=== PATIENT | male | born 1945 | race Caucasian/White ===

== ENCOUNTER 2023-09-11 08:58 | Outpatient (OUT) | payer MEDICARE, SELFPAY ==
[2023-09-11 09:37] LABS: Basophils Percent Auto 0.5 % (0.2-2.0); Eosinophils Absolute Auto 0.1 10^3/uL (0.0-0.7); Eosinophils Percent Auto 0.9 % (0.9-7.0); Hematocrit 39.9 % (42.0-54.0); Hemoglobin 12.8 g/dL (14.0-18.0); Immature Granulocytes Abs Auto 0.02 10^3/uL (0.00-0.03); Immature Granulocytes Pct Auto 0.2 % (0.0-0.5); Lymphocytes Absolute Auto 2.1 10^3/uL (1.2-3.8); Lymphocytes Percent Auto 25.8 % (20.5-60.0); Mean Corpuscular HGB Conc 32.1 g/dL (29.9-35.2); Mean Corpuscular Hemoglobin 31.1 pg (25.9-34.0); Mean Corpuscular Volume 96.8 fL (80.0-94.0); Monocytes Absolute Auto 0.7 10^3/uL (0.3-0.8); Monocytes Percent Auto 8.3 % (1.7-12.0); Neutrophils Absolute Auto 5.2 10^3/uL (1.4-6.5); Neutrophils Percent Auto 64.3 % (43.0-75.0); Platelet Count 192 10^3/uL (150-450); Red Blood Count 4.12 10^6/uL (4.70-6.10); Red Cell Distribution Width 13.6 % (11.0-15.0); White Blood Count 8.1 10^3/uL (4.0-11.0)
[2023-09-11 09:47] LABS: Estimated Average Glucose 131 mg/dL; Glycohemoglobin A1C 6.2 % (4.5-6.2)
[2023-09-11 10:13] LABS: Alanine Aminotransferase 19 U/L (16-63); Albumin Globulin Ratio 0.8; Albumin Level 3.7 g/dL (3.4-5.0); Alkaline Phosphatase 97 U/L (46-116); Aspartate Amino Transferase 16 U/L (15-37); BUN Creatinine Ratio 19.5; Bilirubin Total 0.7 mg/dL (0.2-1.0); Calcium 9.3 mg/dL (8.5-10.1); Carbon Dioxide 28.2 mmol/L (21.0-32.0); Chloride 104 mmol/L (98-107); Chol HDL Ratio 3.3; Cholesterol 169 mg/dL (<=200); Estimated GFR (African America 48 (>=60); Estimated GFR (Non-African Ame 39 (>=60); Free T3 2.64 pg/mL (2.18-3.98); Globulin 4.6 g/dL; Glucose 80 mg/dL (74-106); HDL Cholesterol 51 mg/dL (40-60); LDL Cholesterol Calculated 98.6 mg/dL; Potassium 5.2 mmol/L (3.5-5.1); Sodium 140 mmol/L (136-145); Thyroid Stimulating Hormone 1.758 uIU/mL (0.358-3.740); Total Protein 8.3 g/dL (6.4-8.2); Triglycerides 97 mg/dL (<=150); Uric Acid 7.9 mg/dL (3.5-7.2); VLDL CHOLESTEROL 19.4 mg/dL
[2023-09-11 10:14] LABS: Prostate Specific Antigen Scrn 4.03 ng/mL (<=4.00)
[2023-09-12 04:09] LABS: PSA, Free 1.22 ng/mL
== END 2023-09-11 08:59 | disposition home or self-care (01) ==
LOC: LAB 09:03
PROVIDERS: PCP Family Medicine; Visit Provider Family Medicine
DX: M10.9 Gout, unspecified (principal); Z23 Encounter for immunization; I10 Essential (primary) hypertension; E11.9 Type 2 diabetes mellitus without complications; K59.00 Constipation, unspecified; E78.5 Hyperlipidemia, unspecified; Z12.5 Encounter for screening for malignant neoplasm of prostate; Z12.12 Encounter for screening for malignant neoplasm of rectum; R97.20 Elevated prostate specific antigen [PSA]
CPT/HCPCS: 36415; 80053; 80061; 83036; 84153; 84154; 84436; 84443; 84481; 84550; 85025; G0103

== ENCOUNTER 2023-09-14 15:26 | Outpatient (REF) | payer MEDICARE, SELFPAY ==
[2023-09-14 15:39] LABS: Occult Blood Positive
== END 2023-09-14 15:27 | disposition home or self-care (01) ==
LOC: LAB 15:26
PROVIDERS: PCP Family Medicine; Visit Provider Family Medicine
DX: Z12.12 Encounter for screening for malignant neoplasm of rectum (principal)
CPT/HCPCS: G0328

== ENCOUNTER 2023-09-22 07:59 | Outpatient (OUT) | payer MEDICARE, SELFPAY ==
[2023-09-22 09:52] LABS: Anion Gap 13.5; BUN Creatinine Ratio 14.9; Carbon Dioxide 28.3 mmol/L (21.0-32.0); Chloride 103 mmol/L (98-107); Estimated GFR (African America 56 (>=60); Estimated GFR (Non-African Ame 46 (>=60); Glucose 76 mg/dL (74-106); Potassium 4.8 mmol/L (3.5-5.1); Sodium 140 mmol/L (136-145)
== END 2023-09-22 08:00 | disposition home or self-care (01) ==
PROVIDERS: PCP Family Medicine; Visit Provider Family Medicine
DX: E87.5 Hyperkalemia (principal); N17.9 Acute kidney failure, unspecified
CPT/HCPCS: 36415; 80048

== ENCOUNTER 2023-10-18 13:35 | Outpatient (OUT) | payer MEDICARE, SELFPAY | END 2023-10-18 13:36 | disposition home or self-care (01) | LOC: PST 13:35 | PROVIDERS: PCP Family Medicine; Visit Provider Surgery | DX: Z01.818 Encounter for other preprocedural examination (principal); R19.5 Other fecal abnormalities ==

== ENCOUNTER 2023-10-25 08:10 | Day surgery (SDC) | payer MEDICARE, SELFPAY ==
--- NOTE | 2023-10-25 | OP_ITS ---
OPERATION DATE: 10/25/2023 PREOPERATIVE DIAGNOSIS: Positive fecal occult blood. POSTOPERATIVE DIAGNOSIS: Severe diverticulosis. PROCEDURE: Colonoscopy to cecum. SURGEON: Donald Menon M.D. ANESTHESIA: Monitored anesthesia care. ESTIMATED BLOOD LOSS: Zero. INDICATIONS AND CONSENT: Patient is a 77-year-old male with recent positive fecal occult blood. Indications, risks, benefits, alternatives of proceeding with colonoscopy were explained extensively to the patient, including the risks of bleeding, colon perforation or anesthetic complications. All of his questions were answered. Informed consent was obtained. PROCEDURE: Patient brought to the operating room, placed in the left lateral decubitus position. Monitored anesthesia care was provided. Rectal exam was performed which shows no masses or blood. The scope was inserted into the anal canal. Under direct visualization was advanced. With the aid of abdominal compression, it was advanced to the cecum where cecal markings were clearly identified. Upon withdrawal of the scope, mucosal surfaces were carefully examined. There were no mass lesions or polyps. No inflammatory changes or ulcerations. There was noted to be severe diverticulosis throughout the colon, including the right colon, with no inflammatory changes. The scope was retroflexed in the anal canal. There was no significant hemorrhoidal disease. The scope was then withdrawn. Patient tolerated procedure well, was sent to recovery room in good condition.no further screening required CC: Jaime Vargas M.D. [facility]
--- OUTSIDE RECORDS SUMMARY | 2023-10-25 08:13 | XMS_ITS | CCD ---
Author Name Unknown Address [address] [place] [address] Organization [facility] Care Team Providers Care Air Traffic Controller Name Role Phone STEPHY, DR DO Admitting Unavailable STEPHY, DR DO Attending Unavailable STEPHY, DR DO Primary Care Unavailable STEPHY, DR DO Consulting Unavailable STEPHY, DR DO Admitting Unavailable STEPHY, DR DO Attending Unavailable STEPHY, DR DO Primary Care Unavailable STEPHY, DR DO Consulting Unavailable BRIAN, DR LAKIA Deutsch Consulting Unavailable STEPHY, DR DO Admitting Unavailable STEPHY, DR DO Attending Unavailable STEPHY, DR DO Primary Care Unavailable STEPHY, DR DO Consulting Unavailable STEPHY, DR DO Primary Care Unavailable LINDA PEÑALOZA Admitting Unavailable LINDA PEÑALOZA Attending Unavailable JAY, DR SHELL Garcia Consulting Unavailable LINDA PEÑALOZA Consulting Unavailable Hi Vargas Primary Care Physician Donald EVERETT Attending Unavailable Hi Vargas Referring Unavailable Allergies Allergy Classification Reported Allergen(s) Allergy Type Date of Onset Reaction(s) Facility (1 source) No Known Medication Allergies; Translations: [No Known Medication Allergies] Propensity to adverse reactions (disorder) [facility] Medications Current Medications Medication Drug Class(es) Dates Sig (Normalized) Sig (Original) aspirin 81 mg delayed release oral tablet (1 source) Platelet Aggregation Inhibitor, Nonsteroidal Anti-inflammatory Drug Start: 10-04-2023 take 1 tablet by mouth once daily aspirin 81 mg Oral EC Tab 81 mg = 1 tab(s), Oral, Daily, Refills(s) 0 Start Date: 10/04/23 Status: Ordered glipiZIDE 10 mg oral tablet (1 source) Sulfonylurea Start: 10-04-2023 take 1 tablet by mouth twice daily glipiZIDE 10 mg Tab 10 mg = 1 tab(s), Oral, BID, Refills(s) 0 Start Date: 10/04/23 Status: Ordered indomethacin 25 mg oral capsule (1 source) Nonsteroidal Anti-inflammatory Drug Start: 10-04-2023 take 1 capsule by mouth twice daily indomethacin 25 mg Cap 25 mg = 1 cap(s), Oral, BID, Refills(s) 0 Start Date: 10/04/23 Status: Ordered metFORMIN hydrochloride 500 mg oral tablet (1 source) Biguanide Start: 10-04-2023 take 1 tablet by mouth twice daily metformin 500 mg Tab 500 mg = 1 tab(s), Oral, BID, Refills(s) 0 Start Date: 10/04/23 Status: Ordered 24 hr metoprolol succinate 100 mg extended release oral tablet (1 source) beta-Adrenergic Elizabeth Start: 10-04-2023 take 1 tablet by mouth once daily metoprolol 100 mg ER Tab 100 mg = 1 tab(s), Oral, Daily, Refills(s) 0 Start Date: 10/04/23 Status: Ordered Miralax (1 source) Osmotic Laxative Start: 10-04-2023 take 17 g by mouth once daily MiraLax 17 gm, Oral, Daily, Refill(s) 0 Start Date: 10/04/23 Status: Ordered Vitamin D3 2000 intl units oral Tab (1 source) Start: 10-04-2023 take 1 tablet by mouth once daily Vitamin D3 2000 intl units oral Tab = 1 tab(s), Oral, Daily, Refills(s) 0 Start Date: 10/04/23 Status: Ordered Completed/Discontinued Medications Medication Drug Class(es) Dates Sig (Normalized) Sig (Original) pioglitazone 30 mg oral tablet (1 source) Peroxisome Proliferator Receptor alpha Agonist, Peroxisome Proliferator Receptor gamma Agonist, Thiazolidinedione Start: 10-04-2023 take 1 tablet by mouth once daily simvastatin 10 mg oral tablet (1 source) HMG-CoA Reductase Inhibitor Start: 10-04-2023 take 2 tablets by mouth once daily in the evening Problems Active Problems Problem Classification Problem Date Documented Da te Episodic/Chronic Calculus of urinary tract (1 source) History of calculus of kidney 10-04-2023 Episodic Cardiac dysrhythmias (1 source) Bradycardia 10-04-2023 Episodic Deficiency and other anemia (4 sources) Anemia, unspecified; Translations: [ANEMIA UNSPECIFIED] Onset: 09-09-2022 Episodic Diabetes mellitus without complication (2 sources) Type 2 diabetes mellitus without complications; Translations: [Diabetes mellitus] Onset: 09-12-2022 10-04-2023 Chronic Disorders of lipid metabolism (1 source) Hyperlipidemia, unspecified; Translations: [HYPERLIPIDEMIA UNSPECIFIED] Onset: 09-12-2022 Chronic Diverticulosis and diverticulitis (1 source) Diverticular disease 10-04-2023 Chronic Essential hypertension (2 sources) Essential (primary) hypertension; Translations: [Essential hypertension] Onset: 09-12-2022 10-04-2023 Chronic Gout and other crystal arthropathies (2 sources) Gout, unspecified; Translations: [Gout] Onset: 09-12-2022 10-04-2023 Chronic Hyperplasia of prostate (5 sources) Benign prostatic hyperplasia without lower urinary tract symptoms; Translations: [Benign prostatic hyperplasia] Onset: 09-08-2022 Chronic Nutritional deficiencies (1 source) Vitamin D deficiency, unspecified; Translations: [VITAMIN D DEFICIENCY UNSPECIFIED] Onset: 09-12-2022 Chronic Other gastrointestinal disorders (1 source) Abnormal feces; Translations: [Other fecal abnormalities] Onset: 10-17-2023 Episodic Other gastrointestinal disorders (1 source) Occult blood in stools 10-11-2023 Episodic Other nutritional; endocrine; and metabolic disorders (1 source) Overweight 10-17-2023 Episodic Other nutritional; endocrine; and metabolic disorders (1 source) Overweight in adulthood with body mass index of 25 or more but less than 30 10-17-2023 Episodic Other screening for suspected conditions (not mental disorders or infectious disease) (2 sources) Encounter for screening for malignant neoplasm of prostate; Translations: [Abnormal findings on diagnostic imaging of other parts of musculoskeletal system] Onset: 12-06-2021 Episodic Spondylosis; intervertebral disc disorders; other back problems (2 sources) Other intervertebral disc degeneration, lumbosacral region; Translations: [Spondylosis without myelopathy or radiculopathy, lumbar region] Onset: 11-29-2021 Chronic Transient cerebral ischemia (1 source) 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 Unclassified (3 sources) LOW BACK PAIN, UNSPECIFIED; Translations: [LOW BACK PAIN, UNSPECIFIED] Onset: 12-06-2021 Past or Other Problems Problem Classification Problem Date Documented Da te Episodic/Chronic Spondylosis; intervertebral disc disorders; other back problems (1 source) Spinal stenosis, lumbosacral region; Translations: [SPINAL STENOSIS LUMBOSACRAL REGION] Onset: 12-06-2021 Episodic Unclassified (1 source) LOW BACK PAIN, UNSPECIFIED; Translations: [LOW BACK PAIN, UNSPECIFIED] Onset: 12-02-2021 Results Test Name Value Interpretation Reference Range Facil ity Consent for Procedure/Surger yon 10-18-2023 Consent for Procedure/Surgery [id number]#1.00TIFF [facility] Facesheeton 10-18-2023 Facesheet [id number]#1.00T IFF [facility] Ambulatory Visit Summaryon 1 12-18-2022 Ambulatory Visit Summary PARDEEP STEPHENSON :1945 Visit Date:10/17/2023 Ambulatory Visit Instructions Your Diagnosis Positive occult stool blood test Your Care Team Attending Physician - MARGUERITE CASE, Donald Deutsch Primary Care Physician - Hi Vargas MD Referring Physician - Hi Vargas MD This Is Your Medications List Contact prescribing physician if questions or concerns aspirin (aspirin 81 mg Oral EC Tab) cholecalciferol (Vitamin D3 2000 intl units oral Tab) glipiZIDE (glipiZIDE 10 mg Tab) indomethacin (indomethacin 25 mg Cap) metformin (metformin 500 mg Tab) metoprolol (metoprolol 100 mg ER Tab) pioglitazone (pioglitazone 30 mg Tab) polyethylene glycol 3350 (MiraLax) simvastatin (simvastatin 10 mg Tab) Procedures Performed Colonoscopy (12/28/2011), Insertion of stent into ureter. Discharge Vitals Heart Rate (Peripheral) 68 Respiratory Rate 16 Blood Pressure 148/84 Height 177.8 cm Height 70 in Weight 89.6 kg Weight 197.12 lb BMI 28.34 Medications What How Much When Instructions Unchanged aspirin (aspirin 81 mg Oral EC Tab) 1 Tablets By Mouth Every day Contact prescribing physician if questions or concerns Unchanged cholecalciferol (Vitamin D3 2000 intl units oral Tab) 1 Tablets By Mouth Every day Contact prescribing physician if questions or concerns Unchanged glipiZIDE (glipiZIDE 10 mg Tab) 1 Tablets By Mouth 2 times a day Contact prescribing physician if questions or concerns Unchanged indomethacin (indomethacin 25 mg Cap) 1 Capsules By Mouth 2 times a day Contact prescribing physician if questions or concerns Unchanged metformin (metformin 500 mg Tab) 1 Tablets By Mouth 2 times a day Contact prescribing physician if questions or concerns Unchanged metoprolol (metoprolol 100 mg ER Tab) 1 Tablets By Mouth Every day Contact prescribing physician if questions or concerns Unchanged pioglitazone (pioglitazone 30 mg Tab) 1 Tablets By Mouth Every day 1 Unknown, 0 Refill(s) Contact prescribing physician if questions or concerns Unchanged polyethylene glycol 3350 (MiraLax) 17 Gram By Mouth Every day Contact prescribing physician if questions or concerns Unchanged simvastatin (simvastatin 10 mg Tab) 2 Tablets By Mouth Once a day (in the evening) 2 Unknown, 0 Refill(s) Contact prescribing physician if questions or concerns Medications and Immunizations Administered Not Given influenza virus vaccine, inactivated, Patient Refuses Allergies No Known Allergies No Known Medication Allergies Problems Ongoing - Any problem that you are currently receiving treatment for. Benign prostatic hyperplasia BMI 28.0-28.9,adult Bradycardia Diabetes mellitus Diverticular disease Essential hypertension Gout History of nephrolithiasis Overweight Positive occult stool blood test Transient global amnesia Patient Survey You may receive a survey via text or e-mail asking about your office visit. Please share your experience with us by completing your survey. We appreciate your feedback and thank you for choosing us for your care. Normal [facility] Lab Reportson 10-04-2023 Lab Reports [id number]#1.00T IFF Normal [facility] Physician Referralon 023 Physician Referral [id number]#1.00TIFF Normal [facility] INSULINon 09-09-2022 Insulin 12.7 uIU/mL Normal 2.6-24.9 [facility] Comment on above: Performed By: #### I NSULIN #### [facility] [address] [place] [address] Dr. Zak Gutierrez OCC BLD IMMUNO SCREENon OCCULT BLOOD Negative Normal NEGATIVE [facility] Comment on above: Performed By: #### O BSCRN #### [facility] [address] [place] [address] Dr. Zak Gutierrez CBC AUTO DIFFon 09-08-2022 BASO # 0.0 103/ul Normal 0.0-0.1 [facility] Comment on above: Performed By: #### C BC #### [facility] [address] [place] [address] Dr. Zak Gutierrez Basophils/100 WBC (Bld) 0.4 % Normal 0.2-2.0 [facility] Comment on above: Performed By: #### C BC #### [facility] [address] [place] [address] Dr. Zak Gutierrez EO # 0.1 103/ul Normal 0.0-0.7 [facility] Comment on above: Performed By: #### C BC #### [facility] [address] [place] [address] Dr. Zak Gutierrez Eosinophils/100 WBC (Bld) 1.1 % Normal 0.9-7.0 [facility] Comment on above: Performed By: #### C BC #### [facility] [address] [place] [address] Dr. Zak Gutierrez Erythrocyte distribution wid th (RBC) [Ratio] 13.6 % Normal 11.0-15.0 [facility] Comment on above: Performed By: #### C BC #### [facility] [address] [place] [address] Dr. Zak Gutierrez Hematocrit (Bld) [Volume fraction] 40.0 % Critically low 42.0-54.0 [facility] Comment on above: Performed By: #### C BC #### [facility] [address] [place] [address] Dr. Zak Gutierrez Hemoglobin (Bld) [Mass/Vol] 12.7 g/dL Critically low 14.0 -18.0 [facility] Comment on above: Performed By: #### C BC #### [facility] [address] [place] [address] Dr. Zak Gutierrez IG # 0.02 10e3/ul Normal 0.00-0.03 [facility] Comment on above: Performed By: #### C BC #### [facility] [address] [place] [address] Dr. Zak Gutierrez IG % 0.3 % Normal 0.0-0.5 [facility] Comment on above: Performed By: #### C BC #### [facility] [address] [place] [address] Dr. Zak Gutierrez LYMPH # 2.0 103/ul Normal 1.2-3.8 [facility] Comment on above: Performed By: #### C BC #### [facility] [address] [place] [address] Dr. Zak Gutierrez Lymphocytes/100 WBC (Bld) 27.5 % Normal 20.5-60.0 [facility] Comment on above: Performed By: #### C BC #### [facility] [address] [place] [address] Dr. Zak Gutierrez MANUAL DIFF REQ NO Normal [facility] Comment on above: Performed By: #### C BC #### [facility] [address] [place] [address] Dr. Zak Gutierrez MCH (RBC) [Entitic mass] 30.6 pg Normal 25.9-34.0 [facility] Comment on above: Performed By: #### C BC #### [facility] [address] [place] [address] Dr. Zak Gutierrez MCHC (RBC) [Mass/Vol] 31.8 g/dL Normal 29.9-35.2 [facility] Comment on above: Performed By: #### C BC #### [facility] [address] [place] [address] Dr. Zak Gutierrez MCV (RBC) [Entitic vol] 96.4 fL Critically high 80.0-94 .0 [facility] Comment on above: Performed By: #### C BC #### [facility] [address] [place] [address] Dr. Zak Gutierrez MONO # 0.6 103/ul Normal 0.3-0.8 [facility] Comment on above: Performed By: #### C BC #### [facility] [address] [place] [address] Dr. Zak Gutierrez Monocytes/100 WBC (Bld) 8.4 % Normal 1.7-12.0 [facility] Comment on above: Performed By: #### C BC #### [facility] [address] [place] [address] Dr. Zak Gutierrez NEUT # 4.5 103/ul Normal 1.4-6.5 [facility] Comment on above: Performed By: #### C BC #### [facility] [address] [place] [address] Dr. Zak Gutierrez Neutrophils/100 WBC (Bld) 62.3 % Normal 43.0-75.0 [facility] Comment on above: Performed By: #### C BC #### [facility] [address] [place] [address] Dr. Zak Gutierrez Platelet mean volume (Bld) [ Entitic vol] 10.9 fL Normal 9.5-13.5 [facility] Comment on above: Performed By: #### C BC #### [facility] [address] [place] [address] Dr. Zak Gutierrez PLT 184 103/ul Normal 150-450 [facility] Comment on above: Performed By: #### C BC #### [facility] [address] [place] [address] Dr. Zak Gutierrez RBC 4.15 106/ul Critically low 4.70-6.[address] [facility] Comment on above: Performed By: #### C BC #### [facility] [address] [place] [address] Dr. Zak Gutierrez WBC 7.1 103/ul Normal 4.0-11.0 [facility] Comment on above: Performed By: #### C BC #### [facility] [address] [place] [address] Dr. Zak Gutierrez FREE THYROXINE INDEX T7on FTI 2.42 Normal 1.30-4.50 [facility] Comment on above: Performed By: #### C MP, T7, LIPID, URIC, TSH #### [facility] [address] [address] [address] Zak Gutierrez T3U 31.0 % Critically low 33.0-40.0 [facility] Comment on above: Performed By: #### C MP, T7, LIPID, URIC, TSH #### [facility] [address] [address] [address] Zak Gutierrez T4 [Mass/Vol] 7.80 ug/dL Normal 4.50-12.10 [facility] Comment on above: Performed By: #### C MP, T7, LIPID, URIC, TSH #### [facility] [address] [address] [address] Zak Gutierrez GLYCOHEMOGLOBIN A1Con 2021 ADA RECOMMENDATION SEE BELOW Normal [facility] Comment on above: Result Comment: ADA RECOMMENDED LIMIT 4.0 - 6.0 ADA THERAPEUTIC TARGET < 7.0 ACTION SUGGESTED > 7.0 Performed By: #### A 1C ####[facility] [id number] [address]Dr. Zak Gutierrez Glucose [Mass/Vol] 140 mg/dL Normal The [facility] Comment on above: Performed By: #### A 1C ####[facility] [id number] [id number][address] Zak Gutierrez HbA1c (Bld) [Mass fraction] 6.5 % Critically high 4.5 -6.2 [facility] Comment on above: Performed By: #### A 1C ####[facility] [id number] [id number]. Zak Gutierrez LIPID PROFILEon 09-08-2022 CHOL-HDL RATIO NORM SEE BELOW Normal [facility] Comment on above: Result Comment: 3.3 - 4.4 LOW RISK 4.4 - 7.1 AVERAGE RISK 7.1 - 11.0 MODERATE RISK >11.0 HIGH RISK Performed By: #### C MP, T7, LIPID, URIC, TSH #### [facility] [address] [address] [address] Zak Gutierrez Cholesterol [Mass/Vol] 152 mg/dL Normal <=200 [facility] Comment on above: Performed By: #### C MP, T7, LIPID, URIC, TSH #### [facility] [address] [address] [address] Zak Gutierrez Cholesterol in HDL [Mass/Vol] 40 mg/dL Normal 40-60 [facility] Comment on above: Performed By: #### C MP, T7, LIPID, URIC, TSH #### [facility] [address] [address] [address] Zak Gutierrez Cholesterol in LDL [Mass/Vol] 81.8 mg/dL Normal [facility] Comment on above: Performed By: #### C MP, T7, LIPID, URIC, TSH #### [facility] [address] [place] [address] Dr. Zak Gutierrez Cholesterol.total/Cholestero l in HDL [Mass ratio] 3.8 {ratio} Normal [facility] Comment on above: Performed By: #### C MP, T7, LIPID, URIC, TSH #### [facility] [address] [place] [address] Dr. Zak Gutierrez HDL NORMAL > or = 60 mg/dl - LO W CARDIOVASCULAR RISK <40 mg/dl - HIGH CARDIOVASCULAR RISK Normal [facility] Comment on above: Performed By: #### C MP, T7, LIPID, URIC, TSH #### [facility] [address] [place] [address] Dr. Zak Gutierrez LDL CALC NORMAL SEE BELOW Normal [facility] Comment on above: Result Comment: <100 mg/dl OPTIMAL 100 - 129 mg/dl NEAR OR ABOVE OPTIMAL 130 - 159 mg/dl BORDERLINE HIGH 160 - 189 mg/dl HIGH >190 mg/dl VERY HIGH Performed By: #### C MP, T7, LIPID, URIC, TSH #### [facility] [address] [place] [address] Dr. Zak Gutierrez Triglyceride [Mass/Vol] 151 mg/dL Critically high <=150 [facility] Comment on above: Performed By: #### C MP, T7, LIPID, URIC, TSH #### [facility] [address] [place] [address] Dr. Zak Gutierrez VLDL CALC 30.2 mg/dL Normal [facility] Comment on above: Performed By: #### C MP, T7, LIPID, URIC, TSH #### [facility] [address] [place] [address] Dr. Zak Gutierrez PROF 14(COMP METB)on 022 Albumin [Mass/Vol] 3.7 g/dL Normal 3.4-5.0 [facility] Comment on above: Performed By: #### C MP, T7, LIPID, URIC, TSH #### [facility] [address] [place] [address] Dr. Zak Gutierrez Albumin/Globulin [Mass ratio] 0.8 {ratio} Normal [facility] Comment on above: Performed By: #### C MP, T7, LIPID, URIC, TSH #### [facility] [address] [place] [address] Dr. Zak Gutierrez ALP [Catalytic activity/Vol] 109 U/L Normal 46-116 [facility] Comment on above: Performed By: #### C MP, T7, LIPID, URIC, TSH #### [facility] [address] [place] [address] Dr. Zak Gutierrez ALT [Catalytic activity/Vol] 20 U/L Normal 16-63 [facility] Comment on above: Performed By: #### C MP, T7, LIPID, URIC, TSH #### [facility] [address] [place] [address] Dr. Zak Gutierrez Anion gap [Moles/Vol] 10.6 mmol/L Normal [facility] Comment on above: Performed By: #### C MP, T7, LIPID, URIC, TSH #### [facility] [address] [place] [address] Dr. Zak Gutierrez AST [Catalytic activity/Vol] 20 U/L Normal 15-37 [facility] Comment on above: Performed By: #### C MP, T7, LIPID, URIC, TSH #### [facility] [address] [place] [address] Dr. Zak Gutierrez Bilirubin [Mass/Vol] 0.7 mg/dL Normal 0.2-1.0 [facility] Comment on above: Performed By: #### C MP, T7, LIPID, URIC, TSH #### [facility] [address] [place] [address] Dr. Zak Gutierrez Calcium [Mass/Vol] 9.6 mg/dL Normal 8.5-10.1 [facility] Comment on above: Performed By: #### C MP, T7, LIPID, URIC, TSH #### [facility] [address] [place] [address] Dr. Zak Gutierrez Chloride [Moles/Vol] 102 mmol/L Normal 98-107 [facility] Comment on above: Performed By: #### C MP, T7, LIPID, URIC, TSH #### [facility] [address] [place] [address] Dr. Zak Gutierrez CO2 [Moles/Vol] 30.2 mmol/L Normal 21.0-32.0 [facility] Comment on above: Performed By: #### C MP, T7, LIPID, URIC, TSH #### [facility] [address] [place] [address] Dr. Zak Gutierrez Creatinine [Mass/Vol] 1.46 mg/dL Critically high 0.70-1.30 [facility] Comment on above: Performed By: #### C MP, T7, LIPID, URIC, TSH #### [facility] [address] [place] [address] Dr. Zak Gutierrez EGFR-AF CANADIAN 57 mL/min/1.73m2 Critically low >=60 [facility] Comment on above: Performed By: #### C MP, T7, LIPID, URIC, TSH #### [facility] [address] [place] [address] Dr. Zak Gutierrez EGFR-NON AF CANADIAN 47 mL/min/1.73m2 Critically low >=60 [facility] Comment on above: Performed By: #### C MP, T7, LIPID, URIC, TSH #### [facility] [address] [place] [address] Dr. Zak Gutierrez Globulin (S) [Mass/Vol] 4.5 g/dL Normal [facility] Comment on above: Performed By: #### C MP, T7, LIPID, URIC, TSH #### [facility] [address] [place] [address] Dr. Zak Gutierrez Glucose [Mass/Vol] 84 mg/dL Normal 74-106 [facility] Comment on above: Performed By: #### C MP, T7, LIPID, URIC, TSH #### [facility] [address] [place] [address] Dr. Zak Gutierrez Potassium [Moles/Vol] 4.8 mmol/L Normal 3.5-5.1 [facility] Comment on above: Performed By: #### C MP, T7, LIPID, URIC, TSH #### [facility] [address] [place] [address] Dr. Zak Gutierrez Protein [Mass/Vol] 8.2 g/dL Normal 6.4-8.2 [facility] Comment on above: Performed By: #### C MP, T7, LIPID, URIC, TSH #### [facility] [address] [place] [address] Dr. Zak Gutierrez Sodium [Moles/Vol] 138 mmol/L Normal 136-145 [facility] Comment on above: Performed By: #### C MP, T7, LIPID, URIC, TSH #### [facility] [address] [place] [address] Dr. Zak Gutierrez Urea nitrogen [Mass/Vol] 25.0 mg/dL Critically high 7.0-18 .0 [facility] Comment on above: Performed By: #### C MP, T7, LIPID, URIC, TSH #### [facility] [address] [place] [address] Dr. Zak Gutierrez Urea nitrogen/Creatinine [Mass ratio] 17.1 mg/mg Normal [facility] Comment on above: Performed By: #### C MP, T7, LIPID, URIC, TSH #### [facility] [address] [place] [address] Dr. Zak Gutierrez TSHon 09-08-2022 TSH 1.625 uIU/mL Normal 0.358-3.740 [facility] Comment on above: Performed By: #### C MP, T7, LIPID, URIC, TSH #### [facility] [address] [place], [place] [address] Dr. Zak Gutierrez URIC ACID SERUMon 09-08-2022 Urate [Mass/Vol] 7.4 mg/dL Critically high 3.5-7.2 [facility] Comment on above: Performed By: #### C MP, T7, LIPID, URIC, TSH #### [facility] [address] [place], [place] [address] Dr. Zak Gutierrez VITAMIN D 25 OHon 09-08-2022 VIT D 25-OH 24.0 ng/mL Normal [facility] Comment on above: Performed By: #### V ITAD, PSASC ####[facility] [address] [place] [id number] Gutierrez VIT D RANGES SEE BELOW Normal [facility] Comment on above: Result Comment: <20 ng/mL Vit D deficient 20 - <30 ng/mL Vit D insufficient 30 - 100 ng/mL Vit D sufficient >100 ng/mL Potential Toxicity Performed By: #### V ITAD, PSASC ####[facility] [address] [place], [place] [address]Bi. Zak Gutierrez MRI LSPINE WO CONon 12-02-19 MRI LSPINE WO CON EXAMINATION: MRI LSP INE WO CON HISTORY: Imaging result abnormal ; acute lumbar pain, no known injury COMPARISON: XR lumbar spine 11/25/2021 TECHNIQUE: A variety of imaging planes and parameters were utilized for visualization of suspected pathology. FINDINGS: For the purposes of numbering, sagittal T2 image # 8 extends from the T12-L1 vertebral body superiorly to the S4 level inferiorly. PARASPINAL AREA: Bilateral renal cysts. BONES: Partial lumbarization of S1. Prominent anterior projecting osteophytes. No fracture, spondylolisthesis, bone lesion. CORD/CAUDA EQUINA: Normal caliber, contour, and signal intensity. DISC LEVELS: 12-L1: No significant disc/facet abnormality, spinal stenosis, or foraminal stenosis. L1-L2: No significant disc/facet abnormality, spinal stenosis, or foraminal stenosis. L2-L3: No significant disc/facet abnormality, spinal stenosis, or foraminal stenosis. L3-L4: Mild foraminal narrowing bilaterally without significant central canal narrowing. Mild diffuse disc bulging without disc height reduction. L4-L5: Mild foraminal narrowing bilaterally without significant central canal narrowing. Mild diffuse disc bulging without disc height reduction. Mild degenerative facet arthropathy. L5-S1: Marked right, moderate left foramen narrowing. Mild central canal narrowing. Mild diffuse disc bulging with minimal disc height reduction. Moderate degenerative facet arthropathy, right greater than left. IMPRESSION: 1. L5-S1 marked right foramen narrowing secondary to degenerative disc disease and facet arthropathy, which may be contributing to patient's symptoms. Electronically authenticated by: LAKIA TORRES Date: 2021-12-02 16:16 Normal [facility] ER URINE PROFILEon 2 Bilirubin Ql (U) Negative Normal NEGATIVE [facility] Comment on above: Performed By: #### U MICRO, ERUR ####[facility] [address] [place] [address]Dr. Zak Gutierrez Clarity (U) CLEAR Normal CLEAR [facility] Comment on above: Performed By: #### U MICRO, ERUR ####[facility] [address] [place] [address]Dr. Zak Gutierrez Color (U) YELLOW Normal YELLOW [facility] Comment on above: Performed By: #### U MICRO, ERUR ####[facility] [address] [place] [address]Dr. Zak CHRISTIANSONAHD A micrscopic examina tion will be performed if indicated. Normal [facility] Comment on above: Performed By: #### U MICRO, ERUR ####[facility] [address] [place] [address]Dr. Zak Gutierrez Glucose Ql (U) Negative Normal NEGATIVE [facility] Comment on above: Performed By: #### U MICRO, ERUR ####[facility] [address] [place] [address]Dr. Zak Gutierrez Hemoglobin Ql (U) SMALL Abnormal NEGATIVE [facility] Comment on above: Performed By: #### U MICRO, ERUR ####[facility] [address] [place] [address]Dr. Zak Gutierrez Ketones Ql (U) Negative Normal NEGATIVE [facility] Comment on above: Performed By: #### U MICRO, ERUR ####[facility] [address] [place] [address]Dr. Zak Gutierrez LEUKOCYTES TRACE Abnormal NEGATIVE [facility] Comment on above: Performed By: #### U MICRO, ERUR ####[facility] [address] [place] [address]Dr. Haleysaniya Matt Nitrite Ql (U) Negative Normal NEGATIVE [facility] Comment on above: Performed By: #### U MICRO, ERUR ####[facility] [address] [place] [address]Dr. Zak Gutierrez pH (U) 6.0 [pH] Normal 5-9 [facility] Comment on above: Performed By: #### U MICRO, ERUR ####[facility] [address] [place], [place] [address]Dr. Zak Gutierrez Protein (U) [Mass/Vol] 30 mg/dL Abnormal NEGATIVE/ TRA CE [facility] Comment on above: Performed By: #### U MICRO, ERUR ####[facility] [address] [place] [address]Dr. Zak Gutierrez SPEC GRAVITY 1.025 Normal 1.005-<=1.[address] [facility] Comment on above: Performed By: #### U MICRO, ERUR ####[facility] [address] [place] [address]Dr. Zak Gutierrez UR MICRO IND INDICATED Normal [facility] Comment on above: Performed By: #### U MICRO, ERUR ####[facility] [address] [place] [address]Dr. Zak Gutierrez Urobilinogen Qn (U) 0.2 {Kirt'U}/dL Normal 0.2 - 1. 0 [facility] Comment on above: Performed By: #### U MICRO, ERUR ####[facility] [address] [place] [address]Dr. Zak Gutierrez URINE MICROSCOPIC ONLYon BACTERIA NONE SEEN Normal NONE SEEN [facility] Comment on above: Performed By: #### U MICRO, ERUR ####[facility] [address] [place] [address]Dr. Zak Gutierrez Bacteria identified Cx Nom (U) NOT INDICATED Normal [facility] Comment on above: Performed By: #### U MICRO, ERUR ####[facility] [address] [place] [address]Dr. Zak Gutierrez CAST SEEN Abnormal NONE SEEN [facility] Comment on above: Performed By: #### U MICRO, ERUR ####[facility] [address] [place] [address]Dr. Zak Gutierrez Crystals LM Nom (Urine sed) NONE SEEN Normal NONE SEE N [facility] Comment on above: Performed By: #### U MICRO, ERUR ####[facility] [address] [place], [place] [address]Dr. Zak Gutierrez Epithelial cells LM Ql (Urine sed) FEW Abnormal N ONE SEEN /RARE [facility] Comment on above: Performed By: #### U MICRO, ERUR ####[facility] [address] [place], [place] [address]Dr. Zak Gutierrez HYALINE CAST RARE Normal [facility] Comment on above: Performed By: #### U MICRO, ERUR ####[facility] [address] [place], [place] [address]Dr. Zak Gutierrez MUCOUS TRACE Abnormal NONE SEEN [facility] Comment on above: Performed By: #### U MICRO, ERUR ####[facility] [address] [place] [address]Dr. Zak Gutierrez RBC 2-5 Abnormal 0-2 [facility] Comment on above: Performed By: #### U MICRO, ERUR ####[facility] [address] [place], [place] [address]Dr. Zak Gutierrez WBC 0-2 Abnormal NONE SEEN [facility] Comment on above: Performed By: #### U MICRO, ERUR ####[facility] [address] [place], [place] [address]DrReyes Gutierrez XR LSPINE 2_3 VIEWSon 2021 XR LSPINE 2_3 VIEWS EXAMINATION: XR LSPI NE 2_3 VIEWS HISTORY: Pain COMPARISON: No relevant comparison available. FINDINGS: BONES: Normal alignment with no acute fracture or spondylolisthesis. Extensive degenerative spondylosis with large bulky bridging osteophytes. Moderate facet osteoarthropathy DISC SPACES: Mild multilevel disc space narrowing PARASPINOUS: Negative. No paraspinous abnormality is seen. OTHER: Atherosclerosis IMPRESSION: Severe degenerative spondylosis with moderate facet osteoarthropathy Electronically authenticated by: SHELL THOMPSON Date: 2021-11-25 11:24 Normal [facility] Vital Signs Date Time Vital Sign Value Performing Clinician Eva morales 10-17-2023 14:20-0500 Blood Pressure Location Donald [facility]ERETT [facility] [place] 10-17-2023 14:20-0500 Diastolic blood pressure 84 mm[Hg] Donald [facility]ERETT [facility] [place] 10-17-2023 14:20-0500 Heart rate 68 /min Donald BAUERL [facility] [place] 10-17-2023 14:20-0500 Respiratory rate 16 /min Donald [facility]ERETT [facility] [place] 10-17-2023 14:20-0500 Systolic blood pressure 148 mm[Hg] Donald [facility]ERETT [facility] [place] Encounters Encounter Date Encounter Type Care Provider Facility Start: 10-17-2023 End: 10-18-2023 ambulatory Donald EVERETT Facility:[facility] Start: 10-17-2023 End: 10-17-2023 Patient encounter procedure Donald [facility]ERETT [facility] Start: 09-15-2023 ambulatory Donald EVERETT Facility:[facility] Start: 09-09-2022 End: 09-09-[address] HI VARGAS Facility:[facility] Start: 09-08-2022 End: 09-09-[address] HI VARGAS Facility:[facility] Start: 12-02-2021 End: 12-03-[address] HI VARGAS Facility:[facility] Start: 11-25-2021 End: 11-25-[address] HI VARGAS Facility:[facility] Procedures Date Procedure Procedure Detail Performing Clinician Start: 09-08-[address] DEMETRIA VARGAS Comment on above: Performed By: #### V ITAD, PSASC ####[place] [address]Dr. Zak Gutierrez Start: 12-28-2011 Colonoscopy [facility] Insertion of stent into ureter Donald NILL Immunizations Immunization Date Immunization Notes Care Provider Fa cility 08-26-2021 SARS-CoV-2 (COVID-19 ) mRNA BNT-162b2 vax Donald NILL [facility] [place] 01-26-2021 SARS-CoV-2 (COVID-19 ) mRNA BNT-162b2 vax Donald NILL [facility] [place] 01-04-2021 SARS-CoV-2 (COVID-19 ) mRNA BNT-162b2 vax Donald NILL [facility] [place] NEGATED: Highlighted row has not occurred!10-17-2023 influenza virus vaccine, unspecified formulation Donald MARGUERITE [facility] [place] Payers Date Payer Category Payer Medicare [id number] 1960 Private Health Insurance I [id number] 1960 Private Health Insurance [facility] [id number] 1945 Unknown [id number] [id number] [id number] 1945 Unknown [id number] 2.16.84 [id number] 1945 Unknown [id number] 2.16.84 [id number] 1945 Unknown [id number] 2.16.84 [id number] 1945 Unknown [id number] 2.16.8 [id number] Social History Date Type Detail Facility Start: 10-17-2023 Tobacco smoking status Light t obacco smoker (finding) [facility] Tobacco smoking status Never [facility] Sex Assigned At Male [facility] Functional Status Date Assessment Result Facility 10-17-2023 Functional Status N/A [facility] [place] Clinical Note 10-17-2023 Note Date & Type Note Facility 10-17-2023 Note Chief Complaint consultation for positive occult stool HPI Staff 77 year old male presents on consultation from Dr. Vargas for positive occult stool. Denies abdominal or rectal pain. No rectal bleeding or change in bowel habits. Denies nausea or vomiting. No unexplained weight loss. Last colonoscopy completed 12/2011 with diverticulosis. No known family history of colon cancer. History of Present Illness 77 yo male with h/o DMII, hyperlipidemia, htn, gout, referred for positive fecal occult blood; denies change in bms or gross blood in stools; no abd complaints; no previous abd operations, last colonoscopy 2011 with diverticulosis; on baby asa daily and Indomethacin, no SBE prophylaxis; no fmhx of GI malignancy or IBD; smokes daily. Review of Systems PHQ Score Initial Depression Screen Score: 0 SCORE ROS - Provider Constitutional: no fever, no sweats, no weight loss. Eyes: no glasses, no blurred vision, no visual loss. ENMT: no dentures, no hoarseness, no swallowing difficulties, no hearing loss, no ear infection(s), no nose bleeds. Cardiovascular: normal blood pressure, no chest pain, regular heartbeat, no heart murmur. Respiratory: no shortness of breath, no cough, no asthma, no wheezing. Gastrointestinal: no nausea, no vomiting, no diarrhea, no constipation, no blood in stool, no change in bowel habits, no abdominal pain, no hepatitis. Genitourinary: no kidney stones, no urine infection, no dysuria. Musculoskeletal: no pain, no weakness. Skin: no changing moles, no rash, no skin lumps. Neurologic: no seizures, no epilepsy, no headache. Psychiatric: no emotional or psychiatric problem. Heme/Lymph: no bleeding problems, no anemia, no blood clots, no transfusions. Allergy/Immunologic: no swollen lymph nodes/glands, no IV drug abuse. Other: Additional ROS info: Except as noted in the above Review of Systems and in the History of Present Illness, all other systems have been reviewed and are negative or noncontributory. Physical Exam Vitals & Measurements HR: 68(Peripheral) RR: 16 BP: 148/84 HT: 70 in HT: 177.8 cm WT: 89.6 kg WT: 197.12 lb BMI: 28.34 HEENT: normal conjunctiva, sclera clear, no scleral icterus, EOM intact, PERRLA, oral mucosa moist without lesions. Neck: trachea midline, no mass, symmetric, no thyromegaly or nodules, no adenopathy Respiratory: lungs CTA, respirations non labored. Cardiovascular: regular rate and rhythm, no murmur, no pedal edema or varicosities. Gastrointestinal: soft, non distended, no tenderness, no masses, no palpable hernias, diastasis recti no, no hepatosplenomegaly; normal bs Lymphatic: no cervical adenopathy, no supraclavicular adenopathy. Musculoskeletal: normal gait, digits and nails without infection, nodes, cyanosis, clubbing. Skin: no rashes, no lesions, no ulcers, no subcutaneous nodules, induration. Psychiatric/Neuro: oriented to time, place, person, judgement normal, affect appropriate for age, insight intact, no focal deficits. Tests: labs reviewed,of old records completed , Discussed surgical options, risks, and possible complications with patient. Assessment/Plan 1. Positive occult stool blood test (R19.5: Other fecal abnormalities) plan colonoscopy under anesthesia, informed consent obtained. Follow-up No qualifying data available Problem List/Past Medical History Ongoing Benign prostatic hyperplasia BMI 28.0-28.9,adult Bradycardia Diabetes mellitus Diverticular disease Essential hypertension Gout History of nephrolithiasis Overweight Positive occult stool blood test Transient global amnesia Historical No qualifying data Procedure/Surgical History Colonoscopy (12/28/2011), Insertion of stent into ureter. Medications aspirin 81 mg Oral EC Tab, 81 mg= 1 tab(s), Oral, Daily glipiZIDE 10 mg Tab, 10 mg= 1 tab(s), Oral, BID indomethacin 25 mg Cap, 25 mg= 1 cap(s), Oral, BID metformin 500 mg Tab, 500 mg= 1 tab(s), Oral, BID metoprolol 100 mg ER Tab, 100 mg= 1 tab(s), Oral, Daily MiraLax, 17 gm, Oral, Daily pioglitazone 30 mg Tab, 30 mg= 1 tab(s), Oral, Daily simvastatin 10 mg Tab, 20 mg= 2 tab(s), Oral, qPM Vitamin D3 2000 intl units oral Tab, 1 tab(s), Oral, Daily Allergies No Known Allergies No Known Medication Allergies Social History Alcohol - Denies Alcohol Use, 10/17/2023 Substance Abuse - Denies Substance Abuse, 10/17/2023 Tobacco 5-9 cigarettes (between 1/4 to 1/2 pack)/day in last 30 days Tobacco Use:. Never Smokeless Tobacco Use:. Cigarettes, Started age 18.0 Years. Yes, 10/17/2023 Family History CAD - Coronary artery disease: Father. Dementia: Father. Diabetes mellitus type 2: Mother. Leukemia: Mother. Immunizations Vaccine Date Status Comments influenza virus vaccine, inactivated - Not Given Patient Refuses SARS-CoV-2 (COVID-19) mRNA BNT-162b2 vax 08/26/2021 Recorded SARS-CoV-2 (COVID-19) mRNA BNT-162b2 vax 01/26/2021 Recorded SARS-CoV-2 (COVID-19) mRNA BNT-162b2 vax 01/04/2021 R (more content not included)... [facility] Comment on above: Result Comment: Elec tronically Signed By: MARGUERITE CSAE, Donald Quinn.joi\Date and Time Signed: 10/17/23 14:59 EST Evaluation + Plan note Note Date & Type Note Facility Evaluation + Plan note No data available for this section [facility] [place] [facility] Discharge instructions Note Date & Type Note Facility Hospital Discharge instructions No data available for this section [facility] [place] Progress note Note Date & Type Note Facility Progress note No data available for this section [facility] [place] Summary Purpose Family History No Family History Records Found No data available for this section No Family History Records Found Advance Directives No Advanced Directives Records FoundNo Advanced Directives Records Found Additional Source Comments (unrecognized sect ion and content) No Status Records FoundNo Status Records Found INFORMATION SOURCE (unrecogn ized section and content) DATE CREATED AUTHOR 09/12/2022 [facility] pitri DATE CREATED AUTHOR AUTHOR'S MICHAEL ATJESÚS 10/19/2023 [facility] Patient Care team informatio n (unrecognized section and content) Personnel Name: Hi Vargas MD Address: Address: [address] [place] [address] FOR RECORDS PERTAINING TO PATIENTS WHO ARE OR HAVE BEEN ENROLLED IN A CHEMICAL DEPENDENCY/SUBSTANCEABUSE PROGRAM, SOME INFORMATION MAY BE OMITTED. This clinical summary was aggregated from multiple sources. Caution should be exercised in using it in the provision of clinical care. This summary normalizes information from multiple sources, and as a consequence, information in this document may materially change the coding, format and clinical context of patient data. In addition, data may be omitted in some cases. CLINICAL DECISIONS SHOULD BE BASED ON THE PRIMARY CLINICAL RECORDS. [facility] [employer] provides no warranty or guarantee of the accuracy or completeness of information in this document.
[2023-10-25 08:37] LABS: Glucometer 100 mg/dL (74-106)
[2023-10-25 08:39] VITALS: BP 179/83; PULSE 62; RESP 16; TEMP 36.3; O2SAT 99; BMI 27.7
[2023-10-25] MEDS: LACTATED RINGER'S SOLUTION 1,000 ML 50 ML IV (08:51)
[2023-10-25 10:51] VITALS: BP 111/59; PULSE 59; RESP 16; O2SAT 100
[2023-10-25 11:05] VITALS: BP 143/76; PULSE 60; RESP 16; O2SAT 100
== END 2023-10-25 11:29 | disposition home or self-care (01) ==
PROVIDERS: PCP Family Medicine; Visit Provider Surgery
PROC: (CPT 45378; principal; 2023-10-25 09:10)
DX: R19.5 Other fecal abnormalities (principal); K57.30 Diverticulosis of large intestine without perforation or abscess without bleeding; E11.9 Type 2 diabetes mellitus without complications; E78.5 Hyperlipidemia, unspecified; I10 Essential (primary) hypertension; M10.9 Gout, unspecified; Z87.442 Personal history of urinary calculi; E66.3 Overweight; Z68.28 Body mass index [BMI] 28.0-28.9, adult; Z79.82 Long term (current) use of aspirin; Z79.84 Long term (current) use of oral hypoglycemic drugs; F17.210 Nicotine dependence, cigarettes, uncomplicated
CPT/HCPCS: 45378; 36415; 82948; J2704

== ENCOUNTER 2024-09-24 09:44 | Outpatient (OUT) | payer MEDICARE, SELFPAY ==
[2024-09-24 10:15] LABS: Basophils Percent Auto 0.3 % (0.2-2.0); Eosinophils Absolute Auto 0.1 10^3/uL (0.0-0.7); Eosinophils Percent Auto 1.3 % (0.9-7.0); Hematocrit 39.2 % (42.0-54.0); Hemoglobin 12.8 g/dL (14.0-18.0); Immature Granulocytes Abs Auto 0.01 10^3/uL (0.00-0.03); Immature Granulocytes Pct Auto 0.1 % (0.0-0.5); Lymphocytes Absolute Auto 1.7 10^3/uL (1.2-3.8); Lymphocytes Percent Auto 25.1 % (20.5-60.0); Mean Corpuscular HGB Conc 32.7 g/dL (29.9-35.2); Mean Corpuscular Hemoglobin 31.7 pg (25.9-34.0); Mean Platelet Volume 11.3 fL (9.5-13.5); Monocytes Absolute Auto 0.6 10^3/uL (0.3-0.8); Monocytes Percent Auto 8.2 % (1.7-12.0); Neutrophils Absolute Auto 4.5 10^3/uL (1.4-6.5); Platelet Count 186 10^3/uL (150-450); Red Blood Count 4.04 10^6/uL (4.70-6.10); Red Cell Distribution Width 13.9 % (11.0-15.0); White Blood Count 6.9 10^3/uL (4.0-11.0)
[2024-09-24 10:39] LABS: Estimated Average Glucose 120 mg/dL; Glycohemoglobin A1C 5.8 % (4.5-6.2)
[2024-09-24 11:07] LABS: Alanine Aminotransferase 17 U/L (16-63); Albumin Globulin Ratio 0.7; Albumin Level 3.7 g/dL (3.4-5.0); Alkaline Phosphatase 104 U/L (46-116); Anion Gap 14.3; Aspartate Amino Transferase 17 U/L (15-37); BUN Creatinine Ratio 15.5; Bilirubin Total 0.7 mg/dL (0.2-1.0); Calcium 9.9 mg/dL (8.5-10.1); Carbon Dioxide 29.4 mmol/L (21.0-32.0); Chloride 101 mmol/L (98-107); Chol HDL Ratio 2.8; Cholesterol 147 mg/dL (<=200); Estimated GFR (African America 46 (>=60 mL/min/1.73m^2); Estimated GFR (Non-African Ame 38 (>=60 mL/min/1.73m^2); Free T3 2.74 pg/mL (2.18-3.98); Glucose 74 mg/dL (74-106); HDL Cholesterol 52 mg/dL (40-60); LDL Cholesterol Calculated 76.2 mg/dL; Potassium 4.7 mmol/L (3.5-5.1); Sodium 140 mmol/L (136-145); Thyroid Stimulating Hormone 1.701 uIU/mL (0.358-3.740); Total Protein 8.7 g/dL (6.4-8.2); Triglycerides 94 mg/dL (<=150); Uric Acid 7.2 mg/dL (3.5-7.2); VLDL CHOLESTEROL 18.8 mg/dL
[2024-09-24 11:53] LABS: Prostate Specific Antigen Scrn 4.42 ng/mL (<=4.00)
[2024-09-24 15:41] LABS: Internal Control Within Normal Limits; Occult Blood Positive
[2024-09-26 04:07] LABS: PSA, Free 1.21 ng/mL; Prostate Specific Ag 4.2 ng/mL (0.0-4.0)
== END 2024-09-24 09:45 | disposition home or self-care (01) ==
LOC: LAB 09:47
PROVIDERS: PCP Family Medicine; Visit Provider Family Medicine
DX: M54.16 Radiculopathy, lumbar region (principal); E11.9 Type 2 diabetes mellitus without complications; Z23 Encounter for immunization; I10 Essential (primary) hypertension; E78.00 Pure hypercholesterolemia, unspecified; Z12.12 Encounter for screening for malignant neoplasm of rectum; E03.9 Hypothyroidism, unspecified; Z12.5 Encounter for screening for malignant neoplasm of prostate; R97.20 Elevated prostate specific antigen [PSA]
CPT/HCPCS: 36415; 80053; 80061; 83036; 84153; 84154; 84436; 84443; 84481; 84550; 85025; G0103; G0328

== ENCOUNTER 2025-04-16 08:37 | Outpatient (OUT) | payer MEDICARE, SELFPAY ==
--- OUTSIDE RECORDS SUMMARY | 2025-03-06 06:15 | XMS_ITS ---
Author Organization The [facility] in [place] Address [address] [place] [address] Care Team Providers Care Trimmer Helper Name Role Phone Sam Loco Primary Care Provider REASON FOR VISIT Repeat labs due- LMTCB Encounters Encounter Location Date Provider Diagnosis [facility] [address] [place] [address] 03/06/2025 Loco Sam Plan Of Treatment No Information Progress Notes * Dave STEPHENSON EDOB:[birth year] (79 yo M)Acc No.[id number]:03/06/2025 Patient: Dave WOOD :1945 A ge:79 Y S ex:Male Address:[address] [place] [address] [address], [place] [address] Subjective: * Chief Complaints: * R epeat labs due- LMTCB * Medical History: * Surgical History: * Hospitalization/Major Diagno stic Procedure: * Medications: Objective: * Vitals: * Physical Examination: Assessment: Plan: * Treatment: * Procedure Codes: * true * Date: Generated for Printi ng/Fadanyg/eTransmitting on: 0 04/16/2025 08:41 AM EDT
--- OUTSIDE RECORDS SUMMARY | 2025-04-15 07:00 | XMS_ITS ---
Author Organization [facility] [place] Address [address] [place] [address] Care Team Providers Care Automotive Quality Engineer Name Role Phone Loco Vargas Primary Care Provider [phone] Allergies No Known Allergies REASON FOR VISIT BP running high in the AM- 200's, Confusion in the AM- one day thought had to go to work but been retired for a long time, No miralax x 2 weeks- but still having diarrhea Medications Medication SIG (Take, Route, Frequency, Duration) Notes Start Date End Date Status Meloxicam 15 MG 1 tablet Orally Once a day for 30 days 03/20/2025 Active Pioglitazone HCl 30 MG 1 tablet Orally O nce a day for 90 days Active Metoprolol Succinate ER 50 MG 1 tablet O rally Once a day for 90 days Active metFORMIN HCl 500 MG 2 tablet with a jarod l Orally Once a day for 90 days Active Simvastatin 10 MG 1 tablet in the even ing Orally Once a day for 90 days Active Glucose Test Strips test blood sugar chanelle ly DX E11.9 for 90 days 01/16/2025 Active Glucose Meter test blood sugar chanelle ly Dx:E11.9 for 365 days 01/16/2025 Active Glucose Lancets used to test blood sugar daily Dx E11.9 for 90 days 01/16/2025 Active glipiZIDE 10 MG 2 tablet 30 minutes before breakfast Orally Once a day for 90 days Active Cholecalciferol 50 MCG (1999 UT) 1 tablet Orally Once a day Active Lisinopril 10 MG 1 tablet Orally Once a day for 30 days 04/15/2025 Active Aspir-Low 81 MG 1 tablet Orally Once a day Active Social History Tobacco Use: Social History Observation Description Date Details (start date - stop date) Current Smoker 11/06/1960 - NA Tobacco Use/Smoking Question Answer Notes Patient is a current smoker When did you start smoking? 11/06/1960 How often do you smoke cigarettes? every day How many cigarettes a day do you smoke? 6-10 How soon after you wake up d o you smoke your first cigarette? 6-30 minutes Are you interested in quitting? 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 and Easy bruisability R23.3 Assessments Encounter Date Diagnosis (ICD Code) Assessment Notes Treatment Notes Treatment Clinical Notes Section Notes 04/15/2025 Hypertension (ICD-10 - I10) 04/15/2025 Transient global amnesia (ICD-10 - G45.4) 04/15/2025 Easy bruisability (ICD-10 - R23.3) Plan Of Treatment Medication Medication Name Sig Start Date Stop Date Notes Lisinopril 10 MG 1 tablet Orally Once a day for 30 days Pending Test Test Name Order Date PT - INR 04/15/2025 FERRITIN 04/15/2025 IRON 04/15/2025 PTT 04/15/2025 MRI BRAIN WO CON 04/15/2025 THYROID PANEL (T4/TSH/FREE T3) CMP (COMP MET MAE) w/eGFR CKD-EPI 2024 CBC WITH DIFF 04/15/2025 Progress Notes * Dave STEPHENSON EDOB:[birth year] (79 yo M)Acc No.[id number]:04/15/2025 UNLOCKED PROGRESS NOTE Progress Note Patient: Dave WOOD Provider: Keara Vargas ([facility])MD :1945 A ge:79 Y S ex:Male Date:04/15/2025 Address:[address] [place], [place] [id number] Check In:10:46 AM ESTCheck O ut:11:22 AM EST Subjective: * Chief Complaints: * 1 . BP running high in the AM- 200's. 2. Confusion in the AM- one day thought had to go to work but been retired for a long time. 3. No miralax x 2 weeks- but still having diarrhea. * HPI: G eneral: Last 6 days - bp is 200 easy bruising some confusion at times some loose stol. * ROS: E ENT: hearing changes d enies, denies. v isual changes d enies, denies. n on-healing mouth sores d enies, denies. s wollen glands or neck lumps?denies, denies. h oarseness d enies, denies. s ore throat d enies, denies. d ifficulty swallowing d enies, denies. n ose bleeds d enies, denies. n demetria congestion d enies, denies. e ar ache d enies, denies. e ar discharge d enies, denies.?ringing in ears d enies, denies. l ight sensitivity d enies, denies. e ye pain denies, denies. b lurring d enies, denies. e ye irritation d enies, denies. d ouble vision d enies, denies. v ision loss d enies, denies. G eneral/Constitutional: Sweats: D enies, Denies. F atigue d enies, denies.?Sleep problems d enies, denies. A norexia d enies, denies. M alaise d enies, denies. W eight loss d enies, denies. F atigue or Weakness d enies, denies. F ever or Chills d enies, denies. C ardiovascular: Shortness of Breath w/lying flat d enies, denies. L ightheadedness/dizziness d enies, denies. C hest tightness/ heavy pressure d enies, denies.?Swelling of legs, ankles, or feet d enies, denies. W aking up with shortness of breath denies, denies. C hest pain d enies, denies. P alpitations d enies, denies.?Weight gain d enies, denies. R espiratory: Chronic or frequent cough d enies, denies. C oughing up blood d enies, denies. D ifficulty breathing d enies, denies. P roductive cough?denies, denies. S noring d enies, denies. S hortness of breath that awakens from sleep (PND) d enies, denies. C hest pain d enies, denies. S putum production d enies, denies. W heezing d enies, denies. M usculoskeletal: Joint pain d enies, denies. J oint Fluid d enies, denies. B ack pain d enies, denies. K nee pain d enies, denies. N robb pain d enies, denies. J oint Stiffness d enies, denies. M uscle cramps d enies, denies. Weakness of muscles d enies, denies. A rthritis d enies, denies. M uscle aches?denies, denies. P ain in shoulder(s) d enies, denies. S wollen joints d enies, denies. 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 * Surgical History: U reteral stents , Colonoscopy 10/25/2023. * Hospitalization/Major Diagno stic Procedure: D enies Past Hospitalization. * Family History: F ather: , dementia, coronary artery disease. M other: , diagnosed with Diabetes mellitus without mention of complication, type II or unspecified type, not stated as uncontrolled. B rother(s): alive 66 yrs. S ister(s): alive 64 yrs. S on(s): alive. D louis(s): alive. 1 brother(s) , 1 sister(s) - healthy. 1 son(s) , 3 daughter(s) - healthy. . * Social History: T obacco Use: T obacco Use/Smoking P atient is a c urrent smoker W hen did you start smoking? 0 11/06/1960 H ow often do you smoke cigarettes? e very day H ow many cigarettes a day do you smoke? 6 -10 H ow soon after you wake up do you smoke your first cigarette? 6 -30 minutes A re you interested in quitting? N ot ready to quit A dditional Findings: Tobacco User L ight cigarette smoker ((1-9 cigs/day) * Medications: T aking Aspir-Low 81 MG Tablet Delayed Release 1 tablet Orally Once a day , Taking Cholecalciferol 50 MCG (2000 UT) Tablet 1 tablet Orally Once a day , Taking glipiZIDE 10 MG Tablet 2 tablet 30 minutes before breakfast Orally Once a day , Taking Glucose Lancets used to test blood sugar daily Dx E11.9 , Taking Glucose Meter test blood sugar daily Dx:E11.9 , Taking Glucose Test Strips test blood sugar daily DX E11.9 , Taking Meloxicam 15 MG Tablet 1 tablet Orally Once a day , Taking metFORMIN HCl 500 MG Tablet 2 tablet with a meal Orally Once a day , Taking Metoprolol Succinate ER 50 MG Tablet Extended Release 24 Hour 1 tablet Orally Once a day , Taking Pioglitazone HCl 30 MG Tablet 1 tablet Orally Once a day , Taking Simvastatin 10 MG Tablet 1 tablet in the evening Orally Once a day , Medication List reviewed and reconciled with the patient * Allergies: N .K.D.A. Objective: * Vitals: W t:182.4lbs, Ht: 70 in, BP:202/84mm Hg, BMI:26.17Index, Ht-cm: 177.8 cm, Wt-k.74 kg. * Examination: P hysical Exam: GENERAL: w ell developed, well nourished, in no acute distress , well developed, well nourished, in no acute distress. HEAD: n ormocephalic/atraumatic , normocephalic/atraumatic.? EYES: p upils equal, round and reactive to light, conjunctivae and sclerae normal , pupils equal, round and reactive to light, conjunctivae and sclerae normal.? EARS: n o deformity or lesion of external ear, canals and TM appear normal bilaterally, TM's intact, not inflamed with normal light reflex, hearing grossly normal to conversational speech , no deformity or lesion of external ear, canals and TM appear normal bilaterally, TM's intact, not inflamed with normal light reflex, hearing grossly normal to conversational speech. NOSE: n o deformity, discharge, inflammation, or lesions , no deformity, discharge, inflammation, or lesions. MOUTH: m ucous membranes moist, normal oropharynx and posterior pharynx without lesions or exudates, tongue normal, dentition normal , mucous membranes moist, normal oropharynx and posterior pharynx without lesions or exudates, tongue normal, dentition normal. NECK: n robb supple, no masses or palpable cervical nodes, trachea midline, thyroid without nodules, masses, tenderness, or enlargement , neck supple, no masses or palpable cervical nodes, trachea midline, thyroid without nodules, masses, tenderness, or enlargement. CHEST: n o chest wall deformity, no chest wall tenderness , no chest wall deformity, no chest wall tenderness. LUNGS: n ormal respiratory effort and clear to auscultation, no wheezes, rales, or rhonchi, good air exchange , normal respiratory effort and clear to auscultation, no wheezes, rales, or rhonchi, good air exchange. CARDIO: r egular rate and rhythm, normal S1 and S2, nor murmur, rub, or gallop , regular rate and rhythm, normal S1 and S2, nor murmur, rub, or gallop. PULSES: n ormal capillary refill , normal capillary refill.? ABDOMEN: s oft, non-distended, non-tender, no masses , soft, non-distended, non-tender, no masses. MUSCULOSKELETAL: n o deformity or scoliosis noted, normal range of motion, joints normal, no erythema, edema, effusion, or ecchymosis , no deformity or scoliosis noted, normal range of motion, joints normal, no erythema, edema, effusion, or ecchymosis. EXTREMITY: n o clubbing, cyanosis, edema, or deformity with normal ROM in both upper and lower bilateral extremities , no clubbing, cyanosis, edema, or deformity with normal ROM in both upper and lower bilateral extremities. NEUROLOGIC: g rossly normal , grossly normal. SKIN: n o rashes, ulcerations, or suspicious lesions , no rashes, ulcerations, or suspicious lesions. LYMPH NODES: n o cervical adenopathy, nodes normal , no cervical adenopathy, nodes normal. MENTAL STATUS: a lert and oriented x3, normal mood and affect , alert and oriented x3, normal mood and affect. Assessment: * Assessment: 1. H ypertension - I10 (Primary) 2 . T ransient global amnesia - G45.4 3 . E asy bruisability - R23.3 Plan: * Treatment: 2. T ransient global amnesia L AB: THYROID PANEL (T4/TSH/FREE T3) L AB: CMP (COMP MET MAE) w/eGFR CKD-EPI L AB: CBC WITH DIFF I maging: MRI BRAIN WO CON 3. E asy bruisability L AB: PT - INR L AB: FERRITIN L AB: IRON L AB: PTT L AB: THYROID PANEL (T4/TSH/FREE T3) L AB: CMP (COMP MET MAE) w/eGFR CKD-EPI L AB: CBC WITH DIFF * Preventive Medicine: Screenings/Counseling: B GA ACTION PLAN Above Normal BMI Follow-up D ietary management education, guidance, and counseling * * Electronic signature of Loco Vargas MD, [phone] on 04/16/2025 at 08:40 AM EDT Sign off status: Pending Visit Status: C HK (Check Out) * Provider: Keara Vargas ([facility])MD Date: 0 04/15/2025 Generated for Printi ng/Fadanyg/eTransmitting on: 04/16/2025 08:40 AM EDT History and Physical Notes * HPI (History of Present Illness) Category Sub-Category Detail Notes Category Not es General Last 6 days - bp is 200 easy bruising some confusion at times some loose stol Examination Category Sub-Category Detail Notes Category Not es Physical Exam GENERAL: well developed, well nourished, in no acute distress , well developed, well nourished, in no acute distress HEAD: normocephalic/atraum atic , normocephalic/atraumatic EYES: pupils equal, round and reactive to light, conjunctivae and sclerae normal , pupils equal, round and reactive to light, conjunctivae and sclerae normal EARS: no deformity or lesi on of external ear, canals and TM appear normal bilaterally, TM's intact, not inflamed with normal light reflex, hearing grossly normal to conversational speech , no deformity or lesion of external ear, canals and TM appear normal bilaterally, TM's intact, not inflamed with normal light reflex, hearing grossly normal to conversational speech NOSE: no deformity, discha rge, inflammation, or lesions , no deformity, discharge, inflammation, or lesions MOUTH: mucous membranes gabriel st, normal oropharynx and posterior pharynx without lesions or exudates, tongue normal, dentition normal , mucous membranes moist, normal oropharynx and posterior pharynx without lesions or exudates, tongue normal, dentition normal NECK: neck supple, no mass es or palpable cervical nodes, trachea midline, thyroid without nodules, masses, tenderness, or enlargement , neck supple, no masses or palpable cervical nodes, trachea midline, thyroid without nodules, masses, tenderness, or enlargement CHEST: no chest wall deform ity, no chest wall tenderness , no chest wall deformity, no chest wall tenderness LUNGS: normal respiratory e ffort and clear to auscultation, no wheezes, rales, or rhonchi, good air exchange , normal respiratory effort and clear to auscultation, no wheezes, rales, or rhonchi, good air exchange CARDIO: regular rate and rhy thm, normal S1 and S2, nor murmur, rub, or gallop , regular rate and rhythm, normal S1 and S2, nor murmur, rub, or gallop PULSES: normal capillary ref ill , normal capillary refill ABDOMEN: soft, non-distended, non-tender, no masses , soft, non-distended, non- tender, no masses RECTAL: MUSCULOSKELETAL: no deformity or scol iosis noted, normal range of motion, joints normal, no erythema, edema, effusion, or ecchymosis , no deformity or scoliosis noted, normal range of motion, joints normal, no erythema, edema, effusion, or ecchymosis EXTREMITY: no clubbing, cyanosi s, edema, or deformity with normal ROM in both upper and lower bilateral extremities , no clubbing, cyanosis, edema, or deformity with normal ROM in both upper and lower bilateral extremities NEUROLOGIC: grossly normal , suzanne ssly normal SKIN: no rashes, ulceratio ns, or suspicious lesions , no rashes, ulcerations, or suspicious lesions LYMPH NODES: no cervical adenopat hy, nodes normal , no cervical adenopathy, nodes normal MENTAL STATUS: alert and oriented x 3, normal mood and affect , alert and oriented x3, normal mood and affect
--- OUTSIDE RECORDS SUMMARY | 2025-04-16 08:41 | XMS_ITS | Patient Health Record ---
Author Organization The [facility] in [place] Address [address] [place] [address] Care Team Providers Care Peg Driver Name Role Phone Loco Vargas Primary Care Provider Allergies No Known Allergies Results Component Value Reference Range Notes FREE T3 Reviewed date:09/24/2024 08:35:11 PM Interpretation: Performing Lab: Notes/Report: [facility] , Free T3 2.74 2.18-3.98 pg/mL Performing Lab: see note ML - [facility] LB LIPID PROFILE Reviewed date:09/24/2024 08:35:11 PM Interpretation: Performing Lab: Notes/Report: [facility] , Triglycerides 94 <=150 mg/dL Cholesterol 147 <=200 mg/dL HDL Cholesterol 52 40-60 mg/dL > or =60 mg/dl - LOW CARDIOVASCULAR RISK <40 mg/dl - HIGH CARDIOVASCULAR RISK LDL Cholesterol Calculated 76.2 130-159 mg/dl BORDERLINE HIGH <100 mg/dl OPTIMAL 160-189 mg/dl HIGH 100-129 mg/dl NEAR OR ABOVE OPTIMAL >190 mg/dl VERY HIGH VLDL CHOLESTEROL 18.8 Chol HDL Ratio 2.8 7.1 - 11.0 MODERATE RISK 4.4 - 7.1 AVERAGE RISK 3.3 - 4.4 LOW RISK >11.0 HIGH RISK Performing Lab: see note ML - [facility] LB PROF 14(COMP METB) Reviewed date:09/24/2024 08:35:11 PM Interpretation: Performing Lab: Notes/Report: [facility] , Sodium 140 136-145 mmol/L Potassium 4.7 3.5-5.1 mmol/L Chloride 101 98-107 mmol/L Carbon Dioxide 29.4 21.0-32.0 mmol/L Anion Gap 14.3 Glucose 74 74-106 mg/dL Blood Urea Nitrogen 27.0 7.0-18.0 mg/dL Creatinine 1.74 0.70-1.30 mg/dL Estimated GFR ( Cami 46 >=60 mL/min/1.73m 2 Estimated GFR (Non- Chelita 38 >=60 mL/min/1.73m 2 BUN Creatinine Ratio 15.5 Calcium 9.9 8.5-10.1 mg/dL Bilirubin Total 0.7 0.2-1.0 mg/dL Aspartate Amino Transferase 17 15-37 U/L Alanine Aminotransferase 17 16-63 U/L Alkaline Phosphatase 104 46-116 U/L Total Protein 8.7 6.4-8.2 g/dL Albumin Level 3.7 3.4-5.0 g/dL Globulin 5.0 Albumin Globulin Ratio 0.7 Performing Lab: see note ML - [facility] LB T4 Reviewed date:09/24/2024 08:35:11 PM Interpretation: Performing Lab: Notes/Report: [facility] , T4 Thyroxine 8.80 4.50-12.10 ug/dL Performing Lab: see note ML - [facility] LB TSH Reviewed date:09/24/2024 08:35:11 PM Interpretation: Performing Lab: Notes/Report: [facility] , Thyroid Stimulating Hormone 1.701 0.358-3.740 u IU/mL Performing Lab: see note ML - [facility] LB URIC ACID SERUM Reviewed date:09/24/2024 08:35:11 PM Interpretation: Performing Lab: Notes/Report: [facility] , Uric Acid 7.2 3.5-7.2 mg/dL Performing Lab: see note ML - [facility] LB GLYCOHEMOGLOBIN A1C Reviewed date:09/24/2024 11:15:21 AM Interpretation: Performing Lab: Notes/Report: [facility] , Glycohemoglobin A1C 5.8 4.5-6.2 % > 7.0 ACTION SUGGESTED ADA RECOMMENDED LIMIT 4.0 - 6.0 ADA THERAPEUTIC TARGET < 7.0 Estimated Average Glucose 120 Performing Lab: see note ML - [facility] LB CBC AUTO DIFF Reviewed date:09/24/2024 11:15:21 AM Interpretation: Performing Lab: Notes/Report: [facility] , White Blood Count 6.9 4.0-11.0 10 3/uL Red Blood Count 4.04 4.70-6.10 10 6/uL Hemoglobin 12.8 14.0-18.0 g/dL Hematocrit 39.2 42.0-54.0 % Mean Corpuscular Volume 97.0 80.0-94.0 fL Mean Corpuscular Hemoglobin 31.7 25.9-34.0 pg Mean Corpuscular HGB Conc 32.7 29.9-35.2 g/dL Red Cell Distribution Width 13.9 11.0-15.0 % Platelet Count 186 150-450 10 3/uL Mean Platelet Volume 11.3 9.5-13.5 fL Neutrophils Percent Auto 65.0 43.0-75.0 % Lymphocytes Percent Auto 25.1 20.5-60.0 % Monocytes Percent Auto 8.2 1.7-12.0 % Eosinophils Percent Auto 1.3 0.9-7.0 % Basophils Percent Auto 0.3 0.2-2.0 % Immature Granulocytes Pct Auto 0.1 0.0-0.5 % Neutrophils Absolute Auto 4.5 1.4-6.5 10 3/uL Lymphocytes Absolute Auto 1.7 1.2-3.8 10 3/uL Monocytes Absolute Auto 0.6 0.3-0.8 10 3/uL Eosinophils Absolute Auto 0.1 0.0-0.7 10 3/uL Basophils Absolute Auto 0.0 0.0-0.1 10 3/uL Immature Granulocytes Abs Auto 0.01 0.00-0.03 10 3/uL Performing Lab: see note - [facility] LB PSA Total+% Free Reviewed date:09/26/2024 02:55:44 PM Interpretation: Performing Lab: Notes/Report: [facility] , Prostate Specific Ag 4.2 0.0-4.0 ng/mL kits cannot be used interchangeably. Results cannot be According to the [place] [employer], Serum PSA or greater. Values obtained with different assay methods or followed by a subsequent confirmatory PSA value 0.2 ng/mL recurrence as an initial PSA value 0.2 ng/mL or greater should decrease and remain at undetectable levels after radical prostatectomy. The AUA defines biochemical Mercedes ECLIA methodology. of malignant disease. interpreted as absolute evidence of the presence or absence PSA, Free 1.21 N/A ng/mL Mercedes ECLIA met hodology. % Free PSA 28.8 . % 15.01-20.00% 17% 23% men with non-suspicious NAIF results and total PSA between 4 and 10 ng/mL, by patient age (Gray et al, SOFIA 1998, [address], [place] [id number] Performed at: [facility] The table below lists the probability of prostate cancer for 20.01-25.00% 10% 20% of men. High School Football Coach: Edouard Meng PhD, Phone: [phone] percent free PSA for any other population recommendations regarding the use of 10.01-15.00% 24% 35% 0.00-10.00% 56% 55% % Free PSA 50-64 yr 65-75 yr >25.00% 5% 9% Please note: Archana did not make specific [phone]). Performing Lab: [facility] - [facility] Occult Blood* Reviewed date:09/24/2024 08:35:11 PM Interpretation: Performing Lab: Notes/Report: [facility] , Occult Blood Positive Performing Lab: see note ML - [facility] LB PSA SCREENING Reviewed date:09/24/2024 08:35:11 PM Interpretation: Performing Lab: Notes/Report: [facility] , Prostate Specific Antigen Scrn 4.42 <=4.00 ng/mL Performing Lab: see note ML - [facility] LB Reason For Referral No Information Medications Medication SIG (Take, Route, Frequency, Duration) Notes Start Date End Date Status Lisinopril 10 MG 1 tablet Orally Once a day for 30 days 04/15/2025 Active Meloxicam 15 MG 1 tablet Orally Once a day for 30 days 03/20/2025 Active Glucose Test Strips test blood sugar chanelle ly DX E11.9 for 90 days 01/16/2025 Active Glucose Meter test blood sugar chanelle ly Dx:E11.9 for 365 days 01/16/2025 Active Glucose Lancets used to test blood sugar daily Dx E11.9 for 90 days 01/16/2025 Active Pioglitazone HCl 30 MG 1 tablet Orally O nce a day for 90 days Active Metoprolol Succinate ER 50 MG 1 tablet O rally Once a day for 90 days Active metFORMIN HCl 500 MG 2 tablet with a jarod l Orally Once a day for 90 days Active glipiZIDE 10 MG 2 tablet 30 minutes before breakfast Orally Once a day for 90 days Active Cholecalciferol 50 MCG (1999 UT) 1 tablet Orally Once a day Active Aspir-Low 81 MG 1 tablet Orally Once a day Active Simvastatin 10 MG 1 tablet in the even ing Orally Once a day for 90 days Active Immunizations Vaccine Route Administration Date Status Comme nts Flu, Fluad (10904) 65 yrs and older, single-dose syringe IM Intramuscular 09/24/2024 Administered Flu, Fluad (96917) 65 yrs+, single-dose syringe (1351-0075) IM Intramuscular 09/11/2023 Administered Social History Tobacco Use: Social History Observation [...] Problem Status W/U Status Risk Notes Problem Vaccination given (594232754) Encounter for immunization (Z23) Active confirmed Problem 642642748 Type 2 diabetes mellitus without complications (E11.9) Active confirmed Problem Tinea corporis (27499469) Tinea corporis (B35.4) Active confirmed Problem 25956813 Hyperkalemia (E87.5) Active confirmed Problem Transient global amnesia (547264598) 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 confirmed Problem [id number] Acute kidney f ailure, unspecified (N17.9) Active confirmed Problem 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) Active confirmed Problem Hypertension (34993210) Hypertension (I10) Active confirmed Problem Electrocardiogram abnormal (061682349) Abnormal EKG (R94.31) Active confirmed Problem Bradycardia (51091102) Bradycardia (R00.1) Active confirmed Problem Gout (71308004) Gout (M10.9) Active confirmed Problem Kidney stone (91140941) Kidney stones (N20.0) Active confirmed Problem 27926694 Constipation, unspecified constipation type (K59.00) Active confirmed Problem 18815324 Acute bronchitis , unspecified organism (J20.9) Active confirmed Problem Lumbar radicular shira n (7274876143) Lumbar radicular pain (M54.16) Active confirmed Problem Displacement of lumbar intervertebral disc without myelopathy (62782678) Herniated lumbar disc without myelopathy (M51.26) Active confirmed Problem Herpes zoster (6980598) Herpes zoster (B02.9) Active confirmed Problem Diverticular disease (151496800) Diverticular disease (K57.90) Active confirmed Problem Benign prostatic hyperplasia (092479096) Benign prostate hyperplasia (N40.0) Active confirmed Problem Adult health examination (896819901) Encounter for routine adult health examination (Z00.00) Active confirmed Problem Hypercholesterolemia (55505182) Hypercholesterolemia (E78.00) Active confirmed Problem 655567282 Elevated prostat e specific antigen [PSA] (R97.20) Active confirmed Problem 71130461 Primary hyperten emiliano (I10) Active confirmed Problem Diabetes mellitus (13888445) Diabetes mellitus (E11.9) Active confirmed Problem Easy bruising (923034693) Easy bruisability (R23.3) Active confirmed Vital Signs Heart Rate 48 /min 01/16/2025 Oximetry 96 % 01/16/2025 Blood pressure diastolic 84 mm Hg 04/15/2025 Height 70 in 04/15/2025 Blood pressure systolic 202 mm Hg 04/15/2025 Weight 182.4 lbs 04/15/2025 BMI 26.17 kg/m2 04/15/2025 Encounters Encounter Location Date Provider Diagnosis [facility] [address] [place] [address] 04/15/2025 Loco Hoy Hypertension I10 ; T ransient global amnesia G45.4 and Easy bruisability R23.3 [facility] [address] [place] [address] 01/16/[address] [facility] [address] [place] [address] 09/24/2024 Loco Vargas Encounter for immuni zation Z23 ; Type 2 diabetes mellitus without complications E11.9 ; Hypertension I10 ; Lumbar radicular pain M54.[address] [facility] [address] [place] [address] 09/24/[address] [facility] [address] [place] [address] 09/24/2024 Loco Vargas Elevated prostate sp ecific antigen [PSA] R97.20 [facility] [address] [place] [address] 09/26/[address] [facility] [address] [place] [address] 01/10/2025 Loco Vargas Hypertension I10 [facility] [address] [place] [address] 01/16/[address] [facility] [address] [place] [address] 03/06/2025 Loco Vargas [facility] [address] [place] [address] 03/20/2025 Loco Vargas Assessments Encounter Date Diagnosis (ICD Code) Assessment Notes Treatment Notes Treatment Clinical Notes Section Notes 09/24/2024 Encounter for immunization (ICD-10 - Z23) 09/24/2024 Type 2 diabetes mellitus without complications (ICD-10 - E11.9) checking labs 01/16/2025 Influenza (ICD-10 - J11.1) 04/15/2025 Hypertension (ICD-10 - I10) 04/15/2025 Transient global amnesia (ICD-10 - G45.4) 09/24/2024 Elevated prostate specific antigen [PSA] (ICD-10 - R97.20) 01/10/2025 Hypertension (ICD-10 - I10) 04/15/2025 Easy bruisability (ICD-10 - R23.3) 09/24/2024 Hypertension (ICD-10 - I10) good at home 09/24/2024 Lumbar radicular shira n (ICD-10 - M54.16) 09/24/2024 Hypercholesterolemia (ICD-10 - E78.00) cheding labs 01/16/2025 Other Rest and drink more liquids, especially water. You may use a humidifier or vaporizer to help keep the drainage moist. Gxyi-njl-zojea er Nasal Saline may help the stuffy and runny nose. Use Ibuprofen and or Tylenol as needed for fever, chills, body aches or pain. Children 5 years old should not be given yilw-kbu-rcowt er cough and cold medications such as guaifenesin and dextromethorph an. If you're over age 5, you may try xvdg-fon-nzdwb er cold medications such as guaifenesin and dextromethorph an, or multi-symptom cold reliever such as Dayquil to help reduce the symptoms. Follow up with your Primary Care Provider or return to clinic if symptoms do not improve within 3-5 days. If you develop severe symptoms such as shortness of breath, repeated vomiting, coughing up blood, or chest pain you should go to the emergency room or call 911. Plan Of Treatment Pending Test Test Name Order Date CMP (COMPLETE METABOLIC PANEL) 4 CMP (COMPLETE METABOLIC PANEL) 3 HEMOGLOBIN A1C (GLYCO) 09/11/2023 HEMOGLOBIN A1C (GLYCO) 09/24/2024 LIPID PANEL (CHOL/TRIG/HDL/LDL) 09/24/20 24 LIPID PANEL (CHOL/TRIG/HDL/LDL) 09/11/20 23 CBC WITH DIFF 09/11/2023 CBC WITH DIFF 09/24/2024 PSA, PROSTATE-SPECIFIC ANTIGEN 3 URIC ACID 09/11/2023 URIC ACID 09/24/2024 BMP w/GFR 09/11/2023 PT - INR 04/15/2025 PSA, TOTAL 09/24/2024 STOOL OCCULT BLOOD 09/11/2023 STOOL OCCULT BLOOD 09/24/2024 FERRITIN 04/15/2025 IRON 04/15/2025 PTT 04/15/2025 MRI BRAIN WO CON 04/15/2025 THYROID PANEL (T4/TSH/FREE T3) 5 THYROID PANEL (T4/TSH/FREE T3) 4 THYROID PANEL (T4/TSH/FREE T3) 3 Free PSA 09/24/2024 CMP (COMP MET MAE) w/eGFR CKD-EPI 2024 CBC WITH DIFF 04/15/2025 Insurance Providers Payer Name Payer Address Payer Phone Subscriber Number Group Number Insured Name Patient Relationship to Insured Coverage Start Date Coverage End Date [place] [address] [place] [address] [phone] [id number] Dave Syed Self - patient is the insured Medical (General) History Medical History History ICD Code Herniated lumbar disc without myelopathy M51.26 Tinea corporis B35.4 Bradycardia R00.1 Benign prostate hyperplasia N40.0 Herpes zoster B02.9 Transient global amnesia G45.4 Encounter for routine adult health exami [facility] Z00.00 Kidney stones N20.0 Hypertension I10 Gout M10.9 Diabetes mellitus E11.9 Abnormal EKG R94.31 Diverticular disease K57.90 Surgical History Surgery Date(Month/Year) Ureteral stents Colonoscopy 10/25/2023
[2025-04-16 09:15] LABS: Basophils Percent Auto 0.4 % (0.2-2.0); Eosinophils Absolute Auto 0.1 10^3/uL (0.0-0.7); Eosinophils Percent Auto 1.3 % (0.9-7.0); Hematocrit 35.7 % (42.0-54.0); Hemoglobin 11.7 g/dL (14.0-18.0); Immature Granulocytes Abs Auto 0.01 10^3/uL (0.00-0.03); Immature Granulocytes Pct Auto 0.1 % (0.0-0.5); Lymphocytes Absolute Auto 1.7 10^3/uL (1.2-3.8); Lymphocytes Percent Auto 24.9 % (20.5-60.0); Mean Corpuscular HGB Conc 32.8 g/dL (29.9-35.2); Mean Corpuscular Hemoglobin 31.6 pg (25.9-34.0); Mean Corpuscular Volume 96.5 fL (80.0-94.0); Mean Platelet Volume 11.1 fL (9.5-13.5); Monocytes Absolute Auto 0.6 10^3/uL (0.3-0.8); Monocytes Percent Auto 8.3 % (1.7-12.0); Neutrophils Absolute Auto 4.5 10^3/uL (1.4-6.5); Platelet Count 168 10^3/uL (150-450); Red Cell Distribution Width 14.6 % (11.0-15.0)
[2025-04-16 09:22] LABS: INR 1.07; Partial Thromboplastin Time 28.1 sec (22.3-36.2); Prothrombin Time 11.3 sec (9.0-11.6)
[2025-04-16 09:37] LABS: Alanine Aminotransferase 19 U/L (16-63); Albumin Globulin Ratio 0.8; Albumin Level 3.6 g/dL (3.4-5.0); Alkaline Phosphatase 89 U/L (46-116); Anion Gap 15.4; Aspartate Amino Transferase 19 U/L (15-37); BUN Creatinine Ratio 19.2; Bilirubin Total 0.6 mg/dL (0.2-1.0); Calcium 9.5 mg/dL (8.5-10.1); Carbon Dioxide 27.6 mmol/L (21.0-32.0); Chloride 103 mmol/L (98-107); Estimated GFR (African America 44 (>=60 mL/min/1.73m^2); Estimated GFR (Non-African Ame 36 (>=60 mL/min/1.73m^2); Free T3 2.48 pg/mL (2.18-3.98); Globulin 4.4 g/dL; Glucose 73 mg/dL (74-106); Sodium 141 mmol/L (136-145); Thyroid Stimulating Hormone 2.054 uIU/mL (0.358-3.740)
== END 2025-04-16 08:38 | disposition home or self-care (01) ==
LOC: LAB 08:39
PROVIDERS: PCP Family Medicine; Visit Provider Family Medicine
DX: D64.9 Anemia, unspecified (principal); I10 Essential (primary) hypertension; G45.4 Transient global amnesia; R23.3 Spontaneous ecchymoses
CPT/HCPCS: 36415; 80053; 82728; 83540; 84436; 84443; 84481; 85025; 85610; 85730

== ENCOUNTER 2025-04-22 09:07 | Outpatient (OUT) | payer MEDICARE, SELFPAY ==
--- OUTSIDE RECORDS SUMMARY | 2025-04-22 09:09 | XMS_ITS | Clinical Summary ---
Author Organization [facility] Address [address] [place] [address] Care Team Providers Care Infectious Diseases Physician Name Role Phone Unavailable Primary Care Provider Unavailabl e Allergies No known active allergies Medications GLIPIZIDE ORAL None Entered Ac tive METOPROLOL TARTRATE ORAL None Entered Act kina LISINOPRIL ORAL None Entered A ctive aspirin 81 mg ORAL chewable tablet None Entered Active METFORMIN HCL (METFORMIN ORAL) None Entered Active Social History Tobacco Use Types Packs/Day Years Used Date Smoking Tobacco: Never Assessed Sex and Gender Information Value Date Recorded Sex Assigned at Not on file Legal Sex Male 8:34 AM EST Gender Identity Not on file Sexual Orientation Not on file Last Filed Vital Signs Vital Sign Reading Time Taken Comments Blood Pressure 154/75 11/24/2010 11:00 AM EST Pulse 51 11/24/2010 11:00 AM EST Temperature 35.6 C (96.1 F) 11/24/2010 11:00 AM EST Respiratory Rate 18 11/24/2010 11:00 AM EST Oxygen Saturation 96% 11/24/2010 11:00 AM EST Inhaled Oxygen Concentration - - Weight 83.9 kg (185 lb) 11/24/2010 10:00 AM EST Height 177.8 cm (5' 10 ) 11/24/2010 10:00 AM EST Body Mass Index 26.54 11/24/2010 10:00 AM EST Plan of Treatment Not on file
--- OUTSIDE RECORDS SUMMARY | 2025-04-22 09:09 | XMS_ITS | Clinical Summary ---
Author Organization [facility] Address [address] [place] [address] Care Team Providers Care Senior Investment Manager Name Role Phone Unavailable Primary Care Provider Unavailabl e Social History Tobacco Use Types Packs/Day Years Used Date Smoking Tobacco: Never Assessed [place] Safety & Environment Answer Date Rec orded Fear of Current or Ex-Partner Not on file Emotionally Abused Not on file 12/28/2023 Physically Abused Not on file 12/28/2023 Sexually Abused Not on file 12/28/2023 Physically or Sexually Abused Not on file Sex and Gender Information Value Date Recorded Sex Assigned at Not on file Legal Sex Male 12:43 AM EDT Gender Identity Not on file Sexual Orientation Not on file Last Filed Vital Signs Vital Sign Reading Time Taken Comments Blood Pressure 159/77 12/16/2021 2:50 PM EST Pulse 50 12/16/2021 2:50 PM EST Temperature 36.5 C (97.7 F) 12/16/2021 2:49 PM EST Respiratory Rate - - Oxygen Saturation - - Inhaled Oxygen Concentration - - Weight 87.2 kg (192 lb 3.2 oz) 12/16/2021 2:42 P M EST Height 177.8 cm (5' 10 ) 12/16/2021 2:42 PM EST Body Mass Index 27.58 12/16/2021 2:42 PM EST Plan of Treatment Health Maintenance Due Date Last Done Comments Diabetes: Hemoglobin A1C 1945 Medicare Annual Wellness (AWV) 1945 Diabetes: Retinopathy Screening 1954 Depression Screening 1956 Diabetes: Urine Protein Screening 1963 Pneumococcal Vaccine: 50+ Ye ars (1 of 2 - PCV) 1963 Adult Tetanus 1966 Zoster Vaccines (1 of 2) 1994 Fall Risk Screening 2009 COVID-19 Vaccine (2023-2 5 season) 2024 Influenza Vaccine (Season Ended) 2025 HIB Vaccines Aged Out No longer eligi ble based on patient's age to complete this topic HPV Vaccines Aged Out No longer eligi ble based on patient's age to complete this topic IPV Vaccines Aged Out No longer eligi ble based on patient's age to complete this topic Meningococcal B Vaccine Aged Out No l onger eligible based on patient's age to complete this topic Meningococcal Vaccine Aged Out No melissa geena eligible based on patient's age to complete this topic Rotavirus Vaccines Aged Out No longer eligible based on patient's age to complete this topic Insurance MEDICARE
--- OUTSIDE RECORDS SUMMARY | 2025-04-22 09:09 | XMS_ITS | Referral Summary ---
Author Organization [facility] Address [address] [place] [address] Care Team Providers Care Cable Hooker Name Role Phone Unavailable Primary Care Provider [...] 12/16/2021 2:42 PM EST Plan of Treatment Not on file Insurance MEDICARE Member Subscriber Plan / Payer (Ef fective 2009-Present) Name:Dave Syed Member ID:[id number] Relation to Subscriber:Self Name:Dave Syed Subscriber ID:[id number] Payer ID:[id number] Group ID:Not on file Type:Medicare Address: [facility] [id number]
--- NOTE | 2025-04-22 09:10 | MR_ITS ---
The [address] [address] Patient Name: PARDEEP STEPHENSON MRN: [id number] date: 1945 Sex: M Assigned Patient Location: MRI Current Patient Location: MRI Accession/Order Number: [id number] Exam Date: 04/22/2025 11:12 Report Date: 04/22/2025 11:21 At the request of: HI KEYES MD Procedure: MR head/brain wo con EXAMINATION: MRI OF THE BRAIN WITHOUT CONTRAST CLINICAL HISTORY: Transient global amnesia, G45.4 COMPARISON: None TECHNIQUE: Multiecho, multiplanar imaging of the brain was performed without enhancement. There is generalized atrophy. The ventricles are within normal limits for size and position. Mild to moderate increased T2 and FLAIR signal is visualized within the periventricular and subcortical white matter compatible with chronic microvascular disease. 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 There are no areas of abnormal signal intensity within the supra- or infratentorial brain. No restricted diffusion is identified to suggest a recent ischemic event. There are no extra-axial collections or mass effect. There is bilateral maxillary mucosal thickening, greater on the right as well as thickening at some of the ethmoid air cells MR/MR head/brain wo con IMPRESSION: ATROPHY AND CHRONIC ISCHEMIC CHANGES. MILD CHRONIC SINUSITIS. NO ACUTE INTRACRANIAL ABNORMALITY. Impression dictated by: Nazia Lucas M.D. 04/22/2025 11:21 AM Dictation Location: [place] [address] Electronically authenticated by: [id number] Y Date: 04/22/2025 11:21
--- OUTSIDE RECORDS SUMMARY | 2025-04-22 09:30 | XMS_ITS | CCD ---
Author Organization [facility] Care Team Providers Care Assistant Plant Manager Name Role Phone STEPHY, DR DO Admitting Unavailable STEPHY, DR DO Attending Unavailable STEPHY, DR DO Primary Care Unavailable STEPHY, DR DO Consulting Unavailable STEPHY, DR DO Admitting Unavailable STEPHY, DR DO Attending Unavailable STEPHY, DR DO Primary Care Unavailable STEPHY, DR DO Consulting Unavailable LARISAEBOMARI, DR LAKIA Deutsch Consulting Unavailable STEPHY, DR DO Admitting Unavailable STEPHY, DR DO Attending Unavailable STEPHY, DR DO Primary Care Unavailable STEPHY, DR DO Consulting Unavailable STEPHY, DR DO Primary Care Unavailable LINDA PEÑALOZA Admitting Unavailable LINDA PEÑALOZA Attending Unavailable JAY, DR SHELL Garcia Consulting Unavailable LINDA PEÑALOZA Consulting Unavailable Hi Vargas Primary Care Physician [phone] Hi Vargas Referring Unavailable Donald EVERETT Attending Unavailable Donald EVERETT Attending Unavailable Donald EVERETT Referring Unavailable Hi Vargas MD Primary Care Provider Lam Menon DO Emergency Provider [phone] Hi Vargas Primary Care Unavailable Lam Menon Admitting Unavailable Lam Menon Attending Unavailable Allergies Allergy Classification Reported Allergen(s) Allergy Type Date of Onset Reaction(s) Facility (1 source) No Known Medication Allergies; Translations: [No Known Medication Allergies] Propensity to adverse reactions (disorder) [facility] Repository Medications Current Medications Medication Drug Class(es) Dates Sig (Normalized) Sig (Original) aspirin 81 mg delayed release oral tablet (1 source) Platelet Aggregation Inhibitor, Nonsteroidal Anti-inflammatory Drug Start: 10-04-2023 take 1 tablet by mouth once daily aspirin 81 mg Oral EC Tab 81 mg = 1 tab(s), Oral, Daily, Refills(s) 0 Start Date: 10/04/23 Status: Ordered glipiZIDE 10 mg oral tablet (2 sources) Sulfonylurea Start: 01-13-2025 take 1 tablet by mouth twice daily Glipizide 10 mg tablet Active 10 MG PO Twice daily January 13, 2025 12:00am Start: 10-04-2023 take 1 tablet by [place] twice daily glipiZIDE 10 mg Tab 10 mg = 1 tab(s), Oral, BID, Refills(s) 0 Start Date: 10/04/23 Status: Ordered indomethacin 25 mg oral capsule (1 source) Nonsteroidal Anti-inflammatory Drug Start: 10-04-2023 take 1 capsule by mouth twice daily indomethacin 25 mg Cap 25 mg = 1 cap(s), Oral, BID, Refills(s) 0 Start Date: 10/04/23 Status: Ordered metFORMIN hydrochloride 500 mg oral tablet (2 sources) Biguanide Start: 01-13-2025 take 1 tablet by mouth twice daily Metformin 500 mg tablet Active 500 MG PO Twice daily January 13, 2025 12:00am Start: 10-04-2023 take 1 tablet by [place] twice daily metformin 500 mg Tab 500 mg = 1 tab(s), Oral, BID, Refills(s) 0 Start Date: 10/04/23 Status: Ordered 24 hr metoprolol succinate 100 mg extended release oral capsule (2 sources) beta-Adrenergic Elizabeth Start: 01-13-2025 take 1 capsule by mouth once daily Metoprolol Succinate 100 mg capsule,sprinkle,ER 24hr Active 100 MG PO Daily January 13, 2025 12:00am Start: 10-04-2023 take 1 tablet by [place] once daily metoprolol 100 mg ER Tab 100 mg = 1 tab(s), Oral, Daily, Refills(s) 0 Start Date: 10/04/23 Status: Ordered oseltamivir 75 mg oral capsule (1 source) Neuraminidase Inhibitor Start: 01-13-2025 take 1 capsule by mouth twice daily Oseltamivir (Tamiflu) 75 mg capsule Active 75 MG PO Twice daily 08 10January 13, 2025 12:00am pioglitazone 30 mg oral tablet (2 sources) Peroxisome Proliferator Receptor alpha Agonist, Peroxisome Proliferator Receptor gamma Agonist, Thiazolidinedione Start: 01-13-2025 take 1 tablet by mouth once daily Pioglitazone (Actos) 30 mg tablet Active 30 MG PO Daily January 13, 2025 12:00am Start: 10-04-2023 take 1 tablet by mouth once da tati Miralax (1 source) Osmotic Laxative Start: 10-04-2023 take 17 g by mouth once daily MiraLax 17 gm, Oral, Daily, Refill(s) 0 Start Date: 10/04/23 Status: Ordered simvastatin 10 mg oral tablet (2 sources) HMG-CoA Reductase Inhibitor Start: 01-13-2025 take 1 tablet by mouth once daily Simvastatin 10 mg tablet Active 10 MG PO Daily January 13, 2025 12:00am Start: 10-04-2023 take 2 tablets by mouth once d aily in the evening Vitamin D3 1999 intl units oral Tab (1 source) Start: 10-04-2023 take 1 tablet by mouth once daily Vitamin D3 1999 intl units oral Tab = 1 tab(s), Oral, Daily, Refills(s) 0 Start Date: 10/04/23 Status: Ordered Problems Active Problems Problem Classification Problem Date [...] Translations: [Benign prostatic hyperplasia] Onset: 09-08-2022 Chronic Influenza (1 source) Influenza; Translations: [Influenza due to unidentified influenza virus with other respiratory manifestations] 01-13-2025 Episodic Malaise and fatigue (3 sources) Asthenia; Translations: [Weakness] Onset: 01-13-2025 01-13-2025 Episodic Nutritional deficiencies (1 source) Vitamin D deficiency, [...] Results Test Name Value Interpretation Reference Range Facility Alanine aminotransferase [En zymatic activity/volume] in Serum or PlasmaOrdered By: Lam Menon on 01-13-2025 ALT [Catalytic activity/Vol] Alanine aminotransferase [Enzymatic activity/volume] in Serum or Plasma [facility] Albumin [Mass/volume] in Ser um or Plasma by Bromocresol green (BCG) dye binding methoOrdered By: Lam Menon on 01-13-2025 Albumin BCG dye [Mass/Vol] Albumin [Mass/volume] in Serum or Plasma by Bromocresol green (BCG) dye binding metho 3.5-5.7 [facility] Alkaline phosphatase [Enzyma tic activity/volume] in Serum or PlasmaOrdered By: Lam Menon on 01-13-2025 ALP [Catalytic activity/Vol] Alkaline phosphatase [Enzymatic activity/volume] in Serum or Plasma 34-104 [facility] Appearance of UrineOrdered B y: Lam Menon on 01-13-2025 Appearance (U) Urine appearance Clear [facility] Aspartate aminotransferase [ Enzymatic activity/volume] in Serum or PlasmaOrdered By: Lam Menon on 01-13-2025 AST [Catalytic activity/Vol] Aspartate aminotransferase [Enzymatic activity/volume] in Serum or Plasma 13-39 [facility] B-Type Natriuretic Peptideon 01-13-2025 Natriuretic peptide B (Bld) [Mass/Vol] 138.0 pg/mL High 5-100 [facility] Comment on above: Result Comment: PERF ORMED BY: [place] [address] PATHOLOGIST FIRE PREVENTION ENGINEER RAJIV ELLISON M.D. Performed By: #### C BC, HEPATIC, BMP, PT, BNP, CK, HS TROP #### [facility] [address] Bacteria [Presence] in Urine by AutomatedOrdered By: Lam Menon on 01-13-2025 Bacteria Auto Ql (U) Bacteria [Presence] in Urine by Automated None Seen [facility] Basic Metabolic Panelon 01-04 Anion gap [Moles/Vol] 9.9 mmol/L Normal 6.0-15.0 [facility] Comment on above: Performed By: #### C BC, HEPATIC, BMP, PT, BNP, CK, HS TROP #### [facility] [address] Calcium [Mass/Vol] 9.6 mg/dL Normal 8.6-10.3 [facility] Comment on above: Performed By: #### C BC, HEPATIC, BMP, PT, BNP, CK, HS TROP #### [address] Chloride [Moles/Vol] 102 mmol/L Normal 98-107 [facility] Comment on above: Performed By: #### C BC, HEPATIC, BMP, PT, BNP, CK, HS TROP #### [address] CO2 [Moles/Vol] 26.8 mmol/L Normal 21.0-31.0 [facility] Comment on above: Performed By: #### C BC, HEPATIC, BMP, PT, BNP, CK, HS TROP #### [address] Creatinine [Mass/Vol] 1.65 mg/dL High 0.70-1.30 [facility] Comment on above: Performed By: #### C BC, HEPATIC, BMP, PT, BNP, CK, HS TROP #### [address] Creatinine Clr Calc Pharmacy 36.87 Normal [facility] Comment on above: Result Comment: PERF ORMED BY: [place] [address] PATHOLOGIST FIRE PREVENTION ENGINEER RAJIV ELLISON M.D. Performed By: #### C BC, HEPATIC, BMP, PT, BNP, CK, HS TROP #### [address] Estimated GFR 41.717 mL/Min Normal [facility] Comment on above: Performed By: #### C BC, HEPATIC, BMP, PT, BNP, CK, HS TROP #### [address] Glucose [Mass/Vol] 54 mg/dL Low 70-100 [facility] Comment on above: Result Comment: [place] Glucose Reference Range is dependent on time and content of last meal. Glucose of more than 200 mg/dL in a nonstressed, ambulatory subject supports the diagnosis of Diabetes Mellitus. ADA recommended reference range Performed By: #### C BC, HEPATIC, BMP, PT, BNP, CK, HS TROP #### [facility] [address] Potassium [Moles/Vol] 4.7 mmol/L Normal 3.5-5.1 [facility] Comment on above: Performed By: #### C BC, HEPATIC, BMP, PT, BNP, CK, HS TROP #### [facility] [address] Sodium [Moles/Vol] 134 mmol/L Low 136-145 [facility] Comment on above: Performed By: #### C BC, HEPATIC, BMP, PT, BNP, CK, HS TROP #### [facility] [address] Urea nitrogen [Mass/Vol] 25 mg/dL Normal 7-25 [facility] Comment on above: Performed By: #### C BC, HEPATIC, BMP, PT, BNP, CK, HS TROP #### [facility] [address] Basophils Auto (Bld) [#/Vol] Ordered By: Lam Menon on 01-13-2025 Basophils (Bld) [#/Vol] Automated basophil count 0.0-0.2 [facility] Basophils/100 WBC Auto (Bld) Ordered By: Lam Menon on 01-13-2025 Basophils/100 WBC (Bld) Automated basophil % . [facility] Bilirubin Test strip Ql (U)O rdered By: Lam Menon on 01-13-2025 Bilirubin Ql (U) Bilirubin.total [Pre sence] in Urine by Test strip Negative [facility] Bilirubin.direct [Mass/volum e] in Serum or PlasmaOrdered By: Lam Menon on 01-13-2025 Bilirubin.direct [Mass/Vol] Bilirubin.direct [Mass/volume] in Serum or Plasma 0.03-0.18 [facility] Bilirubin.total [Mass/volume ] in Serum or PlasmaOrdered By: Lam Menon on 01-13-2025 Bilirubin [Mass/Vol] Bilirubin.total [Mass/volume] in Serum or Plasma 0.3-1.0 [facility] BioFire Not Detectedon 01-13 BioFire Not Detected Not detected Normal Not Detecte T [facility] Comment on above: Result Comment: This is a duplicate RP2.1 COVID (PCR) result to be used for statistical tracking purpose only. PERFORMED BY: [place] [address] PATHOLOGIST FIRE PREVENTION ENGINEER RAJIV ELLISON M.D. Performed By: #### C BC, HEPATIC, BMP, PT, BNP, CK, HS TROP #### [address] COVID-19 Detected/Not Detect edOrdered By: Lam Menon on 01-13-2025 SARS-CoV-2 (COVID-19) RNA RABIA+non-probe Ql (Nph) Not detected Not Detecte [facility] Comment on above: This is a duplicate RP2.1 COVID (PCR) result to be used for statistical tracking purpose only. Calcium [Mass/volume] in Ser um or PlasmaOrdered By: Lam Menon on 01-13-2025 Calcium [Mass/Vol] Calcium [Mass/volume ] in Serum or Plasma 8.6-10.3 [facility] Carbon dioxide, total [Moles /volume] in Serum or PlasmaOrdered By: Lam Menon on 01-13-2025 CO2 [Moles/Vol] Carbon dioxide, tota l [Moles/volume] in Serum or Plasma 21.0-31.0 [facility] Chloride [Moles/volume] in S libia or PlasmaOrdered By: Lam Menon on 01-13-2025 Chloride [Moles/Vol] Chloride [Moles/vol ume] in Serum or Plasma 98-107 [facility] Color Auto (U)Ordered By: Rosalio Menon on 01-13-2025 Color (U) Color of Urine by Auto Yellow Fi [facility] Complete Blood Count Auto Di ffon 01-13-2025 Basophils (Bld) [#/Vol] 0.0 10*3/uL Normal 0.0-0.2 [facility] Comment on above: Result Comment: PERF ORMED BY: [place] [address] PATHOLOGIST FIRE PREVENTION ENGINEER RAJIV ELLISON M.D. Performed By: #### C BC, HEPATIC, BMP, PT, BNP, CK, HS TROP #### [address] Basophils/100 WBC (Bld) 0.5 % Normal . [facility] Comment on above: Performed By: #### C BC, HEPATIC, BMP, PT, BNP, CK, HS TROP #### [address] Eosinophils (Bld) [#/Vol] 0.0 10*3/uL Normal 0.0-0.45 [facility] Comment on above: Performed By: #### C BC, HEPATIC, BMP, PT, BNP, CK, HS TROP #### [address] Eosinophils/100 WBC (Bld) 0.1 % Normal . [facility] Comment on above: Performed By: #### C BC, HEPATIC, BMP, PT, BNP, CK, HS TROP #### [address] Erythrocyte distribution width (RBC) [Ratio] 15.0 % High 12.0-14.8 [facility] Comment on above: Performed By: #### C BC, HEPATIC, BMP, PT, BNP, CK, HS TROP #### [address] Hematocrit (Bld) [Volume fraction] 38.8 % Normal 38.8-50.0 [facility] Comment on above: Performed By: #### C BC, HEPATIC, BMP, PT, BNP, CK, HS TROP #### [address] Hemoglobin (Bld) [Mass/Vol] 13.2 g/dL Normal 13.0-17.0 [facility] Comment on above: Performed By: #### C BC, HEPATIC, BMP, PT, BNP, CK, HS TROP #### [address] Lymphocytes (Bld) [#/Vol] 1.1 10*3/uL Normal 1.00-4.8 [facility] Comment on above: Performed By: #### C BC, HEPATIC, BMP, PT, BNP, CK, HS TROP #### [address] Lymphocytes/100 WBC (Bld) 22.8 % Normal . [facility] Comment on above: Performed By: #### C BC, HEPATIC, BMP, PT, BNP, CK, HS TROP #### [address] MCH (RBC) [Entitic mass] 31.4 pg Normal 27.5-35.2 [facility] Comment on above: Performed By: #### C BC, HEPATIC, BMP, PT, BNP, CK, HS TROP #### [address] MCV (RBC) [Entitic vol] 92.3 fL Normal 83.5-101 [facility] Comment on above: Performed By: #### C BC, HEPATIC, BMP, PT, BNP, CK, HS TROP #### [address] Mean Corpuscular HGB Conc 34.0 g/dL Normal 32.5-35.6 [facility] Comment on above: Performed By: #### C BC, HEPATIC, BMP, PT, BNP, CK, HS TROP #### [address] Monocytes (Bld) [#/Vol] 0.6 10*3/uL Normal 0.0-0.8 [facility] Comment on above: Performed By: #### C BC, HEPATIC, BMP, PT, BNP, CK, HS TROP #### [address] Monocytes/100 WBC (Bld) 22.81 % High 0.00-20.00 [facility] Comment on above: Result Comment: For adults in ED, MDW > 20.0 may be associated with a higher risk of sepsis during the first 12 hrs of hospital admission Performed By: #### C BC, HEPATIC, BMP, PT, BNP, CK, HS TROP #### [address] Monocytes/100 WBC (Bld) 12.5 % Normal . [facility] Comment on above: Performed By: #### C BC, HEPATIC, BMP, PT, BNP, CK, HS TROP #### [address] Neutrophils (Bld) [#/Vol] 3.1 10*3/uL Normal 1.8-7.7 [facility] Comment on above: Performed By: #### C BC, HEPATIC, BMP, PT, BNP, CK, HS TROP #### [address] Neutrophils/100 WBC (Bld) 64.1 % Normal . [facility] Comment on above: Performed By: #### C BC, HEPATIC, BMP, PT, BNP, CK, HS TROP #### [address] NRBC% 0.1 /100{WBC} Normal 0-0.5 [facility] Comment on above: Performed By: #### C BC, HEPATIC, BMP, PT, BNP, CK, HS TROP #### [address] Platelet mean volume (Bld) [Entitic vol] 8.9 fL Normal 6.6-10.1 [facility] Comment on above: Performed By: #### C BC, HEPATIC, BMP, PT, BNP, CK, HS TROP #### [address] Platelets (Bld) [#/Vol] 162 10*3/uL Normal 150-450 [facility] Comment on above: Performed By: #### C BC, HEPATIC, BMP, PT, BNP, CK, HS TROP #### [address] RBC (Bld) [#/Vol] 4.20 10*6/uL Normal 3.90-5.60 [facility] Comment on above: Performed By: #### C BC, HEPATIC, BMP, PT, BNP, CK, HS TROP #### [address] WBC (Bld) [#/Vol] 4.8 10*3/uL Normal 4.1-10.5 [facility] Comment on above: Performed By: #### C BC, HEPATIC, BMP, PT, BNP, CK, HS TROP #### [facility] [address] Creatine Kinaseon 01-13-2025 CK [Catalytic activity/Vol] 199 U/L Normal 30-223 [facility] Comment on above: Performed By: #### C BC, HEPATIC, BMP, PT, BNP, CK, HS TROP #### [address] Creatine kinase [Enzymatic a ctivity/volume] in Serum or PlasmaOrdered By: Lam Menon on 01-13-2025 CK [Catalytic activity/Vol] Creatine kinase [Enzymatic activity/volume] in Serum or Plasma - [facility] Creatinine [Mass/volume] in Serum or PlasmaOrdered By: Lam Menon on 01-13-2025 Creatinine [Mass/Vol] Creatinine [Mass/v olume] in Serum or Plasma High 0.70-1.30 [facility] Dipstick and Microscopicon 0 01-13-2025 Appearance (U) Clear Normal Clear [facility] Comment on above: Order Comment: Name Collection Type:: Clean-Voided Midstream Performed By: #### C BC, HEPATIC, BMP, PT, BNP, CK, HS TROP #### [address] Bacteria,Urine Rare Normal None Seen [facility] Comment on above: Order Comment: Name Collection Type:: Clean-Voided Midstream Performed By: #### C BC, HEPATIC, BMP, PT, BNP, CK, HS TROP #### [address] Bilirubin,Urine Negative Normal Negative [facility] Comment on above: Order Comment: Name Collection Type:: Clean-Voided Midstream Performed By: #### C BC, HEPATIC, BMP, PT, BNP, CK, HS TROP #### [address] Color (U) Yellow Normal Yellow [facility] Comment on above: Order Comment: Name Collection Type:: Clean-Voided Midstream Performed By: #### C BC, HEPATIC, BMP, PT, BNP, CK, HS TROP #### [address] Glucose Ql (U) Normal Normal Normal [facility] Comment on above: Order Comment: Name Collection Type:: Clean-Voided Midstream Performed By: #### C BC, HEPATIC, BMP, PT, BNP, CK, HS TROP #### [address] Hyaline Casts,Urine None Normal 0-8 [facility] Comment on above: Order Comment: Name Collection Type:: Clean-Voided Midstream Performed By: #### C BC, HEPATIC, BMP, PT, BNP, CK, HS TROP #### [address] Ketones Ql (U) Negative Normal Negative [facility] Comment on above: Order Comment: Name Collection Type:: Clean-Voided Midstream Performed By: #### C BC, HEPATIC, BMP, PT, BNP, CK, HS TROP #### [address] Leukocyte esterase Test strip Ql (U) Negative Normal Negative [facility] Comment on above: Order Comment: Name Collection Type:: Clean-Voided Midstream Performed By: #### C BC, HEPATIC, BMP, PT, BNP, CK, HS TROP #### [address] Mucus,Urine 1+ Critically abnormal [facility] Comment on above: Order Comment: Name Collection Type:: Clean-Voided Midstream Result Comment: PERF ORMED BY: [place] [address] PATHOLOGIST FIRE PREVENTION ENGINEER RAJIV ELLISON M.D. Performed By: #### C BC, HEPATIC, BMP, PT, BNP, CK, HS TROP #### [place] [address] [place] Nitrite,Urine Negative Normal Negative [facility] Comment on above: Order Comment: Name Collection Type:: Clean-Voided Midstream Performed By: #### C BC, HEPATIC, BMP, PT, BNP, CK, HS TROP #### [address] Occult Blood,Urine 2+ High Negative [facility] Comment on above: Order Comment: Name Collection Type:: Clean-Voided Midstream Result Comment: PERF ORMED BY: [place] [address] PATHOLOGIST FIRE PREVENTION ENGINEER RAJIV ELLISON M.D. Performed By: #### C BC, HEPATIC, BMP, PT, BNP, CK, HS TROP #### [address] pH (U) 5.5 [pH] Normal 5.0-9.0 [facility] Comment on above: Order Comment: Name Collection Type:: Clean-Voided Midstream Performed By: #### C BC, HEPATIC, BMP, PT, BNP, CK, HS TROP #### [address] Protein (U) [Mass/Vol] 50 mg/dL High Negative Th e [facility] Comment on above: Order Comment: Name Collection Type:: Clean-Voided Midstream Performed By: #### C BC, HEPATIC, BMP, PT, BNP, CK, HS TROP #### [address] RBC,Urine 50-100 High 0-4 [facility] Comment on above: Order Comment: Name Collection Type:: Clean-Voided Midstream Performed By: #### C BC, HEPATIC, BMP, PT, BNP, CK, HS TROP #### [address] Specificy Hunter,Urine 1.022 Normal 1.001-1.030 [facility] Comment on above: Order Comment: Name Collection Type:: Clean-Voided Midstream Performed By: #### C BC, HEPATIC, BMP, PT, BNP, CK, HS TROP #### [address] Squamous Epithelial Cell,Urine 1-2 Normal 0-2 [facility] Comment on above: Order Comment: Name Collection Type:: Clean-Voided Midstream Performed By: #### C BC, HEPATIC, BMP, PT, BNP, CK, HS TROP #### [address] Urobilinogen,Urine Normal Normal Normal [facility] Comment on above: Order Comment: Name Collection Type:: Clean-Voided Midstream Performed By: #### C BC, HEPATIC, BMP, PT, BNP, CK, HS TROP #### [address] WBC,Urine 10-19 High 0-4 [facility] Comment on above: Order Comment: Name Collection Type:: Clean-Voided Midstream Performed By: #### C BC, HEPATIC, BMP, PT, BNP, CK, HS TROP #### [address] ECG 12 lead ECGon 01-13-2025 ECG 12 lead ECG [facility] [place] [address] Electrocardiograph Report Signed Patient: Dave Stephenson MR#: [id number] : [id number] Acct:[id number] Age/Sex: 79 / M ADM Date: 01/13/25 Loc: ER Room: Type: PRE ER Attending Dr: Ordering Provider: Lam Menon DO Date of Service: 01/13/2508/30/1148 ECG/ECG 12 lead ECG: Weakness Copies to: Test Reason : Blood Pressure : 187/86 mmHG Vent. Rate : 51 BPM Atrial Rate : 51 BPM P-R Int : 274 ms QRS Dur : 78 ms QT Int : 464 ms P-R-T Axes : 82 64 106 degrees QTcB Int : 427 ms Sinus bradycardia with 1st degree AV block with premature atrial complexes T wave abnormality, consider anterolateral ischemia Abnormal ECG No previous ECGs available Confirmed by Lam Menon DO ([id number]) on 01/13/2025 12:20:51 PM Referred By: Electronically Signed By: Lam Menon DO Transcribed By: MUS Signed By Lam Menon DO 5 1220 Normal [facility] Eosinophils Auto (Bld) [#/Vo l]Ordered By: Lam Menon on 01-13-2025 Eosinophils (Bld) [#/Vol] Automated eosinophil count 0.0-0.45 [facility] Eosinophils/100 WBC Auto (Bl d)Ordered By: Lam Menon on 01-13-2025 Eosinophils/100 WBC (Bld) Automated eosinophil % . [facility] Epithelial cells.squamous [# /area] in Urine sediment by Automated countOrdered By: Lam Menon on 01-13-2025 Epithelial cells.squamous Auto (Urine sed) [#/Area] Epithelial cells.squamous [#/area] in Urine sediment by Automated count 0-2 [facility] Erythrocyte distribution wid th Auto (RBC) [Ratio]Ordered By: Lam Menon on 01-13-2025 Erythrocyte distribution width (RBC) [Ratio] Erythrocyte distribution width [Ratio] by Automated count High 12.0-14.8 [facility] Erythrocytes [#/area] in Uri ne sediment by Automated countOrdered By: Lam Menon on 01-13-2025 RBC Auto (Urine sed) [#/Area] Erythrocytes [#/area] in Urine sediment by Automated count High 0-4 [facility] Globulin Calc (S) [Mass/Vol] Ordered By: Lam Menon on 01-13-2025 Globulin (S) [Mass/Vol] Serum globulin measurement by calculation (mass/volume) [facility] Glucose Glucometer (BldC) [M ass/Vol]Ordered By: Lam Menon on 01-13-2025 Glucose [Mass/Vol] Capillary blood gluc ose measurement by glucometer (mass/volume) [facility] Comment on above: Random Glucose Refer ence Range is dependent on time and content of last meal. Glucose of more than 200 mg/dL in a nonstressed, ambulatory subject supports the diagnosis of Diabetes Mellitus. Glucose Poct Glucometerson 0 01-13-2025 Glucose [Mass/Vol] 155 mg/dL Normal [facility] Comment on above: Result Comment: [place] Glucose Reference Range is dependent on time and content of last meal. Glucose of more than 200 mg/dL in a nonstressed, ambulatory subject supports the diagnosis of Diabetes Mellitus. PERFORMED BY: [place] [address] PATHOLOGIST FIRE PREVENTION ENGINEER RAJIV ELLISON M.D. Performed By: #### G LULS #### Point of Care testing , Commemt1 Normal [facility] Comment on above: Result Comment: Glu2 : WILL NOTIFY DR/RN PERFORMED BY: [place] [address] PATHOLOGIST FIRE PREVENTION ENGINEER RAJIV ELLISON M.D. Performed By: #### C BC, HEPATIC, BMP, PT, BNP, CK, HS TROP #### [address] Glucose [Mass/Vol] 51 mg/dL Off scale low [facility] Comment on above: Result Comment: [facility] Glucose Reference Range is dependent on time and content of last meal. Glucose of more than 200 mg/dL in a nonstressed, ambulatory subject supports the diagnosis of Diabetes Mellitus. Performed By: #### C BC, HEPATIC, BMP, PT, BNP, CK, HS TROP #### [address] Glucose [Mass/volume] in Ser um or PlasmaOrdered By: Lam Menon on 01-13-2025 Glucose [Mass/Vol] Glucose [Mass/volume ] in Serum or Plasma Low 70-100 [facility] Comment on above: ADA recommended refe rence rangeRandom Glucose Reference Range is dependent on time and content of last meal. Glucose of more than 200 mg/dL in a nonstressed, ambulatory subject supports the diagnosis of Diabetes Mellitus. Glucose [Mass/volume] in Uri ne by Test stripOrdered By: Lam Menon on 01-13-2025 Glucose Test strip (U) [Mass/Vol] Glucose [Mass/volume] in Urine by Test strip Normal [facility] Hematocrit Auto (Bld) [Volum e fraction]Ordered By: Lam Menon on 01-13-2025 Hematocrit (Bld) [Volume fraction] Hematocrit [Volume Fraction] of Blood by Automated count 38.8-50.0 [facility] Hemoglobin Test strip Ql (U) Ordered By: Lam Menon on 01-13-2025 Hemoglobin Ql (U) Hemoglobin [Presence ] in Urine by Test strip High Negative [facility] Hemoglobin [Mass/volume] in BloodOrdered By: Lam Menon on 01-13-2025 Hemoglobin (Bld) [Mass/Vol] Hemoglobin [Mass/volume] in Blood 13.0-17.0 [facility] Hepatic Panelon 01-13-2025 Albumin [Mass/Vol] 4.3 g/dL Normal 3.5-5.7 [facility] Comment on above: Performed By: #### C BC, HEPATIC, BMP, PT, BNP, CK, HS TROP #### [facility] [address] Albumin/Globulin [Mass ratio] 1.0 {ratio} Normal [facility] Comment on above: Performed By: #### C BC, HEPATIC, BMP, PT, BNP, CK, HS TROP #### [facility] [address] ALP [Catalytic activity/Vol] 103 U/L Normal 34-104 [facility] Comment on above: Performed By: #### C BC, HEPATIC, BMP, PT, BNP, CK, HS TROP #### [facility] [address] [place] [address] [place] ALT [Catalytic activity/Vol] 14 U/L Normal 7-52 [facility] Comment on above: Performed By: #### C BC, HEPATIC, BMP, PT, BNP, CK, HS TROP #### [facility] [address] AST [Catalytic activity/Vol] 33 U/L Normal 13-39 [facility] Comment on above: Performed By: #### C BC, HEPATIC, BMP, PT, BNP, CK, HS TROP #### [address] Bilirubin [Mass/Vol] 0.5 mg/dL Normal 0.3-1.0 [facility] Comment on above: Performed By: #### C BC, HEPATIC, BMP, PT, BNP, CK, HS TROP #### [facility] [address] Bilirubin,Indirect 0.4 mg/dL Normal [facility] Comment on above: Performed By: #### C BC, HEPATIC, BMP, PT, BNP, CK, HS TROP #### [address] Bilirubin.indirect [Mass/Vol] 0.10 mg/dL Normal 0.03-0.18 [facility] Comment on above: Performed By: #### C BC, HEPATIC, BMP, PT, BNP, CK, HS TROP #### [address] Globulin (S) [Mass/Vol] 4.2 g/dL Normal [facility] Comment on above: Performed By: #### C BC, HEPATIC, BMP, PT, BNP, CK, HS TROP #### [address] Protein [Mass/Vol] 8.5 g/dL Normal 6.4-8.9 [facility] Comment on above: Performed By: #### C BC, HEPATIC, BMP, PT, BNP, CK, HS TROP #### [address] Hyaline casts [#/area] in Ur ine sediment by Automated countOrdered By: Lam Menon on 01-13-2025 Hyaline casts Auto (Urine sed) [#/Area] Hyaline casts [#/area] in Urine sediment by Automated count 0-8 [facility] INR in Platelet poor plasma by Coagulation assayOrdered By: Lam Menon on 01-13-2025 INR Coag (PPP) [Relative time] INR in Platelet poor plasma by Coagulation assay [facility] Comment on above: INR Therapeutic Rang e A) Pre- and Peroperative OAT started two weeks before surgery. NOT HIP SURGERY: 1.5 - 2.5 HIP SURGERY: 2 - 3B) Primary and secondary prevention of venous THROMBOSIS: 2 - 3C) Active venous thrombosis, pulmonary embolismand prevention of recurrent venous thrombosis: 2 - 3D) Prevention of arterial thromboembolismincluding patients with mechanical heart valves: 3 - 4.5 Ketones Test strip Ql (U)Ord ered By: Lam Menon on 01-13-2025 Ketones Ql (U) Ketones [Presence] i n Urine by Test strip Negative [facility] Leukocyte esterase [Presence ] in Urine by Test stripOrdered By: Lam Menon on 01-13-2025 Leukocyte esterase Test strip Ql (U) Leukocyte esterase [Presence] in Urine by Test strip Negative [facility] Leukocytes [#/area] in Urine sediment by Automated countOrdered By: Lam Menon on 01-13-2025 WBC Auto (Urine sed) [#/Area] Leukocytes [#/area] in Urine sediment by Automated count High 0-4 [facility] Leukocytes [#/volume] correc coral for nucleated erythrocytes in Blood by Automated counOrdered By: Lam Menon on 01-13-2025 WBC corrected for nucl RBC Auto (Bld) [#/Vol] Leukocytes [#/volume] corrected for nucleated erythrocytes in Blood by Automated coun 4.1-10.5 [facility] Lymphocytes Auto (Bld) [#/Vo l]Ordered By: Lam Menon on 01-13-2025 Lymphocytes (Bld) [#/Vol] Lymphocytes [#/volume] in Blood by Automated count 1.00-4.8 [facility] Lymphocytes/100 WBC Auto (Bl d)Ordered By: Lam Menon on 01-13-2025 Lymphocytes/100 WBC (Bld) Lymphocytes/100 leukocytes in Blood by Automated count . [facility] MCH Auto (RBC) [Entitic mass ]Ordered By: Lam Menon on 01-13-2025 MCH (RBC) [Entitic mass] MCH [Entitic mass] by Automated count 27.5-35.2 [facility] MCHC Auto (RBC) [Mass/Vol]Or dered By: Lam Menon on 01-13-2025 MCHC (RBC) [Mass/Vol] MCHC [Mass/volume] by Automated count 32.5-35.6 [facility] MCV Auto (RBC) [Entitic vol] Ordered By: Lam Menon on 01-13-2025 MCV (RBC) [Entitic vol] MCV [Entitic volume] by Automated count 83.5-101 [facility] Monocyte distribution width [Entitic volume] in Blood by AutomatedOrdered By: Lam Menon on 01-13-2025 Monocyte distribution width Auto (Bld) [Entitic vol] Monocyte distribution width [Entitic volume] in Blood by Automated High 0.00-20.00 [facility] Comment on above: For adults in ED, MD W > 20.0 may be associated with a higher risk of sepsis during the first 12 hrs of hospital admission Monocytes Auto (Bld) [#/Vol] Ordered By: Lam Menon on 01-13-2025 Monocytes (Bld) [#/Vol] Automated blood monocyte count 0.0-0.8 [facility] Monocytes/100 WBC Auto (Bld) Ordered By: Lam Menon on 01-13-2025 Monocytes/100 WBC (Bld) Automated monocyte % . [facility] Mucus [Presence] in Urine by AutomatedOrdered By: Lam Menon on 01-13-2025 Mucus Auto Ql (U) Mucus [Presence] in Urine by Automated Abnormal [facility] Natriuretic peptide B [Mass/ Vol]Ordered By: Lam Menon on 01-13-2025 Natriuretic peptide B (Bld) [Mass/Vol] BNP ser/plas High 5-100 [facility] Neutrophils Auto (Bld) [#/Vo l]Ordered By: Lam Menon on 01-13-2025 Neutrophils (Bld) [#/Vol] Neutrophils [#/volume] in Blood by Automated count 1.8-7.7 [facility] Neutrophils/100 WBC Auto (Bl d)Ordered By: Lam Menon on 01-13-2025 Neutrophils/100 WBC (Bld) Automated neutrophil % . [facility] Nitrite Test strip Ql (U)Ord ered By: Lam Menon on 01-13-2025 Nitrite Ql (U) Nitrite [Presence] i n Urine by Test strip Negative [facility] No Panel InformationOrdered By: Lam Menon on 03-10-2025 Bedside Glucose Comment See comment [facility] Comment on above: Glu2: WILL NOTIFY DR /RN Estimated GFR (CKD-EPI) 41.717 mL/Min [facility] Creatinine Clearance (Chem 36.87 [facility] Nucleated erythrocytes [Pres ence] in Blood by Automated countOrdered By: Lam Menon on 01-13-2025 Nucleated RBC Auto Ql (Bld) Nucleated erythrocytes [Presence] in Blood by Automated count 0-0.5 [facility] Platelet mean volume Auto (B ld) [Entitic vol]Ordered By: Lam Menon on 01-13-2025 Platelet mean volume (Bld) [Entitic vol] Platelet mean volume [Entitic volume] in Blood by Automated count 6.6-10.1 [facility] Platelets Auto (Bld) [#/Vol] Ordered By: Lam Menon on 01-13-2025 Platelets (Bld) [#/Vol] Platelets [#/volume] in Blood by Automated count 150-450 [facility] Potassium [Moles/volume] in Serum or PlasmaOrdered By: Lam Menon on 01-13-2025 Potassium [Moles/Vol] Potassium [Moles/v olume] in Serum or Plasma 3.5-5.1 [facility] Protein Test strip (U) [Mass /Vol]Ordered By: Lam Menon on 01-13-2025 Protein (U) [Mass/Vol] Protein [Mass/vol ume] in Urine by Test strip High Negative [facility] Protein [Mass/volume] in Ser um or PlasmaOrdered By: Lam Menon on 01-13-2025 Protein [Mass/Vol] Protein [Mass/volume ] in Serum or Plasma 6.4-8.9 [facility] Prothrombin Time INRon 01-13 INR Coag (PPP) [Relative time] 1.1 {INR} Normal [facility] Comment on above: Result Comment: INR Therapeutic Range A) Pre- and Peroperative OAT started two weeks before surgery. NOT HIP SURGERY: 1.5 - 2.5 HIP SURGERY: 2 - 3 B) Primary and secondary prevention of venous THROMBOSIS: 2 - 3 C) Active venous thrombosis, pulmonary embolism and prevention of recurrent venous thrombosis: 2 - 3 D) Prevention of arterial thromboembolism including patients with mechanical heart valves: 3 - 4.5 PERFORMED BY: [facility] [address] [place] [address] PATHOLOGIST FIRE PREVENTION ENGINEER RAJIV ELLISON M.D. Performed By: #### C BC, HEPATIC, BMP, PT, BNP, CK, HS TROP #### [facility] [address] [place] [id number] [facility] PT Coag (PPP) [Time] 12.4 s Normal 9.0-12.9 [facility] Comment on above: Result Comment: A he matocrit value greater than 55% may lead to inaccurate results in coagulation testing. Patients having hematocrit values >55% require a special collection tube for coagulation studies. Please contact the laboratory at [phone] for redraw instructions. Performed By: #### C BC, HEPATIC, BMP, PT, BNP, CK, HS TROP #### [facility] [address] [place] [id number] [facility] Prothrombin time (PT)Ordered By: Lam Menon on 01-13-2025 PT Coag (PPP) [Time] Prothrombin time (PT) 9.0- 12.9 [facility] Comment on above: A hematocrit value g reater than 55% may lead to inaccurate results in coagulation testing. Patients having hematocrit values >55% require a special collection tube for coagulation studies. Please contact the laboratory at [phone] for redraw instructions. RBC Auto (Bld) [#/Vol]Ordere d By: Lam Menon on 01-13-2025 RBC (Bld) [#/Vol] Erythrocytes [#/volu me] in Blood by Automated count 3.90-5.60 [facility] Respiratory (Upper) Panel, P CRon 01-13-2025 Respiratory (Upper) Panel, PCR Adenovirus Not detected Bordetella parapertussis Not detected Chlamydia pneumoniae Not detected Coronavirus 229E Not detected Coronavirus HKU1 Not detected Coronavirus NL63 Not detected Coronavirus OC43 Not detected Influenza A Influenza A H1-2009 Detected Influenza B Not detected Human Metapneumovirus Not detected Mycoplasma pneumoniae Not detected Parainfluenza Virus 1 Not detected Parainfluenza Virus 2 Not detected Parainfluenza Virus 3 Not detected Parainfluenza Virus 4 Not detected Bordetella pertussis-ptxP Not detected Human Rhino/Enterovirus Not detected Resp. Syncytial Virus Not detected COVID-19 Detected/Not Detected Not detected Blank Space -- FLUA TEST INCLUDES Influenza A tests for the following clinically FLUA TEST INCLUDES significant subtypes: FLUA TEST INCLUDES - Influenza A FLUA TEST INCLUDES - Influenza A H1 FLUA TEST INCLUDES - Influenza A H1 2009 FLUA TEST INCLUDES - Influenza A H3 Blank Space -- RP2 FLU DISCLAIMER Recent administration of nasal influenza vaccines RP2 FLU DISCLAIMER may cause positive FLU results but would not RP2 FLU DISCLAIMER represent infection by those agents. PERFORMED BY: [place] [address] PATHOLOGIST FIRE PREVENTION ENGINEER RAJIV ELLISON M.D. Normal [facility] Comment on above: Performed By: #### C BC, HEPATIC, BMP, PT, BNP, CK, HS TROP #### [address] Respiratory pathogens DNA an d RNA panel - Nasopharynx by RABIA with non-probe detectionOrdered By: Lam Menon on 01-13-2025 Respiratory pathogens DNA and RNA panel RABIA+non-probe (Nph) Respiratory pathogens DNA and RNA panel - Nasopharynx by RABIA with non-probe detection [facility] Serum or plasma albumin/glob ulin mass ratioOrdered By: Lam Menon on 01-13-2025 Albumin/Globulin [Mass ratio] Serum or plasma albumin/globulin mass ratio [facility] Serum or plasma anion gap de terminationOrdered By: Lam Menon on 01-13-2025 Anion gap [Moles/Vol] Serum or plasma an ion gap determination 6.0-15.0 [facility] Serum or plasma non-glucuron idated bilirubin measurement (mass/volume)Ordered By: Lam Menon on 01-13-2025 Bilirubin.indirect [Mass/Vol] Serum or plasma non-glucuronidated bilirubin measurement (mass/volume) [facility] Sodium [Moles/volume] in Ser um or PlasmaOrdered By: Lam Mneon on 01-13-2025 Sodium [Moles/Vol] Sodium [Moles/volume ] in Serum or Plasma Low 136-145 [facility] Specific gravity Test strip (U) [Rel density]Ordered By: Lam Menon on 01-13-2025 Specific gravity (U) [Rel density] Specific gravity of Urine by Test strip 1.001-1.030 [facility] Troponin I High Sensitivityo n 01-13-2025 Troponin I High Sensitivity 20 Normal 0-20 [facility] Comment on above: Result Comment: The Troponin units of report have been changed to meet the Chest Pain Accreditation requirement, element EC5.M1l2. Troponin units are changed from pg/ml to ng/L. Also, the decimal is removed and results are in whole numbers. PERFORMED BY: [place] [address] PATHOLOGIST FIRE PREVENTION ENGINEER RAJIV ELLISON M.D. Performed By: #### C BC, HEPATIC, BMP, PT, BNP, CK, HS TROP #### [address] Troponin I.cardiac [Mass/vol ume] in Serum or Plasma by Detection limit <= 0.01 ng/Ordered By: Lam Menon on 01-13-2025 Troponin I.cardiac DL <= 0.01 ng/mL [Mass/Vol] Troponin I.cardiac [Mass/volume] in Serum or Plasma by Detection limit <= 0.01 ng/ 0-20 [facility] Comment on above: The Troponin units o f report have been changed to meet the Chest Pain Accreditation requirement, element EC5.M1l2. Troponin units are changed from pg/ml to ng/L. Also, the decimal is removed and results are in whole numbers. Urea nitrogen [Mass/volume] in Serum or PlasmaOrdered By: Lam Menon on 01-13-2025 Urea nitrogen [Mass/Vol] Urea nitrogen [Mass/volume] in Serum or Plasma 05-30 [facility] Urobilinogen Test strip (U) [Mass/Vol]Ordered By: Lam Menon on 01-13-2025 Urobilinogen (U) [Mass/Vol] Urobilinogen [Mass/volume] in Urine by Test strip Normal [facility] WBC Auto (Bld) [#/Vol]Ordere d By: Lam Menon on 01-13-2025 WBC (Bld) [#/Vol] Leukocytes [#/volume ] in Blood by Automated count 4.1-10.5 [facility] X-ray reportOrdered By: Gilberto Bar on 01-13-2025 Study report [facility] [place] [address] XRay Report Signed Patient: Dave Stephenson MR#: [id number] : 1945 Acct:[id number] Age/Sex: 79 / M ADM Date: 5 Loc: ER Room: Type: PRE ER Attending Dr: Copies to: Lam Menon DO~ Ordering Provider: Lam Menon DO Date of Service: 01/13/25 XR/XR chest 1V portable: Weakness SINGLE VIEW CHEST CLINICAL HISTORY: Extreme weakness fatigue for 2 days. COMPARISON: None FINDINGS: Heart normal in size. Lungs are clear. No free air. XR/XR chest 1V portable IMPRESSION: NO ACUTE FINDINGS Impression dictated by: Valdo Bar Jr., D.OReyes01/13/2025 12:32 PM Dictation Location: [place] [address] Transcribed By: [facility] 01/13/25 1232 Dictated By: Valdo Bar Jr, DO 01/13/25 1231 Signed By: 01/13/25 1232 [facility] XR chest 1V portableon 01-13 XR chest 1V portable [facility] [place] [address] XRay Report Signed Patient: Dave Stephenson MR#: [id number] : 1945 Acct:[id number] Age/Sex: 79 / M ADM Date: 01/13/25 Loc: ER Room: Type: PRE ER Attending Dr: Copies to: Lam Menon DO Ordering Provider: Lam Menon DO Date of Service: 01/13/25 XR/XR chest 1V portable: Weakness SINGLE VIEW CHEST CLINICAL HISTORY: Extreme weakness fatigue for 2 days. COMPARISON: None FINDINGS: Heart normal in size. Lungs are clear. No free air. XR/XR chest 1V portable IMPRESSION: NO ACUTE FINDINGS Impression dictated by: Valdo Bar Jr., D.OReyes01/13/2025 12:32 PM Dictation Location: [facility]- Transcribed By: BEN 01/13/25 1232 Dictated By: Valdo Bar Jr, DO 01/13/25 1231 Signed By: 01/13/25 1232 Normal [facility] pH Test strip (U)Ordered By: Lam Menon on 01-13-2025 pH (U) pH of Urine by Test strip 5.0-9.0 [facility] Outside Colonoscopyon 2022 Outside Colonoscopy [id number]#1.00TIFF Normal [facility] Lab Reportson 10-25-2023 Lab Reports [id number]#1.00TIFF Normal [facility] Consent for Procedure/Surger yon 10-18-2023 Consent for Procedure/Surgery [id number]#1.00TIFF Normal [facility] Facesheeton 10-18-2023 Facesheet [id number]#1.00TIFF Normal [facility] Ambulatory Visit Summaryon 1 12-18-2022 Ambulatory Visit Summary DAVE STEPHENSON :1945 Visit Date:10/17/2023 Ambulatory Visit Instructions [...] for choosing us for your care. Normal [facility] Lab Reportson 10-04-2023 Lab Reports [id number]#1.00TIFF Normal [facility] Physician Referralon 023 Physician Referral [id number]#1.00TIFF Normal [facility] INSULINon 09-09-2022 Insulin 12.7 uIU/mL Normal 2.6-24.9 [facility] Comment on above: Performed By: #### I NSULIN #### [facility] [address] [place] [address] Dr. Zak Gutierrez OCC BLD IMMUNO SCREENon OCCULT BLOOD Negative Normal NEGATIVE [facility] Comment on above: Performed By: #### O BSCRN #### [facility] [address] [place] [address] Dr. Zak Gutierrez CBC AUTO DIFFon 09-08-2022 BASO # 0.0 103/ul Normal 0.0-0.1 [facility] Comment on above: Performed By: #### C BC #### [facility] [address] [place] [address] Dr. Zak Gutierrez Basophils/100 WBC (Bld) 0.4 % Normal 0.2-2.0 [facility] Comment on above: Performed By: #### C BC #### [facility] [address] [place] [address] Dr. Zak Gutierrez EO # 0.1 103/ul Normal 0.0-0.7 [facility] Comment on above: Performed By: #### C BC #### [facility] [address] [place] [address] Dr. Zak Gutierrez Eosinophils/100 WBC (Bld) 1.1 % Normal 0.9-7.0 [facility] Comment on above: Performed By: #### C BC #### [facility] [address] [place] [address] Dr. Zak Gutierrez Erythrocyte distribution width (RBC) [Ratio] 13.6 % Normal 11.0-15.0 [facility] Comment on above: Performed By: #### C BC #### [facility] [address] [place] [address] Dr. Zak Gutierrez Hematocrit (Bld) [Volume fraction] 40.0 % Critically low 42.0-54.0 [facility] Comment on above: Performed By: #### C BC #### [facility] [address] [place] [address] Dr. Zak Gutierrez Hemoglobin (Bld) [Mass/Vol] 12.7 g/dL Critically low 14.0-18.0 [facility] Comment on above: Performed By: #### C BC #### [facility] [address] [place] [address] Dr. Zak Gutierrez IG # 0.02 10e3/ul Normal 0.00-0.03 [facility] Comment on above: Performed By: #### C BC #### [facility] [address] [place] [address] Dr. Zak Gutierrez IG % 0.3 % Normal 0.0-0.5 [facility] Comment on above: Performed By: #### C BC #### [facility] [address] [place] [address] Dr. Zak Gutierrez LYMPH # 2.0 103/ul Normal 1.2-3.8 [facility] Comment on above: Performed By: #### C BC #### [facility] [address] [place] [address] Dr. Zak Gutierrez Lymphocytes/100 WBC (Bld) 27.5 % Normal 20.5-60.0 [facility] Comment on above: Performed By: #### C BC #### [facility] [address] [place] [address] Dr. Zak Gutierrez MANUAL DIFF REQ NO Normal [facility] Comment on above: Performed By: #### C BC #### [facility] [address] [place] [address] Dr. Zak Gutierrez MCH (RBC) [Entitic mass] 30.6 pg Normal 25.9-34.0 [facility] Comment on above: Performed By: #### C BC #### [facility] [address] [place] [address] [address] Zak Gutierrez MCHC (RBC) [Mass/Vol] 31.8 g/dL Normal 29.9-35.2 [facility] Comment on above: Performed By: #### C BC #### [facility] [address] [place] [address] [address] Zak Gutierrez MCV (RBC) [Entitic vol] 96.4 fL Critically high 80.0-94.0 [facility] Comment on above: Performed By: #### C BC #### [facility] [address] [place] [address] [address] Zak Gutierrez MONO # 0.6 103/ul Normal 0.3-0.8 [facility] Comment on above: Performed By: #### C BC #### [facility] [address] [place] [address] Dr. Zak Gutierrez Monocytes/100 WBC (Bld) 8.4 % Normal 1.7-12.0 [facility] Comment on above: Performed By: #### C BC #### [facility] [address] [place] [address] [address] Zak Gutierrez NEUT # 4.5 103/ul Normal 1.4-6.5 [facility] Comment on above: Performed By: #### C BC #### [facility] [address] [place] [address] [address] Zak Gutierrez Neutrophils/100 WBC (Bld) 62.3 % Normal 43.0-75.0 [facility] Center Comment on above: Performed By: #### C BC #### [facility] [address] [address] [address] Zak Gutierrez Platelet mean volume (Bld) [Entitic vol] 10.9 fL Normal 9.5-13.5 [facility] Comment on above: Performed By: #### C BC #### [facility] [address] [address] [address] Zak Gutierrez PLT 184 103/ul Normal 150-450 [facility] Comment on above: Performed By: #### C BC #### [facility] [address] [address] [address] Zak Gutierrez RBC 4.15 106/ul Critically low 4.70-6.10 [facility] Comment on above: Performed By: #### C BC #### [facility] [address] [address] [address] Zak Gutierrez WBC 7.1 103/ul Normal 4.0-11.0 [facility] Comment on above: Performed By: #### C BC #### [facility] [address] [address] [address] Zak Gutierrez FREE THYROXINE INDEX T7on FTI 2.42 Normal 1.30-4.50 [facility] Comment on above: Performed By: #### C MP, T7, LIPID, URIC, TSH #### [facility] [address] [address] [address] Zak Gutierrez T3U 31.0 % Critically low 33.0-40.0 [facility] Comment on above: Performed By: #### C MP, T7, LIPID, URIC, TSH #### [facility] [address] [address] [address] Zak Gutierrez T4 [Mass/Vol] 7.80 ug/dL Normal 4.50-12.10 [facility] Comment on above: Performed By: #### C MP, T7, LIPID, URIC, TSH #### [facility] [address] [address] [address] Zak Gutierrez GLYCOHEMOGLOBIN A1Con 2021 ADA RECOMMENDATION SEE BELOW Normal [facility] Comment on above: Result Comment: ADA RECOMMENDED LIMIT 4.0 - 6.0 ADA THERAPEUTIC TARGET < 7.0 ACTION SUGGESTED > 7.0 Performed By: #### A 1C ####[facility] [address] [address]Dr. Zak Gutierrez Glucose [Mass/Vol] 140 mg/dL Normal [facility] Comment on above: Performed By: #### A 1C ####[facility] [address] [place], [place] [address]Dr. Zak Gutierrez HbA1c (Bld) [Mass fraction] 6.5 % Critically high 4.5-6.2 [facility] Comment on above: Performed By: #### A 1C ####[facility] [address] [address]Dr. Zak Gutierrez LIPID PROFILEon 09-08-2022 CHOL-HDL RATIO NORM SEE BELOW Normal [facility] Comment on above: Result Comment: 3.3 - 4.4 LOW RISK 4.4 - 7.1 AVERAGE RISK 7.1 - 11.0 MODERATE RISK >11.0 HIGH RISK Performed By: #### C MP, T7, LIPID, URIC, TSH #### [facility] [address] [address] [address] Zak Gutierrez Cholesterol [Mass/Vol] 152 mg/dL Normal <=200 [facility] Comment on above: Performed By: #### C MP, T7, LIPID, URIC, TSH #### [facility] [address] [address] [address] Zak Gutierrez Cholesterol in HDL [Mass/Vol] 40 mg/dL Normal 40-60 [facility] Comment on above: Performed By: #### C MP, T7, LIPID, URIC, TSH #### [facility] [address] [address] [address] Zak Gutierrez Cholesterol in LDL [Mass/Vol] 81.8 mg/dL Normal [facility] Comment on above: Performed By: #### C MP, T7, LIPID, URIC, TSH #### [facility] [address] [address] [address] Zak Gutierrez Cholesterol.total/Chol esterol in HDL [Mass ratio] 3.8 {ratio} Normal [facility] Comment on above: Performed By: #### C MP, T7, LIPID, URIC, TSH #### [facility] [address] [address] [address] Zak Gutierrez HDL NORMAL > or = 60 mg/dl - LO W CARDIOVASCULAR RISK <40 mg/dl - HIGH CARDIOVASCULAR RISK Normal [facility] Comment on above: Performed By: #### C MP, T7, LIPID, URIC, TSH #### [facility] [address] [place] [address] Dr. Zak Gutierrez LDL CALC NORMAL SEE BELOW Normal [facility] Comment on above: Result Comment: <100 mg/dl OPTIMAL 100 - 129 mg/dl NEAR OR ABOVE OPTIMAL 130 - 159 mg/dl BORDERLINE HIGH 160 - 189 mg/dl HIGH >190 mg/dl VERY HIGH Performed By: #### C MP, T7, LIPID, URIC, TSH #### [facility] [address] [address] [address] Zak Gutierrez Triglyceride [Mass/Vol] 151 mg/dL Critically high <=150 [facility] Comment on above: Performed By: #### C MP, T7, LIPID, URIC, TSH #### [facility] [address] [place] [address] Dr. Zak Gutierrez VLDL CALC 30.2 mg/dL Normal [facility] Comment on above: Performed By: #### C MP, T7, LIPID, URIC, TSH #### [facility] [address] [place] [address] Dr. Zak Gutierrez PROF 14(COMP METB)on 022 Albumin [Mass/Vol] 3.7 g/dL Normal 3.4-5.0 [facility] Comment on above: Performed By: #### C MP, T7, LIPID, URIC, TSH #### [facility] [address] [place] [address] Dr. Zak Gutierrez Albumin/Globulin [Mass ratio] 0.8 {ratio} Normal [facility] Comment on above: Performed By: #### C MP, T7, LIPID, URIC, TSH #### [facility] [address] [place] [address] Dr. Zak Gutierrez ALP [Catalytic activity/Vol] 109 U/L Normal 46-116 [facility] Comment on above: Performed By: #### C MP, T7, LIPID, URIC, TSH #### [facility] [address] [place] [address] Dr. Zak Gutierrez ALT [Catalytic activity/Vol] 20 U/L Normal 16-63 [facility] Comment on above: Performed By: #### C MP, T7, LIPID, URIC, TSH #### [facility] [address] [place] [address] Dr. Zak Gutierrez Anion gap [Moles/Vol] 10.6 mmol/L Normal Th e [facility] Comment on above: Performed By: #### C MP, T7, LIPID, URIC, TSH #### [facility] [address] [place] [address] Dr. Zak Gutierrez AST [Catalytic activity/Vol] 20 U/L Normal 15-37 [facility] Comment on above: Performed By: #### C MP, T7, LIPID, URIC, TSH #### [facility] [address] [place] [address] Dr. Zak Gutierrez Bilirubin [Mass/Vol] 0.7 mg/dL Normal 0.2-1.0 [facility] Comment on above: Performed By: #### C MP, T7, LIPID, URIC, TSH #### [facility] [address] [place] [address] Dr. Zak Gutierrez Calcium [Mass/Vol] 9.6 mg/dL Normal 8.5-10.1 [facility] Comment on above: Performed By: #### C MP, T7, LIPID, URIC, TSH #### [facility] [address] [place] [address] Dr. Zak Gutierrez Chloride [Moles/Vol] 102 mmol/L Normal 98-107 [facility] Comment on above: Performed By: #### C MP, T7, LIPID, URIC, TSH #### [facility] [address] [place] [address] Dr. Zak Gutierrez CO2 [Moles/Vol] 30.2 mmol/L Normal 21.0-32.0 [facility] Comment on above: Performed By: #### C MP, T7, LIPID, URIC, TSH #### [facility] [address] [place] [address] Dr. Zak Gutierrez Creatinine [Mass/Vol] 1.46 mg/dL Critically high 0.70-1.30 [facility] Comment on above: Performed By: #### C MP, T7, LIPID, URIC, TSH #### [facility] [address] [place] [address] Dr. Zak Gutierrez EGFR-AF MALDIVIAN 57 mL/min/1.73m2 Critically low >=60 [facility] Comment on above: Performed By: #### C MP, T7, LIPID, URIC, TSH #### [facility] [address] [place] [address] Dr. Zak Gutierrez EGFR-NON AF MALDIVIAN 47 mL/min/1.73m2 Critically low >=60 [facility] Comment on above: Performed By: #### C MP, T7, LIPID, URIC, TSH #### [facility] [address] [place] [address] Dr. Zak Gutierrez Globulin (S) [Mass/Vol] 4.5 g/dL Normal [facility] Comment on above: Performed By: #### C MP, T7, LIPID, URIC, TSH #### [facility] [address] [place] [address] Dr. Zak Gutierrez Glucose [Mass/Vol] 84 mg/dL Normal 74-106 [facility] Comment on above: Performed By: #### C MP, T7, LIPID, URIC, TSH #### [facility] [address] [place] [address] Dr. Zak Gutierrez Potassium [Moles/Vol] 4.8 mmol/L Normal 3.5-5.1 [facility] Comment on above: Performed By: #### C MP, T7, LIPID, URIC, TSH #### [facility] [address] [place] [address] Dr. Zak Gutierrez Protein [Mass/Vol] 8.2 g/dL Normal 6.4-8.2 [facility] Comment on above: Performed By: #### C MP, T7, LIPID, URIC, TSH #### [facility] [address] [place] [address] Dr. Zak Gutierrez Sodium [Moles/Vol] 138 mmol/L Normal 136-145 [facility] Comment on above: Performed By: #### C MP, T7, LIPID, URIC, TSH #### [facility] [address] [address] [address] Zak Gtuierrez Urea nitrogen [Mass/Vol] 25.0 mg/dL Critically high 7.0-18.0 [facility] Comment on above: Performed By: #### C MP, T7, LIPID, URIC, TSH #### [facility] [address] [address] [address] Zak Gutierrez Urea nitrogen/Creatinine [Mass ratio] 17.1 mg/mg Normal [facility] Comment on above: Performed By: #### C MP, T7, LIPID, URIC, TSH #### [facility] [address] [address] [address] Zak Gutierrez TSHon 09-08-2022 TSH 1.625 uIU/mL Normal 0.358-3.740 [facility] Comment on above: Performed By: #### C MP, T7, LIPID, URIC, TSH #### [facility] [address] [address] [address] Zak Gutierrez URIC ACID SERUMon 09-08-2022 Urate [Mass/Vol] 7.4 mg/dL Critically high 3.5-7.2 [facility] Comment on above: Performed By: #### C MP, T7, LIPID, URIC, TSH #### [facility] [address] [address] [address] Zak Gutierrez VITAMIN D 25 OHon 09-08-2022 VIT D 25-OH 24.0 ng/mL Normal [facility] Comment on above: Performed By: #### V PRASAD PSASC ####[facility] [address] [id number]. Zak Gutierrez VIT D RANGES SEE BELOW Normal [facility] Comment on above: Result Comment: <20 ng/mL Vit D deficient 20 - <30 ng/mL Vit D insufficient 30 - 100 ng/mL Vit D sufficient >100 ng/mL Potential Toxicity Performed By: #### Radha PARHAM PSASC ####[facility] [address] [id number]. Zak Gutierrez MRI LSPINE WO CONon 12-02-19 22 MRI LSPINE WO CON EXAMINATION: MRI LSP [...] LAKIA TORRES Date: 2021-12-02 16:16 Normal [facility] ER URINE PROFILEon 2 Bilirubin Ql (U) Negative Normal NEGATIVE [facility] Comment on above: Performed By: #### U MICRO, ERUR ####[facility] [address] [address]Dr. Zak Gutierrez Clarity (U) CLEAR Normal CLEAR [facility] Comment on above: Performed By: #### U MICRO, ERUR ####[facility] [address] [id number]. Zak Gutierrez Color (U) YELLOW Normal YELLOW [facility] Comment on above: Performed By: #### U MICRO, ERUR ####[facility] [address] [address]Dr. Zak CHRISTIANSONAHD A micrscopic examina tion will be performed if indicated. Normal [facility] Comment on above: Performed By: #### U MICRO, ERUR ####[facility] [address] [address]Dr. Zka Gutierrez Glucose Ql (U) Negative Normal NEGATIVE [facility] Comment on above: Performed By: #### U MICRO, ERUR ####[facility] [address] [place], [place] [address]Dr. Zak Gutierrez Hemoglobin Ql (U) SMALL Abnormal NEGATIVE [facility] Comment on above: Performed By: #### U MICRO, ERUR ####[facility] [address] [place], [place] [address]Dr. Zak Gutierrez Ketones Ql (U) Negative Normal NEGATIVE [facility] Comment on above: Performed By: #### U MICRO, ERUR ####[facility] [address] [place], [place] [address]Dr. Zak Gutierrez LEUKOCYTES TRACE Abnormal NEGATIVE [facility] Comment on above: Performed By: #### U MICRO, ERUR ####[facility] [address] [place], [place] [address]Dr. Zak Gutierrez Nitrite Ql (U) Negative Normal NEGATIVE [facility] Comment on above: Performed By: #### U MICRO, ERUR ####[facility] [address] [place], [place] [address]Dr. Zak Gutierrez pH (U) 6.0 [pH] Normal 5-9 [facility] Comment on above: Performed By: #### U MICRO, ERUR ####[facility] [address] [place], [place] [address]Dr. Zak Gutierrez Protein (U) [Mass/Vol] 30 mg/dL Abnormal NEGAT PRISCILA/ TRACE [facility] Comment on above: Performed By: #### U MICRO, ERUR ####[facility] [address] [place], [place] [address]Dr. Zak Gutierrez SPEC GRAVITY 1.025 Normal 1.005-<=1.0 25 [facility] Comment on above: Performed By: #### U MICRO, ERUR ####[facility] [address] [address]Dr. Zak Gutierrez UR MICRO IND INDICATED Normal [facility] Comment on above: Performed By: #### U MICRO, ERUR ####[facility] [address] [address]Dr. Zak Gutierrez Urobilinogen Qn (U) 0.2 {Kirt'U}/dL Normal 0.2 - 1. 0 [facility] Comment on above: Performed By: #### U MICRO, ERUR ####[facility] [address] [place], [place] [address]Dr. Zak Gutierrez URINE MICROSCOPIC ONLYon BACTERIA NONE SEEN Normal NONE SEEN [facility] Comment on above: Performed By: #### U MICRO, ERUR ####[facility] [address] [place], [place] [address]Dr. Zak Gutierrez Bacteria identified Cx Nom (U) NOT INDICATED Normal [facility] Comment on above: Performed By: #### U MICRO, ERUR ####[facility] [address] [place], [place] [address]Dr. Zak Gutierrez CAST SEEN Abnormal NONE SEEN [facility] Comment on above: Performed By: #### U MICRO, ERUR ####[facility] [address] [place], [place] [address]Dr. Zak Gutierrez Crystals LM Nom (Urine sed) NONE SEEN Normal NONE SEEN [facility] Comment on above: Performed By: #### U MICRO, ERUR ####[facility] [address] [place], [place] [address]Dr. Zak Gutierrez Epithelial cells LM Ql (Urine sed) FEW Abnormal NONE SEEN /RARE [facility] Comment on above: Performed By: #### U MICRO, ERUR ####[facility] [address] [place], [place] [address]Dr. Zak Gutierrez HYALINE CAST RARE Normal [facility] Comment on above: Performed By: #### U MICRO, ERUR ####[facility] [address] [place], [place] [address]Yi. Zak Gutierrez MUCOUS TRACE Abnormal NONE SEEN [facility] Comment on above: Performed By: #### U MICRO, ERUR ####[facility] [address] [place], [place] [address]Nf. Zak Gutierrez RBC 2-5 Abnormal 0-2 [facility] Comment on above: Performed By: #### U MICRO, ERUR ####[facility] [address] [place], [place] [address]Jy. Zak Gutierrez WBC 0-2 Abnormal NONE SEEN [facility] Comment on above: Performed By: #### U MICRO, ERUR ####[facility] [address] [id number]. Zak Gutierrez XR LSPINE 2_3 VIEWSon 2021 XR [...] by: SHELL THOMPSON Date: 2021-11-25 11:24 Normal [facility] Vital Signs Date Time Vital Sign Value Performing Clinician Faci camilley 01-13-2025 15:01-0400 Body temperature 99 [degF] Hi Vargas MD Work Phone: [facility] 01-13-2025 15:01-0400 Diastolic blood pressure 88 mm[Hg] Hi Vargas MD Work Phone: [facility] 01-13-2025 15:01-0400 Heart rate 65 /min Hi Vargas MD Work Phone: [facility] 01-13-2025 15:01-0400 Respiratory rate 16 /min Hi Vargas MD Work Phone: [facility] 01-13-2025 15:01-0400 SaO2% (BldA) [Mass fraction] 98 % Hi Vargas MD Work Phone: [facility] 01-13-2025 15:01-0400 Systolic blood pressure 182 mm[Hg] Hi Vargas MD Work Phone: [facility] 01-13-2025 11:50-0400 Body height 177.8 cm Hi Vargas MD Work Phone: [facility] 01-13-2025 11:50-0400 Body weight 86.18 kg Hi Vargas MD Work Phone: [facility] 10-17-2023 14:20-0500 Blood Pressure Location Donald BAUERL [facility] 10-17-2023 14:20-0500 Diastolic blood pressure 84 mm[Hg] Donald BAUERL [facility] 10-17-2023 14:20-0500 Heart rate 68 /min Donald NILL [facility] 10-17-2023 14:20-0500 Respiratory rate 16 /min Donald BAUERL [facility] 10-17-2023 14:20-0500 Systolic blood pressure 148 mm[Hg] Donald BAUERL [facility] Encounters Encounter Date Encounter Type Care Provider Facility Start: 01-13-2025 End: 01-13-2025 Emergency department patient visit Hi Vargas MD Work Phone: [facility] Work Phone: Start: 10-25-2023 End: 10-26-2023 ambulatory Donald EVERETT Facility:[id number] Start: 10-17-2023 End: 10-18-2023 ambulatory Hi Vargas Facility:[facility] Start: 10-17-2023 End: 10-17-2023 Patient encounter procedure Donald EVERETT [facility] [place] Start: 09-15-2023 ambulatory Hi Vargas Facility:[facility] Start: 09-09-2022 End: 09-09-[address] HI VARGAS Facility:[facility] Start: 09-08-2022 End: 09-09-[address] HI VARGAS Facility:[facility] Start: 12-02-2021 End: 12-03-[address] HI VARGAS Facility:[facility] Start: 11-25-2021 End: 11-25-[address] HI VARGAS Facility:[facility] Procedures Date Procedure Procedure Detail Performing Clinician Start: 01-13-2025 Respiratory Panel (PCR) Hi Vargas MD Work Phone: Start: 01-13-2025 Plain chest X-ray Antoine Vargas MD Work Phone: Start: 09-08-[address] DEMETRIA VARGAS Comment on above: Performed By: #### V ITAD, PSASC ####[address] [address]Dr. Zak Matt Start: 12-28-2011 Colonoscopy Donald SALES LL Insertion of stent i nto ureter Donald NILL Plan of Treatment Date Care Activity Detail Author Patient Education [facility] Work Phone: Patient referral [facility] Work Phone: Immunizations Immunization Date Immunization Notes Care Provider Fa cility 08-26-2021 SARS-CoV-2 (COVID-19 ) mRNA BNT-162b2 vax Donald NILL [facility] 01-26-2021 SARS-CoV-2 (COVID-19 ) mRNA BNT-162b2 vax Donald NILL [facility] 01-04-2021 SARS-CoV-2 (COVID-19 ) mRNA BNT-162b2 vax Donald NILL [facility] NEGATED: Highlighted row has not occurred!10-17-2023 influenza virus vaccine, unspecified formulation Donald EVERETT [facility] [place] Payers Date Payer Category Payer Self-pay 1960 Medicare [id number] 1960 Private Health Insurance CLI [id number] 1960 Private Health Insurance [facility] [id number] 1945 Unknown [id number] 2.16.84 [id number] 1945 Unknown [id number] 2.16.84 [id number] 1945 Unknown [id number] 2.16.84 [id number] 1944 Unknown [id number] 2.16.84 [id number] 1945 Unknown [id number] 2.16.8 [id number] 1945 Unknown [id number] 2.16.8 [id number] Unknown [id number] 2.16.8 [id number] Social History Date Type Detail Facility Start: 10-17-2023 Tobacco smoking status Light t obacco smoker (finding) [facility] Tobacco smoking status Never [facility] Sex Assigned At Male [facility] Start: 01-13-[address] [facility] Start: 01-13-2025 Sex Male (finding) [facility] Start: 1945 Sex Assigned At Male [facility] Functional Status Date Assessment Result Facility 10-17-2023 Functional Status N/A [facility] Clinical Note 10-17-2023 Note Date & Type [...] vax 01/04/2021 R (more content not included)... [facility] Comment on above: Result Comment: Elec tronically Signed By: MARGUERITE CASE, Donald Deutsch\.br\Date and Time Signed: 10/17/23 14:59 EST Evaluation + Plan note Note Date & Type Note Facility Evaluation + Plan note No data available for this section [facility] Evaluation note Note Date & Type Note Facility Evaluation note No assessment information availa ble [facility] Work Phone: Hospital Discharge instructions Note Date & Type Note Facility Hospital Discharge instructions No data available for this section [facility] Hospital Discharge instructions Note Date & Type Note Facility Hospital Discharge instructions Additional Instructions Follow-up with your primary care doctor Return to ED follow-up worsening symptoms or concerns [facility] Work Phone: Progress note Note Date & Type Note Facility Progress note No data available for this section [facility] Summary Purpose Family History No Family History Records Found No data available for this section No Family History Records FoundNo Family History Records Found Advance Directives No Advanced Directives Records Found Advance Directive Response Recorded Date/ Time Advance Directives No January 13 1:29pm Chief Complaint and Reason for Visit Chief Complaint Admit Date Weakness January 13, 2025 11: 08am Additional Source Comments (unrecognized sect ion and content) No Status Records FoundNo Status Records FoundNo Status Records Found INFORMATION SOURCE (unrecogn ized section and content) DATE CREATED AUTHOR 09/12/2022 [facility] DATE CREATED AUTHOR AUTHOR'S ORGANIZ ATION 11/02/2023 Theodore Ames [facility] DATE CREATED AUTHOR AUTHOR'S ORGANIZ ATION 01/26/2025 [facility] Patient Care team informatio n (unrecognized section and content) Team Status: Active Member Role Status Dates Hi Vargas MD Primary Care Provider Active Team Status: Inactive Member Role Status Dates Hi Vargas MD Primary Care Provider Active Start: January 13, 2025 End: January 13, 2025 Lam Menon DO Emergency Provider Active Sta rt: January 13, 2025 End: January 13, 2025 Goals (unrecognized section and content) Goals may be documented in a n alternate section FOR RECORDS PERTAINING TO PATIENTS WHO ARE [...] BE BASED ON THE PRIMARY CLINICAL RECORDS. [facility] [employer] [facility]. provides no warranty or guarantee of the accuracy or completeness of information in this document.
== END 2025-04-22 09:08 | disposition home or self-care (01) ==
LOC: MRI 09:08
PROVIDERS: PCP Family Medicine; Visit Provider Family Medicine
DX: G45.4 Transient global amnesia (principal); I67.82 Cerebral ischemia; J32.9 Chronic sinusitis, unspecified
CPT/HCPCS: 70551

== ENCOUNTER 2025-05-16 09:45 | Emergency (ER) | payer MEDICARE, SELFPAY ==
--- OUTSIDE RECORDS SUMMARY | 2025-04-18 10:30 | XMS_ITS ---
Author Organization [facility] [place] Address [address] [place] [address] Care Team Providers Care Manager Recovery Name Role Phone Loco Vargas Primary Care Provider Allergies No Known Allergies REASON FOR VISIT another episode - check BP, couldnt get out of bed, had to help, didnt know where he was happened many times, CT scheduled for that, wanted him to come in today so you know, throwing up meds and not eating a lot, iron does not think he needs to take upsetting stomach, catoracts scheduled wants to know if you think he can go or needs to change date, episodes are happening more Medications Medication SIG (Take, Route, Frequency, Duration) Notes Start Date End Date Status Pioglitazone HCl 30 MG 1 tablet Orally O nce a day for 90 days Active Metoprolol Succinate ER 50 MG 1 tablet O rally Once a day for 90 days Active Simvastatin 10 MG 1 tablet in the even ing Orally Once a day for 90 days Active Lisinopril 20 MG 1 tablet Orally Once a day for 30 days 04/15/2025 Active Aspir-Low 81 MG 1 tablet Orally Once a day Active Glucose Test Strips test blood sugar chanelle ly DX E11.9 for 90 days 01/16/2025 Active Glucose Meter test blood sugar chanelle ly Dx:E11.9 for 365 days 01/16/2025 Active metFORMIN HCl 500 MG 2 tablet with a jarod l Orally Once a day for 90 days Active glipiZIDE 10 MG 2 tablet 30 minutes before breakfast Orally Once a day for 90 days Active Glucose Lancets used to test blood sugar daily Dx E11.9 for 90 days 01/16/2025 Active Cholecalciferol 50 MCG (2000 UT) 1 tablet Orally Once a day Active Ferrous Sulfate 325 (65 Fe) MG 1 tablet Orally twice daily for 30 days 04/16/2025 Active Meloxicam 10 MG 1 capsule Orally Onc e a day Active Social History Tobacco Use: [...] Problem Status W/U Status Risk Notes Problem Altered mental status (257112796) Altered mental status (R41.82) Active confirmed Problem Paralysis (20587822) 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 Vital Signs Blood pressure systolic 146 mm Hg 04/18/20 25 Blood pressure diastolic 78 mm Hg 025 Height 70 in 04/18/2025 Weight 178.8 lbs 04/18/2025 BMI 25.65 kg/m2 04/18/2025 Encounters Encounter Location Date Provider Diagnosis [facility] [address] [place] [address] 04/18/2025 Loco Vargas Altered mental statu s R41.82 and Paralysis G83.9 Assessments Encounter Date Diagnosis (ICD Code) Assessment Notes Treatment Notes Treatment Clinical Notes Section Notes 04/18/2025 Altered mental status (ICD-10 - R41.82) 04/18/2025 Paralysis (ICD-10 - G83.9) Plan Of Treatment Medication Medication Name Sig Start Date Stop Date Notes Lisinopril 20 MG 1 tablet Orally Once a day for 30 days Progress Notes * Dave STEPHENSON EDOB:[birth year] (79 yo M)Acc No.[id number]:04/18/2025 Progress Note Patient: Dave WOOD Provider: Keara Vargas ([facility])MD :1945 A ge:79 Y S ex:Male Date:04/18/2025 Address:[address] [place] [address], [id number] Check In:02:22 PM ESTCheck O ut:03:08 PM EST Subjective: * Chief Complaints: * a nother episode - check BPCouldnt get out of bedWife had to helpDidnt know where he was happened many timesCT scheduled for thatWife wanted him to come in today so you knowThrowing up meds and not eating a lotIron does not think he needs to take upsetting stomachCatoracts scheduled wants to know if you think he can go or needs to change dateEpisodes are happening more * HPI: G eneral: episode - unagble to move - getting worse - getting MRI sugar at the time - 87 bp up slk at 160/72. * ROS: E ENT: hearing changes d enies. v isual changes d enies.?non-healing mouth sores d enies. s wollen glands or neck lumps d enies. h oarseness d enies. s ore throat d enies. d ifficulty swallowing d enies. n ose bleeds d enies. n demetria congestion d enies. e ar ache d enies. e ar discharge?denies. r inging in ears d enies. l ight sensitivity d enies. e ye pain d enies. b lurring d enies. e ye irritation d enies. d ouble vision d enies.?vision loss d enies. G eneral/Constitutional: Sweats: D enies. F atigue d enies. S leep problems d enies. A norexia d enies. M alaise d enies. W eight loss d enies.?Fatigue or Weakness d enies. F ever or Chills d enies. C ardiovascular: Shortness of Breath w/lying flat d enies. L ightheadedness/dizziness d enies. C hest tightness/ heavy pressure d enies. S welling of legs, ankles, or feet d enies. W aking up with shortness of breath d enies. C hest pain denies. P alpitations d enies. W eight gain d enies. R espiratory: Chronic or frequent cough d enies. C oughing up blood?denies. D ifficulty breathing d enies. P roductive cough d enies. S noring?denies. S hortness of breath that awakens from sleep (PND) d enies. C hest pain d enies. S putum production d enies. W heezing d enies. M usculoskeletal: Joint pain d enies. J oint Fluid d enies. B ack pain d enies. K nee pain d enies. N robb pain d enies. J oint Stiffness d enies. M uscle cramps d enies. W eakness of muscles d enies. A rthritis d enies. M uscle aches d enies. P ain in shoulder(s) d enies. S wollen joints d enies. 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 Modified On:02/14/2023 Status:confirmed M51.26 Herniated lumbar dis c without myelopathy Modified On:02/14/2023 Status:confirmed B02.9 Herpes zoster Modified On:02/14/2023 Status:confirmed K57.90 Diverticular disease Modified On:02/14/2023 Status:confirmed N40.0 Benign prostate hype rplasia Modified On:02/14/2023 Status:confirmed Z00.00 Encounter for routin e adult health examination Modified On:02/14/2023 Status:confirmed E11.9 Diabetes mellitus Modified On:02/16/2024 Status:confirmed I10 Primary hypertension Modified On:02/15/2023 Status:confirmed E11.9 Type 2 diabetes daryl itus without complications Modified On:02/15/2023 Status:confirmed Z79.4 FPC (current) use of insulin Modified On:02/15/2023 Status:confirmed J20.9 Acute bronchitis, un specified organism Modified On:02/15/2023 Status:confirmed K59.00 Constipation, unspec ified constipation type Modified On:09/11/2023 Status:confirmed R97.20 Elevated prostate sp ecific antigen [PSA] Modified On:09/11/2023 Status:confirmed N17.9 Acute kidney failure , unspecified Modified On:09/11/2023 Status:confirmed E87.5 Hyperkalemia Modified On:09/11/2023 Status:confirmed M54.16 Lumbar radicular shira n Modified On:02/16/2024 Status:confirmed Z23 Encounter for immuni zation Modified On:09/24/2024 Status:confirmed E78.00 Hypercholesterolemia Modified On:09/24/2024 Status:confirmed R23.3 Easy bruisability Modified On:04/15/2025 Status:confirmed R41.82 Altered mental statu s Modified On:04/18/2025 Status:confirmed G83.9 Paralysis Modified On:04/18/2025 Status:confirmed * Medical History: * Surgical History: U reteral stents Colonoscopy 10/25/2023 * Hospitalization/Major Diagno stic Procedure: D enies Past Hospitalization * Family History: F ather: , dementia, coronary artery disease. M other: , diagnosed with Diabetes mellitus without mention of complication, type II or unspecified type, not stated as uncontrolled. B guilhermeer(s): alive 66 yrs. S ister(s): alive 64 yrs. S on(s): alive. D louis(s): alive. 1 brother(s) , 1 sister(s) - healthy. 1 son(s) , 3 daughter(s) - healthy. . * Social History: T obacco Use: T obacco Use/Smoking P atlalit is a c urrent smoker W hen [...] cigarette smoker ((1-9 cigs/day) * Medications: T akingAspir-Low 81 MG Tablet Delayed Release 1 tablet Orally Once a day Cholecalciferol 50 MCG (1999 UT) Tablet 1 tablet Orally Once a day Ferrous Sulfate 325 (65 Fe) MG Tablet 1 tablet Orally twice daily glipiZIDE 10 MG Tablet 2 tablet 30 minutes before breakfast Orally Once a day Glucose Lancets used to test blood sugar daily Dx E11.9 Glucose Meter test blood sugar daily Dx:E11.9 Glucose Test Strips test blood sugar daily DX E11.9 Lisinopril 10 MG Tablet 1 tablet Orally Once a day Meloxicam 10 MG Capsule 1 capsule Orally Once a day metFORMIN HCl 500 MG Tablet 2 tablet with a meal Orally Once a day Metoprolol Succinate ER 50 MG Tablet Extended Release 24 Hour 1 tablet Orally Once a day Pioglitazone HCl 30 MG Tablet 1 tablet Orally Once a day Simvastatin 10 MG Tablet 1 tablet in the evening Orally Once a day Medication List reviewed and reconciled with the patientTaking Aspir-Low 81 MG Tablet Delayed Release 1 tablet Orally Once a day Taking Cholecalciferol 50 MCG (1999 UT) Tablet 1 tablet Orally Once a day Taking Ferrous Sulfate 325 (65 Fe) MG Tablet 1 tablet Orally twice daily Taking glipiZIDE 10 MG Tablet 2 tablet 30 minutes before breakfast Orally Once a day Taking Glucose Lancets used to test blood sugar daily Dx E11.9 Taking Glucose Meter test blood sugar daily Dx:E11.9 Taking Glucose Test Strips test blood sugar daily DX E11.9 Taking Lisinopril 10 MG Tablet 1 tablet Orally Once a day Taking Meloxicam 10 MG Capsule 1 capsule Orally Once a day Taking metFORMIN HCl 500 MG Tablet 2 tablet with a meal Orally Once a day Taking Metoprolol Succinate ER 50 MG Tablet Extended Release 24 Hour 1 tablet Orally Once a day Taking Pioglitazone HCl 30 MG Tablet 1 tablet Orally Once a day Taking Simvastatin 10 MG Tablet 1 tablet in the evening Orally Once a day Medication List reviewed and reconciled with the patient * Allergies: N .K.D.A.no[Allergies Verified] Objective: * Vitals: W t:178.8lbs, Ht: 70 in, BP:146/78mm Hg, BMI:25.65Index, Ht-cm: 177.8 cm, Wt-k.1 kg. * Examination: P hysical Exam: GENERAL: w ell developed, well nourished, in no acute distress. HEAD: n ormocephalic/atraumatic. EYES: p upils equal, round and reactive to light, conjunctivae and sclerae normal. EARS: n o deformity or lesion of external ear, canals and TM appear normal bilaterally, TM's intact, not inflamed with normal light reflex, hearing grossly normal to conversational speech. NOSE: n o deformity, discharge, inflammation, or lesions.? MOUTH: m ucous membranes moist, normal oropharynx and posterior pharynx without lesions or exudates, tongue normal, dentition normal. NECK: n robb supple, no masses or palpable cervical nodes, trachea midline, thyroid without nodules, masses, tenderness, or enlargement. CHEST: n o chest wall deformity, no chest wall tenderness.? LUNGS: n ormal respiratory effort and clear to auscultation, no wheezes, rales, or rhonchi, good air exchange. CARDIO: r egular rate and rhythm, normal S1 and S2, nor murmur, rub, or gallop. PULSES: n ormal capillary refill. ABDOMEN: s oft, non-distended, non-tender, no masses. MUSCULOSKELETAL: n o deformity or scoliosis noted, normal range of motion, joints normal, no erythema, edema, effusion, or ecchymosis. EXTREMITY: n o clubbing, cyanosis, edema, or deformity with normal ROM in both upper and lower bilateral extremities. NEUROLOGIC: g rossly normal. SKIN: n o rashes, ulcerations, or suspicious lesions. LYMPH NODES: n o cervical adenopathy, nodes normal. MENTAL STATUS: a lert and oriented x3, normal mood and affect. Assessment: * Assessment: 1. A ltered mental status - R41.82 (Primary) 2 . P aralysis - G83.9 ? Plan: * Treatment: * Procedure Codes: * Preventive Medicine: Screenings/Counseling: B ID ACTION PLAN Above Normal BMI Follow-up D ietary management education, guidance, and counseling T OBACCO ACTION PLAN Patient counselled on the dangers of tobacco use and urged to quit. 0 04/18/2025 . F ALL RISK SCREENING Fall Risk Assessment: N o falls in the past year * * Sign off status: Completed Visit Status: C HK (Check Out) true * Provider: Keara Vargas ([facility])MD Date: 0 04/18/2025 Generated for Printi ng/Fadanyg/eTransmitting on: 0 05/16/2025 10:13 AM EDT History and Physical Notes * HPI (History of Present Illness) Category Sub-Category Detail Notes Category Not es General episode - unagble to move - getting worse - getting MRI sugar at the time - 87 bp up slk at 160/72 Examination Category Sub-Category Detail Notes Category Not es Physical Exam GENERAL: well developed, well nourished, in no acute distress HEAD: normocephalic/atraum atic EYES: pupils equal, round and reactive to light, conjunctivae and sclerae normal EARS: no deformity or lesi on of external ear, canals and TM appear normal bilaterally, TM's intact, not inflamed with normal light reflex, hearing grossly normal to conversational speech NOSE: no deformity, discha rge, inflammation, or lesions MOUTH: mucous membranes gabriel st, normal oropharynx and posterior pharynx without lesions or exudates, tongue normal, dentition normal NECK: neck supple, no mass es or palpable cervical nodes, trachea midline, thyroid without nodules, masses, tenderness, or enlargement CHEST: no chest wall deform ity, no chest wall tenderness LUNGS: normal respiratory e ffort and clear to auscultation, no wheezes, rales, or rhonchi, good air exchange CARDIO: regular rate and rhy thm, normal S1 and S2, nor murmur, rub, or gallop PULSES: normal capillary ref ill ABDOMEN: soft, non-distended, non-tender, no masses RECTAL: MUSCULOSKELETAL: no deformity or scol iosis noted, normal range of motion, joints normal, no erythema, edema, effusion, or ecchymosis EXTREMITY: no clubbing, cyanosi s, edema, or deformity with normal ROM in both upper and lower bilateral extremities NEUROLOGIC: grossly normal SKIN: no rashes, ulceratio ns, or suspicious lesions LYMPH NODES: no cervical adenopat hy, nodes normal MENTAL STATUS: alert and oriented x 3, normal mood and affect
--- OUTSIDE RECORDS SUMMARY | 2025-04-21 12:04 | XMS_ITS ---
Author Organization [facility] in [place] Address [address] [place] [address] Care Team Providers Care Nurse Special Name Role Phone Loco Vargas Primary Care Provider REASON FOR VISIT rf simvastatin Medications Medication SIG (Take, Route, Fr equency, Duration) Notes Start Date End Date Status Simvastatin 20 MG 1 tablet in the even ing Orally Once a day for 90 days Active Encounters Encounter Location Date Provider Diagnosis [facility] [address] [place] [address] 04/21/2025 Loco Vargas Hypertension I10 Assessments Encounter Date Diagnosis (ICD Code) Assessment Notes Treatment Notes Treatment Clinical Notes Section Notes 04/21/2025 Hypertension (ICD-10 - I10) Plan Of Treatment Medication Medication Name Sig Start Date Stop Date Notes Simvastatin 20 MG 1 tablet in the even ing Orally Once a day for 90 days Progress Notes * Dave STEPHENSON EDOB:[birth year] (79 yo M)Acc No.[id number]:04/21/2025 Patient: Jeannie BLAND Dave Juarez :1945 A ge:79 Y S ex:Male Address:[address] [place] [address] [address], [place] [address] * Refills Refill Simvastatin Tablet, 20 MG, Orally, 90 Tablet, 1 tablet in the evening, Once a day, 90 days, Refills=3 * true * Date: Generated for Printi ng/Faxing/eTransmitting on: 0 05/16/2025 10:13 AM EDT
[2025-05-16 09:55] VITALS: BP 209/86; PULSE 54; TEMP 36.6; O2SAT 98; BMI 23.0
[2025-05-16 09:58] VITALS: BP 190/80
--- NOTE | 2025-05-16 10:05 | ECG_ITS ---
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
--- NOTE | 2025-05-16 10:05 | ED.FALL1 ---
HPI HPI - Fall General Chief Complaint: Fall Stated Complaint: BACK PAIN - FALL ON MONDAY Time Seen by Provider: 05/16/25 10:04 Source: patient and family Mode of arrival: Wheelchair Limitations: no limitations History of Present Illness HPI Narrative: The patient have a history of hypertension as well as diabetes coming to the ER after 3 days of falling [place] had an incident where he fell backward because he was feeling dizzy, that time his blood sugar was found to be 43 and he was provided with the sugar tablets and he was feeling much better after that, this incident happened 3 days ago, patient also had 1 incident over the last few days when he had blood sugar around 30 The patient mentioned that since he had the fall he did not go to the ER and he was or not evaluated, he had no loss of consciousness as he remembers and he does not remember an other injury other than his back The patient according to the at the bedside has been complaining of lower back pain no radiation down his legs , patient have no alarming symptoms of incontinence of urine or stool Related Data Home Medications ?Medication ?Instructions ?Recorded ?Confirmed aspirin 81 mg capsule 81 mg PO DAILY 10/18/23 10/25/23 cholecalciferol (vitamin D3) 50 2,000 unit PO DAILY 10/18/23 10/25/23 mcg (2,000 unit) tablet (Vitamin D3) indomethacin 25 mg capsule 25 mg PO BID 10/18/23 10/25/23 metformin 500 mg tablet 500 mg PO BID 10/18/23 10/18/23 metoprolol tartrate 100 mg tablet 100 mg PO DAILY 10/18/23 10/25/23 pioglitazone 30 mg tablet 30 mg PO DAILY 10/18/23 10/18/23 polyethylene glycol 3350 17 17 g PO DAILY 10/18/23 10/25/23 gram/dose oral powder (Miralax) simvastatin 20 mg tablet 20 mg PO DAILY 10/18/23 10/25/23 Previous Rx's ?Medication ?Instructions ?Recorded tramadol 50 mg tablet 50 mg PO BID PRN pain 3 days #6 05/16/25 tabs Allergies Allergy/AdvReac Type Severity Reaction Status Date / Time No Known Drug Allergies Allergy Verified 05/16/25 09:55 Review of Systems ROS Status of ROS 10 or more systems reviewed and unremarkable except as noted in history and below [facility] Medical History (Updated 05/16/25 @ 12:32 by Elizabeth Zimmerman MD) Arthritis ?M19.90 - Unspecified osteoarthritis, unspecified site (ICD-10) Transient global amnesia ?G45.4 - Transient global amnesia (ICD-10) Positive occult stool blood test ?R19.5 - Other fecal abnormalities (ICD-10) Overweight ?E66.3 - Overweight (ICD-10) Nephrolithiasis ?N20.0 - Calculus of kidney (ICD-10) Gout ?M10.9 - Gout, unspecified (ICD-10) Hypertension ?I10 - Essential (primary) hypertension (ICD-10) Diabetes mellitus ?E11.9 - Type 2 diabetes mellitus without complications (ICD-10) Bradycardia ?R00.1 - Bradycardia, unspecified (ICD-10) BPH (benign prostatic hyperplasia) ?N40.0 - Benign prostatic hyperplasia without lower urinary tract symptoms (ICD-10) Surgical History (Updated 10/18/23 @ 12:37 by Maria Elena Coughlin RN) H/O colonoscopy ?Z98.890 - Other specified postprocedural states (ICD-10) Family History (Updated 10/18/23 @ 12:22 by Maria Elena Coughlin, MESFIN) Other Family history of cancer Family history of diabetes mellitus Family history of hypertension Social History (Updated 10/18/23 @ 12:24 by Maria Elena Coughlin, RN) Within the past year, how often did you have a drink containing alcohol: never Score interpretation: A score less than 4 is consistent with normal alcohol consumption. Smoking status: Current some day smoker Second hand tobacco smoke exposure: No Non-prescribed substance use: denies use Previous occupational history: Retired- [employer] Known occupational exposures/hazards: No Highest level of school completed/degree received: some college, no degree Little interest or pleasure in doing things: not at all Feeling down, depressed, or hopeless: not at all Exam Narrative Exam Narrative: Nurses notes and vital signs reviewed and patient is not hypoxic. General: Well-appearing and in no apparent distress. Skin: Warm, dry, no pallor noted. No rash. Head: Normocephalic, atraumatic. Neck: Supple, non-tender. Eye: Pupils are equal, round and EOMI. No scleral icterus. Ears, Nose, Mouth, and Throat: TM are clear, no nasal mucosal hypertrophy. Oral mucosa is moist, no posterior oropharynx erythema, uvula is mid-line Cardiovascular: Regular Rate and Rhythm without murmur, gallop or rub. Respiratory: No accessory muscle use or respiratory distress. Lungs are clear to auscultation, no wheezing, rales or rhonchi Chest Wall: no tenderness Back: No midline thoracic, there is midline tenderness and paraspinal muscle tenderness at the lumbar spine there is no ecchymosis or any signs of trauma Musculoskeletal: normal ROM, no calf or popliteal tenderness, no lower extremity edema/swelling GI: Abdomen is soft, non-distended. Normal bowel sounds. No masses appreciated. No tenderness to palpation. No rebound, guarding, or rigidity noted. Neurological: A&O x4. No cranial nerve dysfunction observed. Constitutional Vital Signs, click to edit/add: Last Vital Signs Temp 97.8 F 05/16/25 09:55 Pulse 54 L 05/16/25 09:55 Resp 18 05/16/25 09:55 BP 177/78 H 05/16/25 12:15 Pulse Ox 98 05/16/25 09:55 O2 Del Method Room Air 05/16/25 09:55 Course Vital Signs Vital signs: Vital Signs Temperature 97.8 F 05/16/25 09:55 Pulse Rate 54 L 05/16/25 09:55 Respiratory Rate 18 05/16/25 09:55 Blood Pressure 209/86 H 05/16/25 09:55 Pulse Oximetry 98 05/16/25 09:55 Oxygen Delivery Method Room Air 05/16/25 09:55 Temperature 97.8 F 05/16/25 09:55 Pulse Rate 54 L 05/16/25 09:55 Respiratory Rate 18 05/16/25 09:55 Blood Pressure 177/78 H 05/16/25 12:15 Pulse Oximetry 98 05/16/25 09:55 Oxygen Delivery Method Room Air 05/16/25 09:55 MDM - Fall MDM Narrative Medical decision making narrative: The patient EKG showing sinus rhythm with a heart rate of [address] elevation or depression there is a first-degree AV block The patient CBC and chemistry showed no acute significant pathology CT of the head as well as CT lumbar spine showed no acute pathology as well But noted that the patient blood pressure was elevated but he does not take any antihypertensive medication The patient also was noted to have A1c of 5.3 and he had his glipizide stopped because it is mostly the reason for his hypoglycemia His blood sugar here was above 200 The patient case was discussed with his primary care doctor Dr. Vargas and he agreed to follow-up with him next week for further evaluation his blood pressure but we will stop his glipizide for now The patient is to follow up with primary care physician in next 2-3 days or to return to the emergency department should any of the signs or symptoms worsen or new symptoms develop. The patient agrees with the following Diagnosis and Treatment plan and the patient will be discharged home. Lab Data Labs: Lab Results 05/16/25 05/16/25 Range/Units 10:16 10:22 WBC 7.3 (4.0-11.0) 10^3/uL RBC 3.48 L (4.70-6.10) 10^6/uL Hgb 11.2 L (14.0-18.0) g/dL Hct 33.0 L (42.0-54.0) % MCV 94.8 H (80.0-94.0) fL MCH 32.2 (25.9-34.0) pg MCHC 33.9 (29.9-35.2) g/dL RDW 13.9 (11.0-15.0) % Plt Count 163 (150-450) 10^3/uL MPV 11.2 (9.5-13.5) fL Neut % (Auto) 78.1 H (43.0-75.0) % Lymph % (Auto) 13.6 L (20.5-60.0) % Sierra % (Auto) 7.7 (1.7-12.0) % Eos % (Auto) 0.4 L (0.9-7.0) % Baso % (Auto) 0.1 L (0.2-2.0) % Neut # (Auto) 5.7 (1.4-6.5) 10^3/uL Lymph # (Auto) 1.0 L (1.2-3.8) 10^3/uL Sierra # (Auto) 0.6 (0.3-0.8) 10^3/uL Eos # (Auto) 0.0 (0.0-0.7) 10^3/uL Baso # (Auto) 0.0 (0.0-0.1) 10^3/uL Abs Immat Gran (auto) 0.01 (0.00-0.03) 10^3/uL Imm/Tot Granulo (auto) 0.1 (0.0-0.5) % Sodium 140 (136-145) mmol/L Potassium 4.5 (3.5-5.1) mmol/L Chloride 104 (98-107) mmol/L Carbon Dioxide 25.9 (21.0-32.0) mmol/L Anion Gap 14.6 BUN 39.0 H (7.0-18.0) mg/dL Creatinine 1.76 H (0.70-1.30) mg/dL Est GFR ( Amer) 45 L (>=60 mL/min/1.73m^2) Est GFR (Non-Af Amer) 37 L (>=60 mL/min/1.73m^2) BUN/Creatinine Ratio 22.2 Glucose 144 H (74-106) mg/dL Estimat Average Glucose 114 mg/dL Hemoglobin A1c 5.6 (4.5-6.2) % Calcium 9.3 (8.5-10.1) mg/dL Total Bilirubin 0.7 (0.2-1.0) mg/dL AST 19 (15-37) U/L ALT 14 L (16-63) U/L Alkaline Phosphatase 88 (46-116) U/L Total Protein 7.8 (6.4-8.2) g/dL Albumin 3.2 L (3.4-5.0) g/dL Globulin 4.6 g/dL Albumin/Globulin Ratio 0.7 POC Glucose 169 H (74-106) mg/dL Discharge Plan Discharge Chief Complaint: Fall Clinical Impression: Hypoglycemia, Fall, Back pain, Elevated blood pressure reading Patient Disposition: Home, Self-Care Time of Disposition Decision: 12:32 Condition: Good Mode of Transportation: Private Vehicle Prescriptions / Home Meds: New tramadol 50 mg tablet 50 mg PO BID PRN (Reason: pain) 3 Days Qty: 6 0RF Discontinued glipizide 10 mg tablet 10 mg PO BID No Action aspirin 81 mg capsule 81 mg PO DAILY indomethacin 25 mg capsule 25 mg PO BID Rx Instructions: administer with food or milk metformin 500 mg tablet 500 mg PO BID metoprolol tartrate 100 mg tablet 100 mg PO DAILY polyethylene glycol 3350 [Miralax] 17 gram/dose powder 17 g PO DAILY pioglitazone 30 mg tablet 30 mg PO DAILY simvastatin 20 mg tablet 20 mg PO DAILY cholecalciferol (vitamin D3) [Vitamin D3] 50 mcg (2,000 unit) tablet 2,000 unit PO DAILY Print Language: Lao Instructions: Acute Low Back Pain (ED), Back Pain (ED) Referrals: Jaime Vargas MD [Primary Care Provider, Family Practice] - 1 week Discharge Date/Time: 05/16/25 12:55
--- NOTE | 2025-05-16 10:13 | CT_ITS ---
The [address] [address] Patient Name: PARDEEP STEPHENSON MRN: [id number] date: 1945 Sex: M Assigned Patient Location: ER Current Patient Location: ER Accession/Order Number: [id number] Exam Date: 05/16/2025 11:11 Report Date: 05/16/2025 11:14 At the request of: ERIC JASSO MD Procedure: CT head/brain wo con CT BRAIN WITHOUT CONTRAST: CLINICAL HISTORY: Patient was hypoglycemic and fell. COMPARISON: MRI 04/22/2025 TECHNIQUE: Contiguous axial unenhanced images were obtained through the brain. This CT exam was performed using one or more following dose reduction techniques: Automated exposure control, adjustment of the mA and/or kV according to patient size, or use of iterative reconstruction technique. FINDINGS: There is generalized atrophy. The ventricles are within normal limits for size and position. Mild to moderate microvascular changes are again noted. 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 There are no additional areas of abnormal attenuation. There is no hemorrhage, mass effect or extra-axial collections. The calvarium is intact. There is mild ethmoid and left maxillary mucosal thickening. Mastoid air cells are clear. Carotid siphon plaque the vertebral artery plaque is seen. CT/CT head/brain wo con IMPRESSION: ATROPHY AND CHRONIC ISCHEMIC CHANGES. NO ACUTE INTRACRANIAL TRAUMA. Impression dictated by: Nazia Lucas M.D. 05/16/2025 11:14 AM Dictation Location: [place] [address] Electronically authenticated by: [id number] Y Date: 05/16/2025 11:14
--- NOTE | 2025-05-16 10:13 | CT_ITS ---
The [address] [address] Patient Name: PARDEEP STEPHENSON MRN: [id number] date: 1945 Sex: M Assigned Patient Location: ER Current Patient Location: ER Accession/Order Number: [id number] Exam Date: 05/16/2025 11:14 Report Date: 05/16/2025 11:26 At the request of: ERIC JASSO MD Procedure: CT lumbar spine wo con CT LUMBAR SPINE WITHOUT CONTRAST WITH RECONSTRUCTIONS COMPARISON: MRI 12/02/2021 CLINICAL DATA: Patient fell and has back pain. Spiral images were obtained through the lumbar spine without contrast. Sagittal and coronal reconstructions were reviewed. This CT exam was performed using one or more following dose reduction techniques: Automated exposure control, adjustment of the mA and/or kV according to patient size, or use of iterative reconstruction technique. There is osteopenia. Subtle dextroscoliotic curvature is seen. There is partial lumbarization of S1. There is no acute compression fracture. There is minimal retrolisthesis of L3 on L4. The disc spaces are maintained. Moderate endplate spurring is seen. There is lower lumbar facet hypertrophy. There is lumbosacral neural foraminal narrowing, right side worse than left. 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 No sacral or pelvic fractures are identified in the field of view. No paraspinal soft tissue abnormalities are seen. There is bilateral adrenal limb thickening. Perinephric fibrofatty stranding is noted. There are bilateral renal hypodensities suggesting cysts. There are also bilateral renal stones, right greater than left. No hydronephrosis is identified. There is atherosclerotic plaque at the aorta and iliac arteries. CT/CT lumbar spine wo con IMPRESSION: OSTEOPENIA, SUBTLE SCOLIOSIS AND MULTILEVEL DEGENERATIVE CHANGES. NO ACUTE BONY INJURY. Impression dictated by: Nazia Lucas M.D. 05/16/2025 11:26 AM Dictation Location: [place] [address] Electronically authenticated by: [id number] Y Date: 05/16/2025 11:26
--- OUTSIDE RECORDS SUMMARY | 2025-05-16 10:13 | XMS_ITS | Clinical Summary ---
Author Organization [facility] Address [id number] [address] [place] [address] Care Team Providers Care Train Station Server Name Role Phone Unavailable Primary Care Provider Unavailabl e Social History Tobacco Use Types Packs/Day Years Used Date Smoking Tobacco: Never Assessed Childcare Answer Date Recorded Childcare Unknown 04/17/2019 Employment Answer Date Recorded Employment Unknown 04/17/2019 Sex and Gender Information Value Date Recorded Sex Assigned at Not on file Legal Sex Male 11:42 AM EDT Gender Identity Not on file Sexual Orientation Not on file Plan of Treatment Upcoming Encounters Date Type Department Care Team (Latest Contact Info) Description 06/30/2025 9:45 AM EDT Procedure visit [facility] - [facility] Admit [address] [place] [phone] 07/22/2025 9:45 AM EDT Hospital Encounter [facility] - Surgery [address] [place] [phone] Radha Gates MD [address] [place] [address] [phone] 07/22/2025 9:45 AM EDT - 07/22/2025 10:30 AM EDT Surgery [facility] - Surgery [address] [place] [address] Radha Gates MD [address] [place] [address] [phone] EXTRACTION CATARACT INTRAOCULAR LENS [83819 (CPT )] 08/06/2025 3:50 PM EDT Support Visit [facility] - Pre Admit [address] [place] [phone] 08/07/2025 9:45 AM EDT Hospital Encounter [facility] Surgery [address] [place] [phone] Radha Gates MD [address] [place], [place] [phone] 08/07/2025 9:45 AM EDT - 08/07/2025 10:30 AM EDT Surgery [facility] Surgery [address] [place] [address] Radha Gates MD [address] [place] [address] [phone] EXTRACTION CATARACT INTRAOCULAR LENS [57259 (CPT )] Scheduled Procedures Name Priority Associated Diagnoses Date/Ti me EXTRACTION CATARACT INTRAOCU LAR LENS cataract right eye 07/22/2025 9:45 AM EDT EXTRACTION CATARACT INTRAOCU LAR LENS cataract left eye 08/07/2025 9:45 AM EDT Health Maintenance Due Date Last Done Comments Depression Screening 1957 Tobacco Screening 1957 DTaP,Tdap and Td Vaccines (1 - Tdap) 1963 Zoster (Shingles) Vaccine (1 of 2) 1994 Fall Risk Screening 2009 Influenza Vaccine 07/07/2025 Goals Goal Patient Goal Type Associated Problems Recent Progress Patient-Stated? Author Autogenera coral Goal Care Plan Autogenerated Problem No Saenz, Vivien Autogenera coral Goal Care Plan Autogenerated Problem No Saenz, Vivien Medical Devices Not on file Additional Health Concerns Active Problems Noted Date Diagnosed Date Autogenerated Problem 05/02/2025 Autogenerated Problem 05/02/2025 Insurance MEDICARE [employer]
--- OUTSIDE RECORDS SUMMARY | 2025-05-16 10:13 | XMS_ITS | Clinical Summary ---
Author Organization [facility] Address [address] [place] [address] Care Team Providers Care Education And Training Manager Name Role Phone Unavailable Primary Care [...]
--- OUTSIDE RECORDS SUMMARY | 2025-05-16 10:13 | XMS_ITS | Patient Health Record ---
Author Organization [facility] in [place] Address [address] [place] [address] Care Team Providers Care Rolloff Driver Name Role Phone Loco Keyes Primary Care Provider Allergies No Known Allergies Results Component Value Reference Range Notes FREE T3 Reviewed date:09/24/2024 08:35:11 PM Interpretation: Performing Lab: Notes/Report: [facility] , Free T3 2.74 2.18-3.98 pg/mL Performing Lab: see note ML - [facility] [place] [facility] GLYCOHEMOGLOBIN A1C Reviewed date:09/24/2024 11:15:21 AM Interpretation: Performing Lab: Notes/Report: [facility] , Glycohemoglobin A1C 5.8 4.5-6.2 % > 7.0 ACTION SUGGESTED ADA RECOMMENDED LIMIT 4.0 - 6.0 ADA THERAPEUTIC TARGET < 7.0 Estimated Average Glucose 120 Performing Lab: see note ML - [facility] LIPID PROFILE Reviewed date:09/24/2024 08:35:11 PM Interpretation: Performing Lab: Notes/Report: [facility] , Triglycerides 94 <=150 mg/dL Cholesterol 147 [...] RISK Performing Lab: see note ML - [facility] T4 Reviewed date:09/24/2024 08:35:11 PM Interpretation: Performing Lab: Notes/Report: [facility] , T4 Thyroxine 8.80 4.50-12.10 ug/dL Performing Lab: see note ML - [facility] TSH Reviewed date:09/24/2024 08:35:11 PM Interpretation: Performing Lab: Notes/Report: [facility] , Thyroid Stimulating Hormone 1.701 0.358-3.740 uIU/mL Performing Lab: see note ML - [facility] LB URIC ACID SERUM Reviewed date:09/24/2024 08:35:11 PM Interpretation: Performing Lab: Notes/Report: [facility] , Uric Acid 7.2 3.5-7.2 mg/dL Performing Lab: see note ML - [facility] Prothrombin Time INR Reviewed date:04/16/2025 01:00:05 PM Interpretation: Performing Lab: Notes/Report: [facility] , Prothrombin Time 11.3 9.0-11.6 sec INR 1.07 2.0-3.0 CONDITIONS NOT LISTED BELOW 2.5-3.5 RECURRENT THROMBOSIS DESIRED INR: 2.5-3.5 FOR PROSTHETIC HEART VALVE REPLACEMENT Performing Lab: see note ML - [facility] LB CBC AUTO DIFF Reviewed date:04/16/2025 01:00:05 PM Interpretation: Performing Lab: Notes/Report: [facility] , White Blood Count 7.0 4.0-11.0 10 3/uL Red Blood Count 3.70 4.70-6.10 10 6/uL Hemoglobin 11.7 14.0-18.0 g/dL Hematocrit 35.7 42.0-54.0 % Mean Corpuscular Volume 96.5 80.0-94.0 fL Mean Corpuscular Hemoglobin 31.6 25.9-34.0 pg Mean Corpuscular HGB Conc 32.8 29.9-35.2 g/dL Red Cell Distribution Width 14.6 11.0-15.0 % Platelet Count 168 150-450 10 3/uL Mean Platelet Volume 11.1 9.5-13.5 fL Neutrophils Percent Auto 65.0 43.0-75.0 % Lymphocytes Percent Auto 24.9 20.5-60.0 % Monocytes Percent Auto 8.3 1.7-12.0 % Eosinophils Percent Auto 1.3 0.9-7.0 % Basophils Percent Auto 0.4 0.2-2.0 % Immature Granulocytes Pct Auto 0.1 0.0-0.5 % Neutrophils Absolute Auto 4.5 1.4-6.5 10 3/uL Lymphocytes Absolute Auto 1.7 1.2-3.8 10 3/uL Monocytes Absolute Auto 0.6 0.3-0.8 10 3/uL Eosinophils Absolute Auto 0.1 0.0-0.7 10 3/uL Basophils Absolute Auto 0.0 0.0-0.1 10 3/uL Immature Granulocytes Abs Auto 0.01 0.00-0.03 10 3/uL Performing Lab: see note - [facility] LB Occult Blood* Reviewed date:09/24/2024 08:35:11 PM Interpretation: Performing Lab: Notes/Report: [facility] , Occult Blood Positive Performing Lab: see note - [facility] LB PSA Total+% Free Reviewed date:09/26/2024 02:55:44 PM Interpretation: Performing Lab: Notes/Report: [facility] , Prostate Specific Ag 4.2 0.0-4.0 ng/mL kits cannot be used interchangeably. Results cannot be According to the [place] [employer], Serum PSA or greater. Values [...] PSA, Free 1.21 N/A ng/mL Mercedes ECLIA methodology. % Free PSA 28.8 . % 15.01-20.00% 17% 23% men with non-suspicious NAIF results and total PSA between 4 and 10 ng/mL, by patient age (Gray et al, SOFIA 1997, [address] [facility], [place], [place] [id number] Performed at: [facility] The table below lists the probability of prostate cancer for 20.01-25.00% 10% 20% of men. Silo Tender: Edouard Meng PhD, Phone: [phone] percent free PSA for any other population recommendations regarding the use of 10.01-15.00% 24% 35% 0.00-10.00% 56% 55% % Free PSA 50-64 yr 65-75 yr >25.00% 5% 9% Please note: Gray et al did not make specific [phone]). Performing Lab: see note LC - [facility] LB PSA SCREENING Reviewed date:09/24/2024 08:35:11 PM Interpretation: Performing Lab: Notes/Report: [facility] , Prostate Specific Antigen Scrn 4.42 <=4.00 ng/mL Performing Lab: see note ML - [facility] LB PROF 14(COMP METB) Reviewed date:09/24/2024 08:35:11 PM Interpretation: Performing Lab: Notes/Report: [facility] , Sodium 140 136-145 mmol/L Potassium 4.7 [...] Performing Lab: see note ML - [facility] CBC AUTO DIFF Reviewed date:09/24/2024 11:15:21 AM Interpretation: Performing Lab: Notes/Report: [facility] , White Blood Count 6.9 4.0-11.0 10 [...] 0.00-0.03 10 3/uL Performing Lab: see note ML - [facility] PTT Reviewed date:04/16/2025 01:00:05 PM Interpretation: Performing Lab: Notes/Report: [facility] , Partial Thromboplastin Time 28.1 22.3-36.2 sec Performing Lab: see note ML - [facility] IRON Reviewed date:04/16/2025 01:00:05 PM Interpretation: Performing Lab: Notes/Report: [facility] , Iron 79.0 65.0-175.0 ug/dL Performing Lab: see note ML - [facility] LB FERRITIN Reviewed date:04/16/2025 01:00:05 PM Interpretation: Performing Lab: Notes/Report: [facility] , Ferritin 37.0 26.0-388.0 ng/mL Performing Lab: see note ML - [facility] MR head/brain wo con Reviewed date:04/22/2025 12:50:56 PM Interpretation: Performing Lab: Notes/Report: Source Facility: [facility]-[address] [place] [address] [place] [address] Magnetic Resonance Report Signed Patient: DAVE STEPHENSON MR#: [id number] : 1945 Acct:[id number] Age/Sex: 79 / M ADM Date: 04/22/25 Loc: MRI Attending Dr: Hi Keyes M.D. Ordering Physician: Hi Keyes M.D. Date of Service: 04/22/25 Procedure(s): MR head/brain wo con Accession Number(s): [id number] cc: Hi Keyes M.D. 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 There is generalized atrophy. The ventricles are within normal limits for size and position. Mild to moderate increased T2 and FLAIR signal is visualized within the periventricular and subcortical white matter compatible with chronic microvascular disease. 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 There are no areas of abnormal signal intensity within the supra- or infratentorial brain. No restricted diffusion is identified to suggest a recent ischemic event. There are no extra-axial collections or mass effect. There is bilateral maxillary mucosal thickening, greater on the right as well as thickening at some of the ethmoid air cells MR/MR head/brain wo con IMPRESSION: ATROPHY AND CHRONIC ISCHEMIC CHANGES. MILD CHRONIC SINUSITIS. NO ACUTE INTRACRANIAL ABNORMALITY. Impression dictated by: Nazia Lucas M.D. 04/22/2025 11:21 AM Dictation Location: [place] [address] Electronically authenticated by: [id number] Y Date: 04/22/2025 11:21 Dictated By: Nazia Lucas M.D. Signed By: 04/22/25 1124 DD/ 1121 TD/TT: Tile Picker: [place] [id number] Magnetic Resonance Report Signed Patient: KRISTOPHER STEPHENSON MR#: [id number] : 1945 Acct:[id number] Age/Sex: 79 / M ADM Date: 04/22/25 Loc: MRI Attending Dr: Shanika Keeys M.D. Ordering Physician: Hi Keyes M.D. Date of Service: 04/22/25 Procedure(s): MR head/brain wo con Accession Number(s): [id number] cc: Hi Keyes M.D. 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 There is generalized atrophy. The ventricles are within normal limits for size and position. M ild to moderate increased T2 and FLAIR signal is visualized within th e periventricular and subcortical white matter compatible with chronic microvascular disease. There is mild encephalomalacia suggesting a small old posterio r left cerebellar infarct. There are no areas of abnormal signal intensity wit hin the supra- or infratentorial brain. No restricted diffusion is identif ied to suggest a recent ischemic event. There are no extra-axial collecti ons or mass effect. There is bilateral maxillary mucosal thickening, greater on the right as well as thickening at some of the ethmoid air cells M R/MR head/brain wo con IMPRESSION: ATROPHY AND CHRONIC ISCHEMIC CHANGES. MILD CHRONIC SINUSITIS. NO ACUTE INTRACRANIA L ABNORMALITY. Impression dictated by: Nazia Lucas M.D. 04/22/2025 11:21 AM Dictation Location: [place] [address] Electronically authenticated by: [id number] Y Date: 04/22/2025 11:21 Dictated By: Nazia Lucas M.D. Signed By: 04/22/25 1124 DD/ 1121 TD/TT: Tile Picker: TSH Reviewed date:04/16/2025 01:00:05 PM Interpretation: Performing Lab: Notes/Report: [facility] , Thyroid Stimulating Hormone 2.054 0.358-3.740 uIU/mL Performing Lab: see note ML - [facility] T4 Reviewed date:04/16/2025 01:00:05 PM Interpretation: Performing Lab: Notes/Report: [facility] , T4 Thyroxine 7.00 4.50-12.10 ug/dL Performing Lab: see note ML - [facility] LB PROF 14(COMP METB) Reviewed date:04/16/2025 01:00:05 PM Interpretation: Performing Lab: Notes/Report: [facility] , Sodium 141 136-145 mmol/L Potassium 5.0 3.5-5.1 mmol/L Chloride 103 98-107 mmol/L Carbon Dioxide 27.6 21.0-32.0 mmol/L Anion Gap 15.4 Glucose 73 74-106 mg/dL Blood Urea Nitrogen 35.0 7.0-18.0 mg/dL Creatinine 1.82 0.70-1.30 mg/dL Estimated GFR ( Cami 44 >=60 mL/min/1.73m 2 Estimated GFR (Non- Chelita 36 >=60 mL/min/1.73m 2 BUN Creatinine Ratio 19.2 Calcium 9.5 8.5-10.1 mg/dL Bilirubin Total 0.6 0.2-1.0 mg/dL Aspartate Amino Transferase 19 15-37 U/L Alanine Aminotransferase 19 16-63 U/L Alkaline Phosphatase 89 46-116 U/L Total Protein 8.0 6.4-8.2 g/dL Albumin Level 3.6 3.4-5.0 g/dL Globulin 4.4 Albumin Globulin Ratio 0.8 Performing Lab: see note ML - [facility] LB FREE T3 Reviewed date:04/16/2025 01:00:05 PM Interpretation: Performing Lab: Notes/Report: [facility] , Free T3 2.48 2.18-3.98 pg/mL Performing Lab: see note ML - [facility] Reason For Referral No Information Medications Medication SIG (Take, Route, Frequency, Duration) Notes Start Date End Date Status Pioglitazone HCl 30 MG 1 tablet Orally O nce a day for 90 days Active Cholecalciferol 50 MCG (1999) 1 tablet Orally Once a day Active Metoprolol Succinate ER 50 MG 1 tablet O rally Once a day for 90 days Active Lisinopril 20 MG 1 tablet Orally Once a day for 30 days 04/15/2025 Active Glucose Test Strips test blood sugar [...] a day for 90 days Active Simvastatin 20 MG 1 tablet in the even ing Orally Once a day for 90 days Active Ferrous Sulfate 325 (65 Fe) MG 1 tablet Orally twice daily for 30 days 04/16/2025 Active Glucose Lancets used to test blood sugar daily Dx E11.9 for 90 days 01/16/2025 Active Meloxicam 10 MG 1 capsule Orally Onc e a day Active Aspir-Low 81 MG 1 tablet Orally Once a day Active Immunizations Vaccine Route Administration Date Status Comme nts Flu, Fluad (56339) 65 yrs and older, single-dose syringe IM Intramuscular 09/24/2024 Administered Flu, Fluad (77327) 65 yrs+, single-dose syringe () IM Intramuscular 09/11/2023 Administered Social History Tobacco [...] User Light cigarett e smoker ((1-9 cigs/day) Alcohol Screen (Audit-C) Question Answer Notes Did you have a drink containing alcohol in the p ast year? No Points 0 Interpretation Negative AUDIT-C (Standard) Question Answer Notes Did you have a drink containing alcohol in the p ast year? No Points 0 Interpretation Negative Problems Problem Type SNOMED Code ICD Code Onset Dates Problem Status W/U Status Risk Notes Problem Vaccination given (434350149) Encounter for immunization (Z23) Active confirmed Problem 112046432 Type 2 diabetes mellitus without complications (E11.9) Active confirmed Problem Tinea corporis (60952859) Tinea corporis (B35.4) Active confirmed Problem 84312968 Hyperkalemia (E87.5) Active confirmed Problem Transient global amnesia (674698469) 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 confirmed Problem 53041689579719807 Acute kidney f ailure, unspecified (N17.9) Active confirmed Problem 188434448 buttermaker (curre nt) use of insulin (Z79.4) Active confirmed Problem Hypertension (98868425) Hypertension (I10) Active confirmed Problem Electrocardiogram abnormal (365007098) Abnormal EKG (R94.31) Active confirmed Problem Bradycardia (04959736) Bradycardia (R00.1) Active confirmed Problem Gout (24302538) Gout (M10.9) Active confirmed Problem Kidney stone (33747388) Kidney stones (N20.0) Active confirmed Problem 58837273 Constipation, unspecified constipation type (K59.00) Active confirmed Problem 97646464 Acute bronchitis , unspecified organism (J20.9) Active confirmed Problem Lumbar radicular shira n (3986216548) Lumbar radicular pain (M54.16) Active confirmed Problem Displacement of lumbar intervertebral disc without myelopathy (97554591) Herniated lumbar disc without myelopathy (M51.26) Active confirmed Problem Herpes zoster (2312423) Herpes zoster (B02.9) Active confirmed Problem Diverticular disease (025758998) Diverticular disease (K57.90) Active confirmed Problem Altered mental statu s (106369676) Altered mental status (R41.82) Active confirmed Problem Benign prostatic hyperplasia (817932083) Benign prostate hyperplasia (N40.0) Active confirmed Problem 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 Problem Adult health examination (898589003) Encounter for routine adult health examination (Z00.00) Active confirmed Problem Hypercholesterolemia (34950881) Hypercholesterolemia (E78.00) Active confirmed Problem 588429814 Elevated prostat e specific antigen [PSA] (R97.20) Active confirmed Problem 36361491 Primary hyperten emiliano (I10) Active confirmed Problem Diabetes mellitus (74171410) Diabetes mellitus (E11.9) Active confirmed Problem Easy bruising (096130986) Easy bruisability (R23.3) Active confirmed Vital Signs Heart Rate 48 /min 01/16/2025 Oximetry 96 % 01/16/2025 Blood pressure diastolic 78 mm Hg 04/18/2025 Height 70 in 04/18/2025 Blood pressure systolic 146 mm Hg 04/18/2025 Weight 178.8 lbs 04/18/2025 BMI 25.65 kg/m2 04/18/2025 Encounters Encounter Location Date Provider Diagnosis [address] [address] 04/15/2025 Loco Mariny Hypertension I10 ; T ransient global amnesia G45.4 and Easy bruisability R23.[address] [address] 04/18/2025 Loco Mariny Altered mental statu s R41.82 and Paralysis G83.[address] [address] 01/16/2025 Loco Mariny Influenza J11.[address] [address] 09/24/2024 Loco Mariny Encounter for immuni zation Z23 ; Type 2 diabetes mellitus without complications E11.9 ; Hypertension I10 ; Lumbar radicular pain M54.16 and Hypercholesterolemia E78.00 [facility] [address] [facility] [address] 09/24/2024 Loco Keyes [facility] [address] [facility] [address] 09/24/2024 Loco Keyes Elevated prostate sp ecific antigen [PSA] R97.20 [facility] [address] [facility] [address] 09/26/2024 Loco Keyes [facility] [address] [facility] [address] 01/10/2025 Loco Keyes Hypertension I10 [facility] [address] [facility] [address] 01/16/2025 Loco Keyes [facility] [address] [facility] [address] 03/06/2025 Loco Keyes [facility] [address] [place] [facility] [place] [address] 03/20/2025 Loco Keyes [facility] [address] [facility] [address] 04/16/2025 Loco Keyes [facility] [address] [facility] [address] 04/21/2025 Loco Keyes Hypertension I10 [facility] [address] [facility] [address] 04/22/2025 Loco Keyes Assessments Encounter Date Diagnosis (ICD Code) Assessment Notes Treatment Notes Treatment Clinical Notes Section Notes 09/24/2024 Encounter for immunization (ICD-10 - Z23) 09/24/2024 Type 2 diabetes mellitus without complications (ICD-10 - E11.9) checking labs 01/16/2025 Influenza (ICD-10 - J11.1) 04/15/2025 Hypertension (ICD-10 - I10) 04/15/2025 Transient global amnesia (ICD-10 - G45.4) 04/18/2025 Altered mental statu s (ICD-10 - R41.82) 04/18/2025 Paralysis (ICD-10 - G83.9) 09/24/2024 Elevated prostate specific antigen [PSA] (ICD-10 - R97.20) 01/10/2025 Hypertension (ICD-10 - I10) 04/21/2025 Hypertension (ICD-10 - I10) 04/15/2025 Easy bruisability (ICD-10 - R23.3) 09/24/2024 Hypertension (ICD-10 - I10) good at home 09/24/2024 Lumbar radicular shira n (ICD-10 - M54.16) 09/24/2024 Hypercholesterolemia (ICD-10 - E78.00) cheding labs 01/16/2025 Other Rest and drink more liquids, especially water. You may use a humidifier or vaporizer to help keep the drainage moist. Hise-vch-zztkc er Nasal Saline may help the stuffy and runny nose. Use Ibuprofen and or Tylenol as needed for fever, chills, body aches or pain. Children 5 years old should not be given juho-bjg-glfkl er cough and cold medications such as guaifenesin and dextromethorph an. If you're over age 5, you may try lhep-xiy-izugi er cold medications such as guaifenesin and [...] Name Order Date CMP (COMPLETE METABOLIC PANEL) 3 CMP (COMPLETE METABOLIC PANEL) 4 HEMOGLOBIN A1C (GLYCO) 09/11/2023 HEMOGLOBIN A1C (GLYCO) 09/24/2024 LIPID PANEL (CHOL/TRIG/HDL/LDL) 09/11/20 23 LIPID PANEL (CHOL/TRIG/HDL/LDL) 09/24/20 24 CBC WITH DIFF 09/24/2024 CBC WITH DIFF 09/11/2023 PSA, PROSTATE-SPECIFIC ANTIGEN 3 URIC ACID 09/11/2023 URIC ACID 09/24/2024 BMP w/GFR 09/11/2023 PT - INR 04/15/2025 PSA, TOTAL 09/24/2024 STOOL OCCULT BLOOD 09/24/2024 STOOL OCCULT BLOOD 09/11/2023 MRI BRAIN WO CON 04/15/2025 THYROID PANEL (T4/TSH/FREE T3) 3 THYROID PANEL (T4/TSH/FREE T3) 4 THYROID PANEL (T4/TSH/FREE T3) 5 Free PSA 09/24/2024 CMP (COMP MET MAE) w/eGFR CKD-EPI 2024 CBC WITH DIFF 04/15/2025 Insurance Providers Payer Name Payer Address Payer Phone Subscriber Number Group Number Insured Name Patient Relationship to Insured Coverage Start Date Coverage End Date [place]IC[place] [address] [place] [address] [phone] [id number] Dave Stephenson Self - patient is the insured Medical (General) History Medical History History ICD Code Herniated lumbar disc without myelopathy M51.26 Tinea corporis B35.4 Bradycardia R00.1 Benign prostate hyperplasia N40.0 Herpes zoster B02.9 Transient global amnesia G45.4 Encounter for routine adult health exam[facility] Z00.00 Kidney stones N20.0 Hypertension I10 Gout M10.9 Diabetes mellitus E11.9 Abnormal EKG R94.31 Diverticular disease K57.90 Surgical History Surgery Date(Month/Year) Colonoscopy 10/25/2023 Ureteral stents
--- OUTSIDE RECORDS SUMMARY | 2025-05-16 10:13 | XMS_ITS | Clinical Summary ---
Author Organization [facility] Address [address] [place] [address] Care Team Providers Care [employer]ment [employer] Cutter Machine Name Role Phone Unavailable Primary Care Provider [...] Vaccine (2023-2 5 season) 2024 Influenza Vaccine (#1) 2025 HIB Vaccines Aged Out No longer [...]
--- OUTSIDE RECORDS SUMMARY | 2025-05-16 10:26 | XMS_ITS | CCD ---
Author Organization [facility] Care Team Providers Care Drain Tiler Name Role Phone STEPHY, DR DO Admitting Unavailable STEPHY, DR DO Attending Unavailable STEPHY, DR DO Primary Care Unavailable STEPYH, DR DO Consulting Unavailable STEPHY, DR DO [...] Consulting Unavailable Hi Vargas Primary Care Physician Hi Vargas Referring Unavailable Donald EVERETT Attending Unavailable Donald EVERETT Attending Unavailable Donald EVERETT Referring Unavailable Hi Vargas MD Primary Care Provider [phone] Lam Menon DO Emergency Provider [phone] Hi Vargas Primary Care Unavailable Lam Menon Admitting Unavailable Lam Menon Attending Unavailable Allergies Allergy Classification Reported Allergen(s) Allergy Type Date of Onset Reaction(s) Facility (1 source) No Known Medication Allergies; Translations: [No Known Medication Allergies] Propensity to adverse reactions (disorder) [facility] Repository Medications Current Medications Medication Drug [...] aminotransferase [Enzymatic activity/volume] in Serum or Plasma [facility] Albumin [Mass/volume] in Ser um or Plasma by Bromocresol green (BCG) dye binding methoOrdered By: Lam Menon on 01-13-2025 Albumin BCG dye [Mass/Vol] Albumin [Mass/volume] in Serum or Plasma by Bromocresol green (BCG) dye binding metho 3.5-5.7 [facility] Alkaline phosphatase [Enzyma tic activity/volume] in Serum or PlasmaOrdered By: Lam Menon on 01-13-2025 ALP [Catalytic activity/Vol] Alkaline phosphatase [Enzymatic activity/volume] in Serum or Plasma 34-104 [facility] Appearance of UrineOrdered B y: Lam Menon on 01-13-2025 Appearance (U) Urine appearance Clear [facility] Aspartate aminotransferase [ Enzymatic activity/volume] in Serum or PlasmaOrdered By: Lam Menon on 01-13-2025 AST [Catalytic activity/Vol] Aspartate aminotransferase [Enzymatic activity/volume] in Serum or Plasma 13-39 [facility] B-Type Natriuretic Peptideon 01-13-2025 Natriuretic peptide B (Bld) [Mass/Vol] 138.0 pg/mL High 5-100 [facility] Comment on above: Result Comment: PERF ORMED BY: [place] [address] PATHOLOGIST STRAWHAT BLOCKING OPERATOR RAJIV ELLISON M.D. Performed By: #### C BC, HEPATIC, BMP, PT, BNP, CK, HS TROP #### [facility] [address] Bacteria [Presence] in Urine by AutomatedOrdered By: Lma Menon on 01-13-2025 Bacteria Auto Ql (U) Bacteria [Presence] in Urine by Automated None Seen [facility] Basic Metabolic Panelon 01-04 Anion gap [Moles/Vol] 9.9 mmol/L Normal 6.0-15.0 [facility] Comment on above: Performed By: #### C BC, HEPATIC, BMP, PT, BNP, CK, HS TROP #### [facility] [address] Calcium [Mass/Vol] 9.6 mg/dL Normal 8.6-10.3 [facility] Comment on above: Performed By: #### C BC, HEPATIC, BMP, PT, BNP, CK, HS TROP #### [address] Chloride [Moles/Vol] 102 mmol/L Normal 98-107 [facility] Comment on above: Performed By: #### C BC, HEPATIC, BMP, PT, BNP, CK, HS TROP #### [address] CO2 [Moles/Vol] 26.8 mmol/L Normal 21.0-31.0 [facility] Comment on above: Performed By: #### C BC, HEPATIC, BMP, PT, BNP, CK, HS TROP #### [address] Creatinine [Mass/Vol] 1.65 mg/dL High 0.70-1.30 [facility] Comment on above: Performed By: #### C BC, HEPATIC, BMP, PT, BNP, CK, HS TROP #### [address] Creatinine Clr Calc Pharmacy 36.87 Normal [facility] Comment on above: Result Comment: PERF ORMED BY: [place] [address] PATHOLOGIST STRAWHAT BLOCKING OPERATOR RAJIV ELLISON M.D. Performed By: #### C BC, HEPATIC, BMP, PT, BNP, CK, HS TROP #### [address] Estimated GFR 41.717 mL/Min Normal [facility] Comment on above: Performed By: #### C BC, HEPATIC, BMP, PT, BNP, CK, HS TROP #### [address] Glucose [Mass/Vol] 54 mg/dL Low 70-100 [facility] Comment on above: Result Comment: [place] Glucose Reference Range is dependent on time and content of last meal. Glucose of more than 200 mg/dL in a nonstressed, ambulatory subject supports the diagnosis of Diabetes Mellitus. ADA recommended reference range Performed By: #### C BC, HEPATIC, BMP, PT, BNP, CK, HS TROP #### [facility] [address] Potassium [Moles/Vol] 4.7 mmol/L Normal 3.5-5.1 [facility] Comment on above: Performed By: #### C BC, HEPATIC, BMP, PT, BNP, CK, HS TROP #### [facility] [address] Sodium [Moles/Vol] 134 mmol/L Low 136-145 [facility] Comment on above: Performed By: #### C BC, HEPATIC, BMP, PT, BNP, CK, HS TROP #### [facility] [address] Urea nitrogen [Mass/Vol] 25 mg/dL Normal 7-25 [facility] Comment on above: Performed By: #### C BC, HEPATIC, BMP, PT, BNP, CK, HS TROP #### [facility] [address] Basophils Auto (Bld) [#/Vol] Ordered By: Lam Menon on 01-13-2025 Basophils (Bld) [#/Vol] Automated basophil count 0.0-0.2 [place] Basophils/100 WBC Auto (Bld) Ordered By: Lam Menon on 01-13-2025 Basophils/100 WBC (Bld) Automated basophil % . [facility] Bilirubin Test strip Ql (U)O rdered By: Lam Menon on 01-13-2025 Bilirubin Ql (U) Bilirubin.total [Pre sence] in Urine by Test strip Negative [facility] Bilirubin.direct [Mass/volum e] in Serum or PlasmaOrdered By: Lam Menon on 01-13-2025 Bilirubin.direct [Mass/Vol] Bilirubin.direct [Mass/volume] in Serum or Plasma 0.03-0.18 [facility] Bilirubin.total [Mass/volume ] in Serum or PlasmaOrdered By: Lam Menon on 01-13-2025 Bilirubin [Mass/Vol] Bilirubin.total [Mass/volume] in Serum or Plasma 0.3-1.0 [facility] BioFire Not Detectedon 01-13 BioFire Not Detected Not detected Normal Not Detecte [facility] Comment on above: Result Comment: This is a duplicate RP2.1 COVID (PCR) result to be used for statistical tracking purpose only. PERFORMED BY: [place] [address] PATHOLOGIST STRAWHAT BLOCKING OPERATOR RAJIV ELLISON M.D. Performed By: #### C BC, HEPATIC, BMP, PT, BNP, CK, HS TROP #### [address] COVID-19 Detected/Not Detect edOrdered By: Lam Menon on 01-13-2025 SARS-CoV-2 (COVID-19) RNA RABIA+non-probe Ql (Nph) Not detected Not Detecte [facility] Comment on above: This is a duplicate RP2.1 COVID (PCR) result to be used for statistical tracking purpose only. Calcium [Mass/volume] in Ser um or PlasmaOrdered By: Lam Menon on 01-13-2025 Calcium [Mass/Vol] Calcium [Mass/volume ] in Serum or Plasma 8.6-10.3 [facility] Carbon dioxide, total [Moles /volume] in Serum or PlasmaOrdered By: Lam Menon on 01-13-2025 CO2 [Moles/Vol] Carbon dioxide, tota l [Moles/volume] in Serum or Plasma 21.0-31.0 [facility] Chloride [Moles/volume] in S libia or PlasmaOrdered By: Lam Menon on 01-13-2025 Chloride [Moles/Vol] Chloride [Moles/vol ume] in Serum or Plasma 98-107 [facility] Color Auto (U)Ordered By: Rosalio Menon on 01-13-2025 Color (U) Color of Urine by Auto Yellow Fi [facility] Complete Blood Count Auto Di ffon 01-13-2025 Basophils (Bld) [#/Vol] 0.0 10*3/uL Normal 0.0-0.2 [facility] Comment on above: Result Comment: PERF ORMED BY: [place] [address] PATHOLOGIST STRAWHAT BLOCKING OPERATOR RAJIV ELLISON M.D. Performed By: #### C BC, HEPATIC, BMP, PT, BNP, CK, HS TROP #### [address] Basophils/100 WBC (Bld) 0.5 % Normal . [facility] Comment on above: Performed By: #### C BC, HEPATIC, BMP, PT, BNP, CK, HS TROP #### [address] Eosinophils (Bld) [#/Vol] 0.0 10*3/uL Normal 0.0-0.45 [facility] Comment on above: Performed By: #### C BC, HEPATIC, BMP, PT, BNP, CK, HS TROP #### [address] Eosinophils/100 WBC (Bld) 0.1 % Normal . [facility] Comment on above: Performed By: #### C BC, HEPATIC, BMP, PT, BNP, CK, HS TROP #### [address] Erythrocyte distribution width (RBC) [Ratio] 15.0 % High 12.0-14.8 [facility] Comment on above: Performed By: #### C BC, HEPATIC, BMP, PT, BNP, CK, HS TROP #### [address] Hematocrit (Bld) [Volume fraction] 38.8 % Normal 38.8-50.0 [facility] Comment on above: Performed By: #### C BC, HEPATIC, BMP, PT, BNP, CK, HS TROP #### [address] Hemoglobin (Bld) [Mass/Vol] 13.2 g/dL Normal 13.0-17.0 [facility] Comment on above: Performed By: #### C BC, HEPATIC, BMP, PT, BNP, CK, HS TROP #### [address] Lymphocytes (Bld) [#/Vol] 1.1 10*3/uL Normal 1.00-4.8 [facility] Comment on above: Performed By: #### C BC, HEPATIC, BMP, PT, BNP, CK, HS TROP #### [address] Lymphocytes/100 WBC (Bld) 22.8 % Normal . [facility] Comment on above: Performed By: #### C BC, HEPATIC, BMP, PT, BNP, CK, HS TROP #### [address] MCH (RBC) [Entitic mass] 31.4 pg Normal 27.5-35.2 [facility] Comment on above: Performed By: #### C BC, HEPATIC, BMP, PT, BNP, CK, HS TROP #### [address] MCV (RBC) [Entitic vol] 92.3 fL Normal 83.5-101 [facility] Comment on above: Performed By: #### C BC, HEPATIC, BMP, PT, BNP, CK, HS TROP #### [address] Mean Corpuscular HGB Conc 34.0 g/dL Normal 32.5-35.6 [facility] Comment on above: Performed By: #### C BC, HEPATIC, BMP, PT, BNP, CK, HS TROP #### [address] Monocytes (Bld) [#/Vol] 0.6 10*3/uL Normal 0.0-0.8 [facility] Comment on above: Performed By: #### C BC, HEPATIC, BMP, PT, BNP, CK, HS TROP #### [address] Monocytes/100 WBC (Bld) 22.81 % High 0.00-20.00 [facility] Comment on above: Result Comment: For adults in ED, MDW > 20.0 may be associated with a higher risk of sepsis during the first 12 hrs of hospital admission Performed By: #### C BC, HEPATIC, BMP, PT, BNP, CK, HS TROP #### [address] Monocytes/100 WBC (Bld) 12.5 % Normal . [facility] Comment on above: Performed By: #### C BC, HEPATIC, BMP, PT, BNP, CK, HS TROP #### [address] Neutrophils (Bld) [#/Vol] 3.1 10*3/uL Normal 1.8-7.7 [facility] Comment on above: Performed By: #### C BC, HEPATIC, BMP, PT, BNP, CK, HS TROP #### [address] Neutrophils/100 WBC (Bld) 64.1 % Normal . [facility] Comment on above: Performed By: #### C BC, HEPATIC, BMP, PT, BNP, CK, HS TROP #### [address] NRBC% 0.1 /100{WBC} Normal 0-0.5 [facility] Comment on above: Performed By: #### C BC, HEPATIC, BMP, PT, BNP, CK, HS TROP #### [address] Platelet mean volume (Bld) [Entitic vol] 8.9 fL Normal 6.6-10.1 [facility] Comment on above: Performed By: #### C BC, HEPATIC, BMP, PT, BNP, CK, HS TROP #### [address] Platelets (Bld) [#/Vol] 162 10*3/uL Normal 150-450 [facility] Comment on above: Performed By: #### C BC, HEPATIC, BMP, PT, BNP, CK, HS TROP #### [address] RBC (Bld) [#/Vol] 4.20 10*6/uL Normal 3.90-5.60 [facility] Comment on above: Performed By: #### C BC, HEPATIC, BMP, PT, BNP, CK, HS TROP #### [address] WBC (Bld) [#/Vol] 4.8 10*3/uL Normal 4.1-10.5 [facility] Comment on above: Performed By: #### C BC, HEPATIC, BMP, PT, BNP, CK, HS TROP #### [facility] [address] Creatine Kinaseon 01-13-2025 CK [Catalytic activity/Vol] 199 U/L Normal 30-223 [facility] Comment on above: Performed By: #### C BC, HEPATIC, BMP, PT, BNP, CK, HS TROP #### [address] Creatine kinase [Enzymatic a ctivity/volume] in Serum or PlasmaOrdered By: Lam Menon on 01-13-2025 CK [Catalytic activity/Vol] Creatine kinase [Enzymatic activity/volume] in Serum or Plasma - [facility] Creatinine [Mass/volume] in Serum or PlasmaOrdered By: Lam Menon on 01-13-2025 Creatinine [Mass/Vol] Creatinine [Mass/v olume] in Serum or Plasma High 0.70-1.30 [facility] Dipstick and Microscopicon 0 01-13-2025 Appearance (U) Clear Normal Clear [facility] Comment on above: Order Comment: Name Collection Type:: Clean-Voided Midstream Performed By: #### C BC, HEPATIC, BMP, PT, BNP, CK, HS TROP #### [address] Bacteria,Urine Rare Normal None Seen [facility] Comment on above: Order Comment: Name Collection Type:: Clean-Voided Midstream Performed By: #### C BC, HEPATIC, BMP, PT, BNP, CK, HS TROP #### [address] Bilirubin,Urine Negative Normal Negative [facility] Comment on above: Order Comment: Name Collection Type:: Clean-Voided Midstream Performed By: #### C BC, HEPATIC, BMP, PT, BNP, CK, HS TROP #### [address] Color (U) Yellow Normal Yellow [facility] Comment on above: Order Comment: Name Collection Type:: Clean-Voided Midstream Performed By: #### C BC, HEPATIC, BMP, PT, BNP, CK, HS TROP #### [address] Glucose Ql (U) Normal Normal Normal [facility] Comment on above: Order Comment: Name Collection Type:: Clean-Voided Midstream Performed By: #### C BC, HEPATIC, BMP, PT, BNP, CK, HS TROP #### [address] Hyaline Casts,Urine None Normal 0-8 [facility] Comment on above: Order Comment: Name Collection Type:: Clean-Voided Midstream Performed By: #### C BC, HEPATIC, BMP, PT, BNP, CK, HS TROP #### [address] Ketones Ql (U) Negative Normal Negative [facility] Comment on above: Order Comment: Name Collection Type:: Clean-Voided Midstream Performed By: #### C BC, HEPATIC, BMP, PT, BNP, CK, HS TROP #### [address] Leukocyte esterase Test strip Ql (U) Negative Normal Negative [facility] Comment on above: Order Comment: Name Collection Type:: Clean-Voided Midstream Performed By: #### C BC, HEPATIC, BMP, PT, BNP, CK, HS TROP #### [address] Mucus,Urine 1+ Critically abnormal [facility] Comment on above: Order Comment: Name Collection Type:: Clean-Voided Midstream Result Comment: PERF ORMED BY: [place] [address] PATHOLOGIST STRAWHAT BLOCKING OPERATOR RAJIV ELLISON M.D. Performed By: #### C BC, HEPATIC, BMP, PT, BNP, CK, HS TROP #### [place] [address] [place] Nitrite,Urine Negative Normal Negative [facility] Comment on above: Order Comment: Name Collection Type:: Clean-Voided Midstream Performed By: #### C BC, HEPATIC, BMP, PT, BNP, CK, HS TROP #### [address] Occult Blood,Urine 2+ High Negative [facility] Comment on above: Order Comment: Name Collection Type:: Clean-Voided Midstream Result Comment: PERF ORMED BY: [place] [address] PATHOLOGIST STRAWHAT BLOCKING OPERATOR RAJIV ELLISON M.D. Performed By: #### C BC, HEPATIC, BMP, PT, BNP, CK, HS TROP #### [address] pH (U) 5.5 [pH] Normal 5.0-9.0 [facility] Comment on above: Order Comment: Name Collection Type:: Clean-Voided Midstream Performed By: #### C BC, HEPATIC, BMP, PT, BNP, CK, HS TROP #### [address] Protein (U) [Mass/Vol] 50 mg/dL High Negative [facility] Comment on above: Order Comment: Name Collection Type:: Clean-Voided Midstream Performed By: #### C BC, HEPATIC, BMP, PT, BNP, CK, HS TROP #### [address] RBC,Urine 50-100 High 0-4 [facility] Comment on above: Order Comment: Name Collection Type:: Clean-Voided Midstream Performed By: #### C BC, HEPATIC, BMP, PT, BNP, CK, HS TROP #### [address] Specificy [place],Urine 1.022 Normal 1.001-1.030 [facility] Comment on above: Order Comment: Name Collection Type:: Clean-Voided Midstream Performed By: #### C BC, HEPATIC, BMP, PT, BNP, CK, HS TROP #### [address] Squamous Epithelial Cell,Urine 1-2 Normal 0-2 [facility] Comment on above: Order Comment: Name Collection Type:: Clean-Voided Midstream Performed By: #### C BC, HEPATIC, BMP, PT, BNP, CK, HS TROP #### [address] Urobilinogen,Urine Normal Normal Normal [facility] Comment on above: Order Comment: Name Collection Type:: Clean-Voided Midstream Performed By: #### C BC, HEPATIC, BMP, PT, BNP, CK, HS TROP #### [address] WBC,Urine 10-19 High 0-4 [facility] Comment on above: Order Comment: Name Collection Type:: Clean-Voided Midstream Performed By: #### C BC, HEPATIC, BMP, PT, BNP, CK, HS TROP #### [address] ECG 12 lead ECGon 01-13-2025 ECG 12 lead ECG [facility] [place] [address] Electrocardiograph Report Signed Patient: Dave Stephenson MR#: [id number] 657 : 1945 Acct:[id number] Age/Sex: 79 / M ADM Date: 01/13/25 [...] ECGs available Confirmed by Lam Menon DO ([id number]) on 01/13/2025 12:20:51 PM Referred By: Electronically Signed By: Lam Menon DO Transcribed By: MUS Signed By Lam Menon DO 5 1220 Normal [facility] Eosinophils Auto (Bld) [#/Vo l]Ordered By: Lam Menon on 01-13-2025 Eosinophils (Bld) [#/Vol] Automated eosinophil count 0.0-0.45 [facility] Eosinophils/100 WBC Auto (Bl d)Ordered By: Lam Menon on 01-13-2025 Eosinophils/100 WBC (Bld) Automated eosinophil % . [facility] Epithelial cells.squamous [# /area] in Urine sediment by Automated countOrdered By: Lam Menon on 01-13-2025 Epithelial cells.squamous Auto (Urine sed) [#/Area] Epithelial cells.squamous [#/area] in Urine sediment by Automated count 0-2 [facility] Erythrocyte distribution wid th Auto (RBC) [Ratio]Ordered By: Lam Menon on 01-13-2025 Erythrocyte distribution width (RBC) [Ratio] Erythrocyte distribution width [Ratio] by Automated count High 12.0-14.8 [facility] Erythrocytes [#/area] in Uri ne sediment by Automated countOrdered By: Lam Menon on 01-13-2025 RBC Auto (Urine sed) [#/Area] Erythrocytes [#/area] in Urine sediment by Automated count High 0-4 [facility] Globulin Calc (S) [Mass/Vol] Ordered By: Lam Menon on 01-13-2025 Globulin (S) [Mass/Vol] Serum globulin measurement by calculation (mass/volume) [facility] Glucose Glucometer (BldC) [M ass/Vol]Ordered By: Lam Menon on 01-13-2025 Glucose [Mass/Vol] Capillary blood gluc ose measurement by glucometer (mass/volume) [facility] Comment on above: Random Glucose Refer ence Range is dependent on time and content of last meal. Glucose of more than 200 mg/dL in a nonstressed, ambulatory subject supports the diagnosis of Diabetes Mellitus. Glucose Poct Glucometerson 0 01-13-2025 Glucose [Mass/Vol] 155 mg/dL Normal [facility] Comment on above: Result Comment: [place] Glucose Reference Range is dependent on time and content of last meal. Glucose of more than 200 mg/dL in a nonstressed, ambulatory subject supports the diagnosis of Diabetes Mellitus. PERFORMED BY: [place] [address] PATHOLOGIST STRAWHAT BLOCKING OPERATOR RAJIV ELLISON M.D. Performed By: #### G LULS #### Point of Care testing , Commemt1 Normal [facility] Comment on above: Result Comment: Glu2 : WILL NOTIFY DR/RN PERFORMED BY: [place] [address] PATHOLOGIST STRAWHAT BLOCKING OPERATOR RAJIV ELLISON M.D. Performed By: #### C BC, HEPATIC, BMP, PT, BNP, CK, HS TROP #### [address] Glucose [Mass/Vol] 51 mg/dL Off scale low [facility] Comment on above: Result Comment: [facility] Glucose Reference Range is dependent on time and content of last meal. Glucose of more than 200 mg/dL in a nonstressed, ambulatory subject supports the diagnosis of Diabetes Mellitus. Performed By: #### C BC, HEPATIC, BMP, PT, BNP, CK, HS TROP #### [address] Glucose [Mass/volume] in Ser um or PlasmaOrdered By: Lam Menon on 01-13-2025 Glucose [Mass/Vol] Glucose [Mass/volume ] in Serum or Plasma Low 70-100 [facility] Comment on above: ADA recommended refe rence rangeRandom Glucose Reference Range is dependent on time and content of last meal. Glucose of more than 200 mg/dL in a nonstressed, ambulatory subject supports the diagnosis of Diabetes Mellitus. Glucose [Mass/volume] in Uri ne by Test stripOrdered By: Lam Menon on 01-13-2025 Glucose Test strip (U) [Mass/Vol] Glucose [Mass/volume] in Urine by Test strip Normal [facility] Hematocrit Auto (Bld) [Volum e fraction]Ordered By: Lam Menon on 01-13-2025 Hematocrit (Bld) [Volume fraction] Hematocrit [Volume Fraction] of Blood by Automated count 38.8-50.0 [facility] Hemoglobin Test strip Ql (U) Ordered By: Lam Menon on 01-13-2025 Hemoglobin Ql (U) Hemoglobin [Presence ] in Urine by Test strip High Negative [facility] Hemoglobin [Mass/volume] in BloodOrdered By: Lam Menon on 01-13-2025 Hemoglobin (Bld) [Mass/Vol] Hemoglobin [Mass/volume] in Blood 13.0-17.0 [facility] Hepatic Panelon 01-13-2025 Albumin [Mass/Vol] 4.3 g/dL Normal 3.5-5.7 [facility] Comment on above: Performed By: #### C BC, HEPATIC, BMP, PT, BNP, CK, HS TROP #### [facility] [address] Albumin/Globulin [Mass ratio] 1.0 {ratio} Normal [facility] Comment on above: Performed By: #### C BC, HEPATIC, BMP, PT, BNP, CK, HS TROP #### [facility] [address] ALP [Catalytic activity/Vol] 103 U/L Normal 34-104 [facility] Comment on above: Performed By: #### C BC, HEPATIC, BMP, PT, BNP, CK, HS TROP #### [facility] [address] [place] [address] [place] ALT [Catalytic activity/Vol] 14 U/L Normal 7-52 [facility] Comment on above: Performed By: #### C BC, HEPATIC, BMP, PT, BNP, CK, HS TROP #### [facility] [address] AST [Catalytic activity/Vol] 33 U/L Normal 13-39 [facility] Comment on above: Performed By: #### C BC, HEPATIC, BMP, PT, BNP, CK, HS TROP #### [address] Bilirubin [Mass/Vol] 0.5 mg/dL Normal 0.3-1.0 [facility] Comment on above: Performed By: #### C BC, HEPATIC, BMP, PT, BNP, CK, HS TROP #### [facility] [address] Bilirubin,Indirect 0.4 mg/dL Normal [facility] Comment on above: Performed By: #### C BC, HEPATIC, BMP, PT, BNP, CK, HS TROP #### [address] Bilirubin.indirect [Mass/Vol] 0.10 mg/dL Normal 0.03-0.18 [facility] Comment on above: Performed By: #### C BC, HEPATIC, BMP, PT, BNP, CK, HS TROP #### [address] Globulin (S) [Mass/Vol] 4.2 g/dL Normal [facility] Comment on above: Performed By: #### C BC, HEPATIC, BMP, PT, BNP, CK, HS TROP #### [address] Protein [Mass/Vol] 8.5 g/dL Normal 6.4-8.9 [facility] Comment on above: Performed By: #### C BC, HEPATIC, BMP, PT, BNP, CK, HS TROP #### [address] Hyaline casts [#/area] in Ur ine sediment by Automated countOrdered By: Lam Menon on 01-13-2025 Hyaline casts Auto (Urine sed) [#/Area] Hyaline casts [#/area] in Urine sediment by Automated count 0-8 [facility] INR in Platelet poor plasma by Coagulation assayOrdered By: Lam Menon on 01-13-2025 INR Coag (PPP) [Relative time] INR in Platelet poor plasma by Coagulation assay [facility] Comment on above: INR Therapeutic Rang e [...] i n Urine by Test strip Negative [facility] Leukocyte esterase [Presence ] in Urine by Test stripOrdered By: Lam Menon on 01-13-2025 Leukocyte esterase Test strip Ql (U) Leukocyte esterase [Presence] in Urine by Test strip Negative [facility] Leukocytes [#/area] in Urine sediment by Automated countOrdered By: Lam Menon on 01-13-2025 WBC Auto (Urine sed) [#/Area] Leukocytes [#/area] in Urine sediment by Automated count High 0-4 [facility] Leukocytes [#/volume] correc coral for nucleated erythrocytes in Blood by Automated counOrdered By: Lam Menon on 01-13-2025 WBC corrected for nucl RBC Auto (Bld) [#/Vol] Leukocytes [#/volume] corrected for nucleated erythrocytes in Blood by Automated coun 4.1-10.5 [facility] Lymphocytes Auto (Bld) [#/Vo l]Ordered By: Lam Menon on 01-13-2025 Lymphocytes (Bld) [#/Vol] Lymphocytes [#/volume] in Blood by Automated count 1.00-4.8 [facility] Lymphocytes/100 WBC Auto (Bl d)Ordered By: Lam Menon on 01-13-2025 Lymphocytes/100 WBC (Bld) Lymphocytes/100 leukocytes in Blood by Automated count . [facility] MCH Auto (RBC) [Entitic mass ]Ordered By: Lam Menon on 01-13-2025 MCH (RBC) [Entitic mass] MCH [Entitic mass] by Automated count 27.5-35.2 [facility] MCHC Auto (RBC) [Mass/Vol]Or dered By: Lam Menon on 01-13-2025 MCHC (RBC) [Mass/Vol] MCHC [Mass/volume] by Automated count 32.5-35.6 [facility] MCV Auto (RBC) [Entitic vol] Ordered By: Lam Menon on 01-13-2025 MCV (RBC) [Entitic vol] MCV [Entitic volume] by Automated count 83.5-101 [facility] Monocyte distribution width [Entitic volume] in Blood by AutomatedOrdered By: Lam Menon on 01-13-2025 Monocyte distribution width Auto (Bld) [Entitic vol] Monocyte distribution width [Entitic volume] in Blood by Automated High 0.00-20.00 [facility] Comment on above: For adults in ED, MD W > 20.0 may be associated with a higher risk of sepsis during the first 12 hrs of hospital admission Monocytes Auto (Bld) [#/Vol] Ordered By: Lam Menon on 01-13-2025 Monocytes (Bld) [#/Vol] Automated blood monocyte count 0.0-0.8 [facility] Monocytes/100 WBC Auto (Bld) Ordered By: Lam Menon on 01-13-2025 Monocytes/100 WBC (Bld) Automated monocyte % . [facility] Mucus [Presence] in Urine by AutomatedOrdered By: Lam Menon on 01-13-2025 Mucus Auto Ql (U) Mucus [Presence] in Urine by Automated Abnormal [facility] Natriuretic peptide B [Mass/ Vol]Ordered By: Lam Menon on 01-13-2025 Natriuretic peptide B (Bld) [Mass/Vol] BNP ser/plas High 5-100 [facility] Neutrophils Auto (Bld) [#/Vo l]Ordered By: Lam Menon on 01-13-2025 Neutrophils (Bld) [#/Vol] Neutrophils [#/volume] in Blood by Automated count 1.8-7.7 [facility] Neutrophils/100 WBC Auto (Bl d)Ordered By: Lam Menon on 01-13-2025 Neutrophils/100 WBC (Bld) Automated neutrophil % . [facility] Nitrite Test strip Ql (U)Ord ered By: Lam Menon on 01-13-2025 Nitrite Ql (U) Nitrite [Presence] i n Urine by Test strip Negative [facility] No Panel InformationOrdered By: Lam Menon on 03-10-2025 Bedside Glucose Comment See comment [facility] Comment on above: Glu2: WILL NOTIFY DR /RN Estimated GFR (CKD-EPI) 41.717 mL/Min [facility] Creatinine Clearance (Chem 36.87 [facility] Nucleated erythrocytes [Pres ence] in Blood by Automated countOrdered By: Lam Menon on 01-13-2025 Nucleated RBC Auto Ql (Bld) Nucleated erythrocytes [Presence] in Blood by Automated count 0-0.5 [facility] Platelet mean volume Auto (B ld) [Entitic vol]Ordered By: Lam Menon on 01-13-2025 Platelet mean volume (Bld) [Entitic vol] Platelet mean volume [Entitic volume] in Blood by Automated count 6.6-10.1 [facility] Platelets Auto (Bld) [#/Vol] Ordered By: Lam Menon on 01-13-2025 Platelets (Bld) [#/Vol] Platelets [#/volume] in Blood by Automated count 150-450 [facility] Potassium [Moles/volume] in Serum or PlasmaOrdered By: Lam Menon on 01-13-2025 Potassium [Moles/Vol] Potassium [Moles/v olume] in Serum or Plasma 3.5-5.1 [facility] Protein Test strip (U) [Mass /Vol]Ordered By: Lam Menon on 01-13-2025 Protein (U) [Mass/Vol] Protein [Mass/vol ume] in Urine by Test strip High Negative [facility] Protein [Mass/volume] in Ser um or PlasmaOrdered By: Lam Menon on 01-13-2025 Protein [Mass/Vol] Protein [Mass/volume ] in Serum or Plasma 6.4-8.9 [facility] Prothrombin Time INRon 01-13 INR Coag (PPP) [Relative time] 1.1 {INR} Normal [facility] Comment on above: Result [...] heart valves: 3 - 4.5 PERFORMED BY: [facility] [address] [facility] [place] [address] PATHOLOGIST [employer] BLOCKING OPERATOR RAJIV ELLISON M.D. Performed By: #### C BC, HEPATIC, BMP, PT, BNP, CK, HS TROP #### [facility] [address] [id number] [facility] PT Coag (PPP) [Time] 12.4 s Normal 9.0-12.9 [facility] Comment on above: Result Comment: A he matocrit value greater than 55% may lead to inaccurate results in coagulation testing. Patients having hematocrit values >55% require a special collection tube for coagulation studies. Please contact the laboratory at [phone] for redraw instructions. Performed By: #### C BC, HEPATIC, BMP, PT, BNP, CK, HS TROP #### [facility] [address] [id number] [facility] Prothrombin time (PT)Ordered By: Lam Menon on 01-13-2025 PT Coag (PPP) [Time] Prothrombin time (PT) 9.0- 12.9 [facility] Comment on above: A hematocrit value g reater than 55% may lead to inaccurate results in coagulation testing. Patients having hematocrit values >55% require a special collection tube for coagulation studies. Please contact the laboratory at [phone] for redraw instructions. RBC Auto (Bld) [#/Vol]Ordere d By: Lam Menon on 01-13-2025 RBC (Bld) [#/Vol] Erythrocytes [#/volu me] in Blood by Automated count 3.90-5.60 [facility] Respiratory (Upper) Panel, P CRon 01-13-2025 Respiratory [...] represent infection by those agents. PERFORMED BY: [place] [address] PATHOLOGIST STRAWHAT BLOCKING OPERATOR RAJIV ELLISON M.D. Normal [facility] Comment on above: Performed By: #### C BC, HEPATIC, BMP, PT, BNP, CK, HS TROP #### [address] Respiratory pathogens DNA an d RNA panel - Nasopharynx by RABIA with non-probe detectionOrdered By: Lam Menon on 01-13-2025 Respiratory pathogens DNA and RNA panel RABIA+non-probe (Nph) Respiratory pathogens DNA and RNA panel - Nasopharynx by RABIA with non-probe detection [facility] Serum or plasma albumin/glob ulin mass ratioOrdered By: Lam Menon on 01-13-2025 Albumin/Globulin [Mass ratio] Serum or plasma albumin/globulin mass ratio [facility] Serum or plasma anion gap de terminationOrdered By: Lam Menon on 01-13-2025 Anion gap [Moles/Vol] Serum or plasma an ion gap determination 6.0-15.0 [facility] Serum or plasma non-glucuron idated bilirubin measurement (mass/volume)Ordered By: Lam Menon on 01-13-2025 Bilirubin.indirect [Mass/Vol] Serum or plasma non-glucuronidated bilirubin measurement (mass/volume) [facility] Sodium [Moles/volume] in Ser um or PlasmaOrdered By: Lam Menon on 01-13-2025 Sodium [Moles/Vol] Sodium [Moles/volume ] in Serum or Plasma Low 136-145 [facility] Specific gravity Test strip (U) [Rel density]Ordered By: Lam Menon on 01-13-2025 Specific gravity (U) [Rel density] Specific gravity of Urine by Test strip 1.001-1.030 [facility] Troponin I High Sensitivityo n 01-13-2025 Troponin I High Sensitivity 20 Normal 0-20 [facility] Comment on above: Result Comment: The Troponin units of report have been changed to meet the Chest Pain Accreditation requirement, element EC5.M1l2. Troponin units are changed from pg/ml to ng/L. Also, the decimal is removed and results are in whole numbers. PERFORMED BY: [place] [address] PATHOLOGIST STRAWHAT BLOCKING OPERATOR RAJIV ELLISON M.D. Performed By: #### C BC, HEPATIC, BMP, PT, BNP, CK, HS TROP #### [address] Troponin I.cardiac [Mass/vol ume] in Serum or Plasma by Detection limit <= 0.01 ng/Ordered By: Lam Menon on 01-13-2025 Troponin I.cardiac DL <= 0.01 ng/mL [Mass/Vol] Troponin I.cardiac [Mass/volume] in Serum or Plasma by Detection limit <= 0.01 ng/ 0-20 [facility] Comment on above: The Troponin units o f report have been changed to meet the Chest Pain Accreditation requirement, element EC5.M1l2. Troponin units are changed from pg/ml to ng/L. Also, the decimal is removed and results are in whole numbers. Urea nitrogen [Mass/volume] in Serum or PlasmaOrdered By: Lam Menon on 01-13-2025 Urea nitrogen [Mass/Vol] Urea nitrogen [Mass/volume] in Serum or Plasma 05-30 [facility] Urobilinogen Test strip (U) [Mass/Vol]Ordered By: Lam Menon on 01-13-2025 Urobilinogen (U) [Mass/Vol] Urobilinogen [Mass/volume] in Urine by Test strip Normal [facility] WBC Auto (Bld) [#/Vol]Ordere d By: Lam Menon on 01-13-2025 WBC (Bld) [#/Vol] Leukocytes [#/volume ] in Blood by Automated count 4.1-10.5 [facility] X-ray reportOrdered By: Gilberto Bar on 01-13-2025 Study report [facility] [place] [address] XRay Report Signed Patient: Dave Stephenson MR#: [id number] : 1945 Acct:[id number] Age/Sex: 79 / M ADM Date: 5 [...] Bar Jr., D.OReyes01/13/2025 12:32 PM Dictation Location: [place] [address] Transcribed By: [facility] 01/13/25 1232 Dictated By: Valdo Bar Jr, DO 01/13/25 1231 Signed By: 01/13/25 1232 [facility] XR chest 1V portableon 01-13 XR chest 1V portable [facility] [address] XRay Report Signed Patient: Dave Stephenson MR#: [id number] : 1945 Acct:[id number] Age/Sex: 79 / M ADM Date: 01/13/25 [...] Bar Jr., D.OReyes01/13/2025 12:32 PM Dictation Location: [facility]- Transcribed By: BEN 01/13/25 1232 Dictated By: Valdo Bar Jr, DO 01/13/25 1231 Signed By: 01/13/25 1232 Normal [facility] pH Test strip (U)Ordered By: Lam Menon on 01-13-2025 pH (U) pH of Urine by Test strip 5.0-9.0 [facility] Outside Colonoscopyon 2022 Outside Colonoscopy [id number]#1.00TIFF Normal [facility] Lab Reportson 10-25-2023 Lab Reports [id number]#1.00TIFF Normal [facility] Consent for Procedure/Surger yon 10-18-2023 Consent for Procedure/Surgery [id number]#1.00TIFF Normal [facility] Facesheeton 10-18-2023 Facesheet [id number]#1.00TIFF Normal [facility] Ambulatory Visit Summaryon 1 12-18-2022 Ambulatory [...] for choosing us for your care. Normal [facility] Lab Reportson 10-04-2023 Lab Reports [id number]#1.00TIFF Normal [facility] Physician Referralon 023 Physician Referral [id number]#1.00TIFF Normal [facility] INSULINon 09-09-2022 Insulin 12.7 uIU/mL Normal 2.6-24.9 [facility] Comment on above: Performed By: #### I NSULIN #### [facility] [address] [place] [address] Dr. Zak Gutierrez OCC BLD IMMUNO SCREENon OCCULT BLOOD Negative Normal NEGATIVE [facility] Comment on above: Performed By: #### O BSCRN #### [facility] [address] [place] [address] Dr. Zak Gutierrez CBC AUTO DIFFon 09-08-2022 BASO # 0.0 103/ul Normal 0.0-0.1 [facility] Comment on above: Performed By: #### C BC #### [facility] [address] [place] [address] Dr. Zak Gutierrez Basophils/100 WBC (Bld) 0.4 % Normal 0.2-2.0 [facility] Comment on above: Performed By: #### C BC #### [facility] [address] [place] [address] Dr. Zak Gutierrez EO # 0.1 103/ul Normal 0.0-0.7 [facility] Comment on above: Performed By: #### C BC #### [facility] [address] [place] [address] Dr. Zak Gutierrez Eosinophils/100 WBC (Bld) 1.1 % Normal 0.9-7.0 [facility] Comment on above: Performed By: #### C BC #### [facility] [address] [place] [address] Dr. Zak Gutierrez Erythrocyte distribution width (RBC) [Ratio] 13.6 % Normal 11.0-15.0 [facility] Comment on above: Performed By: #### C BC #### [facility] [address] [place] [address] Dr. Zak Gutierrez Hematocrit (Bld) [Volume fraction] 40.0 % Critically low 42.0-54.0 [facility] Comment on above: Performed By: #### C BC #### [facility] [address] [place] [address] Dr. Zak Gutierrez Hemoglobin (Bld) [Mass/Vol] 12.7 g/dL Critically low 14.0-18.0 [facility] Comment on above: Performed By: #### C BC #### [facility] [address] [place] [address] Dr. Zak Gutierrez IG # 0.02 10e3/ul Normal 0.00-0.03 [facility] Comment on above: Performed By: #### C BC #### [facility] [address] [place] [address] Dr. Zak Gutierrez IG % 0.3 % Normal 0.0-0.5 [facility] Comment on above: Performed By: #### C BC #### [facility] [address] [place] [address] Dr. Zak Gutierrez LYMPH # 2.0 103/ul Normal 1.2-3.8 [facility] Comment on above: Performed By: #### C BC #### [facility] [address] [place] [address] Dr. Zak Gutierrez Lymphocytes/100 WBC (Bld) 27.5 % Normal 20.5-60.0 [facility] Comment on above: Performed By: #### C BC #### [facility] [address] [place] [address] Dr. Zak Gutierrez MANUAL DIFF REQ NO Normal [facility] Comment on above: Performed By: #### C BC #### [facility] [address] [place] [address] Dr. Zak Gutierrez MCH (RBC) [Entitic mass] 30.6 pg Normal 25.9-34.0 [facility] Comment on above: Performed By: #### C BC #### [facility] [address] [address] [address] Zak Gutierrez MCHC (RBC) [Mass/Vol] 31.8 g/dL Normal 29.9-35.2 [facility] Comment on above: Performed By: #### C BC #### [facility] [address] [address] [address] Zak Gutierrez MCV (RBC) [Entitic vol] 96.4 fL Critically high 80.0-94.0 [facility] Comment on above: Performed By: #### C BC #### [facility] [address] [address] [address] Zak Gutierrez MONO # 0.6 103/ul Normal 0.3-0.8 [facility] Comment on above: Performed By: #### C BC #### [facility] [address] [place] [address] Dr. Zak Gutierrez Monocytes/100 WBC (Bld) 8.4 % Normal 1.7-12.0 [facility] Comment on above: Performed By: #### C BC #### [facility] [address] [address] [address] Zak Gutierrez NEUT # 4.5 103/ul Normal 1.4-6.5 [facility] Comment on above: Performed By: #### C BC #### [facility] [address] [address] [address] Zak Gutierrez Neutrophils/100 WBC (Bld) 62.3 % Normal 43.0-75.0 [facility] Comment on above: Performed By: #### C BC #### [facility] [address] [address] [address] Zak Gutierrez Platelet mean volume (Bld) [Entitic vol] 10.9 fL Normal 9.5-13.5 [facility] Comment on above: Performed By: #### C BC #### [facility] [address] [address] [address] Zak Gutierrez PLT 184 103/ul Normal 150-450 [facility] Comment on above: Performed By: #### C BC #### [facility] [address] [address] [address] Zak Gutierrez RBC 4.15 106/ul Critically low 4.70-6.10 [facility] Comment on above: Performed By: #### C BC #### [facility] [address] [address] [address] Zak Gutierrez WBC 7.1 103/ul Normal 4.0-11.0 [facility] Comment on above: Performed By: #### C BC #### [facility] [address] [address] [address] Zak Gutierrez FREE THYROXINE INDEX T7on FTI 2.42 Normal 1.30-4.50 [facility] Comment on above: Performed By: #### C MP, T7, LIPID, URIC, TSH #### [facility] [address] [address] [address] Zak Gutierrez T3U 31.0 % Critically low 33.0-40.0 [facility] Comment on above: Performed By: #### C MP, T7, LIPID, URIC, TSH #### [facility] [address] [address] [address] Zak Gutierrez T4 [Mass/Vol] 7.80 ug/dL Normal 4.50-12.10 [facility] Comment on above: Performed By: #### C MP, T7, LIPID, URIC, TSH #### [facility] [address] [address] [address] Zak Gutierrez GLYCOHEMOGLOBIN A1Con 2021 ADA RECOMMENDATION SEE BELOW Normal [facility] Comment on above: Result Comment: ADA RECOMMENDED LIMIT 4.0 - 6.0 ADA THERAPEUTIC TARGET < 7.0 ACTION SUGGESTED > 7.0 Performed By: #### A 1C ####[facility] [address] [address]Dr. Zak Gutierrez Glucose [Mass/Vol] 140 mg/dL Normal [facility] Comment on above: Performed By: #### A 1C ####[facility] [address] [place], [place] [address]IiDr. Zak Gutierrez HbA1c (Bld) [Mass fraction] 6.5 % Critically high 4.5-6.2 [facility] Comment on above: Performed By: #### A 1C ####[facility] [address] [address]Dr. Zak Gutierrez LIPID PROFILEon 09-08-2022 CHOL-HDL RATIO NORM SEE BELOW Normal [facility] Comment on above: Result Comment: 3.3 - 4.4 LOW RISK 4.4 - 7.1 AVERAGE RISK 7.1 - 11.0 MODERATE RISK >11.0 HIGH RISK Performed By: #### C MP, T7, LIPID, URIC, TSH #### [facility] [address] [address] [address] Zak Gutierrez Cholesterol [Mass/Vol] 152 mg/dL Normal <=200 Th [facility] Comment on above: Performed By: #### C MP, T7, LIPID, URIC, TSH #### [facility] [address] [address] [address] Zak Gutierrez Cholesterol in HDL [Mass/Vol] 40 mg/dL Normal 40-60 [facility] Comment on above: Performed By: #### C MP, T7, LIPID, URIC, TSH #### [facility] [address] [address] [address] Zak Gutierrez Cholesterol in LDL [Mass/Vol] 81.8 mg/dL Normal [facility] Comment on above: Performed By: #### C MP, T7, LIPID, URIC, TSH #### [facility] [address] [address] [address] Zak Gutierrez Cholesterol.total/Chol esterol in HDL [Mass ratio] 3.8 {ratio} Normal [facility] Comment on above: Performed By: #### C MP, T7, LIPID, URIC, TSH #### [facility] [address] [address] [address] Zak Gutierrez HDL NORMAL > or = 60 mg/dl - LO W CARDIOVASCULAR RISK <40 mg/dl - HIGH CARDIOVASCULAR RISK Normal [facility] Comment on above: Performed By: #### C MP, T7, LIPID, URIC, TSH #### [facility] [address] [place] [address] Dr. Zak Gutierrez LDL CALC NORMAL SEE BELOW Normal [facility] Comment on above: Result Comment: <100 mg/dl OPTIMAL 100 - 129 mg/dl NEAR OR ABOVE OPTIMAL 130 - 159 mg/dl BORDERLINE HIGH 160 - 189 mg/dl HIGH >190 mg/dl VERY HIGH Performed By: #### C MP, T7, LIPID, URIC, TSH #### [facility] [address] [address] [address] Zak Gutierrez Triglyceride [Mass/Vol] 151 mg/dL Critically high <=150 [facility] Comment on above: Performed By: #### C MP, T7, LIPID, URIC, TSH #### [facility] [address] [place] [address] Dr. Zak Gutierrez VLDL CALC 30.2 mg/dL Normal [facility] Comment on above: Performed By: #### C MP, T7, LIPID, URIC, TSH #### [facility] [address] [place] [address] Dr. Zak Gutierrez PROF 14(COMP METB)on 022 Albumin [Mass/Vol] 3.7 g/dL Normal 3.4-5.0 [facility] Comment on above: Performed By: #### C MP, T7, LIPID, URIC, TSH #### [facility] [address] [place] [address] Dr. Zak Gutierrez Albumin/Globulin [Mass ratio] 0.8 {ratio} Normal [facility] Comment on above: Performed By: #### C MP, T7, LIPID, URIC, TSH #### [facility] [address] [place] [address] Dr. Zak Gutierrez ALP [Catalytic activity/Vol] 109 U/L Normal 46-116 [facility] Comment on above: Performed By: #### C MP, T7, LIPID, URIC, TSH #### [facility] [address] [place] [address] Dr. Zak Gutierrez ALT [Catalytic activity/Vol] 20 U/L Normal 16-63 [facility] Comment on above: Performed By: #### C MP, T7, LIPID, URIC, TSH #### [facility] [address] [place] [address] Dr. Zak Gutierrez Anion gap [Moles/Vol] 10.6 mmol/L Normal Th e [facility] Comment on above: Performed By: #### C MP, T7, LIPID, URIC, TSH #### [facility] [address] [place] [address] Dr. Zak Gutierrez AST [Catalytic activity/Vol] 20 U/L Normal 15-37 [facility] Comment on above: Performed By: #### C MP, T7, LIPID, URIC, TSH #### [facility] [address] [place] [address] Dr. Zak Gutierrez Bilirubin [Mass/Vol] 0.7 mg/dL Normal 0.2-1.0 [facility] Comment on above: Performed By: #### C MP, T7, LIPID, URIC, TSH #### [facility] [address] [place] [address] Dr. Zak Gutierrez Calcium [Mass/Vol] 9.6 mg/dL Normal 8.5-10.1 [facility] Comment on above: Performed By: #### C MP, T7, LIPID, URIC, TSH #### [facility] [address] [place] [address] Dr. Zak Gutierrez Chloride [Moles/Vol] 102 mmol/L Normal 98-107 [facility] Comment on above: Performed By: #### C MP, T7, LIPID, URIC, TSH #### [facility] [address] [place] [address] Dr. Zak Gutierrez CO2 [Moles/Vol] 30.2 mmol/L Normal 21.0-32.0 [facility] Comment on above: Performed By: #### C MP, T7, LIPID, URIC, TSH #### [facility] [address] [place] [address] Dr. Zak Gutierrez Creatinine [Mass/Vol] 1.46 mg/dL Critically high 0.70-1.30 [facility] Comment on above: Performed By: #### C MP, T7, LIPID, URIC, TSH #### [facility] [address] [place] [address] Dr. Zak Gutierrez EGFR-AF IRAQI 57 mL/min/1.73m2 Critically low >=60 [facility] Comment on above: Performed By: #### C MP, T7, LIPID, URIC, TSH #### [facility] [address] [place] [address] Dr. Zak Gutierrez EGFR-NON AF IRAQI 47 mL/min/1.73m2 Critically low >=60 [facility] Comment on above: Performed By: #### C MP, T7, LIPID, URIC, TSH #### [facility] [address] [place] [address] Dr. Zak Gutierrez Globulin (S) [Mass/Vol] 4.5 g/dL Normal [facility] Comment on above: Performed By: #### C MP, T7, LIPID, URIC, TSH #### [facility] [address] [place] [address] Dr. Zak Gutierrez Glucose [Mass/Vol] 84 mg/dL Normal 74-106 [facility] Comment on above: Performed By: #### C MP, T7, LIPID, URIC, TSH #### [facility] [address] [place] [address] Dr. Zak Gutierrez Potassium [Moles/Vol] 4.8 mmol/L Normal 3.5-5.1 [facility] Comment on above: Performed By: #### C MP, T7, LIPID, URIC, TSH #### [facility] [address] [place] [address] Dr. Zak Gutierrez Protein [Mass/Vol] 8.2 g/dL Normal 6.4-8.2 [facility] Comment on above: Performed By: #### C MP, T7, LIPID, URIC, TSH #### [facility] [address] [place] [address] Dr. Zak Gutierrez Sodium [Moles/Vol] 138 mmol/L Normal 136-145 [facility] Comment on above: Performed By: #### C MP, T7, LIPID, URIC, TSH #### [facility] [address] [address] [address] Zak Gutierrez Urea nitrogen [Mass/Vol] 25.0 mg/dL Critically high 7.0-18.0 [facility] Comment on above: Performed By: #### C MP, T7, LIPID, URIC, TSH #### [facility] [address] [address] [address] Zak Gutierrez Urea nitrogen/Creatinine [Mass ratio] 17.1 mg/mg Normal [facility] Comment on above: Performed By: #### C MP, T7, LIPID, URIC, TSH #### [facility] [address] [address] [address] Zak Gutierrez TSHon 09-08-2022 TSH 1.625 uIU/mL Normal 0.358-3.740 [facility] Comment on above: Performed By: #### C MP, T7, LIPID, URIC, TSH #### [facility] [address] [address] [address] Zak Gutierrez URIC ACID SERUMon 09-08-2022 Urate [Mass/Vol] 7.4 mg/dL Critically high 3.5-7.2 [facility] Comment on above: Performed By: #### C MP, T7, LIPID, URIC, TSH #### [facility] [address] [address] [address] Zak Gutierrez VITAMIN D 25 OHon 09-08-2022 VIT D 25-OH 24.0 ng/mL Normal [facility] Comment on above: Performed By: #### V PRASAD PSASC ####[facility] [address] [place] [phone]. Zak Gutierrez VIT D RANGES SEE BELOW Normal [facility] Comment on above: Result Comment: <20 ng/mL Vit D deficient 20 - <30 ng/mL Vit D insufficient 30 - 100 ng/mL Vit D sufficient >100 ng/mL Potential Toxicity Performed By: #### Radha PARHAM PSASC ####[facility] [address] [place] [phone]. Zak Gutierrez MRI LSPINE WO CONon 12-02-19 [...] LAKIA TORRES Date: 2021-12-02 16:16 Normal [facility] ER URINE PROFILEon 2 Bilirubin Ql (U) Negative Normal NEGATIVE [facility] Comment on above: Performed By: #### U MICRO, ERUR ####[facility] [address] [place] [address]Dr. Zak Gutierrez Clarity (U) CLEAR Normal CLEAR [facility] Comment on above: Performed By: #### U MICRO, ERUR ####[facility] [address] [place] [phone]. Zak Gutierrez Color (U) YELLOW Normal YELLOW [facility] Comment on above: Performed By: #### U MICRO, ERUR ####[facility] [address] [address]Dr. Zak CHRISTIANSONAHD A micrscopic examina tion will be performed if indicated. Normal [facility] Comment on above: Performed By: #### U MICRO, ERUR ####[facility] [address] [place] [address]Dr. Zak Gutierrez Glucose Ql (U) Negative Normal NEGATIVE [facility] Comment on above: Performed By: #### U MICRO, ERUR ####[facility] [address] [place], [place] [address]Dr. Zak Gutierrez Hemoglobin Ql (U) SMALL Abnormal NEGATIVE [facility] Comment on above: Performed By: #### U MICRO, ERUR ####[facility] [address] [place], [place] [address]Dr. Zak Gutierrez Ketones Ql (U) Negative Normal NEGATIVE [facility] Comment on above: Performed By: #### U MICRO, ERUR ####[facility] [address] [place], [place] [address]Dr. Zak Gutierrez LEUKOCYTES TRACE Abnormal NEGATIVE [facility] Comment on above: Performed By: #### U MICRO, ERUR ####[facility] [address] [place], [place] [address]Dr. Zak Gutierrez Nitrite Ql (U) Negative Normal NEGATIVE [facility] Comment on above: Performed By: #### U MICRO, ERUR ####[facility] [address] [place], [place] [address]Dr. Zak Gutierrez pH (U) 6.0 [pH] Normal 5-9 [facility] Comment on above: Performed By: #### U MICRO, ERUR ####[facility] [address] [place], [place] [address]Dr. Zak Gutierrez Protein (U) [Mass/Vol] 30 mg/dL Abnormal NEGAT PRISCILA/ TRACE [facility] Comment on above: Performed By: #### U MICRO, ERUR ####[facility] [address] [place], [place] [address]Dr. Zak Gutierrez SPEC GRAVITY 1.025 Normal 1.005-<=1.0 25 [facility] Comment on above: Performed By: #### U MICRO, ERUR ####[facility] [address] [address]Dr. Zak Gutierrez UR MICRO IND INDICATED Normal [facility] Comment on above: Performed By: #### U MICRO, ERUR ####[facility] [address] [address]Dr. Zak Gutierrez Urobilinogen Qn (U) 0.2 {Kirt'U}/dL Normal 0.2 - 1. 0 [facility] Comment on above: Performed By: #### U MICRO, ERUR ####[facility] [address] [place], [place] [address]Dr. Zak Gutierrez URINE MICROSCOPIC ONLYon BACTERIA NONE SEEN Normal NONE SEEN [facility] Comment on above: Performed By: #### U MICRO, ERUR ####[facility] [address] [place], [place] [address]Dr. Zak Gutierrez Bacteria identified Cx Nom (U) NOT INDICATED Normal [facility] Comment on above: Performed By: #### U MICRO, ERUR ####[facility] [address] [place], [place] [address]Dr. Zak Gutierrez CAST SEEN Abnormal NONE SEEN [facility] Comment on above: Performed By: #### U MICRO, ERUR ####[facility] [address] [place], [place] [address]Dr. Zak Gutierrez Crystals LM Nom (Urine sed) NONE SEEN Normal NONE SEEN [facility] Comment on above: Performed By: #### U MICRO, ERUR ####[facility] [address] [place], [place] [address]Dr. Zak Gutierrez Epithelial cells LM Ql (Urine sed) FEW Abnormal NONE SEEN /RARE [facility] Comment on above: Performed By: #### U MICRO, ERUR ####[facility] [address] [place], [place] [address]Dr. Zak Gutierrez HYALINE CAST RARE Normal [facility] Comment on above: Performed By: #### U MICRO, ERUR ####[facility] [address] [place], [place] [address]Gu. Zak Gutierrez MUCOUS TRACE Abnormal NONE SEEN [facility] Comment on above: Performed By: #### U MICRO, ERUR ####[facility] [address] [place], [place] [address]Yh. Zak Gutierrez RBC 2-5 Abnormal 0-2 [facility] Comment on above: Performed By: #### U MICRO, ERUR ####[facility] [address] [place], [place] [address]Bm. Zak Gutierrez WBC 0-2 Abnormal NONE SEEN [facility] Comment on above: Performed By: #### U MICRO, ERUR ####[facility] [address] [id number]. Zak Gutierrez XR LSPINE 2_3 VIEWSon 2021 [...] SHELL THOMPSON Date: 2021-11-25 11:24 Normal [facility] Vital Signs Date Time Vital Sign Value Performing Clinician Faci camilley 01-13-2025 15:01-0400 Body temperature 99 [degF] Hi Vargas MD Work Phone: [facility] 01-13-2025 15:01-0400 Diastolic blood pressure 88 mm[Hg] Hi Vargas MD Work Phone: [facility] 01-13-2025 15:01-0400 Heart rate 65 /min Hi Vargas MD Work Phone: [facility] 01-13-2025 15:01-0400 Respiratory rate 16 /min Hi Vargas MD Work Phone: [facility] 01-13-2025 15:01-0400 SaO2% (BldA) [Mass fraction] 98 % Hi Vargas MD Work Phone: [facility] 01-13-2025 15:01-0400 Systolic blood pressure 182 mm[Hg] Hi Vargas MD Work Phone: [facility] 01-13-2025 11:50-0400 Body height 177.8 cm Hi Vargas MD Work Phone: [facility] 01-13-2025 11:50-0400 Body weight 86.18 kg Hi Vargas MD Work Phone: [facility] 10-17-2023 14:20-0500 Blood Pressure Location Donald [facility]AUERL [facility] 10-17-2023 14:20-0500 Diastolic blood pressure 84 mm[Hg] Donald BAUERL [facility] 10-17-2023 14:20-0500 Heart rate 68 /min Donald NILL [facility] 10-17-2023 14:20-0500 Respiratory rate 16 /min Donald BAUERL [facility] 10-17-2023 14:20-0500 Systolic blood pressure 148 mm[Hg] Donald BAUERL [facility] Encounters Encounter Date Encounter Type Care Provider Facility Start: 01-13-2025 End: 01-13-2025 Emergency department patient visit Hi Vargas MD Work Phone: [facility] Work Phone: Start: 10-25-2023 End: 10-26-2023 ambulatory Donald EVERETT Facility:CD:[id number] Start: 10-17-2023 End: 10-18-2023 ambulatory Hi Vargas Facility:[facility] Start: 10-17-2023 End: 10-17-2023 Patient encounter procedure Donald EVERETT [facility] N[facility]aid [facility] Start: 09-15-2023 ambulatory Hi Vargas Facility:[facility] [...] above: Performed By: #### V ITAD, PSASC ####[address] [address]Dr. Zak Matt Start: 12-28-2011 Colonoscopy Donald SALES LL Insertion of stent i nto ureter Donald NILL Plan of Treatment Date Care Activity Detail Author Patient Education [facility] Work Phone: Patient referral [facility] Work Phone: Immunizations Immunization Date Immunization Notes Care Provider Fa cility 08-26-2021 SARS-CoV-2 (COVID-19 ) mRNA BNT-162b2 vax Donald NILL [facility] 01-26-2021 SARS-CoV-2 (COVID-19 ) mRNA BNT-162b2 vax Donald NILL [facility] 01-04-2021 SARS-CoV-2 (COVID-19 ) mRNA BNT-162b2 vax Donald NILL [facility] NEGATED: Highlighted row has not occurred!10-17-2023 influenza virus vaccine, unspecified formulation Donald EVERETT [facility] Payers Date Payer Category Payer Self-pay 1960 Medicare [id number] 1960 Private Health Insurance CLI [id number] 1959 Private Health Insurance [facility] [id number] 1945 Unknown [id number] 2.16.84 [id number] 1945 Unknown [id number] 2.16.84 [id number] 1945 Unknown [id number] 2.16.84 [id number] 1944 Unknown [id number] 2.16.84 [id number] 1945 Unknown [id number] 2.16.8 [id number] 1945 Unknown [id number] 2.16.8 [id number] Unknown [id number] 2.16.8 [id number] Social History Date Type Detail Facility Start: 10-17-2023 Tobacco smoking status Light t obacco smoker (finding) [facility] Tobacco smoking status Never [facility] Sex Assigned At Male [facility] Start: 01-13-2025 [facility] Start: 01-13-2025 Sex Male (finding) [facility] Start: 1945 Sex Assigned At Male [facility] Functional Status Date Assessment Result Facility 10-17-2023 Functional Status N/A [facility] Clinical Note 10-17-2023 Note Date & Type [...] vax 01/04/2021 R (more content not included)... [facility] Comment on above: Result Comment: Elec tronically Signed By: MARGUERITE CASE, Donald Deutsch\.br\Date and Time Signed: 10/17/23 14:59 EST Evaluation + Plan note Note Date & Type Note Facility Evaluation + Plan note No data available for this section [facility] Evaluation note Note Date & Type Note Facility Evaluation note No assessment information availa ble [facility] Work Phone: Hospital Discharge instructions Note Date & Type Note Facility Hospital Discharge instructions No data available for this section [facility] Hospital Discharge instructions Note Date & Type Note Facility Hospital Discharge instructions Additional Instructions Follow-up with your primary care doctor Return to ED follow-up worsening symptoms or concerns [facility] Work Phone: Progress note Note Date & Type Note Facility Progress note No data available for this section [facility] Summary Purpose Family History No Family History [...] AUTHOR AUTHOR'S ORGANIZ ATION 11/02/2023 Theodore Ames [facility] DATE CREATED AUTHOR AUTHOR'S ORGANIZ ATION 01/26/2025 [facility] Patient Care team informatio [...] BE BASED ON THE PRIMARY CLINICAL RECORDS. [facility] [employer] [facility]. provides no warranty or guarantee of the accuracy or completeness of information in this document.
[2025-05-16 10:48] LABS: Hematocrit 33.0 % (42.0-54.0); Hemoglobin 11.2 g/dL (14.0-18.0); Immature Granulocytes Abs Auto 0.01 10^3/uL (0.00-0.03); Immature Granulocytes Pct Auto 0.1 % (0.0-0.5); Lymphocytes Absolute Auto 1.0 10^3/uL (1.2-3.8); Mean Corpuscular HGB Conc 33.9 g/dL (29.9-35.2); Mean Corpuscular Hemoglobin 32.2 pg (25.9-34.0); Mean Corpuscular Volume 94.8 fL (80.0-94.0); Platelet Count 163 10^3/uL (150-450); Red Blood Count 3.48 10^6/uL (4.70-6.10); White Blood Count 7.3 10^3/uL (4.0-11.0)
[2025-05-16] MEDS: OXYCODONE HCL/ACETAMINOPHEN 5MG/325MG 1 TAB PO (11:02)
[2025-05-16 11:05] LABS: Alanine Aminotransferase 14 U/L (16-63); Albumin Globulin Ratio 0.7; Albumin Level 3.2 g/dL (3.4-5.0); Alkaline Phosphatase 88 U/L (46-116); Anion Gap 14.6; Aspartate Amino Transferase 19 U/L (15-37); Blood Urea Nitrogen 39.0 mg/dL (7.0-18.0); Calcium 9.3 mg/dL (8.5-10.1); Carbon Dioxide 25.9 mmol/L (21.0-32.0); Chloride 104 mmol/L (98-107); Estimated GFR (African America 45 (>=60 mL/min/1.73m^2); Estimated GFR (Non-African Ame 37 (>=60 mL/min/1.73m^2); Globulin 4.6 g/dL; Glucose 144 mg/dL (74-106); Potassium 4.5 mmol/L (3.5-5.1); Sodium 140 mmol/L (136-145); Total Protein 7.8 g/dL (6.4-8.2)
[2025-05-16 12:15] VITALS: BP 177/78
== END 2025-05-16 12:55 | disposition home or self-care (01) ==
PROVIDERS: Emergency Provider Emergency Medicine; PCP Family Medicine
DX: E16.2 Hypoglycemia, unspecified (principal); W18.30XA Fall on same level, unspecified, initial encounter; M54.50 Low back pain, unspecified; I10 Essential (primary) hypertension
CPT/HCPCS: 36415; 70450; 72131; 80053; 83036; 85025; 93005; 99285

== ENCOUNTER 2025-05-20 10:06 | Outpatient (OUT) | payer MEDICARE, SELFPAY ==
--- OUTSIDE RECORDS SUMMARY | 2025-05-19 15:06 | XMS_ITS | Clinical Summary ---
Author Organization [facility] [employer] [facility] Address [id number] [address] [place] [address] Care Team Providers Care Nurse Practitioner Per Diem Name Role Phone Unavailable Primary Care Provider [...] Description 06/30/2025 9:45 AM EDT Procedure visit [facility] Admit [address], [place] [phone] 07/22/2025 9:45 AM EDT Hospital Encounter [facility] - Surgery [address] [place] [address] Radha Gates MD [address] [place] [address] [id number] 07/22/2025 9:45 AM EDT - 07/22/2025 10:30 AM EDT Surgery [facility] - Surgery [address] [place], [place] [address] Radha Gates MD [address] [place] [address] [id number] EXTRACTION CATARACT INTRAOCULAR LENS [88086 (CPT )] 08/06/2025 3:50 PM EDT Support Visit [facility] - Pre Admit [address] [place] [address] 08/07/2025 9:45 AM EDT Hospital Encounter [facility] Surgery [address] [place] [address] Radha Gates MD [address] [place], [place] [id number] 08/07/2025 9:45 AM EDT - 08/07/2025 10:30 AM EDT Surgery [facility] Surgery [address] [place] [address] Radha Gates MD [address] [place] [address] [phone] EXTRACTION CATARACT INTRAOCULAR LENS [49216 (CPT )] Scheduled Procedures Name Priority Associated [...]
--- OUTSIDE RECORDS SUMMARY | 2025-05-19 15:06 | XMS_ITS | Clinical Summary ---
Author Organization [facility] Address [address] [place] [address] Care Team Providers Care Stem Roller Operator Name Role Phone Unavailable Primary Care Provider [...]
--- OUTSIDE RECORDS SUMMARY | 2025-05-20 10:07 | XMS_ITS | Clinical Summary ---
Author Organization [facility] [employer] [facility] Address [id number] [address] [place] [address] Care Team Providers Care Rectifier Operator Name Role Phone Unavailable Primary Care [...] Description 06/30/2025 9:45 AM EDT Procedure visit [facility] Admit [address] [place] [phone] 07/22/2025 9:45 AM EDT Hospital Encounter [facility] - Surgery [address] [place] [address] Radha Gates MD [address] [place] [address] [phone] 07/22/2025 9:45 AM EDT - 07/22/2025 10:30 AM EDT Surgery [facility] - Surgery [address] [place], [place] [address] Radha Gates MD [address] [place] [address] [id number] EXTRACTION CATARACT INTRAOCULAR LENS [98561 (CPT )] 08/06/2025 3:50 PM EDT Support Visit [facility] - Pre Admit [address] [place] [address] 08/07/2025 9:45 AM EDT Hospital Encounter [facility] Surgery [address] [place] [address] Radha Gates MD [address] [place], [place] [phone] 08/07/2025 9:45 AM EDT - 08/07/2025 10:30 AM EDT Surgery [facility] Surgery [address] [place] [address] Radha Gates MD [address] [place] [address] [phone] EXTRACTION CATARACT INTRAOCULAR LENS [85020 (CPT )] Scheduled Procedures Name Priority Associated [...]
--- OUTSIDE RECORDS SUMMARY | 2025-05-20 10:07 | XMS_ITS | Clinical Summary ---
Author Organization [facility] Address [address] [place] [address] Care Team Providers Care Needlemaker Name Role Phone Unavailable Primary Care Provider [...]
--- OUTSIDE RECORDS SUMMARY | 2025-05-20 10:07 | XMS_ITS | Clinical Summary ---
Author Organization [facility] Address [address] [place] [address] Care Team Providers Care Department Manager Name Role Phone Unavailable Primary Care [...]
--- NOTE | 2025-05-20 10:24 | XR_ITS ---
The [place] [id number] Patient Name: PARDEEP STEPHENSON MRN: [id number] date: 1945 Sex: M Assigned Patient Location: [facility] Current Patient Location: [facility] Accession/Order Number: [id number] Exam Date: 05/20/2025 12:17 Report Date: 05/20/2025 12:19 At the request of: HI KEYES MD Procedure: XR hip LT 2V w/ pelvis Single frontal view pelvis and 2 views left hip INDICATION: Back pain COMPARISON: None FINDINGS: Moderate to severe degenerative changes left hip with marginal osteophytosis and spurring. Cmwo-fz-jskismrc degenerative changes right hip. Degenerative changes both sacroiliac joints. No diastases of the sacroiliac joints or pubic symphysis. XR/XR hip LT 2V w/ pelvis Impression: Moderate severe degenerative changes left hip. No fracture or dislocation. Impression dictated by: Ga Bañuelos M.D. 05/20/2025 12:19 PM Dictation Location: [place] [address] Electronically authenticated by: [id number] Y Date: 05/20/2025 12:19
--- NOTE | 2025-05-20 10:24 | XR_ITS ---
The [address] [address] Patient Name: PARDEEP STEPHENSON MRN: [id number] date: 1945 Sex: M Assigned Patient Location: [facility] Current Patient Location: [facility] Accession/Order Number: [id number] Exam Date: 05/20/2025 12:19 Report Date: 05/20/2025 12:22 At the request of: HI KEYES MD Procedure: XR lumbar spine min 4V LUMBAR SPINE - 5 views CLINICAL HISTORY: Back Pain COMPARISON: CT lumbar spine 05/16/2025 FINDINGS: Multilevel flowing anterior ossification identified throughout the thoracic spine can be seen with underlying DISH. This fusion of both sacroiliac joints better seen comparison. Multilevel hloz-mf-awkrccat intervertebral space narrowing with endplate osteophytosis. Lumbarization of S1. Moderate severe facet arthropathy L4-S1. XR/XR lumbar spine min 4V IMPRESSION: NO ACUTE BONY INJURY. 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 05/20/2025 12:22 PM Dictation Location: [place] [address] Electronically authenticated by: [id number] Y Date: 05/20/2025 12:22
--- OUTSIDE RECORDS SUMMARY | 2025-05-20 10:30 | XMS_ITS | CCD ---
Author Organization [facility] Care Team Providers Care Mechanical Striper Name Role Phone STEPHY, DR DO Admitting [...] Care Provider Lam Menon DO Emergency Provider [phone] [address] [facility] Primary [facility] Unavailable Lam Menon Admitting Unavailable Lam Menon Attending Unavailable Allergies Allergy Classification Reported Allergen(s) Allergy Type Date of Onset Reaction(s) Facility (1 source) No Known Medication Allergies; Translations: [No Known Medication Allergies] Propensity to adverse reactions (disorder) [facility] Repository Medications Current Medications Medication Drug [...] aminotransferase [Enzymatic activity/volume] in Serum or Plasma [facility] Albumin [Mass/volume] in Ser um or Plasma by Bromocresol green (BCG) dye binding methoOrdered By: Lam Menon on 01-13-2025 Albumin BCG dye [Mass/Vol] Albumin [Mass/volume] in Serum or Plasma by Bromocresol green (BCG) dye binding metho 3.5-5.[address] [facility] Alkaline phosphatase [Enzyma tic activity/volume] in Serum or PlasmaOrdered By: Lam Menon on 01-13-2025 ALP [Catalytic activity/Vol] Alkaline phosphatase [Enzymatic activity/volume] in Serum or Plasma 34-[address] [facility] Appearance of UrineOrdered B y: Lam Menon on 01-13-2025 Appearance (U) Urine appearance Clear [facility] Aspartate aminotransferase [ Enzymatic activity/volume] in Serum or PlasmaOrdered By: Lam Menon on 01-13-2025 AST [Catalytic activity/Vol] Aspartate aminotransferase [Enzymatic activity/volume] in Serum or Plasma 13-[address] [facility] B-Type Natriuretic Peptideon 01-13-2025 Natriuretic peptide B (Bld) [Mass/Vol] 138.0 pg/mL High 5-100 [facility] Comment on above: Result Comment: PERF ORMED BY: [place] [id number] PATHOLOGIST EXECUTIVE VICE PRESIDENT BUSINESS DEVELOPMENT RAJIV ELLISON M.D. Performed By: #### C BC, HEPATIC, BMP, PT, BNP, CK, HS TROP #### [facility] [address] Bacteria [Presence] in Urine by AutomatedOrdered By: Lam Menon on 01-13-2025 Bacteria Auto Ql (U) Bacteria [Presence] in Urine by Automated None Seen [facility] Basic Metabolic Panelon 01-04 Anion gap [Moles/Vol] 9.9 mmol/L Normal 6.0-15.0 [facility] Comment on above: Performed By: #### C BC, HEPATIC, BMP, PT, BNP, CK, HS TROP #### [facility] [address] Calcium [Mass/Vol] 9.6 mg/dL Normal 8.6-10.3 [facility] Comment on above: Performed By: #### C BC, HEPATIC, BMP, PT, BNP, CK, HS TROP #### [address] Chloride [Moles/Vol] 102 mmol/L Normal 98-107 [facility] Comment on above: Performed By: #### C BC, HEPATIC, BMP, PT, BNP, CK, HS TROP #### [address] CO2 [Moles/Vol] 26.8 mmol/L Normal 21.0-31.0 [facility] Comment on above: Performed By: #### C BC, HEPATIC, BMP, PT, BNP, CK, HS TROP #### [address] Creatinine [Mass/Vol] 1.65 mg/dL High 0.70-1.30 [facility] Comment on above: Performed By: #### C BC, HEPATIC, BMP, PT, BNP, CK, HS TROP #### [address] Creatinine Clr Calc Pharmacy 36.87 Normal [facility] Comment on above: Result Comment: PERF ORMED BY: [place] [id number] PATHOLOGIST EXECUTIVE VICE PRESIDENT BUSINESS DEVELOPMENT RAJIV ELLISON M.D. Performed By: #### C BC, HEPATIC, BMP, PT, BNP, CK, HS TROP #### [address] Estimated GFR 41.717 mL/Min Normal [facility] Comment on above: Performed By: #### C BC, HEPATIC, BMP, PT, BNP, CK, HS TROP #### [address] Glucose [Mass/Vol] 54 mg/dL Low 70-100 [facility] Comment on above: Result Comment: [place] Glucose Reference Range is dependent on time and content of last meal. Glucose of more than 200 mg/dL in a nonstressed, ambulatory subject supports the diagnosis of Diabetes Mellitus. ADA recommended reference range Performed By: #### C BC, HEPATIC, BMP, PT, BNP, CK, HS TROP #### [facility] [address] Potassium [Moles/Vol] 4.7 mmol/L Normal 3.5-5.1 [facility] Comment on above: Performed By: #### C BC, HEPATIC, BMP, PT, BNP, CK, HS TROP #### [facility] [address] Sodium [Moles/Vol] 134 mmol/L Low 136-145 [facility] Comment on above: Performed By: #### C BC, HEPATIC, BMP, PT, BNP, CK, HS TROP #### [facility] [address] Urea nitrogen [Mass/Vol] 25 mg/dL Normal 7-25 [facility] Comment on above: Performed By: #### C BC, HEPATIC, BMP, PT, BNP, CK, HS TROP #### [facility] [address] Basophils Auto (Bld) [#/Vol] Ordered By: Lam Menon on 01-13-2025 Basophils (Bld) [#/Vol] Automated basophil count 0.0-0.2 [facility] Basophils/100 WBC Auto (Bld) Ordered By: Lam Menon on 01-13-2025 Basophils/100 WBC (Bld) Automated basophil % . [facility] Bilirubin Test strip Ql (U)O rdered By: Lam Menon on 01-13-2025 Bilirubin Ql (U) Bilirubin.total [Pre sence] in Urine by Test strip Negative [facility] Bilirubin.direct [Mass/volum e] in Serum or PlasmaOrdered By: Lam Menon on 01-13-2025 Bilirubin.direct [Mass/Vol] Bilirubin.direct [Mass/volume] in Serum or Plasma 0.03-0.[address] [facility] Bilirubin.total [Mass/volume ] in Serum or PlasmaOrdered By: Lam Menon on 01-13-2025 Bilirubin [Mass/Vol] Bilirubin.total [Mass/volume] in Serum or Plasma 0.3-1.[address] [facility] BioFire Not Detectedon 01-13 BioFire Not Detected Not detected Normal Not Detecte [facility] Comment on above: Result Comment: This is a duplicate RP2.1 COVID (PCR) result to be used for statistical tracking purpose only. PERFORMED BY: [place] [id number] PATHOLOGIST EXECUTIVE VICE PRESIDENT BUSINESS DEVELOPMENT RAJIV ELLISON M.D. Performed By: #### C BC, HEPATIC, BMP, PT, BNP, CK, HS TROP #### [address] COVID-19 Detected/Not Detect edOrdered By: Lam Menon on 01-13-2025 SARS-CoV-2 (COVID-19) RNA RABIA+non-probe Ql (Nph) Not detected Not Detecte [facility] Comment on above: This is a duplicate RP2.1 COVID (PCR) result to be used for statistical tracking purpose only. Calcium [Mass/volume] in Ser um or PlasmaOrdered By: Lam Menon on 01-13-2025 Calcium [Mass/Vol] Calcium [Mass/volume ] in Serum or Plasma 8.6-10.[address] [facility] Carbon dioxide, total [Moles /volume] in Serum or PlasmaOrdered By: Lam Menon on 01-13-2025 CO2 [Moles/Vol] Carbon dioxide, tota l [Moles/volume] in Serum or Plasma 21.0-31.[address] [facility] Chloride [Moles/volume] in S libia or PlasmaOrdered By: Lam Menon on 01-13-2025 Chloride [Moles/Vol] Chloride [Moles/vol ume] in Serum or Plasma 98-[address] [facility] Color Auto (U)Ordered By: Rosalio Menon on 01-13-2025 Color (U) Color of Urine by Auto Yellow [facility] Complete Blood Count Auto Di ffon 01-13-2025 Basophils (Bld) [#/Vol] 0.0 10*3/uL Normal 0.0-0.2 [facility] Comment on above: Result Comment: PERF ORMED BY: [place] [id number] PATHOLOGIST EXECUTIVE VICE PRESIDENT BUSINESS DEVELOPMENT RAJIV ELLISON M.D. Performed By: #### C BC, HEPATIC, BMP, PT, BNP, CK, HS TROP #### [address] Basophils/100 WBC (Bld) 0.5 % Normal . [facility] Comment on above: Performed By: #### C BC, HEPATIC, BMP, PT, BNP, CK, HS TROP #### [address] Eosinophils (Bld) [#/Vol] 0.0 10*3/uL Normal 0.0-0.45 [facility] Comment on above: Performed By: #### C BC, HEPATIC, BMP, PT, BNP, CK, HS TROP #### [address] Eosinophils/100 WBC (Bld) 0.1 % Normal . [facility] Comment on above: Performed By: #### C BC, HEPATIC, BMP, PT, BNP, CK, HS TROP #### [address] Erythrocyte distribution width (RBC) [Ratio] 15.0 % High 12.0-14.8 [facility] Comment on above: Performed By: #### C BC, HEPATIC, BMP, PT, BNP, CK, HS TROP #### [address] Hematocrit (Bld) [Volume fraction] 38.8 % Normal 38.8-50.0 [facility] Comment on above: Performed By: #### C BC, HEPATIC, BMP, PT, BNP, CK, HS TROP #### [address] Hemoglobin (Bld) [Mass/Vol] 13.2 g/dL Normal 13.0-17.0 [facility] Comment on above: Performed By: #### C BC, HEPATIC, BMP, PT, BNP, CK, HS TROP #### [address] Lymphocytes (Bld) [#/Vol] 1.1 10*3/uL Normal 1.00-4.8 [facility] Comment on above: Performed By: #### C BC, HEPATIC, BMP, PT, BNP, CK, HS TROP #### [address] Lymphocytes/100 WBC (Bld) 22.8 % Normal . [facility] Comment on above: Performed By: #### C BC, HEPATIC, BMP, PT, BNP, CK, HS TROP #### [address] MCH (RBC) [Entitic mass] 31.4 pg Normal 27.5-35.2 [facility] Comment on above: Performed By: #### C BC, HEPATIC, BMP, PT, BNP, CK, HS TROP #### [address] MCV (RBC) [Entitic vol] 92.3 fL Normal 83.5-101 [facility] Comment on above: Performed By: #### C BC, HEPATIC, BMP, PT, BNP, CK, HS TROP #### [address] Mean Corpuscular HGB Conc 34.0 g/dL Normal 32.5-35.6 [facility] Comment on above: Performed By: #### C BC, HEPATIC, BMP, PT, BNP, CK, HS TROP #### [address] Monocytes (Bld) [#/Vol] 0.6 10*3/uL Normal 0.0-0.8 [facility] Comment on above: Performed By: #### C BC, HEPATIC, BMP, PT, BNP, CK, HS TROP #### [address] Monocytes/100 WBC (Bld) 22.81 % High 0.00-20.00 [facility] Comment on above: Result Comment: For adults in ED, MDW > 20.0 may be associated with a higher risk of sepsis during the first 12 hrs of hospital admission Performed By: #### C BC, HEPATIC, BMP, PT, BNP, CK, HS TROP #### [address] Monocytes/100 WBC (Bld) 12.5 % Normal . [facility] Comment on above: Performed By: #### C BC, HEPATIC, BMP, PT, BNP, CK, HS TROP #### [address] Neutrophils (Bld) [#/Vol] 3.1 10*3/uL Normal 1.8-7.7 [facility] Comment on above: Performed By: #### C BC, HEPATIC, BMP, PT, BNP, CK, HS TROP #### [address] Neutrophils/100 WBC (Bld) 64.1 % Normal . [facility] Comment on above: Performed By: #### C BC, HEPATIC, BMP, PT, BNP, CK, HS TROP #### [address] NRBC% 0.1 /100{WBC} Normal 0-0.5 [facility] Comment on above: Performed By: #### C BC, HEPATIC, BMP, PT, BNP, CK, HS TROP #### [address] Platelet mean volume (Bld) [Entitic vol] 8.9 fL Normal 6.6-10.1 [facility] Comment on above: Performed By: #### C BC, HEPATIC, BMP, PT, BNP, CK, HS TROP #### [address] Platelets (Bld) [#/Vol] 162 10*3/uL Normal 150-450 [facility] Comment on above: Performed By: #### C BC, HEPATIC, BMP, PT, BNP, CK, HS TROP #### [address] RBC (Bld) [#/Vol] 4.20 10*6/uL Normal 3.90-5.60 [facility] Comment on above: Performed By: #### C BC, HEPATIC, BMP, PT, BNP, CK, HS TROP #### [address] WBC (Bld) [#/Vol] 4.8 10*3/uL Normal 4.1-10.5 [facility] Comment on above: Performed By: #### C BC, HEPATIC, BMP, PT, BNP, CK, HS TROP #### [facility] [address] Creatine Kinaseon 01-13-2025 CK [Catalytic activity/Vol] 199 U/L Normal 30-223 [facility] Comment on above: Performed By: #### C BC, HEPATIC, BMP, PT, BNP, CK, HS TROP #### [address] Creatine kinase [Enzymatic a ctivity/volume] in Serum or PlasmaOrdered By: Lam Menon on 01-13-2025 CK [Catalytic activity/Vol] Creatine kinase [Enzymatic activity/volume] in Serum or Plasma - [facility] Creatinine [Mass/volume] in Serum or PlasmaOrdered By: Lam Menon on 01-13-2025 Creatinine [Mass/Vol] Creatinine [Mass/v olume] in Serum or Plasma High 0.70-1.[address] [facility] Dipstick and Microscopicon 0 01-13-2025 Appearance (U) Clear Normal Clear [facility] Comment on above: Order Comment: Name Collection Type:: Clean-Voided Midstream Performed By: #### C BC, HEPATIC, BMP, PT, BNP, CK, HS TROP #### [address] Bacteria,Urine Rare Normal None Seen [facility] Comment on above: Order Comment: Name Collection Type:: Clean-Voided Midstream Performed By: #### C BC, HEPATIC, BMP, PT, BNP, CK, HS TROP #### [address] Bilirubin,Urine Negative Normal Negative [facility] Comment on above: Order Comment: Name Collection Type:: Clean-Voided Midstream Performed By: #### C BC, HEPATIC, BMP, PT, BNP, CK, HS TROP #### [address] Color (U) Yellow Normal Yellow [facility] Comment on above: Order Comment: Name Collection Type:: Clean-Voided Midstream Performed By: #### C BC, HEPATIC, BMP, PT, BNP, CK, HS TROP #### [address] Glucose Ql (U) Normal Normal Normal [facility] Comment on above: Order Comment: Name Collection Type:: Clean-Voided Midstream Performed By: #### C BC, HEPATIC, BMP, PT, BNP, CK, HS TROP #### [address] Hyaline Casts,Urine None Normal 0-8 [facility] Comment on above: Order Comment: Name Collection Type:: Clean-Voided Midstream Performed By: #### C BC, HEPATIC, BMP, PT, BNP, CK, HS TROP #### [address] Ketones Ql (U) Negative Normal Negative [facility] Comment on above: Order Comment: Name Collection Type:: Clean-Voided Midstream Performed By: #### C BC, HEPATIC, BMP, PT, BNP, CK, HS TROP #### [address] Leukocyte esterase Test strip Ql (U) Negative Normal Negative [facility] Comment on above: Order Comment: Name Collection Type:: Clean-Voided Midstream Performed By: #### C BC, HEPATIC, BMP, PT, BNP, CK, HS TROP #### [address] Mucus,Urine 1+ Critically abnormal [facility] Comment on above: Order Comment: Name Collection Type:: Clean-Voided Midstream Result Comment: PERF ORMED BY: [place] [id number] PATHOLOGIST EXECUTIVE VICE PRESIDENT BUSINESS DEVELOPMENT RAJIV ELLISON M.D. Performed By: #### C BC, HEPATIC, BMP, PT, BNP, CK, HS TROP #### [place] [address] [place] Nitrite,Urine Negative Normal Negative [facility] Comment on above: Order Comment: Name Collection Type:: Clean-Voided Midstream Performed By: #### C BC, HEPATIC, BMP, PT, BNP, CK, HS TROP #### [address] Occult Blood,Urine 2+ High Negative [facility] Comment on above: Order Comment: Name Collection Type:: Clean-Voided Midstream Result Comment: PERF ORMED BY: [place] [id number] PATHOLOGIST EXECUTIVE VICE PRESIDENT BUSINESS DEVELOPMENT RAJIV ELLISON M.D. Performed By: #### C BC, HEPATIC, BMP, PT, BNP, CK, HS TROP #### [address] pH (U) 5.5 [pH] Normal 5.0-9.0 [facility] Comment on above: Order Comment: Name Collection Type:: Clean-Voided Midstream Performed By: #### C BC, HEPATIC, BMP, PT, BNP, CK, HS TROP #### [address] Protein (U) [Mass/Vol] 50 mg/dL High Negative [facility] Comment on above: Order Comment: Name Collection Type:: Clean-Voided Midstream Performed By: #### C BC, HEPATIC, BMP, PT, BNP, CK, HS TROP #### [address] RBC,Urine 50-100 High 0-4 [facility] Comment on above: Order Comment: Name Collection Type:: Clean-Voided Midstream Performed By: #### C BC, HEPATIC, BMP, PT, BNP, CK, HS TROP #### [address] Specificy [place],Urine 1.022 Normal 1.001-1.030 [facility] Comment on above: Order Comment: Name Collection Type:: Clean-Voided Midstream Performed By: #### C BC, HEPATIC, BMP, PT, BNP, CK, HS TROP #### [address] Squamous Epithelial Cell,Urine 1-2 Normal 0-2 [facility] Comment on above: Order Comment: Name Collection Type:: Clean-Voided Midstream Performed By: #### C BC, HEPATIC, BMP, PT, BNP, CK, HS TROP #### [address] Urobilinogen,Urine Normal Normal Normal [facility] Comment on above: Order Comment: Name Collection Type:: Clean-Voided Midstream Performed By: #### C BC, HEPATIC, BMP, PT, BNP, CK, HS TROP #### [address] WBC,Urine 10-19 High 0-4 [facility] Comment on above: Order Comment: Name Collection Type:: Clean-Voided Midstream Performed By: #### C BC, HEPATIC, BMP, PT, BNP, CK, HS TROP #### [address] ECG 12 lead ECGon 01-13-2025 ECG 12 lead [place] [address] Electrocardiograph Report Signed Patient: Dvae Stephenson MR#: [id number] : 1945 Acct:[id number] Age/Sex: 79 / M ADM Date: 01/13/25 [...] ECGs available Confirmed by Lam Menon DO ([id number]) on 01/13/2025 12:20:51 PM Referred By: Electronically Signed By: Lam Menon DO Transcribed By: MUS Signed By Lam Menon DO 5 1220 Normal [facility] Eosinophils Auto (Bld) [#/Vo l]Ordered By: Lam Menon on 01-13-2025 Eosinophils (Bld) [#/Vol] Automated eosinophil count 0.0-0.45 [facility] Eosinophils/100 WBC Auto (Bl d)Ordered By: Lam Menon on 01-13-2025 Eosinophils/100 WBC (Bld) Automated eosinophil % . [facility] Epithelial cells.squamous [# /area] in Urine sediment by Automated countOrdered By: Lam Menon on 01-13-2025 Epithelial cells.squamous Auto (Urine sed) [#/Area] Epithelial cells.squamous [#/area] in Urine sediment by Automated count 0-[address] [facility] Erythrocyte distribution wid th Auto (RBC) [Ratio]Ordered By: Lam Menon on 01-13-2025 Erythrocyte distribution width (RBC) [Ratio] Erythrocyte distribution width [Ratio] by Automated count High 12.0-14.[address] [facility] Erythrocytes [#/area] in Uri ne sediment by Automated countOrdered By: Lam Menon on 01-13-2025 RBC Auto (Urine sed) [#/Area] Erythrocytes [#/area] in Urine sediment by Automated count High 0-[address] [facility] Globulin Calc (S) [Mass/Vol] Ordered By: Lam Menon on 01-13-2025 Globulin (S) [Mass/Vol] Serum globulin measurement by calculation (mass/volume) [facility] Glucose Glucometer (BldC) [M ass/Vol]Ordered By: Lam Menon on 01-13-2025 Glucose [Mass/Vol] Capillary blood gluc ose measurement by glucometer (mass/volume) [facility] Comment on above: Random Glucose Refer ence Range is dependent on time and content of last meal. Glucose of more than 200 mg/dL in a nonstressed, ambulatory subject supports the diagnosis of Diabetes Mellitus. Glucose Poct Glucometerson 0 01-13-2025 Glucose [Mass/Vol] 155 mg/dL Normal [facility] Comment on above: Result Comment: [place] Glucose Reference Range is dependent on time and content of last meal. Glucose of more than 200 mg/dL in a nonstressed, ambulatory subject supports the diagnosis of Diabetes Mellitus. PERFORMED BY: [place] [id number] PATHOLOGIST EXECUTIVE VICE PRESIDENT BUSINESS DEVELOPMENT RAJIV ELLISON M.D. Performed By: #### G LULS #### Point of Care testing , Commemt1 Normal [facility] Comment on above: Result Comment: Glu2 : WILL NOTIFY DR/RN PERFORMED BY: [place] [id number] PATHOLOGIST EXECUTIVE VICE PRESIDENT BUSINESS DEVELOPMENT RAJIV ELLISON M.D. Performed By: #### C BC, HEPATIC, BMP, PT, BNP, CK, HS TROP #### [address] Glucose [Mass/Vol] 51 mg/dL Off scale low [facility] Comment on above: Result Comment: [facility] Glucose Reference Range is dependent on time and content of last meal. Glucose of more than 200 mg/dL in a nonstressed, ambulatory subject supports the diagnosis of Diabetes Mellitus. Performed By: #### C BC, HEPATIC, BMP, PT, BNP, CK, HS TROP #### [address] Glucose [Mass/volume] in Ser um or PlasmaOrdered By: Lam Menon on 01-13-2025 Glucose [Mass/Vol] Glucose [Mass/volume ] in Serum or Plasma Low 70-[address] [facility] Comment on above: ADA recommended refe [...] [Mass/volume] in Urine by Test strip Normal [facility] Hematocrit Auto (Bld) [Volum e fraction]Ordered By: Lam Menon on 01-13-2025 Hematocrit (Bld) [Volume fraction] Hematocrit [Volume Fraction] of Blood by Automated count 38.8-50.[address] [facility] Hemoglobin Test strip Ql (U) Ordered By: Lam Menon on 01-13-2025 Hemoglobin Ql (U) Hemoglobin [Presence ] in Urine by Test strip High Negative [facility] Hemoglobin [Mass/volume] in BloodOrdered By: Lam Menon on 01-13-2025 Hemoglobin (Bld) [Mass/Vol] Hemoglobin [Mass/volume] in Blood 13.0-17.[address] [facility] Hepatic Panelon 01-13-2025 Albumin [Mass/Vol] 4.3 g/dL Normal 3.5-5.7 [facility] Comment on above: Performed By: #### C BC, HEPATIC, BMP, PT, BNP, CK, HS TROP #### [facility] [address] Albumin/Globulin [Mass ratio] 1.0 {ratio} Normal [facility] Comment on above: Performed By: #### C BC, HEPATIC, BMP, PT, BNP, CK, HS TROP #### [facility] [address] ALP [Catalytic activity/Vol] 103 U/L Normal 34-104 [facility] Comment on above: Performed By: #### C BC, HEPATIC, BMP, PT, BNP, CK, HS TROP #### [facility] [address] [place] [address] [place] ALT [Catalytic activity/Vol] 14 U/L Normal 7-52 [facility] Comment on above: Performed By: #### C BC, HEPATIC, BMP, PT, BNP, CK, HS TROP #### [facility] [address] AST [Catalytic activity/Vol] 33 U/L Normal 13-39 [facility] Comment on above: Performed By: #### C BC, HEPATIC, BMP, PT, BNP, CK, HS TROP #### [address] Bilirubin [Mass/Vol] 0.5 mg/dL Normal 0.3-1.0 [facility] Comment on above: Performed By: #### C BC, HEPATIC, BMP, PT, BNP, CK, HS TROP #### [facility] [address] Bilirubin,Indirect 0.4 mg/dL Normal [facility] Comment on above: Performed By: #### C BC, HEPATIC, BMP, PT, BNP, CK, HS TROP #### [address] Bilirubin.indirect [Mass/Vol] 0.10 mg/dL Normal 0.03-0.18 [facility] Comment on above: Performed By: #### C BC, HEPATIC, BMP, PT, BNP, CK, HS TROP #### [address] Globulin (S) [Mass/Vol] 4.2 g/dL Normal [facility] Comment on above: Performed By: #### C BC, HEPATIC, BMP, PT, BNP, CK, HS TROP #### [address] Protein [Mass/Vol] 8.5 g/dL Normal 6.4-8.9 [facility] Comment on above: Performed By: #### C BC, HEPATIC, BMP, PT, BNP, CK, HS TROP #### [address] Hyaline casts [#/area] in Ur ine sediment by Automated countOrdered By: Lam Menon on 01-13-2025 Hyaline casts Auto (Urine sed) [#/Area] Hyaline casts [#/area] in Urine sediment by Automated count 0-[address] [facility] INR in Platelet poor plasma by Coagulation assayOrdered By: Lam Menon on 01-13-2025 INR Coag (PPP) [Relative time] INR in Platelet poor plasma by Coagulation assay [facility] Comment on above: INR Therapeutic Rang [...] i n Urine by Test strip Negative [facility] Leukocyte esterase [Presence ] in Urine by Test stripOrdered By: Lam Menon on 01-13-2025 Leukocyte esterase Test strip Ql (U) Leukocyte esterase [Presence] in Urine by Test strip Negative [facility] Leukocytes [#/area] in Urine sediment by Automated countOrdered By: Lam Menon on 01-13-2025 WBC Auto (Urine sed) [#/Area] Leukocytes [#/area] in Urine sediment by Automated count High 0-[address] [facility] Leukocytes [#/volume] correc coral for nucleated erythrocytes in Blood by Automated counOrdered By: Lam Menon on 01-13-2025 WBC corrected for nucl RBC Auto (Bld) [#/Vol] Leukocytes [#/volume] corrected for nucleated erythrocytes in Blood by Automated coun 4.1-10.[address] [facility] Lymphocytes Auto (Bld) [#/Vo l]Ordered By: Lam Menon on 01-13-2025 Lymphocytes (Bld) [#/Vol] Lymphocytes [#/volume] in Blood by Automated count 1.00-4.[address] [facility] Lymphocytes/100 WBC Auto (Bl d)Ordered By: Lam Menon on 01-13-2025 Lymphocytes/100 WBC (Bld) Lymphocytes/100 leukocytes in Blood by Automated count . [facility] MCH Auto (RBC) [Entitic mass ]Ordered By: Lam Menon on 01-13-2025 MCH (RBC) [Entitic mass] MCH [Entitic mass] by Automated count 27.5-35.[address] [facility] MCHC Auto (RBC) [Mass/Vol]Or dered By: Lam Menon on 01-13-2025 MCHC (RBC) [Mass/Vol] MCHC [Mass/volume] by Automated count 32.5-35.[address] [facility] MCV Auto (RBC) [Entitic vol] Ordered By: Lam Menon on 01-13-2025 MCV (RBC) [Entitic vol] MCV [Entitic volume] by Automated count 83.5-[address] [facility] Monocyte distribution width [Entitic volume] in Blood by AutomatedOrdered By: Lam Menon on 01-13-2025 Monocyte distribution width Auto (Bld) [Entitic vol] Monocyte distribution width [Entitic volume] in Blood by Automated High 0.00-20.[address] [facility] Comment on above: For adults in ED, MD W > 20.0 may be associated with a higher risk of sepsis during the first 12 hrs of hospital admission Monocytes Auto (Bld) [#/Vol] Ordered By: Lam Menon on 01-13-2025 Monocytes (Bld) [#/Vol] Automated blood monocyte count 0.0-0.[address] [facility] Monocytes/100 WBC Auto (Bld) Ordered By: Lam Menon on 01-13-2025 Monocytes/100 WBC (Bld) Automated monocyte % . [facility] Mucus [Presence] in Urine by AutomatedOrdered By: Lam Menon on 01-13-2025 Mucus Auto Ql (U) Mucus [Presence] in Urine by Automated Abnormal [facility] Natriuretic peptide B [Mass/ Vol]Ordered By: Lam Menon on 01-13-2025 Natriuretic peptide B (Bld) [Mass/Vol] BNP ser/plas High 5-[address] [facility] Neutrophils Auto (Bld) [#/Vo l]Ordered By: Lam Menon on 01-13-2025 Neutrophils (Bld) [#/Vol] Neutrophils [#/volume] in Blood by Automated count 1.8-7.[address] [facility] Neutrophils/100 WBC Auto (Bl d)Ordered By: Lam Menon on 01-13-2025 Neutrophils/100 WBC (Bld) Automated neutrophil % . [facility] Nitrite Test strip Ql (U)Ord ered By: Lam Menon on 01-13-2025 Nitrite Ql (U) Nitrite [Presence] i n Urine by Test strip Negative [facility] No Panel InformationOrdered By: Lam Menon on 03-10-2025 Bedside Glucose Comment See comment [facility] Comment on above: Glu2: WILL NOTIFY DR /RN Estimated GFR (CKD-EPI) 41.717 mL/Min [facility] Creatinine Clearance (Chem 36.[address] [facility] Nucleated erythrocytes [Pres ence] in Blood by Automated countOrdered By: Lam Menon on 01-13-2025 Nucleated RBC Auto Ql (Bld) Nucleated erythrocytes [Presence] in Blood by Automated count 0-0.[address] [facility] Platelet mean volume Auto (B ld) [Entitic vol]Ordered By: Lam Menon on 01-13-2025 Platelet mean volume (Bld) [Entitic vol] Platelet mean volume [Entitic volume] in Blood by Automated count 6.6-10.[address] [facility] Platelets Auto (Bld) [#/Vol] Ordered By: Lam Menon on 01-13-2025 Platelets (Bld) [#/Vol] Platelets [#/volume] in Blood by Automated count 150-[address] [facility] Potassium [Moles/volume] in Serum or PlasmaOrdered By: Lam Menno on 01-13-2025 Potassium [Moles/Vol] Potassium [Moles/v olume] in Serum or Plasma 3.5-5.[address] [facility] Protein Test strip (U) [Mass /Vol]Ordered By: Lam Menon on 01-13-2025 Protein (U) [Mass/Vol] Protein [Mass/vol ume] in Urine by Test strip High Negative [facility] Protein [Mass/volume] in Ser um or PlasmaOrdered By: Lam Menon on 01-13-2025 Protein [Mass/Vol] Protein [Mass/volume ] in Serum or Plasma 6.4-8.[address] [facility] Prothrombin Time INRon 01-13 INR Coag (PPP) [Relative time] 1.1 {INR} Normal [facility] Comment on above: Result Comment: [...] heart valves: 3 - 4.5 PERFORMED BY: [facility] [address] [facility] [place] [address] PATHOLOGIST EXECUTIVE VICE PRESIDENT BUSINESS DEVELOPMENT RAJIV ELLISON M.D. Performed By: #### C BC, HEPATIC, BMP, PT, BNP, CK, HS TROP #### [facility] [address] [id number] [facility] PT Coag (PPP) [Time] 12.4 s Normal 9.0-12.9 [facility] Comment on above: Result Comment: A he matocrit value greater than 55% may lead to inaccurate results in coagulation testing. Patients having hematocrit values >55% require a special collection tube for coagulation studies. Please contact the laboratory at [phone] for redraw instructions. Performed By: #### C BC, HEPATIC, BMP, PT, BNP, CK, HS TROP #### [facility] [address] [id number] [facility] Prothrombin time (PT)Ordered By: Lam Menon on 01-13-2025 PT Coag (PPP) [Time] Prothrombin time (PT) 9.0- 12.[address] [facility] Comment on above: A hematocrit value g reater than 55% may lead to inaccurate results in coagulation testing. Patients having hematocrit values >55% require a special collection tube for coagulation studies. Please contact the laboratory at [phone] for redraw instructions. RBC Auto (Bld) [#/Vol]Ordere d By: Lam Menon on 01-13-2025 RBC (Bld) [#/Vol] Erythrocytes [#/volu me] in Blood by Automated count 3.90-5.[address] [facility] Respiratory (Upper) Panel, P CRon 01-13-2025 [...] represent infection by those agents. PERFORMED BY: [place] [id number] PATHOLOGIST EXECUTIVE VICE PRESIDENT BUSINESS DEVELOPMENT RAJIV ELLISON M.D. Normal [facility] Comment on above: Performed By: #### C BC, HEPATIC, BMP, PT, BNP, CK, HS TROP #### [address] Respiratory pathogens DNA an d RNA panel - Nasopharynx by RABIA with non-probe detectionOrdered By: Lam Menon on 01-13-2025 Respiratory pathogens DNA and RNA panel RABIA+non-probe (Nph) Respiratory pathogens DNA and RNA panel - Nasopharynx by RABIA with non-probe detection [facility] Serum or plasma albumin/glob ulin mass ratioOrdered By: Lam Menon on 01-13-2025 Albumin/Globulin [Mass ratio] Serum or plasma albumin/globulin mass ratio [facility] Serum or plasma anion gap de terminationOrdered By: Lam Menon on 01-13-2025 Anion gap [Moles/Vol] Serum or plasma an ion gap determination 6.0-15.[address] [facility] Serum or plasma non-glucuron idated bilirubin measurement (mass/volume)Ordered By: Lam Menon on 01-13-2025 Bilirubin.indirect [Mass/Vol] Serum or plasma non-glucuronidated bilirubin measurement (mass/volume) [facility] Sodium [Moles/volume] in Ser um or PlasmaOrdered By: Lam Menon on 01-13-2025 Sodium [Moles/Vol] Sodium [Moles/volume ] in Serum or Plasma Low 136-[address] [facility] Specific gravity Test strip (U) [Rel density]Ordered By: Lam Menon on 01-13-2025 Specific gravity (U) [Rel density] Specific gravity of Urine by Test strip 1.001-1.[address] [facility] Troponin I High Sensitivityo n 01-13-2025 Troponin I High Sensitivity 20 Normal 0-20 [facility] Comment on above: Result Comment: The Troponin units of report have been changed to meet the Chest Pain Accreditation requirement, element EC5.M1l2. Troponin units are changed from pg/ml to ng/L. Also, the decimal is removed and results are in whole numbers. PERFORMED BY: [place] [id number] PATHOLOGIST EXECUTIVE VICE PRESIDENT BUSINESS DEVELOPMENT RAJIV ELLISON M.D. Performed By: #### C BC, HEPATIC, BMP, PT, BNP, CK, HS TROP #### [address] Troponin I.cardiac [Mass/vol ume] in Serum or Plasma by Detection limit <= 0.01 ng/Ordered By: Lam Menon on 01-13-2025 Troponin I.cardiac DL <= 0.01 ng/mL [Mass/Vol] Troponin I.cardiac [Mass/volume] in Serum or Plasma by Detection limit <= 0.01 ng/ 0-[address] [facility] Comment on above: The Troponin units [...] nitrogen [Mass/volume] in Serum or Plasma 05-[address] [facility] Urobilinogen Test strip (U) [Mass/Vol]Ordered By: Lam Menon on 01-13-2025 Urobilinogen (U) [Mass/Vol] Urobilinogen [Mass/volume] in Urine by Test strip Normal [facility] WBC Auto (Bld) [#/Vol]Ordere d By: Lam Menon on 01-13-2025 WBC (Bld) [#/Vol] Leukocytes [#/volume ] in Blood by Automated count 4.1-10.[address] [facility] X-ray reportOrdered By: Gilberto Bar on 01-13-2025 Study [place] [address] XRay Report Signed Patient: Dave Stephenson MR#: [id number] : 1945 Acct:[id number] Age/Sex: 79 / M ADM Date: 5 [...] Bar Jr., D.OReyes01/13/2025 12:32 PM Dictation Location: [place] [address] Transcribed By: [facility] 01/13/25 1232 Dictated By: Valdo Bar Jr, DO 01/13/25 1231 Signed By: 01/13/[address] [facility] XR chest 1V portableon 01-13 XR chest 1V portable [facility] [place] [address] XRay Report Signed Patient: Dave Stephenson MR#: [id number] : 1945 Acct:[id number] Age/Sex: 79 / M ADM Date: 01/13/25 [...] Bar Jr., D.OReyes01/13/2025 12:32 PM Dictation Location: [facility]- Transcribed By: BEN 01/13/25 1232 Dictated By: Valdo Bar Jr, DO 01/13/25 1231 Signed By: 01/13/25 1232 Normal [facility] pH Test strip (U)Ordered By: Lam Menon on 01-13-2025 pH (U) pH of Urine by Test strip 5.0-9.[address] [facility] Outside Colonoscopyon 2022 Outside Colonoscopy [id number]#1.00TIFF Normal [facility] Lab Reportson 10-25-2023 Lab Reports [id number]#1.00TIFF Normal [facility] Consent for Procedure/Surger yon 10-18-2023 Consent for Procedure/Surgery [id number]#1.00TIFF Normal [facility] Facesheeton 10-18-2023 Facesheet [id number]#1.00TIFF Normal [facility] Ambulatory Visit Summaryon 1 12-18-2022 Ambulatory [...] for choosing us for your care. Normal [facility] Lab Reportson 10-04-2023 Lab Reports [id number]#1.00TIFF Normal [facility] Physician Referralon 023 Physician Referral [id number]#1.00TIFF Normal [facility] INSULINon 09-09-2022 Insulin 12.7 uIU/mL Normal 2.6-24.9 [facility] Comment on above: Performed By: #### I NSULIN #### [facility] [address] [place] [address] Dr. Zak Gutierrez OCC BLD IMMUNO SCREENon OCCULT BLOOD Negative Normal NEGATIVE [facility] Comment on above: Performed By: #### O BSCRN #### [facility] [address] [place] [address] Dr. Zak Gutierrez CBC AUTO DIFFon 09-08-2022 BASO # 0.0 103/ul Normal 0.0-0.1 [facility] Comment on above: Performed By: #### C BC #### [facility] [address] [place] [address] Dr. Zak Gutierrez Basophils/100 WBC (Bld) 0.4 % Normal 0.2-2.0 [facility] Comment on above: Performed By: #### C BC #### [facility] [address] [place] [address] Dr. Zak Gutierrez EO # 0.1 103/ul Normal 0.0-0.7 [facility] Comment on above: Performed By: #### C BC #### [facility] [address] [place] [address] Dr. Zak Gutierrez Eosinophils/100 WBC (Bld) 1.1 % Normal 0.9-7.0 [facility] Comment on above: Performed By: #### C BC #### [facility] [address] [place] [address] Dr. Zak Gutierrez Erythrocyte distribution width (RBC) [Ratio] 13.6 % Normal 11.0-15.0 [facility] Comment on above: Performed By: #### C BC #### [facility] [address] [place] [address] Dr. Zak Gutierrez Hematocrit (Bld) [Volume fraction] 40.0 % Critically low 42.0-54.0 [facility] Comment on above: Performed By: #### C BC #### [facility] [address] [place] [address] Dr. Zak Gutierrez Hemoglobin (Bld) [Mass/Vol] 12.7 g/dL Critically low 14.0-18.0 [facility] Comment on above: Performed By: #### C BC #### [facility] [address] [place] [address] Dr. Zak Gutierrez IG # 0.02 10e3/ul Normal 0.00-0.03 [facility] Comment on above: Performed By: #### C BC #### [facility] [address] [place] [address] Dr. Zak Gutierrez IG % 0.3 % Normal 0.0-0.5 [facility] Comment on above: Performed By: #### C BC #### [facility] [address] [place] [address] Dr. Zak Gutierrez LYMPH # 2.0 103/ul Normal 1.2-3.8 [facility] Comment on above: Performed By: #### C BC #### [facility] [address] [place] [address] Dr. Zak Gutierrez Lymphocytes/100 WBC (Bld) 27.5 % Normal 20.5-60.0 [facility] Comment on above: Performed By: #### C BC #### [facility] [address] [place] [address] Dr. Zak Gutierrez MANUAL DIFF REQ NO Normal [facility] Comment on above: Performed By: #### C BC #### [facility] [address] [place] [address] Dr. Zak Gutierrez MCH (RBC) [Entitic mass] 30.6 pg Normal 25.9-34.0 [facility] Comment on above: Performed By: #### C BC #### [facility] [address] [address] [address] Zak Gutierrez MCHC (RBC) [Mass/Vol] 31.8 g/dL Normal 29.9-35.2 [facility] Comment on above: Performed By: #### C BC #### [facility] [address] [address] [address] Zak Gutierrez MCV (RBC) [Entitic vol] 96.4 fL Critically high 80.0-94.0 [facility] Comment on above: Performed By: #### C BC #### [facility] [address] [address] [address] Zak Gutierrez MONO # 0.6 103/ul Normal 0.3-0.8 [facility] Comment on above: Performed By: #### C BC #### [facility] [address] [place] [address] Dr. Zak Gutierrez Monocytes/100 WBC (Bld) 8.4 % Normal 1.7-12.0 [facility] Comment on above: Performed By: #### C BC #### [facility] [address] [address] [address] Zak Gutierrez NEUT # 4.5 103/ul Normal 1.4-6.5 [facility] Comment on above: Performed By: #### C BC #### [facility] [address] [address] [address] Zak Gutierrez Neutrophils/100 WBC (Bld) 62.3 % Normal 43.0-75.0 [facility] Comment on above: Performed By: #### C BC #### [facility] [address] [address] [address] Zak Gutierrez Platelet mean volume (Bld) [Entitic vol] 10.9 fL Normal 9.5-13.5 [facility] Comment on above: Performed By: #### C BC #### [facility] [address] [address] [address] Zak Gutierrez PLT 184 103/ul Normal 150-450 [facility] Comment on above: Performed By: #### C BC #### [facility] [address] [address] [address] Zak Gutierrez RBC 4.15 106/ul Critically low 4.70-6.10 [facility] Comment on above: Performed By: #### C BC #### [facility] [address] [address] [address] Zak Gutierrez WBC 7.1 103/ul Normal 4.0-11.0 [facility] Comment on above: Performed By: #### C BC #### [facility] [address] [address] [address] Zak Gutierrez FREE THYROXINE INDEX T7on FTI 2.42 Normal 1.30-4.50 [facility] Comment on above: Performed By: #### C MP, T7, LIPID, URIC, TSH #### [facility] [address] [address] [address] Zak Gutierrez T3U 31.0 % Critically low 33.0-40.0 [facility] Comment on above: Performed By: #### C MP, T7, LIPID, URIC, TSH #### [facility] [address] [address] [address] Zak Gutierrez T4 [Mass/Vol] 7.80 ug/dL Normal 4.50-12.10 [facility] Comment on above: Performed By: #### C MP, T7, LIPID, URIC, TSH #### [facility] [address] [address] [address] Zak Gutierrez GLYCOHEMOGLOBIN A1Con 2021 ADA RECOMMENDATION SEE BELOW Normal [facility] Comment on above: Result Comment: ADA RECOMMENDED LIMIT 4.0 - 6.0 ADA THERAPEUTIC TARGET < 7.0 ACTION SUGGESTED > 7.0 Performed By: #### A 1C ####[facility] [address] [address]Dr. Zak Gutierrez Glucose [Mass/Vol] 140 mg/dL Normal [facility] Comment on above: Performed By: #### A 1C ####[facility] [address] [place], [place] [address]TdDr. Zak Gutierrez HbA1c (Bld) [Mass fraction] 6.5 % Critically high 4.5-6.2 [facility] Comment on above: Performed By: #### A 1C ####[facility] [address] [address]Dr. Zak Gutierrez LIPID PROFILEon 09-08-2022 CHOL-HDL RATIO NORM SEE BELOW Normal [facility] Comment on above: Result Comment: 3.3 - 4.4 LOW RISK 4.4 - 7.1 AVERAGE RISK 7.1 - 11.0 MODERATE RISK >11.0 HIGH RISK Performed By: #### C MP, T7, LIPID, URIC, TSH #### [facility] [address] [address] [address] Zak Gutierrez Cholesterol [Mass/Vol] 152 mg/dL Normal <=200 [facility] Comment on above: Performed By: #### C MP, T7, LIPID, URIC, TSH #### [facility] [address] [address] [address] Zak Gutierrez Cholesterol in HDL [Mass/Vol] 40 mg/dL Normal 40-60 [facility] Comment on above: Performed By: #### C MP, T7, LIPID, URIC, TSH #### [facility] [address] [address] [address] Zak Gutierrez Cholesterol in LDL [Mass/Vol] 81.8 mg/dL Normal [facility] Comment on above: Performed By: #### C MP, T7, LIPID, URIC, TSH #### [facility] [address] [address] [address] Zak Gutierrez Cholesterol.total/Chol esterol in HDL [Mass ratio] 3.8 {ratio} Normal [facility] Comment on above: Performed By: #### C MP, T7, LIPID, URIC, TSH #### [facility] [address] [address] [address] Zak Gutierrez HDL NORMAL > or = 60 mg/dl - LO W CARDIOVASCULAR RISK <40 mg/dl - HIGH CARDIOVASCULAR RISK Normal [facility] Comment on above: Performed By: #### C MP, T7, LIPID, URIC, TSH #### [facility] [address] [place] [address] Dr. Zak Gutierrez LDL CALC NORMAL SEE BELOW Normal [facility] Comment on above: Result Comment: <100 mg/dl OPTIMAL 100 - 129 mg/dl NEAR OR ABOVE OPTIMAL 130 - 159 mg/dl BORDERLINE HIGH 160 - 189 mg/dl HIGH >190 mg/dl VERY HIGH Performed By: #### C MP, T7, LIPID, URIC, TSH #### [facility] [address] [address] [address] Zak Gutierrez Triglyceride [Mass/Vol] 151 mg/dL Critically high <=150 [facility] Comment on above: Performed By: #### C MP, T7, LIPID, URIC, TSH #### [facility] [address] [place] [address] Dr. Zak Gutierrez VLDL CALC 30.2 mg/dL Normal [facility] Comment on above: Performed By: #### C MP, T7, LIPID, URIC, TSH #### [facility] [address] [place] [address] Dr. Zak Gutierrez PROF 14(COMP METB)on 022 Albumin [Mass/Vol] 3.7 g/dL Normal 3.4-5.0 [facility] Comment on above: Performed By: #### C MP, T7, LIPID, URIC, TSH #### [facility] [address] [place] [address] Dr. Zak Gutierrez Albumin/Globulin [Mass ratio] 0.8 {ratio} Normal [facility] Comment on above: Performed By: #### C MP, T7, LIPID, URIC, TSH #### [facility] [address] [place] [address] Dr. Zak Gutierrez ALP [Catalytic activity/Vol] 109 U/L Normal 46-116 [facility] Comment on above: Performed By: #### C MP, T7, LIPID, URIC, TSH #### [facility] [address] [place] [address] Dr. Zak Gutierrez ALT [Catalytic activity/Vol] 20 U/L Normal 16-63 [facility] Comment on above: Performed By: #### C MP, T7, LIPID, URIC, TSH #### [facility] [address] [place] [address] Dr. Zak Gutierrez Anion gap [Moles/Vol] 10.6 mmol/L Normal [facility] Comment on above: Performed By: #### C MP, T7, LIPID, URIC, TSH #### [facility] [address] [place] [address] Dr. Zak Gutierrez AST [Catalytic activity/Vol] 20 U/L Normal 15-37 [facility] Comment on above: Performed By: #### C MP, T7, LIPID, URIC, TSH #### [facility] [address] [place] [address] Dr. Zak Gutierrez Bilirubin [Mass/Vol] 0.7 mg/dL Normal 0.2-1.0 [facility] Comment on above: Performed By: #### C MP, T7, LIPID, URIC, TSH #### [facility] [address] [place] [address] Dr. Zak Gutierrez Calcium [Mass/Vol] 9.6 mg/dL Normal 8.5-10.1 [facility] Comment on above: Performed By: #### C MP, T7, LIPID, URIC, TSH #### [facility] [address] [place] [address] Dr. Zak Gutierrez Chloride [Moles/Vol] 102 mmol/L Normal 98-107 [facility] [place] [facility] Comment on above: Performed By: #### C MP, T7, LIPID, URIC, TSH #### [facility] [address] [place] [address] Dr. Zak Gutierrez CO2 [Moles/Vol] 30.2 mmol/L Normal 21.0-32.0 [facility] Comment on above: Performed By: #### C MP, T7, LIPID, URIC, TSH #### [facility] [address] [place] [address] Dr. Zak Gutierrez Creatinine [Mass/Vol] 1.46 mg/dL Critically high 0.70-1.30 [facility] Comment on above: Performed By: #### C MP, T7, LIPID, URIC, TSH #### [facility] [address] [place] [address] Dr. Zak Gutierrez EGFR-AF KITTITIAN 57 mL/min/1.73m2 Critically low >=60 [facility] Comment on above: Performed By: #### C MP, T7, LIPID, URIC, TSH #### [facility] [address] [place] [address] Dr. Zak Gutierrez EGFR-NON AF KITTITIAN 47 mL/min/1.73m2 Critically low >=60 [facility] Comment on above: Performed By: #### C MP, T7, LIPID, URIC, TSH #### [facility] [address] [place] [address] Dr. Zak Gutierrez Globulin (S) [Mass/Vol] 4.5 g/dL Normal [facility] Comment on above: Performed By: #### C MP, T7, LIPID, URIC, TSH #### [facility] [address] [place] [address] Dr. Zak Gutierrez Glucose [Mass/Vol] 84 mg/dL Normal 74-106 [facility] Comment on above: Performed By: #### C MP, T7, LIPID, URIC, TSH #### [facility] [address] [place] [address] Dr. Zak Gutierrez Potassium [Moles/Vol] 4.8 mmol/L Normal 3.5-5.1 [facility] Comment on above: Performed By: #### C MP, T7, LIPID, URIC, TSH #### [facility] [address] [place] [address] Dr. Zak Gutierrez Protein [Mass/Vol] 8.2 g/dL Normal 6.4-8.2 [facility] Comment on above: Performed By: #### C MP, T7, LIPID, URIC, TSH #### [facility] [address] [place] [address] Dr. Zak Gutierrez Sodium [Moles/Vol] 138 mmol/L Normal 136-145 [facility] Comment on above: Performed By: #### C MP, T7, LIPID, URIC, TSH #### [facility] [address] [address] [address] Zak Gutierrez Urea nitrogen [Mass/Vol] 25.0 mg/dL Critically high 7.0-18.0 [facility] Comment on above: Performed By: #### C MP, T7, LIPID, URIC, TSH #### [facility] [address] [address] [address] Zak Gutierrez Urea nitrogen/Creatinine [Mass ratio] 17.1 mg/mg Normal [facility] Comment on above: Performed By: #### C MP, T7, LIPID, URIC, TSH #### [facility] [address] [address] [address] Zak Gutierrez TSHon 09-08-2022 TSH 1.625 uIU/mL Normal 0.358-3.740 [facility] Comment on above: Performed By: #### C MP, T7, LIPID, URIC, TSH #### [facility] [address] [address] [address] Zak Gutierrez URIC ACID SERUMon 09-08-2022 Urate [Mass/Vol] 7.4 mg/dL Critically high 3.5-7.2 [facility] Comment on above: Performed By: #### C MP, T7, LIPID, URIC, TSH #### [facility] [address] [address] [address] Zak Gutierrez VITAMIN D 25 OHon 09-08-2022 VIT D 25-OH 24.0 ng/mL Normal [facility] Comment on above: Performed By: #### V PRASAD PSASC ####[facility] [address] [id number]. Zak Gutierrez VIT D RANGES SEE BELOW Normal [facility] Comment on above: Result Comment: <20 ng/mL Vit D deficient 20 - <30 ng/mL Vit D insufficient 30 - 100 ng/mL Vit D sufficient >100 ng/mL Potential Toxicity Performed By: #### Radha PARHAM PSASC ####[facility] [address] [id number]. Zak Gutierrez MRI LSPINE WO CONon 12-02-19 [...] LAKIA TORRES Date: 2021-12-02 16:16 Normal [facility] ER URINE PROFILEon 2 Bilirubin Ql (U) Negative Normal NEGATIVE [facility] Comment on above: Performed By: #### U MICRO, ERUR ####[facility] [address] [address]Dr. Zak Gutierrez Clarity (U) CLEAR Normal CLEAR [facility] Comment on above: Performed By: #### U MICRO, ERUR ####[facility] [address] [id number]. Zak Gutierrez Color (U) YELLOW Normal YELLOW [facility] Comment on above: Performed By: #### U MICRO, ERUR ####[facility] [address] [address]Dr. Zak CHRISTIANSONAHD A micrscopic examina tion will be performed if indicated. Normal [facility] Comment on above: Performed By: #### U MICRO, ERUR ####[facility] [address] [address]Dr. Zak Gutierrez Glucose Ql (U) Negative Normal NEGATIVE [facility] Comment on above: Performed By: #### U MICRO, ERUR ####[facility] [address] [place], [place] [address]Dr. Zak Gutierrez Hemoglobin Ql (U) SMALL Abnormal NEGATIVE [facility] Comment on above: Performed By: #### U MICRO, ERUR ####[facility] [address] [place], [place] [address]Dr. Zak Gutierrez Ketones Ql (U) Negative Normal NEGATIVE [facility] Comment on above: Performed By: #### U MICRO, ERUR ####[facility] [address] [place], [place] [address]Dr. Zak Gutierrez LEUKOCYTES TRACE Abnormal NEGATIVE [facility] Comment on above: Performed By: #### U MICRO, ERUR ####[facility] [address] [place], [place] [address]Dr. Zak Gutierrez Nitrite Ql (U) Negative Normal NEGATIVE [facility] Comment on above: Performed By: #### U MICRO, ERUR ####[facility] [address] [place], [place] [address]Dr. Zak Gutierrez pH (U) 6.0 [pH] Normal 5-9 [facility] Comment on above: Performed By: #### U MICRO, ERUR ####[facility] [address] [place], [place] [address]Dr. Zak Gutierrez Protein (U) [Mass/Vol] 30 mg/dL Abnormal NEGAT PRISCILA/ TRACE [facility] Comment on above: Performed By: #### U MICRO, ERUR ####[facility] [address] [place], [place] [address]Dr. Zak Gutierrez SPEC GRAVITY 1.025 Normal 1.005-<=1.0 25 [facility] Comment on above: Performed By: #### U MICRO, ERUR ####[facility] [address] [address]Dr. Zak Gutierrez UR MICRO IND INDICATED Normal [facility] Comment on above: Performed By: #### U MICRO, ERUR ####[facility] [address] [address]Dr. Zak Gutierrez Urobilinogen Qn (U) 0.2 {Kirt'U}/dL Normal 0.2 - 1. 0 [facility] Comment on above: Performed By: #### U MICRO, ERUR ####[facility] [address] [place], [place] [address]Dr. Zak Gutierrez URINE MICROSCOPIC ONLYon BACTERIA NONE SEEN Normal NONE SEEN [facility] Comment on above: Performed By: #### U MICRO, ERUR ####[facility] [address] [place], [place] [address]Dr. Zak Gutierrez Bacteria identified Cx Nom (U) NOT INDICATED Normal [facility] Comment on above: Performed By: #### U MICRO, ERUR ####[facility] [address] [place], [place] [address]Dr. Zak Gutierrez CAST SEEN Abnormal NONE SEEN [facility] Comment on above: Performed By: #### U MICRO, ERUR ####[facility] [address] [place], [place] [address]Dr. Zak Gutierrez Crystals LM Nom (Urine sed) NONE SEEN Normal NONE SEEN [facility] Comment on above: Performed By: #### U MICRO, ERUR ####[facility] [address] [place], [place] [address]Dr. Zak Gutierrez Epithelial cells LM Ql (Urine sed) FEW Abnormal NONE SEEN /RARE [facility] Comment on above: Performed By: #### U MICRO, ERUR ####[facility] [address] [place], [place] [address]Dr. Zak Gutierrez HYALINE CAST RARE Normal [facility] Comment on above: Performed By: #### U MICRO, ERUR ####[facility] [address] [place], [place] [address]So. Zak Gutierrez MUCOUS TRACE Abnormal NONE SEEN [facility] Comment on above: Performed By: #### U MICRO, ERUR ####[facility] [address] [place], [place] [address]Lq. Zak Gutierrez RBC 2-5 Abnormal 0-2 [facility] Comment on above: Performed By: #### U MICRO, ERUR ####[facility] [address] [place], [place] [address]Sn. Zak Gutierrez WBC 0-2 Abnormal NONE SEEN [facility] Comment on above: Performed By: #### U MICRO, ERUR ####[facility] [address] [id number]. Zak Gutierrez XR LSPINE 2_3 VIEWSon 2021 [...] SHELL THOMPSON Date: 2021-11-25 11:24 Normal [facility] Vital Signs Date Time Vital Sign Value Performing Clinician Faci camilley 01-13-2025 15:01-0400 Body temperature 99 [degF] Hi Vargas MD Work Phone: [facility] 01-13-2025 15:01-0400 Diastolic blood pressure 88 mm[Hg] Hi Vargas MD Work Phone: [facility] 01-13-2025 15:01-0400 Heart rate 65 /min Hi Vargas MD Work Phone: [facility] 01-13-2025 15:01-0400 Respiratory rate 16 /min Hi Vargas MD Work Phone: [facility] 01-13-2025 15:01-0400 SaO2% (BldA) [Mass fraction] 98 % Hi Vargas MD Work Phone: [facility] 01-13-2025 15:01-0400 Systolic blood pressure 182 mm[Hg] Hi Vargas MD Work Phone: [facility] 01-13-2025 11:50-0400 Body height 177.8 cm Hi Vargas MD Work Phone: [facility] 01-13-2025 11:50-0400 Body weight 86.18 kg Hi Vargas MD Work Phone: [facility] 10-17-2023 14:20-0500 Blood Pressure Location Donald BAUERL [facility] 10-17-2023 14:20-0500 Diastolic blood pressure 84 mm[Hg] Donald BAUERL [facility] 10-17-2023 14:20-0500 Heart rate 68 /min Donald NILL [facility] 10-17-2023 14:20-0500 Respiratory rate 16 /min Donald BAUERL [facility] 10-17-2023 14:20-0500 Systolic blood pressure 148 mm[Hg] Donald BAUERL [facility] Encounters Encounter Date Encounter Type Care Provider Facility Start: 01-13-2025 End: 01-13-2025 Emergency department patient visit Hi Vargas MD Work Phone: [facility] Work Phone: Start: 10-25-2023 End: 10-26-2023 ambulatory Donald EVERETT Facility:CD:[id number] Start: 10-17-2023 End: 10-18-2023 ambulatory Hi Vargas Facility:[facility] Start: 10-17-2023 End: 10-17-2023 Patient encounter procedure Donald EVERETT [facility] Start: 09-15-2023 ambulatory Hi Vargas Facility:[facility] [...] above: Performed By: #### V ITAD, PSASC ####[address] [address]Dr. Zak Matt Start: 12-28-2011 Colonoscopy Donald SALES LL Insertion of stent i nto ureter Donald NILL Plan of Treatment Date Care Activity Detail Author Patient Education [facility] Work Phone: Patient referral [facility] Work Phone: Immunizations Immunization Date Immunization Notes Care Provider Fa cility 08-26-2021 SARS-CoV-2 (COVID-19 ) mRNA BNT-162b2 vax Donald NILL [facility] 01-26-2021 SARS-CoV-2 (COVID-19 ) mRNA BNT-162b2 vax Donald NILL [facility] 01-04-2021 SARS-CoV-2 (COVID-19 ) mRNA BNT-162b2 vax Donald NILL [facility] NEGATED: Highlighted row has not occurred!10-17-2023 influenza virus vaccine, unspecified formulation Donald EVERETT [facility] Payers Date Payer Category Payer Self-pay 1960 Medicare [id number] 1960 Private Health Insurance CLI [id number] 1959 Private Health Insurance [facility] [id number] 1945 Unknown [id number] [id number] [id number] 1945 Unknown [id number] 2.16.84 [id number] 1945 Unknown [id number] 2.16.84 [id number] 1944 Unknown [id number] 2.16.84 [id number] 1945 Unknown [id number] 2.16.8 [id number] 1945 Unknown [id number] 2.16.8 [id number] Unknown [id number] 2.16.8 [id number] Social History Date Type Detail Facility Start: 10-17-2023 Tobacco smoking status Light t obacco smoker (finding) [facility] Tobacco smoking status Never [facility] Sex Assigned At Male [facility] Start: 01-13-2025 [facility] Start: 01-13-2025 Sex Male (finding) [facility] Start: 1945 Sex Assigned At Male [facility] Functional Status Date Assessment Result Facility [...] vax 01/04/2021 R (more content not included)... [facility] Comment on above: Result Comment: Elec tronically Signed By: MARGUERITE CASE, Donald Deutsch\.br\Date and Time Signed: 10/17/23 14:59 EST Evaluation + Plan note Note Date & Type Note Facility Evaluation + Plan note No data available for this section [facility] Evaluation note Note Date & Type Note Facility Evaluation note No assessment information availa ble [facility] Work Phone: Hospital Discharge instructions Note Date & Type Note Facility Hospital Discharge instructions No data available for this section [facility] Discharge instructions Note Date & Type Note Facility Hospital Discharge instructions Additional Instructions Follow-up with your primary care doctor Return to ED follow-up worsening symptoms or concerns [facility] Work Phone: Progress note Note Date & Type Note Facility Progress note No data available for this section [facility] Summary Purpose Family History No Family History [...] AUTHOR AUTHOR'S ORGANIZ ATION 11/02/2023 Theodore Ames [facility] DATE CREATED AUTHOR AUTHOR'S ORGANIZ ATION 01/26/2025 [facility] Patient Care team informatio n [...] BE BASED ON THE PRIMARY CLINICAL RECORDS. [facility] [employer] [facility]. provides no warranty or guarantee of the accuracy or completeness of information in this document.
== END 2025-05-20 10:07 | disposition home or self-care (01) ==
LOC: RAD 10:06
PROVIDERS: PCP Family Medicine; Visit Provider Family Medicine
DX: M54.9 Dorsalgia, unspecified (principal); M16.12 Unilateral primary osteoarthritis, left hip
CPT/HCPCS: 72110; 73502

== ENCOUNTER 2025-05-21 12:55 | Outpatient (RCR) | payer MEDICARE, SELFPAY | END 2025-05-23 16:33 | disposition home or self-care (01) | LOC: PT 12:55 | PROVIDERS: PCP Family Medicine; Visit Provider Family Medicine | DX: M25.559 Pain in unspecified hip (principal) | CPT/HCPCS: 97010; 97110; 97162; G0283 ==

== ENCOUNTER 2025-05-28 11:37 | Outpatient (RCR) | payer MEDICARE, SELFPAY ==
[2025-05-28 12:27] VITALS: BP 165/73; PULSE 55; TEMP 36.4; O2SAT 97
[2025-05-28] MEDS: 0.9 % SODIUM CHLORIDE 1,000 ML 500 ML IV (12:30)
== END 2025-06-05 23:59 | disposition home or self-care (01) ==
LOC: INF 11:37
PROVIDERS: PCP Family Medicine; Visit Provider Family Medicine
DX: E86.0 Dehydration (principal); R10.9 Unspecified abdominal pain; S22.079A Unspecified fracture of T9-T10 vertebra, initial encounter for closed fracture; K57.30 Diverticulosis of large intestine without perforation or abscess without bleeding
CPT/HCPCS: 74177; 96360; 96361; Q9966

== ENCOUNTER 2025-05-28 14:03 | Outpatient (OUT) | payer MEDICARE, SELFPAY ==
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
--- OUTSIDE RECORDS SUMMARY | 2025-05-21 06:21 | XMS_ITS ---
Author Organization [facility] in [place] Address [address] [place] [address] Care Team Providers Care Manager Customer Service Name Role Phone Sam Loco Primary Care Provider REASON FOR VISIT update dtr Medications Medication SIG (Take, Route, Frequency, Duration) Notes Start Date End Date Status Pantoprazole Sodium 40 MG 1 tablet 1/2 t o 1 hour before morning meal Orally Once a day for 30 days 05/21/2025 Active Encounters Encounter Location Date Provider Diagnosis [address] [address] 05/21/2025 Loco Vargas Plan Of Treatment Medication Medication Name Sig Start Date Stop Date Notes Pantoprazole Sodium 40 MG 1 tablet 1/2 t o 1 hour before morning meal Orally Once a day for 30 days 05/21/2025 glipiZIDE 10 MG 2 tablet 30 minutes before breakfast Orally Once a day Progress Notes * Dave STEPHENSON EDOB:[birth year] (79 yo M)Acc No.[id number]:05/21/2025 Patient: Jeannie BLAND Dave Juarez :1945 A ge:79 Y S ex:Male Address:[address] [place] [address] [address], [place] [address] * Refills Stop glipiZIDE Tablet, 10 MG, Orally, 2 tablet 30 minutes before breakfast, Once a day Start Pantoprazole Sodium Tablet Delayed Release, 40 MG, Orally, 30, 1 tablet 1/2 to 1 hour before morning meal, Once a day, 30 days, Refills=11 * true * Date: Generated for Va lockhart/Eileen/Mayte on: 0 05/28/2025 02:05 PM EDT
--- OUTSIDE RECORDS SUMMARY | 2025-05-26 11:15 | XMS_ITS ---
Author Organization The [facility] [place] Address [address] [place] [address] Care Team Providers Care Wax Pattern Repairer Name Role Phone Loco Vargas Primary Care Provider [phone] Allergies No Known Allergies REASON FOR VISIT pain is getting worse mid back , not eating/drinking much Medications Medication SIG (Take, Route, Frequency, Duration) Notes Start Date End Date Status Lisinopril 20 MG 1 tablet Orally Once a day for 30 days 04/15/2025 Active Meloxicam 10 MG 1 capsule Orally Onc e a day Active metFORMIN HCl 500 MG 2 tablet with a jarod l Orally Once a day for 90 days Active Metoprolol Succinate ER 50 MG 1 tablet O rally Once a day for 90 days Active Pantoprazole Sodium 40 MG 1 tablet 1/2 t o 1 hour before morning meal Orally Once a day for 30 days 05/21/2025 Active Glucose Lancets used to test blood sugar daily Dx E11.9 for 90 days 01/16/2025 Active Glucose Meter test blood sugar chanelle ly Dx:E11.9 for 365 days 01/16/2025 Active Glucose Test Strips test blood sugar chanelle ly DX E11.9 for 90 days 01/16/2025 Active Cholecalciferol 50 MCG (2000 UT) 1 tablet Orally Once a day Active Ferrous Sulfate 325 (65 Fe) MG 1 tablet Orally twice daily for 30 days 04/16/2025 Active HYDROcodone-Acetaminophen 5-325 MG 1 tablet as needed Orally every 6 hrs for 7 days 05/26/2025 Active traMADol HCl 50 MG 2 tablet as needed Orally tid for 7 days 05/19/2025 Active Aspir-Low 81 MG 1 tablet Orally Once a day Active Pioglitazone HCl 30 MG 1 tablet Orally O nce a day for 90 days Active Simvastatin 20 MG 1 tablet in the even ing Orally Once a day for 90 days Active Social History Tobacco Use: Social History [...] User Light cigarett e smoker ((1-9 cigs/day) AUDIT-C (Standard) Question Answer Notes Did you have a drink containing alcohol in the p ast year? No Points 0 Interpretation Negative Problems Problem Type SNOMED Code ICD Code Onset Dates Problem Status W/U Status Risk Notes Problem Abdominal pain (R10.9) Active confirmed Vital Signs Weight 168 lbs 05/26/2025 Height 70 in 05/26/2025 Blood pressure systolic 170 mm Hg 05/26/20 25 Blood pressure diastolic 102 mm Hg 025 BMI 24.1 kg/m2 05/26/2025 Encounters Encounter Location Date Provider Diagnosis [facility] [address] [place] [address] 05/26/2025 Loco Hoy Back pain M54.9 ; Lumbar radicular pain M54.16 and Abdominal pain R10.9 Assessments Encounter Date Diagnosis (ICD Code) Assessment Notes Treatment Notes Treatment Clinical Notes Section Notes 05/26/2025 Back pain (ICD-10 - M54.9) 05/26/2025 Lumbar radicular pain (ICD-10 - M54.16) 05/26/2025 Abdominal pain (ICD-10 - R10.9) Plan Of Treatment Medication Medication Name Sig Start Date Stop Date Notes HYDROcodone-Acetaminophen 5- 325 MG 1 tablet as needed Orally every 6 hrs for 7 days 05/26/2025 Pending Test Test Name Order Date CT ABD and PELV W CON 05/26/2025 MRI LSPINE WO CON 05/26/2025 Progress Notes * Dave STEPHENSON EDOB:[birth year] (79 yo M)Acc No.[id number]:05/26/2025 Progress Note Patient: Dave WOOD Provider: Keara Vargas ([facility])MD :1945 A ge:79 Y S ex:Male Date:05/26/2025 Address:[address] [place] [address] RO[address] [facility] [place], [id number] Check In:03:03 PM ESTCheck O ut:03:50 PM EST Subjective: * Chief Complaints: * P ain is getting worse mid back , not eating/drinking much * HPI: G eneral: Sugars are up - 150 - 160's - upo to 190 ow back pain - meds not helping even taking 2. 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 esia Modified On:02/14/2023 Status:confirmed N20.0 Kidney stones Modified On:02/14/2023 Status:confirmed M51.26 Herniated lumbar dis c without myelopathy Modified On:02/14/2023 Status:confirmed B02.9 Herpes zoster Modified On:02/14/2023 Status:confirmed K57.90 Diverticular disease Modified On:02/14/2023 Status:confirmed N40.0 Benign prostate hype rplasia Modified On:02/14/2023 Status:confirmed Z00.00 Encounter for [facility] e adult health examination Modified On:02/14/2023 Status:confirmed E11.9 Diabetes mellitus Modified On:04/12/2024W/U Status:confirmed I10 Primary hypertension Modified On:02/15/2023 Status:confirmed E11.9 Type 2 diabetes daryl itus without complications Modified On:02/15/2023 Status:confirmed 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 * Family History: F ather: , dementia, [...] User L ight cigarette smoker ((1-9 cigs/day) D rug/Alcohol: A SUZETTE-C (Standard) D id you have a drink containing alcohol in the past year? N o P oints 0 I nterpretation N egative * Medications: T akingAspir-Low 81 MG Tablet Delayed Release 1 tablet Orally Once a day Cholecalciferol 50 MCG (1999 UT) Tablet 1 tablet Orally Once a day Ferrous Sulfate 325 (65 Fe) MG Tablet 1 tablet Orally twice daily Glucose Lancets used to test blood sugar daily Dx E11.9 Glucose Meter test blood sugar daily Dx:E11.9 Glucose Test Strips test blood sugar daily DX E11.9 Lisinopril 20 MG Tablet 1 tablet Orally Once a day Meloxicam 10 MG Capsule 1 capsule Orally Once a day metFORMIN HCl 500 MG Tablet 2 tablet with a meal Orally Once a day Metoprolol Succinate ER 50 MG Tablet Extended Release 24 Hour 1 tablet Orally Once a day Pantoprazole Sodium 40 MG Tablet Delayed Release 1 tablet 1/2 to 1 hour before morning meal Orally Once a day Pioglitazone HCl 30 MG Tablet 1 tablet Orally Once a day Simvastatin 20 MG Tablet 1 tablet in the evening Orally Once a day traMADol HCl 50 MG Tablet 2 tablet as needed Orally tid Medication List reviewed and reconciled with the patientTaking Aspir-Low 81 MG Tablet Delayed Release 1 tablet Orally Once a day Taking Cholecalciferol 50 MCG (1999 UT) Tablet 1 tablet Orally Once a day Taking Ferrous Sulfate 325 (65 Fe) MG Tablet 1 tablet Orally twice daily Taking Glucose Lancets used to test blood sugar daily Dx E11.9 Taking Glucose Meter test blood sugar daily Dx:E11.9 Taking Glucose Test Strips test blood sugar daily DX E11.9 Taking Lisinopril 20 MG Tablet 1 tablet Orally Once a day Taking Meloxicam 10 MG Capsule 1 capsule Orally Once a day Taking metFORMIN HCl 500 MG Tablet 2 tablet with a meal Orally Once a day Taking Metoprolol Succinate ER 50 MG Tablet Extended Release 24 Hour 1 tablet Orally Once a day Taking Pantoprazole Sodium 40 MG Tablet Delayed Release 1 tablet 1/2 to 1 hour before morning meal Orally Once a day Taking Pioglitazone HCl 30 MG Tablet 1 tablet Orally Once a day Taking Simvastatin 20 MG Tablet 1 tablet in the evening Orally Once a day Taking traMADol HCl 50 MG Tablet 2 tablet as needed Orally tid Medication List reviewed and reconciled with the patient * Allergies: N .K.D.A.no[Allergies Verified] Objective: * Vitals: W t:168lbs, Ht: 70 in, BP:170/102mm Hg, BMI:24.1Index, Ht-cm: 177.8 cm, Wt-k.2 kg. * Examination: P hysical Exam: GENERAL: [...] both upper and lower bilateral extremities. NEUROLOGIC: waldo mezaly normal. SKIN: n o rashes, ulcerations, or suspicious lesions. LYMPH NODES: n o cervical adenopathy, nodes normal. MENTAL STATUS: a lert and oriented x3, normal mood and affect. Assessment: * Assessment: 1. B ack pain - M54.9 (Primary) 2 . L umbar radicular pain - M54.16 ? 3 . A bdominal pain - R10.9 Plan: * Treatment: 2. A bdominal pain I maging: CT ABD and PELV W CON * Procedure Codes: * Preventive Medicine: Screenings/Counseling: T OBACCO ACTION PLAN Patient counselled on the dangers of tobacco use and urged to quit. . * * Sign off status: Completed Visit Status: C HK (Check Out) true * Provider: Keara Vargas ([facility])MD Date: 05/26/2025 Generated for Printi ng/Faxing/eTransmitting on: 05/28/2025 02:05 PM EDT History and Physical Notes * HPI (History of Present Illness) Category Sub-Category Detail Notes Category Not es General Sugars are up - 150 - 160's - upo to 190 ow back pain - meds not helping even taking 2 Examination Category Sub-Category Detail Notes Category Not [...]
--- NOTE | 2025-05-28 14:05 | CT_ITS ---
The [address] [address] Patient Name: PARDEEP STEPHENSON MRN: [id number] date: 1945 Sex: M Assigned Patient Location: CT Current Patient Location: [facility] Accession/Order Number: [id number] Exam Date: 05/28/2025 15:32 Report Date: 05/28/2025 15:45 At the request of: HI KEYES MD Procedure: CT abdomen pelvis w con CT ABDOMEN AND PELVIS WITH INTRAVENOUS CONTRAST: CLINICAL HISTORY: Abdominal Pain COMPARISON: None TECHNIQUE: Spiral images were obtained through the abdomen and pelvis following the administration of intravenous contrast. This CT exam was performed using one or more following dose reduction techniques: Automated exposure control, adjustment of the mA and/or kV according to patient size, or use of iterative reconstruction technique. FINDINGS: Lung Bases: [Bibasilar atelectasis.] Organs:Liver granulomas. Gallbladder portal vein spleen pancreas and adrenal glands all appear unremarkable. Cystic changes involving the kidneys. Abdominal aorta appears normal in caliber.[ GI: Stomach appears grossly unremarkable. Presumed reflux contrast is seen involving the distal esophagus. Small bowel appears nondilated. Moderate stool burden. Colonic diverticulosis.[ Pelvis:[Urinary bladder diverticulosis with dependent calculi present. Prostatomegaly.] Peritoneum/Retroperitoneum:No free air or free fluid or lymphadenopathy.[ Abd wall/Bones:Abdominal wall demonstrates no acute findings. Osseous structures demonstrate degenerative change. There appears to be a mildly displaced fracture involving the spinous process of T9.[This is best seen on sagittal image 55. CT/CT abdomen pelvis w con IMPRESSION: Mildly displaced acute fracture involving the spinous process of T9. Colonic diverticulosis. Urinary bladder diverticulosis with multiple calculi present. Prostatomegaly. FINDINGS OF THIS REPORT WERE GIVEN TO THE OCCUPATIONAL HEALTH MANAGER STAFF FOR EXPEDITED RELAY OF RESULTS TO THE REFERRING CLINICIAN. Impression dictated by: Valdo Bar Jr., D.O. 05/28/2025 3:45 PM Dictation Location: [place] [address] Electronically authenticated by: [id number] Y Date: 05/28/2025 15:45
--- OUTSIDE RECORDS SUMMARY | 2025-05-28 14:05 | XMS_ITS | Patient Health Record ---
Author Organization The [facility] in [place] Address [address] [place] [address] Care Team Providers Care Cleaning Specialist Name Role Phone Loco Keyes Primary Care Provider Allergies No Known Allergies Results Component Value Reference Range Notes FERRITIN Reviewed date:04/16/2025 01:00:05 PM Interpretation: Performing Lab: Notes/Report: [facility] , Ferritin 37.0 26.0-388.0 ng/mL Performing Lab: see note ML - [facility] LB IRON Reviewed date:04/16/2025 01:00:05 PM Interpretation: Performing Lab: Notes/Report: [facility] , Iron 79.0 65.0-175.0 ug/dL Performing Lab: see note ML - [facility] LB PTT Reviewed date:04/16/2025 01:00:05 PM Interpretation: Performing Lab: Notes/Report: [facility] , Partial Thromboplastin Time 28.1 22.3-36.2 sec Performing Lab: see note ML - [facility] LB CBC AUTO DIFF Reviewed date:09/24/2024 11:15:21 AM Interpretation: Performing Lab: Notes/Report: [facility] , White Blood Count 6.9 [...] Performing Lab: see note ML - The [facility] FREE T3 Reviewed date:09/24/2024 08:35:11 PM Interpretation: Performing Lab: Notes/Report: [facility] , Free T3 2.74 2.18-3.98 pg/mL Performing Lab: see note ML - [facility] LB GLYCOHEMOGLOBIN A1C Reviewed date:09/24/2024 11:15:21 AM Interpretation: Performing Lab: Notes/Report: [facility] , Glycohemoglobin A1C 5.8 4.5-6.2 % ADA RECOMMENDED LIMIT 4.0 - 6.0 ADA THERAPEUTIC TARGET < 7.0 ACTION SUGGESTED > 7.0 Estimated Average Glucose 120 Performing Lab: see note ML - [facility] LB LIPID PROFILE Reviewed date:09/24/2024 08:35:11 PM Interpretation: Performing Lab: Notes/Report: [facility] , Triglycerides 94 <=150 mg/dL Cholesterol 147 <=200 mg/dL HDL Cholesterol 52 40-60 mg/dL > or =60 mg/dl - LOW CARDIOVASCULAR RISK <40 mg/dl - HIGH CARDIOVASCULAR RISK LDL Cholesterol Calculated 76.2 <100 mg/dl OPTIMAL 100-129 mg/dl NEAR OR ABOVE OPTIMAL 130-159 mg/dl BORDERLINE HIGH 160-189 mg/dl HIGH >190 mg/dl VERY HIGH VLDL CHOLESTEROL 18.8 Chol HDL Ratio 2.8 3.3 - 4.4 LOW RISK 4.4 - 7.1 AVERAGE RISK 7.1 - 11.0 MODERATE RISK >11.0 HIGH RISK Performing Lab: see note ML - [facility] LB T4 Reviewed date:09/24/2024 08:35:11 PM Interpretation: Performing Lab: Notes/Report: [facility] , T4 Thyroxine 8.80 4.50-12.10 ug/dL Performing Lab: see note ML - [facility] LB TSH Reviewed date:09/24/2024 08:35:11 PM Interpretation: Performing Lab: Notes/Report: [facility] , Thyroid Stimulating Hormone 1.701 0.358-3.740 uIU/mL Performing Lab: see note ML - [facility] LB URIC ACID SERUM Reviewed date:09/24/2024 08:35:11 PM Interpretation: Performing Lab: Notes/Report: [facility] , Uric Acid 7.2 3.5-7.2 mg/dL Performing Lab: see note ML - [facility] LB PSA Total+% Free Reviewed date:09/26/2024 02:55:44 PM Interpretation: Performing Lab: Notes/Report: [facility] , Prostate Specific Ag 4.2 0.0-4.0 ng/mL Mercedes ECLIA methodology. According to the [employer], Serum PSA should decrease and remain at undetectable levels after radical prostatectomy. The AUA defines biochemical recurrence as an initial PSA value 0.2 ng/mL or greater followed by a subsequent confirmatory PSA value 0.2 ng/mL or greater. Values obtained with different assay methods or kits cannot be used interchangeably. Results cannot be interpreted as absolute evidence of the presence or absence of malignant disease. PSA, Free 1.21 N/A ng/mL Mercedes ECLIA methodology. % Free PSA 28.8 . % The table below lists the probability of prostate cancer for men with non-suspicious NAIF results and total PSA between 4 and 10 ng/mL, by patient age (Gray et al, SOFIA 1998, 279:1542). % Free PSA 50-64 yr 65-75 yr 0.00-10.00% 56% 55% 10.01-15.00% 24% 35% 15.01-20.00% 17% 23% 20.01-25.00% 10% 20% >25.00% 5% 9% Please note: Gray et al did not make specific recommendations regarding the use of percent free PSA for any other population of men. Performed at: - [facility] [address] [id number] Transit Mixer Driver: Edouard Meng PhD, Phone: [phone] Performing Lab: see note - [facility] LB Occult Blood* Reviewed date:09/24/2024 08:35:11 PM Interpretation: Performing Lab: Notes/Report: [facility] , Occult Blood Positive Performing Lab: see note ML - [facility] LB PROF 14(COMP METB) Reviewed date:04/16/2025 01:00:05 PM Interpretation: Performing Lab: Notes/Report: [facility] , Sodium 141 136-145 mmol/L [...] 0.8 Performing Lab: see note ML - [facility] LB T4 Reviewed date:04/16/2025 01:00:05 PM Interpretation: Performing Lab: Notes/Report: [facility] , T4 Thyroxine 7.00 4.50-12.10 ug/dL Performing Lab: see note - [facility] LB TSH Reviewed date:04/16/2025 01:00:05 PM Interpretation: Performing Lab: Notes/Report: [facility] , Thyroid Stimulating Hormone 2.054 0.358-3.740 uIU/mL Performing Lab: see note - [facility] LB Prothrombin Time INR Reviewed date:04/16/2025 01:00:05 PM Interpretation: Performing Lab: Notes/Report: [facility] , Prothrombin Time 11.3 9.0-11.6 sec INR 1.07 DESIRED INR: 2.0-3.0 CONDITIONS NOT LISTED BELOW 2.5-3.5 FOR PROSTHETIC HEART VALVE REPLACEMENT 2.5-3.5 RECURRENT THROMBOSIS Performing Lab: see note - [facility] LB MR head/brain wo con Reviewed date:04/22/2025 12:50:56 PM Interpretation: Performing Lab: Notes/Report: Source Facility: [place] [address] Magnetic Resonance Report Signed Patient: DAVE STEPHENSON MR#: [id number] : 1945 Acct:[id number] Age/Sex: 79 / M ADM Date: 04/22/25 Loc: MRI Attending Dr: Hi Keyes M.D. Ordering Physician: Hi Keyes M.D. Date of Service: 04/22/25 Procedure(s): MR head/brain wo con Accession Number(s): [id number] cc: Hi Keyes M.D. [place] [address] Patient Name: DAVE STEPHENSON MRN: [id number]:[id number] date: 1945 Sex: M Assigned Patient Location: MRI Current Patient Location: MRI Accession/Order Number: [id number] Exam Date: 04/22/2025 11:12 Report Date: 04/22/2025 [...] Lucas M.D. 04/22/2025 11:21 AM Dictation Location: [place] [address] Electronically authenticated by: [id number] Y Date: 04/22/2025 11:21 Dictated By: Nazia Lucas M.D. Signed By: 04/22/25 1124 DD/ 1121 TD/TT: Developmental Services Worker: [place] [address] Magnetic Resonance Report Signed Patient: KRISTOPHER STEPHENSON MR#: [id number] : 1945 Acct:[id number] Age/Sex: 79 / M ADM Date: 04/22/25 Loc: MRI Attending Dr: Shanika Keyes M.D. Ordering Physician: Hi Keyes M.D. Date of Service: 04/22/25 Procedure(s): MR head/brain wo con Accession Number(s): [id number] cc: Hi Keyes M.D. [address] [address] Patient Name: DAVE STEPHENSON MRN: [id number] date: 1945 Sex: M Assigned Patient Location: MRI Current Patient Loca tion: MRI Accession/Order Numb er: [id number] Exam Date: 04/22/2025 11:12 Report Date: 04/22/2025 [...] Lucas M.D. 04/22/2025 11:21 AM Dictation Location: [place] [address] Electronically authenticated by: [id number] Y Date: 04/22/2025 11:21 Dictated By: Nazia Lucas M.D. Signed By: 04/22/25 1124 DD/ 1121 TD/TT: Developmental Services Worker: CBC AUTO DIFF Reviewed date:05/18/2025 04:18:29 PM Interpretation: Performing Lab: Notes/Report: [facility] , White Blood Count 7.3 4.0-11.0 10 3/uL Red Blood Count 3.48 4.70-6.10 10 6/uL Hemoglobin 11.2 14.0-18.0 g/dL Hematocrit 33.0 42.0-54.0 % Mean Corpuscular Volume 94.8 80.0-94.0 fL Mean Corpuscular Hemoglobin 32.2 25.9-34.0 pg Mean Corpuscular HGB Conc 33.9 29.9-35.2 g/dL Red Cell Distribution Width 13.9 11.0-15.0 % Platelet Count 163 150-450 10 3/uL Mean Platelet Volume 11.2 9.5-13.5 fL Neutrophils Percent Auto 78.1 43.0-75.0 % Lymphocytes Percent Auto 13.6 20.5-60.0 % Monocytes Percent Auto 7.7 1.7-12.0 % Eosinophils Percent Auto 0.4 0.9-7.0 % Basophils Percent Auto 0.1 0.2-2.0 % Immature Granulocytes Pct Auto 0.1 0.0-0.5 % Neutrophils Absolute Auto 5.7 1.4-6.5 10 3/uL Lymphocytes Absolute Auto 1.0 1.2-3.8 10 3/uL Monocytes Absolute Auto 0.6 0.3-0.8 10 3/uL Eosinophils Absolute Auto 0.0 0.0-0.7 10 3/uL Basophils Absolute Auto 0.0 0.0-0.1 10 3/uL Immature Granulocytes Abs Auto 0.01 0.00-0.03 10 3/uL Performing Lab: see note ML - [facility] LB PROF 14(COMP METB) Reviewed date:05/18/2025 04:18:29 PM Interpretation: Performing Lab: Notes/Report: [facility] , Sodium 140 136-145 mmol/L Potassium 4.5 3.5-5.1 mmol/L Chloride 104 98-107 mmol/L Carbon Dioxide 25.9 21.0-32.0 mmol/L Anion Gap 14.6 Glucose 144 74-106 mg/dL Blood Urea Nitrogen 39.0 7.0-18.0 mg/dL Creatinine 1.76 0.70-1.30 mg/dL Estimated GFR ( Cami 45 >=60 mL/min/1.73m 2 Estimated GFR (Non- Chelita 37 >=60 mL/min/1.73m 2 BUN Creatinine Ratio 22.2 Calcium 9.3 8.5-10.1 mg/dL Bilirubin Total 0.7 0.2-1.0 mg/dL Aspartate Amino Transferase 19 15-37 U/L Alanine Aminotransferase 14 16-63 U/L Alkaline Phosphatase 88 46-116 U/L Total Protein 7.8 6.4-8.2 g/dL Albumin Level 3.2 3.4-5.0 g/dL Globulin 4.6 Albumin Globulin Ratio 0.7 Performing Lab: see note ML - [facility] LB ECG 12 lead Reviewed date:05/20/2025 08:59:54 PM Interpretation: Performing Lab: Notes/Report: Source Facility: [facility]-[address] [place] [address] [place] [address] Electrocardiograph Report Signed Patient: DAVE STEPHENSON MR#: [id number] : 1945 Acct:[id number] Age/Sex: 79 / M ADM Date: 05/16/25 Loc: ER Attending Dr: Ordering Physician: Elizabeth Jasso Date of Service: 05/16/25 Procedure(s): ECG 12 lead Accession Number(s): [id number] cc: [facility] Test Date: 2025-05-16 Pat Name: DAVE STEPHENSON Department: Room: - Gender: Male Financial Aid Coordinator: : 1945 Requested By: 1854 Order Number: [id number] Reading MD: JOANN CARBONE Measurements Intervals [place] Rate: 53 P: 63 [place]: 338 QRS: 41 QRSD: 80 T: 117 QT: 454 QTc: 438 Interpretive Statements 1100 Sinus rhythm 2231 First degree AV block 4364 T wave abnormality, possible anterolateral ischemia 9150 abnormal ECG No previous ECG available for comparison Electronically Signed On 05-20-2025 16:10:29 EDT by JOANN CARBONE Dictated By: Joann Carbone M.D. Signed By: 05/20/25 1610 DD/ 1021 TD/TT: Developmental Services Worker: [place] [address] Electrocardiograph Report Signed Patient: KRISTOPHER STEPHENSON MR#: [id number] : 1945 Acct:[id number] Age/Sex: 79 / M ADM Date: 05/16/25 Loc: ER Attending Dr: Ordering Physician: Elizabeth Jasso Date of Service: 05/16/25 Procedure(s): ECG 12 lead Accession Number(s): [id number] cc: [facility] Test Date: 2025-05-16 Pat Name: DAVE BELCHER Department: 076 Room: - Gender: Male Financial Aid Coordinator: : 1945 Requ ested By: 1853 Order Number: [id number] Reading MD: JOANN CARBONE Measurements Intervals [place] Rate: 53 P: 63 [place]: 338 QRS: 41 QRSD: 80 T: 117 QT: 454 QTc: 438 Interpretive Statements 1100 Sinus rhythm 2231 First degree AV block 4364 T wave abnormal ity, possible anterolateral ischemia 9150 abnormal ECG No previous ECG avai lable for comparison Electronically Sole d On 05-20-2025 16:10:29 EDT by JOANN CARBONE Dictated By: Joann Carbone M.D. Signed By: 05/20/25 1610 DD/ 1021 TD/TT: Developmental Services Worker: CT head/brain wo con Reviewed date:05/18/2025 04:18:29 PM Interpretation: Performing Lab: Notes/Report: Source Facility: [place] [address] CT Scan Report Signed Patient: DAVE STEPHENSON MR#: [id number] : 1945 Acct:[id number] Age/Sex: 79 / M ADM Date: 05/16/25 Loc: ER Attending Dr: Ordering Physician: Elizabeth Jasso Date of Service: 05/16/25 Procedure(s): CT head/brain wo con Accession Number(s): [id number] cc: Hi Keyes M.D. [place] [address] Patient Name: DAVE STEPHENSON MRN: [id number] date: 1945 Sex: M Assigned Patient Location: ER Current Patient Location: ER Accession/Order Number: [id number] Exam Date: 05/16/2025 11:11 Report Date: 05/16/2025 11:14 At the request of: ELIZABETH JASSO MD Procedure: CT head/brain wo con CT BRAIN WITHOUT CONTRAST: CLINICAL HISTORY: Patient was hypoglycemic and fell. COMPARISON: MRI 04/22/2025 TECHNIQUE: Contiguous axial unenhanced images were obtained through the brain. This CT exam was performed using one or more following dose reduction techniques: Automated exposure control, adjustment of the mA and/or kV according to patient size, or use of iterative reconstruction technique. FINDINGS: There is generalized atrophy. The ventricles are within normal limits for size and position. Mild to moderate microvascular changes are again noted. 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 There are no additional areas of abnormal attenuation. There is no hemorrhage, mass effect or extra-axial collections. The calvarium is intact. There is mild ethmoid and left maxillary mucosal thickening. Mastoid air cells are clear. Carotid siphon plaque the vertebral artery plaque is seen. CT/CT head/brain wo con IMPRESSION: ATROPHY AND CHRONIC ISCHEMIC CHANGES. NO ACUTE INTRACRANIAL TRAUMA. Impression dictated by: Nazia Lucas M.D. 05/16/2025 11:14 AM Dictation Location: [place] [address] Electronically authenticated by: [id number] Y Date: 05/16/2025 11:14 Dictated By: Nazia Lucas M.D. Signed By: 05/16/25 1117 DD/ 1114 TD/TT: Developmental Services Worker: [place] [address] CT Scan Report Signed Patient: KRISTOPHER STEPHENSON MR#: [id number] : 1945 Acct:[id number] Age/Sex: 79 / M ADM Date: 05/16/25 Loc: ER Attending Dr: Ordering Physician: Elizabeth Jasso Date of Service: 05/16/25 Procedure(s): CT head/brain wo con Accession Number(s): [id number] cc: Hi Keyes M.D. The [address] [address] Patient Name: DAVE STEPHENSON MRN: [id number] date: 1945 Sex: M Assigned Patient Location: ER Current Patient Loca tion: ER Accession/Order Numb er: [id number] Exam Date: 05/16/2025 11:11 Report Date: 05/16/2025 11:14 At the request of: ELIZABETH JASSO MD Procedure: CT head/b rain wo con CT BRAIN WITHOUT CONTRAST: CLINICAL HISTORY: August suarez was hypoglycemic and fell. COMPARISON: MRI 04/22/2025 TECHNIQUE: Juan bustillo axial unenhanced images were obtained through the brain. This CT exam was performed using one or more following dose reduction techniques: Automate d exposure control, adjustment of the mA and/or kV according to patient size, or use of iterative reconstruction technique. FINDINGS: There is generalized atrophy. The ventricles are within normal limits for size and position. Mild to moderate microvascular changes are again noted. 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 There are n o additional areas of abnormal attenuation. There is no hemorrhage, mass eff ect or extra-axial collections. The calvarium is intact. There is mild ethmoi d and left maxillary mucosal thickening. Mastoid air cells are clear. Car otid siphon plaque the vertebral artery plaque is seen. C T/CT head/brain wo con IMPRESSION: ATROPHY AND CHRONIC ISCHEMIC CHANGES. NO ACUTE INTRACRANIA L TRAUMA. Impression dictated by: Nazia Lucas M.D. 05/16/2025 11:14 AM Dictation Location: [place] [address] Electronically authenticated by: [id number] Y Date: 05/16/2025 11:14 Dictated By: Nazia Lucas M.D. Signed By: 05/16/25 1117 DD/ 1114 TD/TT: Developmental Services Worker: CT lumbar spine wo con Reviewed date:05/18/2025 04:18:29 PM Interpretation: Performing Lab: Notes/Report: Source Facility: [place] [address] [place] [address] CT Scan Report Signed Patient: DAVE STEPHENSON MR#: [id number] : 1945 Acct:[id number] Age/Sex: 79 / M ADM Date: 05/16/25 Loc: ER Attending Dr: Ordering Physician: Elizabeth Jasso Date of Service: 05/16/25 Procedure(s): CT lumbar spine wo con Accession Number(s): [id number] cc: Hi Keyes M.D. The [place] [address] Patient Name: DAVE STEPHENSON MRN: [facility]:[id number] date: 1945 Sex: M Assigned Patient Location: ER Current Patient Location: ER Accession/Order Number: [id number] Exam Date: 05/16/2025 11:14 Report Date: 05/16/2025 11:26 At the request of: ELIZABETH JASSO MD Procedure: CT lumbar spine wo con CT LUMBAR SPINE WITHOUT CONTRAST WITH RECONSTRUCTIONS COMPARISON: MRI 12/02/2021 CLINICAL DATA: Patient fell and has back pain. Spiral images were obtained through the lumbar spine without contrast. Sagittal and coronal reconstructions were reviewed. This CT exam was performed using one or more following dose reduction techniques: Automated exposure control, adjustment of the mA and/or kV according to patient size, or use of iterative reconstruction technique. There is osteopenia. Subtle dextroscoliotic curvature is seen. There is partial lumbarization of S1. There is no acute compression fracture. There is minimal retrolisthesis of L3 on L4. The disc spaces are maintained. Moderate endplate spurring is seen. There is lower lumbar facet hypertrophy. There is lumbosacral neural foraminal narrowing, right side worse than left. 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 No sacral or pelvic fractures are identified in the field of view. No paraspinal soft tissue abnormalities are seen. There is bilateral adrenal limb thickening. Perinephric fibrofatty stranding is noted. There are bilateral renal hypodensities suggesting cysts. There are also bilateral renal stones, right greater than left. No hydronephrosis is identified. There is atherosclerotic plaque at the aorta and iliac arteries. CT/CT lumbar spine wo con IMPRESSION: OSTEOPENIA, SUBTLE SCOLIOSIS AND MULTILEVEL DEGENERATIVE CHANGES. NO ACUTE BONY INJURY. Impression dictated by: Nazia Lucas M.D. 05/16/2025 11:26 AM Dictation Location: [place] [address] Electronically authenticated by: [id number] Y Date: 05/16/2025 11:26 Dictated By: Nazia Lucas M.D. Signed By: 07/09/309 DD/ TD/TT: Developmental Services Worker: The [address] [address] [address] Scan Report Signed Patient: KRISTOPHER STEPHENSON MR#: [id number] : 1945 Acct:[id number] Age/Sex: 79 / M ADM Date: 05/16/25 Loc: ER Attending Dr: Ordering Physician: Elizabeth Jasso Date of Service: 05/16/25 Procedure(s): CT lum bar spine wo con Accession Number(s): [id number] cc: Hi Keyes M.D. The [place] [id number] Patient Name: DAVE STEPHENSON MRN: [id number] date: 1945 Sex: M Assigned Patient Location: ER Current Patient Loca tion: ER Accession/Order Numb er: [id number] Exam Date: 05/16/2025 11:14 Report Date: 05/16/2025 11:26 At the request of: ELIZABETH JASSO MD Procedure: CT lumbar spine wo con CT LUMBAR SPINE WITH OUT CONTRAST WITH RECONSTRUCTIONS COMPARISON: MRI 12/02/2021 CLINICAL DATA: Patie nt fell and has back pain. Spiral images were obtained through the lumbar spine without contrast. Sagittal and coronal reconstructions were reviewed. This CT exam was performed using one or more following dose reduction techniques: Automated exposure control, adjustment of the mA and/or kV according to patient size, or use of iterative reconstruction technique. There is osteopenia. Subtle dextroscoliotic curvature is seen. There is partial lumbarizatio n of S1. There is no acute compression fracture. There is minimal retrolist hesis of L3 on L4. The disc spaces are maintained. Moderate endplate spurring is seen. There is lower lumbar facet hypertrophy. There is lumbosacral neural foraminal narrowing, right side worse than left. 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 No sacral or pelvic fractures are identified in the field of view. No paraspinal soft tiss ue abnormalities are seen. There is bilateral adrenal limb thickening. Perinephric fibrofatty stranding is noted. There are bilateral renal hypodensities suggesting cysts. There are also bilateral renal stones, right greater than left. No hydronephrosis is identified. There is atheroscler otic plaque at the aorta and iliac arteries. C T/CT lumbar spine wo con IMPRESSION: OSTEOPENIA, SUBTLE SCOLIOSIS AND MULTILEVEL DEGENERATIVE CHANGES. NO ACUTE BONY INJURY. Impression dictated by: Nazia Lucas M.D. 05/16/2025 11:26 AM Dictation Location: [place] [address] Electronically authenticated by: [id number] Y Date: 05/16/2025 11:26 Dictated By: Nazia Lucas M.D. Signed By: 05/16/25 1129 DD/ 1126 TD/TT: Developmental Services Worker: XR hip LT 2V w/ pelvis Reviewed date:05/20/2025 08:59:54 PM Interpretation: Performing Lab: Notes/Report: Source Facility: [place] [address] XRay Report Signed Patient: DAVE STEPHENSON MR#: [id number] : 1945 Acct:[id number] Age/Sex: 79 / M ADM Date: 05/20/25 Loc: [facility] Attending Dr: Hi Keyes M.D. Ordering Physician: Hi Keyes M.D. Date of Service: 05/20/25 Procedure(s): XR hip LT 2V w/ pelvis Accession Number(s): [id number] cc: Hi Keyes M.D. [place] [address] Patient Name: DAVE STEPHENSON MRN: [id number] date: 1945 Sex: M Assigned Patient Location: [facility] Current Patient Location: [facility] Accession/Order Number: [id number] Exam Date: 05/20/2025 12:17 Report Date: 05/20/2025 12:19 At the request of: HI KEYES MD Procedure: XR hip LT 2V w/ pelvis Single frontal view pelvis and 2 views left hip INDICATION: Back pain COMPARISON: None FINDINGS: Moderate to severe degenerative changes left hip with marginal osteophytosis and spurring. Vtvj-xk-[id number] degenerative changes right hip. Degenerative changes both sacroiliac joints. No diastases of the sacroiliac joints or pubic symphysis. XR/XR hip LT 2V w/ pelvis Impression: Moderate severe degenerative changes left hip. No fracture or dislocation. Impression dictated by: Ga Bañuelos M.D. 05/20/2025 12:19 PM Dictation Location: [place] [address] Electronically authenticated by: [id number] Y Date: 05/20/2025 12:19 Dictated By: Ga Bañuelos M.D. Signed By: 05/20/25 1221 DD/ 1219 TD/TT: Developmental Services Worker: [place] [address] XRay Report Signed Patient: RKISTOPHER STEPHENSON MR#: [id number] : 1945 Acct:[id number] Age/Sex: 79 / M ADM Date: 05/20/25 Loc: [facility] Attending Dr: Shanika Keyes M.D. Ordering Physician: Hi Keyes M.D. Date of Service: 05/20/25 Procedure(s): XR hip LT 2V w/ pelvis Accession Number(s): [id number] cc: Hi Keyes M.D. [place] [id number] Patient Name: DAVE STEPHENSON MRN: [id number] date: 1945 Sex: M Assigned Patient Location: [facility] Current Patient Loca tion: RAD Accession/Order Numb er: [id number] Exam Date: 05/20/2025 12:17 Report Date: 05/20/2025 12:19 At the request of: HI KEYES MD Procedure: XR hip LT 2V w/ pelvis Single frontal view pelvis and 2 views left hip INDICATION: Back pain COMPARISON: None FINDINGS: Moderate t o severe degenerative changes left hip with marginal osteophytosis and spurring. Odbk-[id number] degenerative changes right hip. Degenerative changes both sacroiliac joints. No diastases of the sacroiliac joints or pubic symphysis. X R/XR hip LT 2V w/ pelvis Impression: Moderate severe degenerative changes left hip. No fracture or dislocation. Impression dictated by: Ga Bañuelos M.D. 05/20/2025 12:19 PM Dictation Location: [place] [address] Electronically authenticated by: [id number] Y Date: 05/20/2025 12:19 Dictated By: Tabitha Bañuelos M.D. Signed By: 05/20/25 1221 DD/ 1219 TD/TT: Developmental Services Worker: XR lumbar spine min 4V Reviewed date:05/20/2025 08:59:54 PM Interpretation: Performing Lab: Notes/Report: Source Facility: [place] [address] XRay Report Signed Patient: DAVE STEPHENSON MR#: [id number] : 1945 Acct:[id number] Age/Sex: 79 / M ADM Date: 05/20/25 Loc: [facility] Attending Dr: Hi Keyes M.D. Ordering Physician: Hi Keyes M.D. Date of Service: 05/20/25 Procedure(s): XR lumbar spine min 4V Accession Number(s): [id number] cc: Hi Keyes M.D. [place] [address] Patient Name: DAVE STEPHENSON MRN: [id number] date: 1945 Sex: M Assigned Patient Location: [facility] Current Patient Location: [facility] Accession/Order Number: [id number] Exam Date: 05/20/2025 12:19 Report Date: 05/20/2025 12:22 At the request of: HI KEYES MD Procedure: XR lumbar spine min 4V LUMBAR SPINE - 5 views CLINICAL HISTORY: Back Pain COMPARISON: CT lumbar spine 05/16/2025 FINDINGS: Multilevel flowing anterior ossification identified throughout the thoracic spine can be seen with underlying DISH. This fusion of both sacroiliac joints better seen comparison. Multilevel voxy-ng-coauntbo intervertebral space narrowing with endplate osteophytosis. Lumbarization of S1. Moderate severe facet arthropathy L4-S1. XR/XR lumbar spine min 4V IMPRESSION: NO ACUTE BONY INJURY. 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 05/20/2025 12:22 PM Dictation Location: [place] [address] Electronically authenticated by: [id number] Y Date: 05/20/2025 12:22 Dictated By: Ga Bañuelos M.D. Signed By: 05/20/25 1224 DD/ 1222 TD/TT: Developmental Services Worker: [place] [address] XRay Report Signed Patient: KRISTOPHER STEPHENSON MR#: [id number] : 1945 Acct:[id number] Age/Sex: 79 / M ADM Date: 05/20/25 Loc: [facility] Attending Dr: Shanika Keyes M.D. Ordering Physician: Hi Keyes M.D. Date of Service: 05/20/25 Procedure(s): XR lum bar spine min 4V Accession Number(s): [id number] cc: Hi Keyes M.D. [place] [id number] Patient Name: DAVE STEPHENSON MRN: [id number] date: 1945 Sex: M Assigned Patient Location: [facility] Current Patient Loca tion: [facility] Accession/Order Numb er: [id number] Exam Date: 05/20/2025 12:19 Report Date: 05/20/2025 12:22 At the request of: HI KEYES MD Procedure: XR lumbar spine min 4V LUMBAR SPINE - 5 views CLINICAL HISTORY: Ba ck Pain COMPARISON: CT lumba r spine 05/16/2025 FINDINGS: Multilevel flowing anterior ossification identified throughout the thoracic spine can be seen wi th underlying DISH. This fusion of both sacroiliac joints better seen comparis on. Multilevel fxtl-xy-optpxetl intervertebral space narrowing with endpl ate osteophytosis. Lumbarization of S1. Moderate severe facet arthropathy L4-S1. X R/XR lumbar spine min 4V IMPRESSION: NO ACUTE BONY INJURY . 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 05/20/2025 12:22 PM Dictation Location: [place] [address] Electronically authenticated by: [id number] Y Date: 05/20/2025 12:22 Dictated By: Tabitha Bañuelos M.D. Signed By: 05/20/25 1224 DD/ 1222 TD/TT: Developmental Services Worker: FREE T3 Reviewed date:04/16/2025 01:00:05 PM Interpretation: Performing Lab: Notes/Report: [facility] , Free T3 2.48 2.18-3.98 pg/mL Performing Lab: see note ML - [facility] LB CBC AUTO DIFF Reviewed date:04/16/2025 01:00:05 PM Interpretation: Performing Lab: Notes/Report: [facility] , White Blood Count 7.0 [...] 3/uL Performing Lab: see note ML - [facility] PSA SCREENING Reviewed date:09/24/2024 08:35:11 PM Interpretation: Performing Lab: Notes/Report: [facility] , Prostate Specific Antigen Scrn 4.42 <=4.00 ng/mL Performing Lab: see note - [facility] PROF 14(COMP METB) Reviewed date:09/24/2024 08:35:11 PM Interpretation: Performing Lab: Notes/Report: [facility] , Sodium 140 136-145 mmol/L [...] 0.7 Performing Lab: see note ML - [facility] GLYCOHEMOGLOBIN A1C Reviewed date:05/18/2025 04:18:29 PM Interpretation: Performing Lab: Notes/Report: [facility] , Glycohemoglobin A1C 5.6 4.5-6.2 % ADA RECOMMENDED LIMIT 4.0 - 6.0 ADA THERAPEUTIC TARGET < 7.0 ACTION SUGGESTED > 7.0 Estimated Average Glucose 114 Performing Lab: see note ML - [facility] Reason For Referral Diagnosis 1 Hip pain (M25.559) Referral Organization [facility] Medicine Referring Provider First Name Loco Referring Provider Last Name Sam Referring Provider Speciality Family Med patricia Referred Provider [facility], Physical Therap y Referred Provider Specialty Physical The rapist Referral Priority Routine Medications Medication SIG (Take, Route, Frequency, Duration) Notes Start Date End Date Status Pantoprazole Sodium 40 MG 1 tablet 1/2 t o 1 hour before morning meal Orally Once a day for 30 days 05/21/2025 Active Aspir-Low 81 MG 1 tablet Orally Once a day Active Pioglitazone HCl 30 MG 1 tablet Orally O nce a day for 90 days Active Cholecalciferol 50 MCG (2000 UT) 1 tablet Orally Once a day Active Simvastatin 20 MG 1 tablet in the even ing Orally Once a day for 90 days Active Ferrous Sulfate 325 (65 Fe) MG 1 tablet Orally twice daily for 30 days 04/16/2025 Active Lisinopril 20 MG 1 tablet Orally Once a day for 30 days 04/15/2025 Active Meloxicam 10 MG 1 capsule Orally Onc e a day Active metFORMIN HCl 500 MG 2 tablet with a jarod l Orally Once a day for 90 days Active HYDROcodone-Acetaminophen 5-325 MG 1 tablet as needed Orally every 6 hrs for 7 days 05/26/2025 Active Metoprolol Succinate ER 50 MG 1 tablet O rally Once a day for 90 days Active traMADol HCl 50 MG 2 tablet as needed Orally tid for 7 days 05/19/2025 Active Glucose Lancets used to test blood sugar daily Dx E11.9 for 90 days 01/16/2025 Active Glucose Meter test blood sugar chanelle ly Dx:E11.9 for 365 days 01/16/2025 Active Glucose Test Strips test blood sugar chanelle ly DX E11.9 for 90 days 01/16/2025 Active Immunizations Vaccine Route Administration Date Status Comme nts Flu, Fluad (39744) 65 yrs and older, single-dose syringe IM Intramuscular 09/24/2024 Administered Flu, Fluad (00050) 65 yrs+, single-dose syringe (9228-8017) IM Intramuscular 09/11/2023 Administered Social History Tobacco [...] W/U Status Risk Notes Problem Vaccination given (500778749) Encounter for immunization (Z23) Active confirmed Problem 239841461 Type 2 diabetes mellitus without complications (E11.9) Active confirmed Problem Tinea corporis (89438589) Tinea corporis (B35.4) Active confirmed Problem 14402457 Hyperkalemia (E87.5) Active confirmed Problem Transient global amnesia (601248326) 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 confirmed Problem 09952501513914120 Acute kidney f ailure, unspecified (N17.9) Active confirmed Problem 398858296 FPC (curre nt) use of insulin (Z79.4) Active confirmed Problem Hypertension (52510264) Hypertension (I10) Active confirmed Problem Electrocardiogram abnormal (374878709) Abnormal EKG (R94.31) Active confirmed Problem Bradycardia (47673160) Bradycardia (R00.1) Active confirmed Problem Gout (23512231) Gout (M10.9) Active confirmed Problem Abdominal pain (86703180) Abdominal pain (R10.9) Active confirmed Problem Back pain (401905792) Back pain (M54.9) Active confirmed Problem Kidney stone (22486050) Kidney stones (N20.0) Active confirmed Problem 34717175 Constipation, unspecified constipation type (K59.00) Active confirmed Problem 75510359 Acute bronchitis , unspecified organism (J20.9) Active confirmed Problem Lumbar radicular shira n (4474176889) Lumbar radicular pain (M54.16) Active confirmed Problem Displacement of lumbar intervertebral disc without myelopathy (18150620) Herniated lumbar disc without myelopathy (M51.26) Active confirmed Problem Herpes zoster (0096394) Herpes zoster (B02.9) Active confirmed Problem Diverticular disease (443491836) Diverticular disease (K57.90) Active confirmed Problem Altered mental statu s (369254522) Altered mental status (R41.82) Active confirmed Problem Benign prostatic hyperplasia (447026486) Benign prostate hyperplasia (N40.0) Active confirmed Problem 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 c onfirmed Problem Adult health examination (634047764) Encounter for routine adult health examination (Z00.00) Active confirmed Problem Hypercholesterolemia (86170678) Hypercholesterolemia (E78.00) Active confirmed Problem 510864203 Elevated prostat e specific antigen [PSA] (R97.20) Active confirmed Problem 09165138 Primary hyperten emiliano (I10) Active confirmed Problem Diabetes mellitus (31105079) Diabetes mellitus (E11.9) Active confirmed Problem Easy bruising (505721128) Easy bruisability (R23.3) Active confirmed Vital Signs Heart Rate 48 /min 01/16/2025 Oximetry 96 % 01/16/2025 Blood pressure diastolic 102 mm Hg 05/26/2025 Height 70 in 05/26/2025 Blood pressure systolic 170 mm Hg 05/26/2025 Weight 168 lbs 05/26/2025 BMI 24.1 kg/m2 05/26/2025 Encounters Encounter Location Date Provider Diagnosis [facility] [address] [facility] [place] [address] 05/21/2025 Loco Keyes [facility] [address] [facility] [place] [address] 03/20/2025 Loco [facility] [address] [place] [facility] [place] [address] 04/16/2025 Loco [facility] [address] [place] [address] 04/21/2025 Loco Keyes Hypertension I10 [facility] [address] [place] [address] 04/22/2025 Loco [facility] [address] [place] [address] 05/19/2025 Loco Keyes [facility] [address] [facility] [address] 05/20/2025 Loco Hoy [facility] [address] [place] [address] 09/24/2024 Loco Hoy [facility] [address] [place] [place] [address] 09/24/2024 Loco Hoy Elevated prostate sp ecific antigen [PSA] R97.20 [facility] [address] [place] [place] [address] 09/26/2024 Loco Hoy [facility] [address] [place] [place] [address] 01/10/2025 Loco Hoy Hypertension I10 [facility] [address] [place] [place] [address] 01/16/2025 Loco Mariny [facility] [address] [place] [place] [address] 03/06/2025 Loco Mariny [facility] [address] [place] [place] [address] 04/15/2025 Loco Hoy Hypertension I10 ; T ransient global amnesia G45.4 and Easy bruisability R23.3 [facility] [address] [place] [place] [address] 04/18/2025 Loco Hoy Altered mental statu s R41.82 and Paralysis G83.9 [facility] [address] [place] [place] [address] 05/19/2025 Loco Hoy Hypertension I10 and Back pain M54.9 [facility] [address] [place] [place] [address] 05/26/2025 Loco Hoy Back pain M54.9 ; Jeannie mbar radicular pain M54.16 and Abdominal pain R10.9 [facility] [address] [place] [place] [address] 01/16/2025 Loco Hoy Influenza J11.1 [facility] [address] [place] [place] [address] 09/24/2024 Loco Hoy Encounter for immuni zation Z23 ; Type 2 diabetes mellitus without complications E11.9 ; Hypertension I10 ; Lumbar radicular pain M54.16 and Hypercholesterolemia E78.00 Assessments Encounter Date Diagnosis (ICD Code) Assessment [...] - R41.82) 04/18/2025 Paralysis (ICD-10 - G83.9) 05/19/2025 Hypertension (ICD-10 - I10) 05/19/2025 Back pain (ICD-10 - M54.9) 05/26/2025 Back pain (ICD-10 - M54.9) 05/26/2025 Lumbar radicular shira n (ICD-10 - M54.16) 09/24/2024 Elevated prostate specific antigen [PSA] (ICD-10 - R97.20) 01/10/2025 Hypertension (ICD-10 - I10) 04/21/2025 Hypertension (ICD-10 - I10) 05/26/2025 Abdominal pain (ICD- 10 - R10.9) 04/15/2025 Easy bruisability (ICD-10 - R23.3) 09/24/2024 Hypertension (ICD-10 - I10) good at home 09/24/2024 Lumbar radicular shira n (ICD-10 - M54.16) 09/24/2024 Hypercholesterolemia (ICD-10 - E78.00) cheding labs 01/16/2025 Other Rest and drink more liquids, especially water. You may use a humidifier or vaporizer to help keep the drainage moist. Obld-vrp-xxlpt er Nasal Saline may help the stuffy and runny nose. Use Ibuprofen and or Tylenol as needed for fever, chills, body aches or pain. Children 5 years old should not be given jopy-fpc-igogv er cough and cold medications such as guaifenesin and dextromethorph an. If you're over age 5, you may try bzoc-vnv-wnmic er cold medications such as guaifenesin and [...] to the emergency room or call 911. 05/19/2025 Other Recommended to rest and use a heating pad on the area. Take NSAIDs for pain as needed Plan Of Treatment Pending Test Test Name [...] OCCULT BLOOD 09/24/2024 STOOL OCCULT BLOOD 09/11/2023 CT ABD and PELV W CON 05/26/2025 MRI BRAIN WO CON 04/15/2025 MRI LSPINE WO CON 05/26/2025 XR HIP LT 2 3V W PELVIS 05/19/2025 XR LSPINE MIN 4 VIEWS 05/19/2025 THYROID PANEL (T4/TSH/FREE T3) 3 THYROID PANEL (T4/TSH/FREE T3) 4 THYROID PANEL (T4/TSH/FREE T3) 5 Free PSA 09/24/2024 XR pelvis min 3V 05/19/2025 CMP (COMP MET MAE) w/eGFR CKD-EPI 2024 CBC WITH DIFF 04/15/2025 Insurance Providers Payer Name Payer Address Payer Phone Subscriber Number Group Number Insured Name Patient Relationship to Insured Coverage Start Date Coverage End Date [place] [address] [place] [address] [phone] [id number] Dave Stephenson Self - patient is the insured Medical (General) History Medical History History ICD Code Herniated lumbar disc without myelopathy M51.26 Tinea corporis B35.4 Bradycardia R00.1 Benign prostate hyperplasia N40.0 Herpes zoster B02.9 Transient global amnesia G45.4 Encounter for routine adult health exami [facility] Z00.00 Kidney stones N20.0 Hypertension I10 Gout M10.9 Diabetes mellitus E11.9 Abnormal EKG R94.31 Diverticular disease K57.90 Surgical History Surgery Date(Month/Year) Colonoscopy 10/25/2023 Ureteral stents
--- OUTSIDE RECORDS SUMMARY | 2025-05-28 14:06 | XMS_ITS | Clinical Summary ---
Author Organization [facility] Address [id number] [address] [place] [address] Care Team Providers Care Vp Foundation Name Role Phone Unavailable Primary Care Provider [...] Orientation Not on file Plan of Treatment Health Maintenance Due Date Last Done Comments Depression Screening 1957 Tobacco Screening 1957 DTaP,Tdap and Td Vaccines (1 - Tdap) 1963 Zoster (Shingles) Vaccine (1 of 2) 1994 Fall Risk Screening 2009 Influenza Vaccine 07/07/2025 Medical Devices Not on file [place] [address]
--- OUTSIDE RECORDS SUMMARY | 2025-05-28 14:06 | XMS_ITS | Clinical Summary ---
Author Organization [facility] Address [address] [place] [address] Care Team Providers Care Photogrammetric Compilation Specialist Name Role Phone Unavailable Primary Care Provider [...]
--- OUTSIDE RECORDS SUMMARY | 2025-05-28 14:06 | XMS_ITS | Clinical Summary ---
Author Organization [facility] Address [address] [place] [address] Care Team Providers Care Aquatic Scientist Name Role Phone Unavailable Primary Care Provider [...]
== END 2025-05-28 14:04 | disposition home or self-care (01) ==
LOC: CT 14:03
PROVIDERS: PCP Family Medicine; Visit Provider Family Medicine
DX: R10.9 Unspecified abdominal pain (principal); S22.079A Unspecified fracture of T9-T10 vertebra, initial encounter for closed fracture; K57.30 Diverticulosis of large intestine without perforation or abscess without bleeding
CPT/HCPCS: 74177; Q9966

== ENCOUNTER 2025-06-05 13:13 | Outpatient (OUT) | payer MEDICARE, SELFPAY ==
--- OUTSIDE RECORDS SUMMARY | 2025-05-28 11:53 | XMS_ITS ---
Author Organization [facility] [place] Address [address] [place] [address] Care Team Providers Care Grout Worker Name Role Phone Loco Vargas Primary Care Provider Reason For Referral Diagnosis 1 Fracture of thoracic spine (S22.009A) Referral Organization [facility] Referring Provider First Name Loco Referring Provider Last Name Sam Referring Provider Speciality Family Med icine Referred Provider Ayan Kaur Referred Provider Specialty Neurosurgery Referral Priority Routine REASON FOR VISIT Fracture Encounters Encounter Location Date Provider Diagnosis [id number] [place] [address] 05/28/2025 Loco Sam Fracture of thoracic spine S22.009A Assessments Encounter Date Diagnosis (ICD Code) Assessment Notes Treatment Notes Treatment Clinical Notes Section Notes 05/28/2025 Fracture of thoracic spine (ICD-10 - S22.009A) Plan Of Treatment Referrals Referral Date Details 05/28/2025 05/28/2025Ayan Progress Notes * Dave STEPHENSON EDOB:[birth year] (79 yo M)Acc No.[id number]:05/28/2025 Patient: Caio WOODmichael Juarez :1945 A ge:79 Y S ex:Male Address:[address] [place] [address] [address], [place] [address] Subjective: * Chief Complaints: * F racture * Medical History: * Surgical History: * Hospitalization/Major Diagno stic Procedure: * Medications: Objective: * Vitals: * Physical Examination: Assessment: * Assessment: 1. F racture of thoracic spine - S22.009A (Primary) Plan: * Treatment: * Procedure Codes: * true * Date: Generated for Va lockhart/Eileen/Nazsmitting on: 0 06/05/2025 01:15 PM EDT Consultation Request Notes Referral Date Referring Provider Referred Provider Not es 05/28/2025 Loco Vargas [place]
--- OUTSIDE RECORDS SUMMARY | 2025-06-03 11:57 | XMS_ITS ---
Author Organization [facility] [place] Address [address] [place] [address] Care Team Providers Care Teacher Vocal Name Role Phone Tomasshad Loco Primary Care Provider REASON FOR VISIT MRI Lumbar Spine Medications Medication SIG (Take, Route, Frequency, Duration) Notes Start Date End Date Status Valium 10 MG 1 tablet as needed O rally once about 1 hour before procedure for 1 days 06/04/2025 Active Encounters Encounter Location Date Provider Diagnosis [facility] [address] [place] [address] 06/03/2025 Loco Vargas Plan Of Treatment Medication Medication Name Sig Start Date Stop Date Notes Valium 10 MG 1 tablet as needed O rally once about 1 hour before procedure for 1 days 06/04/2025 Progress Notes * Dave STEPHENSON EDOB:[birth year] (79 yo M)Acc No.[id number]:06/03/2025 Patient: Caio WOODmichael Juarez :1945 A ge:79 Y S ex:Male Address:[address] [place] [address] [address], [place] [address] * Refills Start Valium Tablet, 10 MG, Orally, 1, 1 tablet as needed, once about 1 hour before procedure, 1 days * true * Date: Generated for Printi ng/Faxing/eTransmitting on: 0 06/05/2025 01:15 PM EDT
--- NOTE | 2025-06-05 | MR_ITS ---
[address] [address] Patient Name: PARDEEP STEPHENSON MRN: [id number] date: 1945 Sex: M Assigned Patient Location: MRI Current Patient Location: MRI Accession/Order Number: [id number] Exam Date: 06/05/2025 23:40 Report Date: 06/05/2025 23:48 At the request of: HI KEYES MD Procedure: MR lumbar spine wo con MRI LUMBAR SPINE PERFORMED WITHOUT CONTRAST INDICATION: Lumbar radicular pain, chronic lumbar pain after fall COMPARISON: Lumbar spine x-rays 05/20/2025 FINDINGS: 6 lumbar type vertebral bodies with lumbarization of S1. Lumbar vertebral heights, alignment and bone marrow signal is unremarkable. Mild intervertebral space narrowing L3-S1. Rudimentary disc at S1-S2. Multilevel facet arthropathy noted. Conus medullaris terminates normally at L1-L2. Bilateral renal cysts, greatest in the right. Gallbladder appears distended. Incidental Tarlov cysts at S2 T12-L1: Normal disc. Mild facet hypertrophic change. No significant canal or neural foramen identified. L1-2: Anterior marginal plate spurring. Otherwise no significant disease or disc protrusion. Evidence of mild facet arthropathy. Canal neural foramina patent. L2-L3: Anterior marginal endplate spurring. No significant disease, central canal or neural foraminal narrowing identified. Mild to moderate facet arthropathy. L3-L4: Broad-based disc bulge with minimal endplate osteophytosis and azmr-is-gklmanem facet arthropathy. There is mild bilateral neural foraminal narrowing. Canal is patent. L4-5: Broad-based disc bulge with moderate facet arthropathy. Mild central canal stenosis. There is eltb-jn-bprmhoyg right neural foraminal narrowing and mild left neural foraminal narrowing identified. L5-S1: Circumferential disc bulge with moderate to severe facet arthropathy. Minimal T2 signal within the central region of the disc suggests a focal fissure. There is crowding both subarticular zones right greater left which encroaches upon the traversing S1 nerve roots. There is moderate severe canal narrowing. There is moderate severe right neural foraminal narrowing with question minimal mass effect on the exiting L5 nerve roots and moderate left neural foraminal narrowing. S1-S2: Rudimentary disc without significant disc disease canal or neural foraminal encroachment. MR/MR lumbar spine wo con IMPRESSION: Overall mild multilevel prominent posterior elements degenerative changes. Degenerative changes greatest at L5-S1 with moderate severe canal and right greater than left subarticular recess narrowing encroaching upon the exiting right S1 nerve root. Correlate with possible right S1 radiculopathy. Impression dictated by: Ga Bañuelos M.D. 06/05/2025 11:48 PM Dictation Location: [place] [address] Electronically authenticated by: [id number] Y Date: 06/05/2025 23:48
--- OUTSIDE RECORDS SUMMARY | 2025-06-05 13:15 | XMS_ITS | Clinical Summary ---
Author Organization [facility] Address [address] [place] [address] Care Team Providers Care Railways Assistant Name Role Phone Unavailable Primary Care Provider [...]
--- OUTSIDE RECORDS SUMMARY | 2025-06-05 13:15 | XMS_ITS | Clinical Summary ---
Author Organization [facility] Address [address] [place] [address] Care Team Providers Care Geospatial Imagery Intelligence Analyst Name Role Phone Unavailable Primary Care Provider [...]
--- OUTSIDE RECORDS SUMMARY | 2025-06-05 13:15 | XMS_ITS | Clinical Summary ---
Author Organization [facility] Address [id number] [address] [place] [address] Care Team Providers Care School Program Director Name Role Phone Unavailable Primary Care Provider [...]
--- OUTSIDE RECORDS SUMMARY | 2025-06-05 13:15 | XMS_ITS | Patient Health Record ---
Author Organization [facility] in [place] Address [address] [place] [address] Care Team Providers Care Education Teacher Name Role Phone Loco Keyes Primary Care Provider [phone] Allergies No Known Allergies Results Component Value Reference Range Notes FERRITIN Reviewed date:04/16/2025 01:00:05 PM Interpretation: Performing Lab: Notes/Report: [facility] , Ferritin 37.0 26.0-388.0 ng/mL Performing Lab: see note ML - [facility] LB IRON Reviewed date:04/16/2025 01:00:05 PM Interpretation: Performing Lab: Notes/Report: [facility] , Iron 79.0 65.0-175.0 ug/dL Performing Lab: see note ML - [facility] LB PTT Reviewed date:04/16/2025 01:00:05 PM Interpretation: Performing Lab: Notes/Report: [facility] , Partial Thromboplastin Time 28.1 22.3-36.2 sec Performing Lab: see note ML - [facility] LB CBC AUTO DIFF Reviewed date:09/24/2024 11:15:21 AM Interpretation: Performing Lab: Notes/Report: [facility] , White Blood Count 6.9 4.0-11.0 [...] Performing Lab: see note ML - [facility] LB FREE T3 Reviewed date:09/24/2024 08:35:11 PM Interpretation: Performing Lab: Notes/Report: [facility] , Free T3 2.74 2.18-3.98 pg/mL Performing Lab: see note ML - [facility] LB LIPID PROFILE Reviewed date:09/24/2024 08:35:11 PM Interpretation: Performing Lab: Notes/Report: [facility] , Triglycerides 94 <=150 mg/dL Cholesterol [...] Performing Lab: see note ML - [facility] LB PSA SCREENING Reviewed date:09/24/2024 08:35:11 PM Interpretation: Performing Lab: Notes/Report: [facility] , Prostate Specific Antigen Scrn 4.42 <=4.00 ng/mL Performing Lab: see note ML - [facility] LB T4 Reviewed date:09/24/2024 08:35:11 PM Interpretation: Performing Lab: Notes/Report: [facility] , T4 Thyroxine 8.80 4.50-12.10 ug/dL Performing Lab: see note ML - [facility] LB TSH Reviewed date:09/24/2024 08:35:11 PM Interpretation: Performing Lab: Notes/Report: [facility] , Thyroid Stimulating Hormone 1.701 0.358-3.740 uIU/mL Performing Lab: see note ML - [facility] LB URIC ACID SERUM Reviewed date:09/24/2024 08:35:11 PM Interpretation: Performing Lab: Notes/Report: [facility] , Uric Acid 7.2 3.5-7.2 mg/dL Performing Lab: see note ML - [facility] LB CBC AUTO DIFF Reviewed date:04/16/2025 01:00:05 PM Interpretation: Performing Lab: Notes/Report: [facility] , White Blood Count 7.0 4.0-11.0 10 [...] 10 3/uL Performing Lab: see note - [facility] PROF 14(COMP METB) Reviewed date:04/16/2025 01:00:05 PM Interpretation: Performing Lab: Notes/Report: [facility] , Sodium 141 136-145 mmol/L Potassium 5.0 [...] Globulin Ratio 0.8 Performing Lab: see note - [facility] LB T4 Reviewed date:04/16/2025 01:00:05 PM Interpretation: Performing Lab: Notes/Report: [facility] , T4 Thyroxine 7.00 4.50-12.10 ug/dL Performing Lab: see note - [facility] LB TSH Reviewed date:04/16/2025 01:00:05 PM Interpretation: Performing Lab: Notes/Report: [facility] , Thyroid Stimulating Hormone 2.054 0.358-3.740 uIU/mL Performing Lab: see note - [facility] LB Prothrombin Time INR Reviewed date:04/16/2025 01:00:05 PM Interpretation: Performing Lab: Notes/Report: [facility] , Prothrombin Time 11.3 9.0-11.6 sec INR 1.07 DESIRED INR: 2.0-3.0 CONDITIONS NOT LISTED BELOW 2.5-3.5 FOR PROSTHETIC HEART VALVE REPLACEMENT 2.5-3.5 RECURRENT THROMBOSIS Performing Lab: see note - [facility] LB CBC AUTO DIFF Reviewed date:05/18/2025 04:18:29 PM Interpretation: Performing Lab: Notes/Report: [facility] , White Blood Count 7.3 4.0-11.0 10 [...] Performing Lab: see note ML - [facility] LB GLYCOHEMOGLOBIN A1C Reviewed date:05/18/2025 04:18:29 PM Interpretation: Performing Lab: Notes/Report: [facility] , Glycohemoglobin A1C 5.6 4.5-6.2 % ADA RECOMMENDED LIMIT 4.0 - 6.0 ADA THERAPEUTIC TARGET < 7.0 ACTION SUGGESTED > 7.0 Estimated Average Glucose 114 Performing Lab: see note ML - [facility] LB ECG 12 lead Reviewed date:05/20/2025 08:59:54 PM Interpretation: Performing Lab: Notes/Report: Source Facility: [place] [address] Electrocardiograph Report Signed Patient: DAVE STEPHENSON MR#: [id number] : 1945 Acct:[id number] Age/Sex: 79 / M ADM Date: 05/16/25 Loc: ER Attending Dr: Ordering Physician: Elizabeth Jasso Date of Service: 05/16/25 Procedure(s): ECG 12 lead Accession Number(s): [id number] cc: [facility] Test Date: 2025-05-16 Pat Name: DAVE STEPHENSON Department: Room: - Gender: Male Manager Special Events: : 1945 Requested By: [id number] Order Number: [id number] Reading MD: JOANN CARBONE Measurements Intervals [place] Rate: 53 P: 63 KS: 338 QRS: 41 QRSD: 80 T: 117 QT: 454 QTc: 438 Interpretive Statements 1100 Sinus rhythm 2231 First degree AV block 4364 T wave abnormality, possible anterolateral ischemia 9150 abnormal ECG No previous ECG available for comparison Electronically Signed On 05-20-2025 16:10:29 EDT by JOANN CARBONE Dictated By: Joann Carbone M.D. Signed By: 05/20/25 1610 DD/ 1021 TD/TT: Coding Quality Analyst: [place] [address] Electrocardiograph Report Signed Patient: KRISTOPHER STEPHENSON MR#: [id number] : 1945 Acct:[id number] Age/Sex: 79 / M ADM Date: 05/16/25 Loc: ER Attending Dr: Ordering Physician: Elizabeth Jasso Date of Service: 05/16/25 Procedure(s): ECG 12 lead Accession Number(s): [id number] cc: [facility] Test Date: 2025-05-16 Pat Name: DAVE BELCHER Department: 76 Room: - Gender: Male Manager Special Events: : 1945 Requ ested By: [id number] Order Number: [id number] Reading MD: JOANN CARBONE Measurements Intervals [place] Rate: 53 P: 63 KS: 338 QRS: 41 QRSD: 80 T: 117 QT: 454 QTc: 438 Interpretive Statements 1100 Sinus rhythm 2231 First degree AV block 4364 T wave abnormal ity, possible anterolateral ischemia 9150 abnormal ECG No previous ECG avai lable for comparison Electronically Sole d On 05-20-2025 16:10:29 EDT by JOANN CARBONE Dictated By: Joann Carbone M.D. Signed By: 05/20/25 1610 DD/ 1021 TD/TT: Coding Quality Analyst: CT head/brain wo con Reviewed date:05/18/2025 04:18:29 PM Interpretation: Performing Lab: Notes/Report: Source Facility: [place] [address] [place] [address] CT Scan Report Signed Patient: DAVE STEPHENSON MR#: [id number] : 1945 Acct:[id number] Age/Sex: 79 / M ADM Date: 05/16/25 Loc: ER Attending Dr: Ordering Physician: Elizabeth Jasso Date of Service: 05/16/25 Procedure(s): CT head/brain wo con Accession Number(s): [id number] cc: Hi Keyes M.D. [place] [id number] Patient Name: DAVE STEPHENSON MRN: [id number] date: 1945 Sex: M Assigned Patient Location: ER Current Patient Location: ER Accession/Order Number: [id number] Exam Date: 05/16/2025 11:11 Report Date: 05/16/2025 [...] Lucas M.D. 05/16/2025 11:14 AM Dictation Location: [place] [address] Electronically authenticated by: [id number] Y Date: 05/16/2025 11:14 Dictated By: Nazia Lucas M.D. Signed By: 05/16/25 1117 DD/ 1114 TD/TT: Coding Quality Analyst: [place] [address] CT Scan Report Signed Patient: KRISTOPHER STEPHENSON MR#: [id number] : 1945 Acct:[id number] Age/Sex: 79 / M ADM Date: 05/16/25 Loc: ER Attending Dr: Ordering Physician: Elizabeth Jasso Date of Service: 05/16/25 Procedure(s): CT head/brain wo con Accession Number(s): [id number] cc: Hi Keyes M.D. The [place] [address] Patient Name: DAVE STEPHENSON MRN: [id number] date: 1945 Sex: M Assigned Patient Location: ER Current Patient Loca tion: ER Accession/Order Numb er: [id number] Exam Date: 05/16/2025 11:11 Report Date: 05/16/2025 11:14 At the request of: ELIZABETH JASSO MD Procedure: CT head/b rain wo con CT BRAIN WITHOUT CONTRAST: CLINICAL HISTORY: August suarez was hypoglycemic and fell. COMPARISON: MRI 04/22/2025 TECHNIQUE: Contiguou s axial unenhanced images were obtained through the [...] Lucas M.D. 05/16/2025 11:14 AM Dictation Location: [place] [address] Electronically authenticated by: [id number] Y Date: 05/16/2025 11:14 Dictated By: aNzia Lucas M.D. Signed By: 05/16/25 1117 DD/ 111 TD/TT: Coding Quality Analyst: XR hip LT 2V w/ pelvis Reviewed date:05/20/2025 08:59:54 PM Interpretation: Performing Lab: Notes/Report: Source Facility: [facility], [place] [address] XRay Report Signed Patient: DAVE STEPHENSON MR#: [id number] : 1945 Acct:[id number] Age/Sex: 79 / M ADM Date: 05/20/25 Loc: [facility] Attending Dr: Hi Keyes M.D. Ordering Physician: Hi Keyes M.D. Date of Service: 05/20/25 Procedure(s): XR hip LT 2V w/ pelvis Accession Number(s): [id number] cc: Hi Keyes M.D. [place] [address] Patient Name: DAVE STEPHENSON MRN: [facility]:[id number] date: 1945 Sex: M Assigned Patient Location: [facility] Current Patient Location: [facility] Accession/Order Number: [id number] Exam Date: 05/20/2025 12:17 Report Date: 05/20/2025 12:19 At the request of: HI KEYES MD Procedure: XR hip LT 2V w/ pelvis Single frontal view pelvis and 2 views left hip INDICATION: Back pain COMPARISON: None FINDINGS: Moderate to severe degenerative changes left hip with marginal osteophytosis and spurring. Uvdd-tt-kdcfiyee degenerative changes right hip. Degenerative changes both sacroiliac joints. No diastases of the sacroiliac joints or pubic symphysis. XR/XR hip LT 2V w/ pelvis Impression: Moderate severe degenerative changes left hip. No fracture or dislocation. Impression dictated by: Ga Bañuelos M.D. 05/20/2025 12:19 PM Dictation Location: [place] [address] Electronically authenticated by: [id number] Y Date: 05/20/2025 12:19 Dictated By: Ga Bañuelos M.D. Signed By: 05/20/25 1221 DD/ 1219 TD/TT: Coding Quality Analyst: [place] [address] XRay Report Signed Patient: KRISTOPHER STEPHENSON MR#: [id number] : 1945 Acct:[id number] Age/Sex: 79 / M ADM Date: 05/20/25 Loc: RAD Attending Dr: Shanika Keyes M.D. Ordering Physician: Hi Keyes M.D. Date of Service: 05/20/25 Procedure(s): XR hip LT 2V w/ pelvis Accession Number(s): [id number] cc: Hi Keyes M.D. [place] [address] Patient Name: DAVE STEPHENSON MRN: [id number] date: 1945 Sex: M Assigned Patient Location: RAD Current Patient Loca tion: RAD Accession/Order Numb er: [id number] Exam Date: 05/20/2025 12:17 Report Date: 05/20/2025 12:19 At the request of: HI KEYES MD Procedure: XR hip LT 2V w/ pelvis Single frontal view pelvis and 2 views left hip INDICATION: Back pain COMPARISON: None FINDINGS: Moderate t o severe degenerative changes left hip with marginal osteophytosis and spurring. Gsnk-er-maswapfj degenerative changes right hip. Degenerative changes both sacroiliac joints. No diastases of the sacroiliac joints or pubic symphysis. X R/XR hip LT 2V w/ pelvis Impression: Moderate severe degenerative changes left hip. No fracture or dislocation. Impression dictated by: Ga Bañuelos M.D. 05/20/2025 12:19 PM Dictation Location: [place] [address] Electronically authenticated by: [id number] Y Date: 05/20/2025 12:19 Dictated By: Tabitha Bañuelos M.D. Signed By: 05/20/25 1221 DD/ 1219 TD/TT: Coding Quality Analyst: XR lumbar spine min 4V Reviewed date:05/20/2025 08:59:54 PM Interpretation: Performing Lab: Notes/Report: Source Facility: [facility] [place] [address] [place] [address] XRay Report Signed Patient: DAVE STEPHENSON MR#: [id number] : 1945 Acct:[id number] Age/Sex: 79 / M ADM Date: 05/20/25 Loc: RAD Attending Dr: Hi Keyes M.D. Ordering Physician: Hi Keyes M.D. Date of Service: 05/20/25 Procedure(s): XR lumbar spine min 4V Accession Number(s): [id number] cc: Hi Keyes M.D. [place] [address] Patient Name: DAVE STEPHENSON MRN: [id number] date: 1945 Sex: M Assigned Patient Location: [facility] Current Patient Location: [facility] Accession/Order Number: [id number] Exam Date: 05/20/2025 12:19 Report Date: 05/20/2025 12:22 At the request of: HI KEYES MD Procedure: XR lumbar spine min 4V LUMBAR SPINE - 5 views CLINICAL HISTORY: Back Pain COMPARISON: CT lumbar spine 05/16/2025 FINDINGS: Multilevel flowing anterior ossification identified throughout the thoracic spine can be seen with underlying DISH. This fusion of both sacroiliac joints better seen comparison. Multilevel mvjv-er-lutwmslp intervertebral space narrowing with endplate osteophytosis. Lumbarization of S1. Moderate severe facet arthropathy L4-S1. XR/XR lumbar spine min 4V IMPRESSION: NO ACUTE BONY INJURY. 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 05/20/2025 12:22 PM Dictation Location: [place] [address] Electronically authenticated by: [id number] Y Date: 05/20/2025 12:22 Dictated By: Ga Bañuelos M.D. Signed By: 05/20/25 1224 DD/ 1222 TD/TT: Coding Quality Analyst: [place] [address] XRay Report Signed Patient: KRISTOPHER STEPHENSON MR#: [id number] : 1945 Acct:[id number] Age/Sex: 79 / M ADM Date: 05/20/25 Loc: RAD Attending Dr: Shanika Keyes M.D. Ordering Physician: Hi Keyes M.D. Date of Service: 05/20/25 Procedure(s): XR lum bar spine min 4V Accession Number(s): [id number] cc: Hi Keyes M.D. [place] [address] Patient Name: DAVE STEPHENSON MRN: [facility]:[id number] date: 1945 Sex: M Assigned Patient Location: [facility] Current Patient Loca tion: RAD Accession/Order Numb er: [id number] Exam Date: 05/20/2025 12:19 Report Date: 05/20/2025 [...] sacroiliac joints better seen comparis on. Multilevel qulh-nc-dkaaakdu intervertebral space narrowing with endpl ate osteophytosis. Lumbarization of S1. Moderate severe facet arthropathy L4-S1. X R/XR lumbar spine min 4V IMPRESSION: NO ACUTE BONY INJURY . 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 05/20/2025 12:22 PM Dictation Location: [place] [address] Electronically authenticated by: [id number] Y Date: 05/20/2025 12:22 Dictated By: Tabitha Bañuelos M.D. Signed By: 05/20/25 1224 DD/ 1222 TD/TT: Coding Quality Analyst: CT abdomen pelvis w con Reviewed date:05/28/2025 06:08:02 PM Interpretation: Performing Lab: Notes/Report: Source Facility: [place] [address] [place] [address] CT Scan Report Signed Patient: DAVE STEPHENSON MR#: [id number] : 1945 Acct:[id number] Age/Sex: 79 / M ADM Date: 05/28/25 Loc: CT Attending Dr: Hi Keyes M.D. Ordering Physician: Hi Keyes M.D. Date of Service: 05/28/25 Procedure(s): CT abdomen pelvis w con Accession Number(s): [id number] cc: Hi Keyes M.D. [place] [id number] Patient Name: DAVE STEPHENSON MRN: [facility]:[id number] date: 1945 Sex: M Assigned Patient Location: CT Current Patient Location: [facility] Accession/Order Number: [id number] Exam Date: 05/28/2025 15:32 Report Date: 05/28/2025 15:45 At the request of: HI KEYES MD Procedure: CT abdomen pelvis w con CT ABDOMEN AND PELVIS WITH INTRAVENOUS CONTRAST: CLINICAL HISTORY: Abdominal Pain COMPARISON: None TECHNIQUE: Spiral images were obtained through the abdomen and pelvis following the administration of intravenous contrast. This CT exam was performed using one or more following dose reduction techniques: Automated exposure control, adjustment of the mA and/or kV according to patient size, or use of iterative reconstruction technique. FINDINGS: Lung Bases: [Bibasilar atelectasis.] Organs:Liver granulomas. Gallbladder portal vein spleen pancreas and adrenal glands all appear unremarkable. Cystic changes involving the kidneys. Abdominal aorta appears normal in caliber.[ GI: Stomach appears grossly unremarkable. Presumed reflux contrast is seen involving the distal esophagus. Small bowel appears nondilated. Moderate stool burden. Colonic diverticulosis.[ Pelvis:[Urinary bladder diverticulosis with dependent calculi present. Prostatomegaly.] Peritoneum/Retroperitoneum:No free air or free fluid or lymphadenopathy.[ Abd wall/Bones:Abdominal wall demonstrates no acute findings. Osseous structures demonstrate degenerative change. There appears to be a mildly displaced fracture involving the spinous process of T9.[This is best seen on sagittal image 55. CT/CT abdomen pelvis w con IMPRESSION: Mildly displaced acute fracture involving the spinous process of T9. Colonic diverticulosis. Urinary bladder diverticulosis with multiple calculi present. Prostatomegaly. FINDINGS OF THIS REPORT WERE GIVEN TO THE SLIP COVER OPERATOR STAFF FOR EXPEDITED RELAY OF RESULTS TO THE REFERRING CLINICIAN. Impression dictated by: Valdo Bar Jr., D.O. 05/28/2025 3:45 PM Dictation Location: [place] [address] Electronically authenticated by: [id number] Y Date: 05/28/2025 15:45 Dictated By: Valdo Bar M.D. Signed By: 05/28/25 1548 DD/ 154 TD/TT: Coding Quality Analyst: [place] [address] CT Scan Report Signed Patient: KRISTOPHER STEPHENSON MR#: [id number] : 1945 Acct:[id number] Age/Sex: 79 / M ADM Date: 05/28/25 Loc: CT Attending Dr: Shanika Keyes M.D. Ordering Physician: Hi Keyes M.D. Date of Service: 05/28/25 Procedure(s): CT abd omen pelvis w con Accession Number(s): [id number] cc: Hi Keyes M.D. [place] [address] Patient Name: DAVE STEPHENSON MRN: [id number] date: 1945 Sex: M Assigned Patient Location: CT Current Patient Loca tion: INF Accession/Order Numb er: [id number] Exam Date: 05/28/2025 15:32 Report Date: 05/28/2025 15:45 At the request of: HI KEYES MD Procedure: CT abdome n pelvis w con CT ABDOMEN AND PELVI S WITH INTRAVENOUS CONTRAST: CLINICAL HISTORY: Abdominal Pain COMPARISON: None TECHNIQUE: Spiral im ages were obtained through the abdomen and pelvis following the administration of intravenous contrast. This CT exam was performed using one or more following dose reduction techniques: Automated exposure control, adjustment of the mA and/or kV according to patient size, or use of iterative reconstruction technique. FINDINGS: Lung Bases: [Bibasil ar atelectasis.] Organs:Liver granulo mas. Gallbladder portal vein spleen pancreas and adrenal glands all appear unremarkable. Cystic changes involving the kidneys. Abdominal aorta appe ars normal in caliber.[ GI: Stomach appears grossly unremarkable. Presumed reflux contrast is seen involving the distal esophagus. Small bowel appears nondilated. Moderate stool burden. Coloni c diverticulosis.[ Pelvis:[Urinary blad tuyet diverticulosis with dependent calculi present. Prostatomegaly.] Peritoneum/Retroperi toneu m:No free air or free fluid or lymphadenopathy.[ Abd wall/Bones:Abdom inal wall demonstrates no acute findings. Osseous structures demonstra te degenerative change. There appears to be a mildly displaced fracture involving the spinous process of T9.[This is best seen on sagittal image 55. C T/CT abdomen pelvis w con IMPRESSION: Mildly displaced acu te fracture involving the spinous process of T9. Colonic diverticulosis. Urinary bladder diverticulosis with multiple calculi present. Prostatomegaly. FINDINGS OF THIS REP ORT WERE GIVEN TO THE SLIP COVER OPERATOR STAFF FOR EXPEDITED RELAY OF RESULTS TO THE REFERRING CLINICIAN. Impression dictated by: Valdo Bar Jr., DReyesOReyes 05/28/2025 3:45 PM Dictation Location: [place] [address] Electronically authenticated by: [id number] Y Date: 05/28/2025 15:45 Dictated By: Valdo Bar M.D. Signed By: 05/28/25 1548 DD/ 1545 TD/TT: Coding Quality Analyst: LEATHA T3 Reviewed date:04/16/2025 01:00:05 PM Interpretation: Performing Lab: Notes/Report: [facility] , Free T3 2.48 2.18-3.98 pg/mL Performing Lab: see note ML - [facility] LB Occult Blood* Reviewed date:09/24/2024 08:35:11 PM Interpretation: Performing Lab: Notes/Report: [facility] , Occult Blood Positive Performing Lab: see note ML - [facility] LB PSA Total+% Free Reviewed date:09/26/2024 02:55:44 PM Interpretation: Performing Lab: Notes/Report: [facility] , Prostate Specific Ag 4.2 0.0-4.0 ng/mL Mercedes ECLIA methodology. According to the [employer], Serum PSA should decrease and [...] any other population of men. Performed at: [facility] [employer] [address] [id number] Truck Mechanic Apprentice: Edouard Meng PhD, Phone: [phone] Performing Lab: see note [facility] LB PROF 14(COMP METB) Reviewed date:09/24/2024 08:35:11 PM Interpretation: Performing Lab: Notes/Report: [facility] , Sodium 140 136-145 mmol/L Potassium [...] Globulin Ratio 0.7 Performing Lab: see note - [facility] LB GLYCOHEMOGLOBIN A1C Reviewed date:09/24/2024 11:15:21 AM Interpretation: Performing Lab: Notes/Report: [facility] , Glycohemoglobin A1C 5.8 4.5-6.2 % ADA RECOMMENDED LIMIT 4.0 - 6.0 ADA THERAPEUTIC TARGET < 7.0 ACTION SUGGESTED > 7.0 Estimated Average Glucose 120 Performing Lab: see note ML - [facility] CT lumbar spine wo con Reviewed date:05/18/2025 04:18:29 PM Interpretation: Performing Lab: Notes/Report: Source Facility: [place] [address] CT Scan Report Signed Patient: DAVE STEPHENSON MR#: [id number] : 1945 Acct:[id number] Age/Sex: 79 / M ADM Date: 05/16/25 Loc: ER Attending Dr: Ordering Physician: Elizabeth Jasso Date of Service: 05/16/25 Procedure(s): CT lumbar spine wo con Accession Number(s): [id number] cc: Hi Keyes M.D. [place] [address] Patient Name: DAVE STEPHENSON MRN: [id number] date: 1945 Sex: M Assigned Patient Location: ER Current Patient Location: ER Accession/Order Number: [id number] Exam Date: 05/16/2025 11:14 Report Date: 05/16/2025 11:26 At the request of: ELIZABETH AJSSO MD Procedure: CT lumbar spine wo con [...] Lucas M.D. 05/16/2025 11:26 AM Dictation Location: [place] [address] Electronically authenticated by: [id number] Y Date: 05/16/2025 11:26 Dictated By: Nazia Lucas M.D. Signed By: 05/16/25 1129 DD/ 1126 TD/TT: Coding Quality Analyst: [place] [address] CT Scan Report Signed Patient: KRISTOPHER STEPHENSON MR#: [id number] : 1945 Acct:[id number] Age/Sex: 79 / M ADM Date: 05/16/25 Loc: ER Attending Dr: Ordering Physician: Elizabeth Jasso Date of Service: 05/16/25 Procedure(s): CT lum bar spine wo con Accession Number(s): [id number] cc: Hi Keyes M.D. [place] [address] Patient Name: DAVE STEPHENSON MRN: [id number] date: 1945 Sex: M Assigned Patient Location: ER Current Patient Loca tion: ER Accession/Order Numb er: [id number] Exam Date: 05/16/2025 11:14 Report Date: 05/16/2025 [...] Lucas M.D. 05/16/2025 11:26 AM Dictation Location: [place] [address] Electronically authenticated by: [id number] Y Date: 05/16/2025 11:26 Dictated By: Nazia Lucas M.D. Signed By: 05/16/25 1129 DD/ 1126 TD/TT: Coding Quality Analyst: PROF [place](COMP METB) Reviewed date:05/18/2025 04:18:29 PM Interpretation: Performing Lab: Notes/Report: [facility] , Sodium 140 136-145 mmol/L Potassium 4.5 [...] 0.7 Performing Lab: see note ML - [facility] LB MR head/brain wo con Reviewed date:04/22/2025 12:50:56 PM Interpretation: Performing Lab: Notes/Report: Source Facility: [place] [address] Magnetic Resonance Report Signed Patient: DAVE STEPHENSON MR#: [id number] : 1945 Acct:[id number] Age/Sex: 79 / M ADM Date: 04/22/25 Loc: MRI Attending Dr: Hi Kyees M.D. Ordering Physician: Hi Keyes M.D. Date of Service: 04/22/25 Procedure(s): MR head/brain wo con Accession Number(s): [id number] cc: Hi Keeys M.D. [place] [id number] Patient Name: DAEV STEPHENSON MRN: [id number] date: 1945 Sex: M Assigned Patient Location: MRI Current Patient Location: MRI Accession/Order Number: [id number] Exam Date: 04/22/2025 11:12 Report Date: 04/22/2025 [...] Lucas M.D. 04/22/2025 11:21 AM Dictation Location: [place] [address] Electronically authenticated by: [id number] Y Date: 04/22/2025 11:21 Dictated By: Nazia Lucas M.D. Signed By: 04/22/25 1124 DD/ 1121 TD/TT: Coding Quality Analyst: [place] [address] Magnetic Resonance Report Signed Patient: KRISTOPHER STEPHENSON MR#: [id number] : 1945 Acct:[id number] Age/Sex: 79 / M ADM Date: 04/22/25 Loc: MRI Attending Dr: Shanika Keyes M.D. Ordering Physician: Hi Keyes M.D. Date of Service: 04/22/25 Procedure(s): MR head/brain wo con Accession Number(s): [id number] cc: Hi Keyes M.D. [place] [id number] Patient Name: DAVE STEPHENSON MRN: [id number] date: 1945 Sex: M Assigned Patient Location: MRI Current Patient Loca tion: MRI Accession/Order Numb er: [id number] Exam Date: 04/22/2025 11:12 Report Date: 04/22/2025 [...] Lucas M.D. 04/22/2025 11:21 AM Dictation Location: [place] [address] Electronically authenticated by: [id number] Y Date: 04/22/2025 11:21 Dictated By: Nazia Lucas M.D. Signed By: 04/22/25 1124 DD/ 1121 TD/TT: Coding Quality Analyst: Reason For Referral Diagnosis 1 Hip pain (M25.559) Referral Organization [facility] Referring Provider First Name Loco Referring Provider Last Name Sam Referring Provider [facility] icine Referred Provider [facility], Physical Therap y Referred Provider Specialty Physical The rapist Referral Priority Routine Diagnosis 1 Fracture of thoracic spine (S22.009A) Referral Organization [facility] Referring Provider First Name Loco Referring Provider Last Name Sam Referring Provider [facility] icidevin Referred Provider Ayan Kaur Referred Provider Specialty Neurosurgery Referral Priority Routine Medications Medication SIG (Take, [...] DX E11.9 for 90 days 01/16/2025 Active Valium 10 MG 1 tablet as needed Orally once about 1 hour before procedure for 1 days 06/04/2025 Active Immunizations Vaccine Route Administration Date Status Comme nts Flu, Fluad (79227) 65 yrs and older, single-dose syringe IM Intramuscular 09/24/2024 Administered Flu, Fluad (49670) 65 yrs+, single-dose syringe (6185-4291) IM Intramuscular 09/11/2023 Administered Social History Tobacco [...] W/U Status Risk Notes Problem Vaccination given (790014647) Encounter for immunization (Z23) Active confirmed Problem 533202346 Type 2 diabetes mellitus without complications (E11.9) Active confirmed Problem Tinea corporis (40803903) Tinea corporis (B35.4) Active confirmed Problem 79431563 Hyperkalemia (E87.5) Active confirmed Problem Transient global amnesia (219201505) 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 confirmed Problem 45031607988128292 Acute kidney f ailure, unspecified (N17.9) Active confirmed Problem 287766053 jail (curre nt) use of insulin (Z79.4) Active confirmed Problem Hypertension (10138820) Hypertension (I10) Active confirmed Problem Electrocardiogram abnormal (293051535) Abnormal EKG (R94.31) Active confirmed Problem Bradycardia (36252133) Bradycardia (R00.1) Active confirmed Problem Gout (51494204) Gout (M10.9) Active confirmed Problem Abdominal pain (28036751) Abdominal pain (R10.9) Active confirmed Problem Back pain (179845805) Back pain (M54.9) Active confirmed Problem Kidney stone (39437742) Kidney stones (N20.0) Active confirmed Problem 43005305 Constipation, unspecified constipation type (K59.00) Active confirmed Problem 39529431 Acute bronchitis , unspecified organism (J20.9) Active confirmed Problem Lumbar radicular shira n (9057602252) Lumbar radicular pain (M54.16) Active confirmed Problem Displacement of lumbar intervertebral disc without myelopathy (03062308) Herniated lumbar disc without myelopathy (M51.26) Active confirmed Problem Herpes zoster (6231243) Herpes zoster (B02.9) Active confirmed Problem Diverticular disease (959041669) Diverticular disease (K57.90) Active confirmed Problem Altered mental statu s (102490082) Altered mental status (R41.82) Active confirmed Problem Benign prostatic hyperplasia (155804819) Benign prostate hyperplasia (N40.0) Active confirmed Problem 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 Problem Adult health examination (489286564) Encounter for routine adult health examination (Z00.00) Active confirmed Problem Hypercholesterolemia (23442588) Hypercholesterolemia (E78.00) Active confirmed Problem 809138606 Elevated prostat e specific antigen [PSA] (R97.20) Active confirmed Problem 06883188 Primary hyperten emiliano (I10) Active confirmed Problem Diabetes mellitus (92101257) Diabetes mellitus (E11.9) Active confirmed Problem Easy bruising (415492495) Easy bruisability (R23.3) Active confirmed Vital Signs Heart Rate 48 /min 01/16/2025 Oximetry 96 % 01/16/2025 Blood pressure diastolic 102 mm Hg 05/26/2025 Height 70 in 05/26/2025 Blood pressure systolic 170 mm Hg 05/26/2025 Weight 168 lbs 05/26/2025 BMI 24.1 kg/m2 05/26/2025 Encounters Encounter Location Date Provider Diagnosis [place] [address] [place] [address] 04/15/2025 Loco Hoy Hypertension I10 ; T ransient global amnesia G45.4 and Easy bruisability R23.3 [facility] [address] [place] [address] 04/18/2025 Loco Hoy Altered mental statu s R41.82 and Paralysis G83.9 [place] [address] [place] [address] 05/19/2025 Loco Hoy Hypertension I10 and Back pain M54.9 [place] [address] [place] [address] 05/26/2025 Loco Hoy Back pain M54.9 ; Jeannie mbar radicular pain M54.16 and Abdominal pain R10.9 [facility] [address] [place] [address] 01/16/2025 Loco Keyes Influenza J11.1 [facility] [address] [facility] [place] [address] 09/24/2024 Loco Keyes Encounter for immuni zation Z23 ; Type 2 diabetes mellitus without complications E11.9 ; Hypertension I10 ; Lumbar radicular pain M54.16 and Hypercholesterolemia E78.00 [facility] [address] [facility] [place] [address] 09/24/2024 Loco Keyes [facility] [address] [facility] [place] [address] 09/24/2024 Loco Keyes Elevated prostate sp ecific antigen [PSA] R97.20 [facility] [address] [facility] [place] [address] 09/26/2024 Loco Keyes [facility] [address] [facility] [place] [address] 01/10/2025 Loco Keyes Hypertension I10 [facility] [address] [facility] [place] [address] 01/16/2025 Loco Keyes [facility] [address] [facility] [place] [address] 03/06/2025 Loco Keyes [facility] [address] [place] [address] 03/20/2025 Loco Keyes [facility] [address] [facility] [place] [address] 04/16/2025 Loco Keyes [facility] [address] [place] [facility] [place] [address] 04/21/2025 Loco Keyes Hypertension I10 [facility] [address] [place] [facility] [place] [address] 04/22/2025 Loco Keyes [facility] [address] [facility] [place] [address] 05/19/2025 Loco Keyes [facility] [address] [facility] [place] [address] 05/20/2025 Loco Keyes [facility] [address] [place] [address] 05/21/2025 Loco Keyes [facility] [address] [place] [address] 05/28/2025 Loco Keyes Fracture of thoracic spine S22.009A [facility] [address] [place] [address] 06/03/2025 Loco Keyes Assessments Encounter Date Diagnosis (ICD [...] - I10) 04/21/2025 Hypertension (ICD-10 - I10) 05/28/2025 Fracture of thoracic spine (ICD-10 - S22.009A) 05/26/2025 Abdominal pain (ICD- 10 - R10.9) 04/15/2025 Easy bruisability (ICD-10 - R23.3) 09/24/2024 Hypertension (ICD-10 - I10) good at home 09/24/2024 Lumbar radicular shira n (ICD-10 - M54.16) 09/24/2024 Hypercholesterolemia (ICD-10 - E78.00) cheding labs 01/16/2025 Other Rest and drink more liquids, especially water. You may use a humidifier or vaporizer to help keep the drainage moist. Crwf-bab-xiaff er Nasal Saline may help the stuffy and runny nose. Use Ibuprofen and or Tylenol as needed for fever, chills, body aches or pain. Children 5 years old should not be given xscj-nnb-owpel er cough and cold medications such as guaifenesin and dextromethorph an. If you're over age 5, you may try ymal-hlk-oowed er cold medications such as guaifenesin and [...] Start Date Coverage End Date [place] [address] [place] [address] [id number] Dave Stephenson Self - patient is the insured Medical (General) History Medical History History ICD Code Herniated lumbar disc without myelopathy M51.26 Tinea corporis B35.4 Bradycardia R00.1 Benign prostate hyperplasia N40.0 Herpes zoster B02.9 Transient global amnesia G45.4 Encounter for routine adult health exami nation Z00.00 Kidney stones N20.0 Hypertension I10 Gout M10.9 Diabetes mellitus E11.9 Abnormal EKG R94.31 Diverticular disease K57.90 Surgical History Surgery Date(Month/Year) Ureteral stents Colonoscopy 10/25/2023
== END 2025-06-05 13:14 | disposition home or self-care (01) ==
LOC: MRI 13:13
PROVIDERS: PCP Family Medicine; Visit Provider Family Medicine
DX: R10.9 Unspecified abdominal pain (principal); M54.16 Radiculopathy, lumbar region; M51.369 Other intervertebral disc degeneration, lumbar region without mention of lumbar back pain or lower extremity pain
CPT/HCPCS: 72148